=== PATIENT | female | born 1950 | race Caucasian/White ===

== ENCOUNTER 2019-04-08 09:44 | Emergency (ER) | payer MEDICARE ==
[~2019-04-08] VITALS: Ht 154.9 cm; Wt 98.9 kg
[2019-04-08] MEDS ORDERED: ONDANSETRON 4 MG/2 ML (SDV) Z0FRAN IVP STA (10:09)
[2019-04-08] MEDS ORDERED: KETOROLAC 30 MG/ML VIAL IVP STA (10:09)
[2019-04-08] MEDS ORDERED: NS IV 1000 ML 1,000 ML IV STA (10:09)
--- NOTE | 2019-04-08 10:20 | ED Headache ---
General Chief Complaint: Head/Cervical Problems Stated Complaint: HEADACHE,NAUSEA Source: patient, family History of Present Illness Date Seen by Provider: Apr 08, 2019 Time Seen by Provider: 09:46 Initial Comments 68-year-old female presenting with complaints of not feeling well this week. She has had a headache since Wednesday. The headache is frontal and behind both eyes. She also has some pressure in her right maxillary sinus. She has had a lot of nasal drainage. She has had chills but denies fever. She has generalized body aches and joint aches. She also has been noting some burning and discomfort with urination. She feels like she has been having some cough and difficulty breathing at times. She was feeling like things were getting worse so she had her family bring her to the emergency department today. She has not tried to get ahold of her regular doctor or go to see them throughout suite not feeling well. She had a cataract surgery about 6 weeks ago and continues to have some vision changes from that. She does have a history of 3 brain tumors with the first being operated on in 2004 and then having radiation in 2018 and the most recent brain tumor being nonoperable and present currently. She denies having a history of having headaches like this. She reports that it is severe for her. She denies any head trauma or falls. She has had no injuries. Allergies and Home Medications Allergies Coded Allergies: Sulfa (Sulfonamide Antibiotics) (Verified Allergy, Unknown, 04/08/19) iodine (Verified Allergy, Unknown, 04/08/19) metronidazole (Verified Allergy, Unknown, 04/08/19) Home Medications Ciprofloxacin HCl 500 Mg Tablet, 500 MG PO BID Prescribed by: ISAURA ZAMORA on 04/08/19 1219 Ondansetron 4 Mg Tab.rapdis, 4 MG PO Q6H PRN for NAUSEA/VOMITING Prescribed by: ISAURA ZAMORA on 04/08/19 1219 Patient Home Medication List Home Medication List Reviewed: Yes Review of Systems Review of Systems Constitutional: chills; No fever; malaise Eyes: Denies Blindness, Denies Blurred Vision; Decreased Acuity (since having cataract surgery several weeks ago.), Photophobia Ears, Nose, Mouth, Throat: see HPI (pressure behind both of her eyes); denies ear pain, denies ear discharge, denies nose pain; nose discharge (reports having some congestion and drainage.); denies epistaxis Respiratory: cough, short of breath Cardiovascular: No chest pain Gastrointestinal: No abdominal pain; nausea; No vomiting Genitourinary: dysuria Musculoskeletal: joint pain (generalized), muscle pain (generalized) Skin: No rash Psychiatric/Neurological: Anxiety, Headache (headache localized behind both of her eyes) Past Baccucg-Dzwjuo-Sctpid Hx Past Med/Social Hx: Reviewed Nursing Past Med/Soc Hx Patient Social History Alcohol Use: Denies Use Recreational Drug Use: No Smoking Status: Never a Smoker 2nd Hand Smoke Exposure: No Recent Hopitalizations: No Physical Abuse: No Sexual Abuse: No Mistreated: No Fear: No Immunizations Up To Date Tetanus Booster (TDap): Unknown Date of Pneumonia Vaccine: Mar 29, 2019 Seasonal Allergies Seasonal Allergies: Yes Past Medical History Surgeries: Yes (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, ) Eye Surgery Respiratory: No Cardiac: Yes High Cholesterol, Hypertension Neurological: Yes Brain Tumor Genitourinary: Yes (Adrenal Insufficency, Over active Bladder) Gastrointestinal: Yes Colitis, Gastroesophageal Reflux Musculoskeletal: Yes Fibromyalgia, Chronic Back Pain Endocrine: Yes Diabetes, Insulin dep HEENT: Yes (Bilateral Cataract removal) Cataract Cancer: No Psychosocial: Yes Depression Blood Disorders: No Physical Exam Vital Signs Vital Signs - First Documented 04/08/19 09:50 Temp 36.1 Pulse 79 Resp 20 B/P (MAP) 186/98 (127) Pulse Ox 96 O2 Delivery Room Air Capillary Refill : Height, Weight, BMI Height: '" Weight: lbs. oz. kg; BMI Method: General Appearance: WD/WN, mild distress, obese HEENT: PERRL/EOMI, pharynx normal, photophobia, other (tender to palpation over right maxillary sinus) Neck: non-tender, full range of motion, supple Cardiovascular: normal peripheral pulses, regular rate, rhythm Respiratory: chest non-tender, lungs clear, normal breath sounds Gastrointestinal: normal bowel sounds, non tender, soft Extremities: normal range of motion, non-tender, normal capillary refill Psychiatric: alert, oriented x 3 Crainal Nerves: normal hearing, normal speech, PERRL Coordination/Gait: normal gait Motor/Sensory: no motor deficit, no sensory deficit Skin: normal color, warm/dry Progress/Results/Core Measures Results/Orders Lab Results Laboratory Tests Test 04/08/19 10:25 04/08/19 10:30 Range/Units White Blood Count 6.6 4.3-11.0 10^3/uL Red Blood Count 4.57 4.35-5.85 10^6/uL Hemoglobin 13.3 11.5-16.0 G/DL Hematocrit 40 35-52 % Mean Corpuscular Volume 87 80-99 FL Mean Corpuscular Hemoglobin 29 25-34 PG Mean Corpuscular Hemoglobin Concent 33 32-36 G/DL Red Cell Distribution Width 12.9 10.0-14.5 % Platelet Count 368 130-400 10^3/uL Mean Platelet Volume 10.9 H 7.4-10.4 FL Neutrophils (%) (Auto) 54 42-75 % Lymphocytes (%) (Auto) 34 12-44 % Monocytes (%) (Auto) 9 0-12 % Eosinophils (%) (Auto) 2 0-10 % Basophils (%) (Auto) 1 0-10 % Neutrophils # (Auto) 3.6 1.8-7.8 X 10^3 Lymphocytes # (Auto) 2.3 1.0-4.0 X 10^3 Monocytes # (Auto) 0.6 0.0-1.0 X 10^3 Eosinophils # (Auto) 0.1 0.0-0.3 10^3/uL Basophils # (Auto) 0.1 0.0-0.1 10^3/uL Prothrombin Time 17.9 H 12.2-14.7 SEC INR Comment 1.4 0.8-1.4 Activated Partial Thromboplast Time 22 L 24-35 SEC Sodium Level 140 135-145 MMOL/L Potassium Level 4.0 3.6-5.0 MMOL/L Chloride Level 104 98-107 MMOL/L Carbon Dioxide Level 23 21-32 MMOL/L Anion Gap 13 5-14 MMOL/L Blood Urea Nitrogen 15 7-18 MG/DL Creatinine 1.11 0.60-1.30 MG/DL Estimat Glomerular Filtration Rate 49 BUN/Creatinine Ratio 14 Glucose Level 159 H 70-105 MG/DL Calcium Level 10.3 H 8.5-10.1 MG/DL Corrected Calcium 10.2 H 8.5-10.1 MG/DL Total Bilirubin 0.7 0.1-1.0 MG/DL Aspartate Amino Transf (AST/SGOT) 21 5-34 U/L Alanine Aminotransferase (ALT/SGPT) 16 0-55 U/L Alkaline Phosphatase 82 40-136 U/L Total Protein 7.1 6.4-8.2 GM/DL Albumin 4.1 3.2-4.5 GM/DL Lipase 37 8-78 U/L Urine Color YELLOW Urine Clarity SLT CLOUDY Urine pH 7.0 5-9 Urine Specific [place] 1.015 L 1.016-1.022 Urine Protein NEGATIVE NEGATIVE Urine Glucose (UA) NEGATIVE NEGATIVE Urine Ketones NEGATIVE NEGATIVE Urine Nitrite NEGATIVE NEGATIVE Urine Bilirubin NEGATIVE NEGATIVE Urine Urobilinogen 0.2 < = 1.0 MG/DL Urine Leukocyte Esterase TRACE H NEGATIVE Urine RBC (Auto) NEGATIVE NEGATIVE Urine RBC 0 /HPF Urine WBC 0-2 /HPF Urine Squamous Epithelial Cells 0-2 /HPF Urine Crystals NONE /LPF Urine Bacteria NEGATIVE /HPF Urine Casts PRESENT /LPF Urine Hyaline Casts 0-2 H /LPF Urine Mucus SMALL H /LPF Urine Culture Indicated NO My Orders Orders - ISAURA ZAMORA MD Comprehensive Metabolic Panel (04/08/19 10:09) Lipase (04/08/19 10:09) Ua Culture If Indicated (04/08/19 10:09) Ed Iv/Invasive Line Start (04/08/19 10:09) Cbc With Automated Diff (04/08/19 10:09) Ct Head/Sinuses Wo (04/08/19 10:09) Ns Iv 1000 Ml (Sodium Chloride 0.9%) (04/08/19 10:09) Ketorolac Injection (Toradol Injection) (04/08/19 10:09) Ondansetron Injection (Zofran Injectio (04/08/19 10:09) Protime With Inr (04/08/19 10:09) Partial Thromboplastin Time (04/08/19 10:09) Vital Signs/I&O 04/08/19 09:50 Temp 36.1 Pulse 79 Resp 20 B/P (MAP) 186/98 (127) Pulse Ox 96 O2 Delivery Room Air Progress Progress Note #1: Progress Note Obtain basic labs and urinalysis and she also reports having burning discomfort with urination and recent urinary tract infection. Recheck her pro time since she is taking warfarin. Obtain CT of her head and sinuses as she is having tenderness over the maxillary sinus and complaining of headache as well. For her pain try a dose of 15 mg IV Toradol in addition to IV fluids for hydration and Zofran for nausea. Progress Note #2: Progress Note Labs did not show any elevated white blood cell count or significant abnormality on the CBC. The chemistry shows mild elevation of her glucose. Her coags to demonstrate a INR that is subtherapeutic at 1.4. Her urine shows trace amount of leukocyte esterase with no bacteria or white blood cells. On her CT scan of the head and sinuses she has no acute intracranial process and there is no evidence of any sinusitis. Will review with the patient and family about the results and check with her about how she was responding to treatment. At this point she may just be suffering from the viral type infection. Progress Note #3: Progress Note Patient reports that her headache was improved with treatment. Advised to take her regular medicines when she gets home. We'll prescribe a few nausea tablets if needed to help keep her stomach settled. Make sure that she increases her Coumadin dose to help with the low INR. [facility]. For her dysuria and trace amount of leukocyte esterase Will have her take a 3 day course of Cipro as she had done recently from urgent care. She has had some elevation of her blood pressure during the emergency department visit but also was not taking all of her meds at home because of nausea and not eating normally. Advised that if her headache was getting worse again or not improving then I would recommend that she needed to follow-up or she could have an MRI done to evaluate her brain tumor. On the CT scan today that did not see any evidence of swelling or pressure in her brain that would indicate significant change in the tumor but an MRI would have finer detail. Diagnostic Imaging Diagonstic Imaging: CT Plain Films/CT/US/NM/MRI: head (and sinuses) Comments NAME: MAE MUNSON [facility] REC#: [id number] PT STATUS: REG ER : 1950 PHYSICIAN: ISAURA ZAMORA MD ADMIT DATE: 04/08/19/ER FS Draft POSDate of Exam:04/08/19 CT HEAD/SINUSES WO PROCEDURE: CT head without contrast and CT sinuses with contrast. TECHNIQUE: Routine noncontrast CT images were obtained through the head and sinuses. Coronal reformats of the sinuses were also performed and reviewed. Auto Exposure Controls were utilized during the CT exam to meet ALARA standards for radiation dose reduction. Indication: Headache with photophobia. Comparison: None. Discussion: No acute intracranial hemorrhage, mass, midline shift, or hydrocephalus. The ventricles and sulci are normal in size and configuration for age. Mottled appearance of the sphenoid bone just deep to the sella could be post-therapeutic in nature, due to an infiltrative process, or due to fibrous dysplasia. Recommend comparison with previous films if available. Patient history does report a previous brain tumor though exact type was not provided. The paranasal sinuses are well-aerated. No air-fluid level identified. The mastoid air cells are well-aerated. Nasal septum is near midline. No acute osseous abnormality. The osteomeatal units and sphenoid ostia are patent. Impression: 1. No acute intracranial abnormality identified. Sinuses are well-aerated. 2. Abnormal appearance of the skull base as described which is nonspecific and could be post-therapeutic in nature though an underlying infiltrative process is not excluded. Dictated on workstation # [id number] Dict: 04/08/19 1059 Trans: 04/08/19 1105 [facility] [id number] Interpreted by: MANN HOWELL MD Electronically signed by: Departure Impression Primary Impression: Frontal headache Additional Impressions: Cystitis without hematuria Subtherapeutic international normalized ratio (INR) Disposition: 01 HOME, SELF-CARE Condition: Stable Departure-Patient Inst. Decision time for Depature: 12:12 Referrals: NO,LOCAL PHYSICIAN (PCP/Family) Primary Care Physician Patient Instructions: Headache, Adult (DC), Prothrombin Time (PT) Test and International Normalized Ratio (INR), Acute Cystitis (DC) Add. Discharge Instructions: Instead of the 3 mg of Warfarin (Coumadin) daily for your blood thinner take 4 mg or 2 pills instead of the 1 and 1/2 pills. [facility] and let them know that your INR was 1.4 on WednesdayApril 08 so they can give you further instructions about managing your level and dose. Use the dissolving Zofran tablets every 6 hours as needed for nausea. Take the antibiotic for the next 3 days for your urine infection. If your headache keeps coming back or getting worse then I would recommend the next test might be an MRI to evaluate your brain tumor to look for swelling or change in the tumor as a potential source of the headache. When you get home make sure to start taking your regular medicines again and follow a bland easy diet All discharge instructions reviewed with patient and/or family. Voiced understanding. Scripts Ciprofloxacin HCl (Ciprofloxacin HCl) 500 Mg Tablet 500 MG PO BID for 3 Days, #6 TAB 0 Refills Prov: ISAURA ZAMORA MD 04/08/19 Ondansetron (Ondansetron Odt) 4 Mg Tab.rapdis 4 MG PO Q6H PRN for NAUSEA/VOMITING for 3 Days, #12 TAB 0 Refills Prov: ISAURA ZAMORA MD 04/08/19 ISAURA ZAMORA MD Apr 08, 2019 10:19 POS
[2019-04-08 10:45] LABS: HEMATOCRIT 40 % (35-52); HEMOGLOBIN 13.3 G/DL (11.5-16.0); LYMPHOCYTES % (AUTO) 34 % (12-44); MEAN CORPUSCULAR HEMOGLOBIN 29 PG (25-34); MEAN CORPUSCULAR HGB CONC 33 G/DL (32-36); MEAN CORPUSCULAR VOLUME 87 FL (80-99); MEAN PLATELET VOLUME 10.9 FL (7.4-10.4); MONOCYTES % (AUTO) 9 % (0-12); NEUTROPHILS % (AUTO) 54 % (42-75); PLATELET COUNT 368 10^3/uL (130-400); RED CELL DISTRIBUTION WIDTH 12.9 % (10.0-14.5); WHITE BLOOD COUNT 6.6 10^3/uL (4.3-11.0)
[2019-04-08 10:46] LABS: BASOPHILS # (AUTO) 0.1 10^3/uL (0.0-0.1); BASOPHILS % (AUTO) 1 % (0-10); EOSINOPHILS # (AUTO) 0.1 10^3/uL (0.0-0.3); EOSINOPHILS % (AUTO) 2 % (0-10); LYMPHOCYTES # (AUTO) 2.3 X 10^3 (1.0-4.0); MONOCYTES # (AUTO) 0.6 X 10^3 (0.0-1.0); NEUTROPHILS # (AUTO) 3.6 X 10^3 (1.8-7.8)
[2019-04-08 10:52] LABS: INR 1.4 (0.8-1.4); PROTHROMBIN TIME PATIENT 17.9 SEC (12.2-14.7)
[2019-04-08 11:04] LABS: CLARITY,URINE SLT CLOUDY; COLOR,URINE YELLOW; PROTEIN,URINE NEGATIVE (NEGATIVE)
[2019-04-08 11:05] LABS: BACTERIA,URINE NEGATIVE /HPF; BILIRUBIN,URINE NEGATIVE (NEGATIVE); GLUCOSE, URINE (UA) NEGATIVE (NEGATIVE); HYALINE CASTS, URINE 0-2 /LPF; KETONES,URINE NEGATIVE (NEGATIVE); LEUKOCYTE ESTERASE ,URINE TRACE (NEGATIVE); NITRITE,URINE NEGATIVE (NEGATIVE); RBC,URINE 0 /HPF; SQUAMOUS EPITHELIAL CELL,UR 0-2 /HPF; WBC,URINE 0-2 /HPF
--- NOTE | 2019-04-08 11:05 | Diagnostic Imaging Report ---
PROCEDURE: CT head without contrast and CT sinuses with contrast. TECHNIQUE: Routine noncontrast CT images were obtained through the head and sinuses. Coronal reformats of the sinuses were also performed and reviewed. Auto Exposure Controls were utilized during the CT exam to meet ALARA standards for radiation dose reduction. Indication: Headache with photophobia. Comparison: None. Discussion: No acute intracranial hemorrhage, mass, midline shift, or hydrocephalus. The ventricles and sulci are normal in size and configuration for age. Mottled appearance of the sphenoid bone just deep to the sella could be post-therapeutic in nature, due to an infiltrative process, or due to fibrous dysplasia. Recommend comparison with previous films if available. Patient history does report a previous brain tumor though exact type was not provided. The paranasal sinuses are well-aerated. No air-fluid level identified. The mastoid air cells are well-aerated. Nasal septum is near midline. No acute osseous abnormality. The osteomeatal units and sphenoid ostia are patent. Impression: 1. No acute intracranial abnormality identified. Sinuses are well-aerated. 2. Abnormal appearance of the skull base as described which is nonspecific and could be post-therapeutic in nature though an underlying infiltrative process is not excluded. Dictated by: Dictated on workstation # [id number]
[2019-04-08 11:07] LABS: BILIRUBIN,TOTAL 0.7 MG/DL (0.1-1.0); CALCIUM 10.3 MG/DL (8.5-10.1); CREATININE SERUM 1.11 MG/DL (0.60-1.30)
[2019-04-08 11:08] LABS: ALBUMIN 4.1 GM/DL (3.2-4.5); TOTAL PROTEIN 7.1 GM/DL (6.4-8.2)
[2019-04-08] MEDS ORDERED: ONDA4TAB11 PO (12:19)
[2019-04-08] MEDS ORDERED: CIPR500T4 PO (12:19)
[2019-04-08 12:24] VITALS: BP 186/98
== END 2019-04-08 12:24 | disposition home or self-care (01) ==
LOC: ER FS 09:46
DX: R51 Headache (principal); N30.90 Cystitis, unspecified without hematuria; R79.1 Abnormal coagulation profile; I10 Essential (primary) hypertension; E11.9 Type 2 diabetes mellitus without complications; E78.00 Pure hypercholesterolemia, unspecified; F32.9 Major depressive disorder, single episode, unspecified; K21.9 Gastro-esophageal reflux disease without esophagitis; M79.7 Fibromyalgia; Z88.2 Allergy status to sulfonamides; Z88.8 Allergy status to other drugs, medicaments and biological substances
CPT/HCPCS: 36415; 70450; 70486; 80053; 81000; 83690; 85025; 85610; 85730

== ENCOUNTER 2019-10-07 16:42 | Emergency (ER) | payer MEDICARE ==
[~2019-10-07] VITALS: Ht 154.9 cm; Wt 109.0 kg
[~2019-10-07 16:42] MED LIST: CIPR500T4 PO; ONDA4TAB11 PO
--- OUTSIDE RECORDS SUMMARY | 2019-10-07 16:51 | XMS REPORT | Continuity of Care Document ---
Author Organization Unknown Address Unknown Phone Unavailable Allergies Active Description Code Type Severity Reaction Onset Reported/Identified Relationship to Patient Clinical Status Yes IODINATED CONTRAST- ORAL AND IV DYE 4 4171 Drug Class High Anaphylaxis 07/16 Yes ARIPIPRAZOLE 67287 DRUG INGREDI Low Anxiety 07/16/2014 Yes CLARITHROMYCIN 64609 DRUG INGREDI Low Rash 07/16/2014 Yes DIVALPROEX 52012 DRUG N/A Other 07/16/2014 Yes METRONIDAZOLE 94286 DRUG INGREDI N/A Other 07/16/2014 Yes SULFA (SULFONAMIDE ANTIBIOTICS) 33 Drug Class Low Rash 07/16/2014 Yes IODINE 4540 DRUG INGREDI N/A N/A 03/11/2015 Yes MIRTAZAPINE 00414 DRUG INGREDI N/A N/A 03/11/2015 Yes POTASSIUM IODIDE 52554 DRUG INGRE DI N/A N/A 03/11/2015 Yes SODIUM IODIDE 40706 DRUG INGREDI N/A N/A 03/11/2015 Yes iodine [id number] Drug Allergy Unknown N/A 04/08/2019 Yes metronidazole [id number] Ovidio g Allergy Unknown N/A 04/08/2019 Yes Sulfa (Sulfonamide Antibiotics) [id number] 0491 Drug Allergy Unknown N/A 019 Medications There is no data. Problems Date Dx Coded Attending Type Code Diagnosis Diagnosed By 03/12/2015 YAIR VELEZ E03.9 Hypothyroidism, unspecified 03/12/2015 E03.9 Hypo thyroidism, unspecified 03/12/2015 ELINA ABDI E03.9 Hypothyroidism, unspecified 03/12/2015 YAIR VELEZ E03.9 Hypothyroidism, unspecified 03/12/2015 JONATHAN SIMEON E03.9 Hypothyroidism, unspecified 03/12/2015 ELINA ABDI E03.9 Hypothyroidism, unspecified 03/12/2015 YAIR VELEZ E03.9 Hypothyroidism, unspecified 03/12/2015 ELINA ABDI K58.9 Irritable bowel syndrome without diarrhea 08/27/2015 ELLIOTT BENDER N63 Unspecified lump in breast 08/27/2015 ELLIOTT BENDER N64 .59 Other signs and symptoms in breast 12/21/2016 DAVID WHITNEY MD WORKING M79.89 Other specified soft tissue disorders 01/11/2017 YAIR VELEZ I10 Essential (primary) hypertension 01/11/2017 I10 Essent ial (primary) hypertension 01/11/2017 FINKS, ELINA I10 Essential (primary) hypertension 01/11/2017 FINKS, ELINA I10 Essential (primary) hypertension 01/11/2017 ROGELIO DIAZ I10 Essential (primary) hypertension 01/11/2017 YAIR VELEZ I10 Essential (primary) hypertension 01/11/2017 FINKS, ELINA I10 Essential (primary) hypertension 01/11/2017 FINKS, ELINA I10 Essential (primary) hypertension 01/11/2017 ROGELIO DIAZ I10 Essential (primary) hypertension 01/11/2017 JONATHAN SIMEON I10 Essential (primary) hypertension 01/11/2017 FINKS, ELINA I10 Essential (primary) hypertension 01/11/2017 YAIR VELEZ I10 Essential (primary) hypertension 01/11/2017 FINKS, ELINA I10 Essential (primary) hypertension 01/11/2017 ROGELIO DIAZ R00.2 Palpitations 01/13/2017 ROGELIO DIAZ R07.9 Chest pain, unspecified 01/14/2017 YAIR VELEZ E11.22 Type 2 diabetes mellitus with diabetic chronic kidney disease 01/14/2017 YAIR VELEZ N18.3 Chronic kidney disease, stage 3 (moderate) 02/08/2017 YAIR VELEZ Z86.39 Personal history of other endocrine, nutritional and metabolic disease 03/09/2017 M17.0 Bila teral primary osteoarthritis of knee 03/09/2017 TRINIDAD, ELINA M17.0 Bilateral primary osteoarthritis of knee 03/09/2017 YAIR VELEZ E27.40 Unspecified adrenocortical insufficiency 03/09/2017 YAIR VELEZ E27.40 Unspecified adrenocortical insufficiency 03/09/2017 YAIR VELEZ E27.40 Unspecified adrenocortical insufficiency 03/09/2017 JONATHAN SIMEON E27.40 Unspecified adrenocortical insufficiency 03/09/2017 YAIR VELEZ E27.40 Unspecified adrenocortical insufficiency 03/09/2017 ELINA ABDI E27.40 Unspecified adrenocortical insufficiency 03/16/2017 YAIR VELEZ E78.2 Mixed hyperlipidemia 03/16/2017 TRINIDADELINA E78.2 Mixed hyperlipidemia 03/16/2017 YAIR VELEZ E78.2 Mixed hyperlipidemia 03/16/2017 MATYRODYELINA E78.2 Mixed hyperlipidemia 03/16/2017 ROGELIO DIAZ E78.2 Mixed hyperlipidemia 03/16/2017 JONATHAN SIMEON E78.2 Mixed hyperlipidemia 03/16/2017 ELINA ABDI E78.2 Mixed hyperlipidemia 03/16/2017 YAIR VELEZ E78.2 Mixed hyperlipidemia 04/07/2017 YAIR VELEZ R22.0 Localized swelling, mass and lump, head 04/07/2017 YAIR VELEZ R22.0 Localized swelling, mass and lump, head 05/14/2017 TRINIDADELINA Z00.00 Encounter for general adult medical examination without abnormal findings 05/14/2017 ELINA ABDI Z78.0 Asymptomatic menopausal state 05/14/2017 ELINA ABDI Z00.00 Encounter for general adult medical examination without abnormal findings 05/31/2017 JONATHAN SIMEON E23.6 Other disorders of pituitary gland 12/07/2017 ELINA ABDI Z68.41 Body mass index (BMI) 40.0-44.9, adult 12/07/2017 YAIR VELEZ Z68.41 Body mass index (BMI) 40.0-44.9, adult 02/24/2018 G47.00 Ins omnia, unspecified 02/24/2018 ELINA ABDI F11.20 Opioid dependence, uncomplicated 04/01/2018 M13.0 Poly arthritis, unspecified 04/01/2018 M13.0 Poly arthritis, unspecified 04/01/2018 F32.1 Radha r depressive disorder, single episode, moderate 04/01/2018 F32.1 Radha r depressive disorder, single episode, moderate 04/01/2018 ELINA ABDI F32.1 Major depressive disorder, single episode, moderate 04/01/2018 ELINA ABDI F32.1 Major depressive disorder, single episode, moderate 04/01/2018 ELINA ABDI F32.1 Major depressive disorder, single episode, moderate 04/01/2018 R53.83 Oth er fatigue 04/01/2018 R63.4 Abno rmal weight loss 04/27/2018 E27.49 Oth er adrenocortical insufficiency 04/27/2018 K59.00 Con stipation, unspecified 04/27/2018 R06.02 Shannan rtness of breath 04/27/2018 R53.83 Oth er fatigue 04/27/2018 Z79.899 Ot her senior living (current) drug therapy 05/24/2018 RENETTA CHANDLER [id number] Hyperglycemia 05/24/2018 CASSIAS, RENETTA [id number] Hyperglycemia 05/24/2018 CASSIAS, RENETTA 570498 Hyperglycemia 05/24/2018 CASSIAS, RENETTA [id number] Hyperglycemia 05/24/2018 CASSIAS, RENETTA [id number] Hyperglycemia 05/24/2018 CASSIAS, RENETTA [id number] Hyperglycemia 05/24/2018 CASSIAS, RENETTA R53.1 Weakness 05/24/2018 CASSIAS, RENETTA R73.9 Hyperglycemia, unspecified 05/24/2018 CASSIAS, RENETTA R53.1 Weakness 05/24/2018 CASSIAS, RENETTA R73.9 Hyperglycemia, unspecified 05/24/2018 CASSIAS, RENETTA R53.1 Weakness 05/24/2018 CASSIAS, RENETTA R73.9 Hyperglycemia, unspecified 05/27/2018 YAIR VELEZ [id number] Follow-up 05/27/2018 YAIR VELEZ 690 Type 2 Non-insulin 05/27/2018 YAIR VELEZ R10.84 Generalized abdominal pain 05/27/2018 ELINA ABDI E11.9 Type 2 diabetes mellitus without complications 05/27/2018 ELINA ABDI 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.4 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 (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 05/27/2018 ELINA ABDI E11.9 Type 2 diabetes mellitus without complications 05/27/2018 ELINA ABDI B37.3 Candidiasis of vulva and vagina 05/27/2018 ELINA ABDI B37.3 Candidiasis of vulva and vagina 05/27/2018 FINKSELINA R53.1 Weakness 05/27/2018 TRINIDADELINA R10.9 Unspecified abdominal pain 05/27/2018 TRINIDADELINA R10.9 Unspecified abdominal pain 05/30/2018 TRINIDADELINA R10.9 Unspecified abdominal pain 06/22/2018 OLIMPIA BARTON 612 Spots 06/22/2018 MICK, OLIMPIA 612 Spots 06/22/2018 MICK, OLIMPIA D48.5 Neoplasm of uncertain behavior of skin 06/22/2018 MICK, OLIMPIA Z87.2 Personal history of diseases of the skin and subcutaneous tissue 06/22/2018 MICKOLIMPIA Z87.2 Personal history of diseases of the skin and subcutaneous tissue 06/22/2018 MICKOLIMPIA L81.4 Other melanin hyperpigmentation 06/22/2018 MICKOLIMPIA L81.4 Other melanin hyperpigmentation 06/22/2018 ROGELIO DIAZ 269203 Hypertension 06/22/2018 ROGELIO DIAZ R00.2 Palpitations 06/22/2018 ROGELIO DIAZ R00.2 Palpitations 06/22/2018 ROGELIO DIAZ R00.2 Palpitations 06/22/2018 ROGELIO DIAZ R07.9 Chest pain, unspecified 06/28/2018 TRINIDADELINA 715 AWV 06/28/2018 TRINIDADELINA Z78.0 Asymptomatic menopausal state 06/28/2018 TRINIDADELINA Z78.0 Asymptomatic menopausal state 06/28/2018 Z78.0 Asym ptomatic menopausal state 07/04/2018 TRINIDADELINA E11.9 Type 2 diabetes mellitus without complications 07/04/2018 TRINIDADELINA Z00.00 Encounter for general adult medical examination without abnormal findings 07/04/2018 TRINIDADELINA 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.4 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 (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 07/07/2018 YAIR VELEZ [id number] Follow-up 07/07/2018 YAIR VELEZ 690 Type 2 Non-insulin 07/28/2018 ROGELIO DIAZ I10 Essential (primary) hypertension 07/28/2018 ROGELIO DIAZ R00.2 Palpitations 07/28/2018 ROGELIO DIAZ R07.9 Chest pain, unspecified 09/28/2018 YAIR VELEZ E11.22 Type 2 diabetes mellitus with diabetic chronic kidney disease 09/28/2018 YAIR VELEZ N18.3 Chronic kidney disease, stage 3 (moderate) 09/28/2018 YAIR VELEZ 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.4 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 (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 09/28/2018 JONATHAN SIMEON E11.22 Type 2 diabetes mellitus with diabetic chronic kidney disease 09/28/2018 JONATHAN SIMEON N18.3 Chronic kidney disease, stage 3 (moderate) 09/28/2018 JONATHAN SIMEON 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.4 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 (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 09/28/2018 ELINA ABDI E11.22 Type 2 diabetes mellitus with diabetic chronic kidney disease 09/28/2018 ELIAN ABDI N18.3 Chronic kidney disease, stage 3 (moderate) 09/28/2018 ELINA ABDI Z79.4 FPC (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 09/28/2018 YAIR VELEZ E11.22 Type 2 diabetes mellitus with diabetic chronic kidney disease 09/28/2018 YAIR VELEZ N18.3 Chronic kidney disease, stage 3 (moderate) 09/28/2018 YAIR VELEZ 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.4 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 (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 09/29/2018 YAIR VELEZ M85.80 Other specified disorders of bone density and structure, unspecified site 09/29/2018 JONATHAN SIMEON M85.80 Other specified disorders of bone density and structure, unspecified site 09/29/2018 ELINA ABDI M85.80 Other specified disorders of bone density and structure, unspecified site 09/29/2018 YAIR VELEZ M85.80 Other specified disorders of bone density and structure, unspecified site 09/29/2018 LAKESHIA FLORES Z12.31 Encounter for screening mammogram for malignant neoplasm of breast 09/29/2018 ELINA ABDI [id number] Follow-up 09/29/2018 ELINA ABDI I10 Essential (primary) hypertension 09/29/2018 ELINA ABDI N32.81 Overactive bladder 09/29/2018 ELINA ABDI R05 Cough 09/29/2018 ELINA ABDI T46.4X5 A Adverse effect of ferodhmtuoo-sfxjpqdmih-shuwbp inhibitors, initial encounter 09/30/2018 YAIR VELEZ E83.52 Hypercalcemia 10/07/2018 TRINIDADELINA [id number] Follow-up 10/07/2018 TRINIDAD ELINA M17.0 Bilateral primary osteoarthritis of knee 10/11/2018 TRINIDADELINA M17.0 Bilateral primary osteoarthritis of knee 10/14/2018 MICKOLIMPIA Z12.83 Encounter for screening for malignant neoplasm of skin 10/14/2018 MICKOLIMPIA L57.8 Other skin changes due to chronic exposure to nonionizing radiation 10/14/2018 MICKOLIMPIA D18.01 Hemangioma of skin and subcutaneous tissue 10/14/2018 MICKOLIMPIA L82.1 Other seborrheic keratosis 10/14/2018 MICKOLIMPIA D22.9 Melanocytic nevi, unspecified 10/14/2018 MICK, OLIMPIA D69.2 Other nonthrombocytopenic purpura 10/14/2018 MICKOLIMPIA D69.2 Other nonthrombocytopenic purpura 10/14/2018 MICKOLIMPIA L57.0 Actinic keratosis 10/14/2018 MICKOLIMPIA L57.0 Actinic keratosis 10/14/2018 MICKOLIMPIA L85.3 Xerosis cutis 10/14/2018 MICKOLIMPIA L85.3 Xerosis cutis 10/17/2018 TRINIDADELINA [id number] Follow-up 10/17/2018 TRINIDADELINA M17.0 Bilateral primary osteoarthritis of knee 10/17/2018 TRINIDADELINA M17.0 Bilateral primary osteoarthritis of knee 11/29/2018 JONATHAN SIMEON E66.01 Morbid (severe) obesity due to excess calories 11/29/2018 JONATHAN SIMEON Z68.41 Body mass index (BMI) 40.0-44.9, adult 11/29/2018 YAIR VELEZ E66.01 Morbid (severe) obesity due to excess calories 11/29/2018 YAIR VELEZ Z68.41 Body mass index (BMI) 40.0-44.9, adult 12/01/2018 ROGELIO DIAZ [id number] Palpitations 12/01/2018 ROGELIO DIAZ [id number] Hypertension 12/06/2018 JONATHAN SIMEON [id number] Follow-up 12/06/2018 JONATHAN SIMEON [id number] Follow-up 12/08/2018 JONATHAN SIMEON D32.0 Benign neoplasm of cerebral meninges 12/26/2018 SALO ABDINATHAN [id number] Follow-up 12/26/2018 ELINA ABDI R05 Cough 12/26/2018 ELINA ABDI R10.11 Right upper quadrant pain 12/26/2018 ELINA ABDI R05 Cough 12/26/2018 ELINA ABDI R10.11 Right upper quadrant pain 12/26/2018 R05 Cough 12/26/2018 OLIMPIA BARTON Skin Check 04/06/2019 YAIR VELEZ E21.0 Primary hyperparathyroidism 04/08/2019 ISAURA ZAMORA MD, Ot E11.9 TYPE 2 DIABETES MELLITUS WITHOUT COMPLIC 04/08/2019 ISAURA ZAMORA MD, Ot E78.0 0 PURE HYPERCHOLESTEROLEMIA, UNSPECIFIED 04/08/2019 ISAURA ZAMORA MD, Ot F32.9 MAJOR DEPRESSIVE DISORDER, SINGLE EPISOD 04/08/2019 ISAURA ZAMORA MD, Ot I10 ESSENTIAL (PRIMARY) HYPERTENSION 04/08/2019 ISAURA ZAMORA MD, Ot K21.9 GASTRO-ESOPHAGEAL REFLUX DISEASE WITHOUT 04/08/2019 ISAURA ZAMORA MD, Ot M79.7 FIBROMYALGIA 04/08/2019 ISAURA ZAMORA MD, Ot N30.9 0 CYSTITIS, UNSPECIFIED WITHOUT HEMATURIA 04/08/2019 ISAURA ZAMORA MD Ot R51 HEADACHE 04/08/2019 ISAURA ZAMORA MD, Ot R79.1 ABNORMAL COAGULATION PROFILE 04/08/2019 ISAURA ZAMORA MD, Ot Z88.2 ALLERGY STATUS TO SULFONAMIDES STATUS 04/08/2019 ISAURA ZAMORA MD, Ot Z88.8 ALLERGY STATUS TO OTH DRUG/MEDS/BIOL SUB 04/11/2019 ISAURA ZAMORA MD, Ot E11.9 TYPE 2 DIABETES MELLITUS WITHOUT COMPLIC 04/11/2019 ISAURA ZAMORA MD, Ot E78.0 0 PURE HYPERCHOLESTEROLEMIA, UNSPECIFIED 04/11/2019 ISAURA ZAMORA MD, Ot F32.9 MAJOR DEPRESSIVE DISORDER, SINGLE EPISOD 04/11/2019 ISAURA ZAMORA MD Ot I10 ESSENTIAL (PRIMARY) HYPERTENSION 04/11/2019 ISAURA ZAMORA MD, Ot K21.9 GASTRO-ESOPHAGEAL REFLUX DISEASE WITHOUT 04/11/2019 ISAURA ZAMORA MD, Ot M79.7 FIBROMYALGIA 04/11/2019 ISAURA ZAMORA MD, Ot N30.9 0 CYSTITIS, UNSPECIFIED WITHOUT HEMATURIA 04/11/2019 ISAURA ZAMORA MD, Ot R51 HEADACHE 04/11/2019 ISAURA ZAMORA MD, Ot R79.1 ABNORMAL COAGULATION PROFILE 04/11/2019 ISAURA ZAMORA MD, Ot Z88.2 ALLERGY STATUS TO SULFONAMIDES STATUS 04/11/2019 ISAURA ZAMORA MD, Ot Z88.8 ALLERGY STATUS TO OTH DRUG/MEDS/BIOL SUB 06/08/2019 EDWINA ARELLANO K86.2 Cyst of pancreas 06/20/2019 ELINA ABDI 715 AWV 06/20/2019 ELINA ABDI D68.69 Other thrombophilia 06/20/2019 ELINA ABDI D68.61 Antiphospholipid syndrome 06/20/2019 ELINA ABDI M79.10 Myalgia, unspecified site 06/20/2019 OLIMPIA BARTON 612 Spots 06/20/2019 OLIMPIA BARTON S90.222A Contusion of left lesser toe(s) with damage to nail, initial encounter 06/20/2019 ELINA ABDI M79.10 Myalgia, unspecified site 09/21/2019 ELINA ABDI R06.02 Shortness of breath 09/21/2019 ELINA ABDI M79.10 Myalgia, unspecified site 09/21/2019 ELINA ABDI M35.9 Systemic involvement of connective tissue, unspecified 09/21/2019 ELINA ABDI M75.22 Bicipital tendinitis, left shoulder Procedures Code Description Performed By Per formed On [id number] GL UCOSE POC 05/24/2018 ECG1 ECG 05/24/2018 ECG1 ECG 05/24/2018 [id number] CB C AND DIFF (MANUAL DIFF IF NECESSARY) 05/24/2018 [id number] CO MPREHENSIVE METABOLIC PANEL 05/24/2018 [id number] TR OPONIN 05/24/2018 IVT11 SALI NE LOCK IV 05/24/2018 [id number] CB C AND DIFF (MANUAL DIFF IF NECESSARY) 05/24/2018 [id number] CO MPREHENSIVE METABOLIC PANEL 05/24/2018 [id number] TR OPONIN 05/24/2018 [id number] UR INALYSIS (INCLUDES MICROSCOPIC REVIEW, IF INDICATED) 05/24/2018 [id number] UR INALYSIS (INCLUDES MICROSCOPIC REVIEW, IF INDICATED) 05/24/2018 [id number] XR CHEST SINGLE VIEW FRONTAL 05/24/2018 [id number] XR CHEST SINGLE VIEW FRONTAL 05/24/2018 POC10 POCT GLUCOSE 05/27/2018 [id number] TI SSUE PATHOLOGY OR BIOPSY 06/22/2018 CAR54 ECG 06/22/2018 CAR54 ECG 06/22/2018 POC4 POCT GLYCOSYLATED HEMOGLOBIN (HGB A1C) 06/28/2018 [id number] DE XA BONE DENSITY HIP PELVIS SPINE 06/28/2018 [id number] DE XA BONE DENSITY HIP PELVIS SPINE 06/28/2018 ECH25 ECHO COMPLETE WITH DOPPLER AND COLOR FLOW 07/28/2018 POC4 POCT GLYCOSYLATED HEMOGLOBIN (HGB A1C) 09/28/2018 POC4 POCT GLYCOSYLATED HEMOGLOBIN (HGB A1C) 09/29/2018 [id number] XR CHEST 2 VIEWS (PA AND LATERAL) 12/26/2018 POC4 POCT GLYCOSYLATED HEMOGLOBIN (HGB A1C) 06/07/2019 [id number] MR I MRCP ABDOMEN W WO CONTRAST 06/08/2019 POC4 POCT GLYCOSYLATED HEMOGLOBIN (HGB A1C) 06/08/2019 Results Test Result Range GLUCOSE POC - 05/24/18 14:15 GLUCOSE POC 322 70-100 CBC AND DIFF (MANUAL DIFF IF NECESSARY) - 05/24/18 14:25 WBC 8.78 4.00-11.00 Hematocrit 40 36-45 Hemoglobin 14.0 12.0-15.0 MCH 30 27-34 MCHC 35 32-36 MCV 84 80-99 MPV 11.7 9.4-12.3 Platelet Count 250 140-400 RBC 4.72 4.00-5.00 RDW 12.1 9.0-14.5 NUCLEATED RBCS 0 0-0 % NEUTROPHILS 58 45-78 %LYMPHOCYTES 30 15-47 %MONOCYTES 9 0-12 %EOSINOPHILS 1 0-7 %BASOPHILS 1 0-2 % IMM GRANS 2 0-1 # GRANULOCYTES 5.22 1.70-6.80 # LYMPHOCYTES 2.67 1.00-3.30 # MONOCYTES 0.75 0.20-0.90 # EOSINOPHILS 0.09 0.00-0.40 # BASOPHILS 0.05 0.00-0.10 BASIC METABOLIC PANEL - 05/27/18 12:57 Blood Urea Nitrogen 21 7-26 Chloride 95 96-112 Carbon Dioxide 24 20-32 Creatinine 1.1 0.4-1.1 Glucose 314 70-100 Potassium 4.2 3.5-5.3 Sodium 129 133-147 Calcium 10.9 8.4-10.5 Anion Gap 9 TX 5-17 GFR FEMALE AA 59 TX 60-200 GFR FEMALE NON-AA 50 TX 60-200 LIPID PANEL - 05/27/18 12:57 HDL Cholesterol 96 40-110 LDL Cholesterol 51 0-99 Triglycerides 140 0-150 CHOLESTEROL 175 100-200 NON-HDL CHOLESTEROL 79 0-130 CHOLESTEROL/HDL RATIO 1.8 TX 0.0-4.5 INSULIN - 05/27/18 12:57 Insulin 8.5 3.0-24.0 MICROALBUMIN RANDOM - 05/27/18 12:57 Creatinine Urine 122.1 NRG MICROALBUMIN MG/DL 4.10 NRG MICROALBUMIN/CREATININE RATIO 33.58 0.00-30.00 C-PEPTIDE - 05/27/18 12:57 C-Peptide 5.2 1.1-4.4 RAUDEL-65 AUTOANTIBODY - 05/27/18 12:57 RAUDEL-65 Autoantibody <5.0 0.0-5.0 PANCREATIC ISLET CELL AB - 05/27/18 12:5 7 PANCREATIC ISLET CELL AB Negative Neg:< 1:1 INSULIN AB - 05/27/18 12:57 Insulin Ab <5.0 NRG PARATHYROID HORMONE INTACT - 06/16/18 13 :55 Parathyroid Hormone Intact 108 10- 65 BASIC METABOLIC PANEL - 06/16/18 13:55 Blood Urea Nitrogen 16 7-26 Chloride 102 96-112 Carbon Dioxide 26 20-32 Creatinine 1.1 0.4-1.1 Glucose 150 70-100 Potassium 4.1 3.5-5.3 Sodium 137 133-147 Calcium 10.9 8.4-10.5 Anion Gap 9 TX 5-17 GFR FEMALE AA 59 TX 60-200 GFR FEMALE NON-AA 50 TX 60-200 VITAMIN D 1,25 DIHYDROXY (CALCITRIOL) - 06/16/18 13:55 VITAMIN D 1,25 DIHYDROXY 50.1 19.9- 79.3 CALCIUM URINE 24HR - 06/28/18 04:30 Total Volume 735 NRG Calcium Urine 11.2 NRG CALCIUM URINE 24 CALC 82.3 100.0-30 0.0 CALCIUM URINE 24HR - 09/29/18 09:35 Total Volume 2400 NRG Calcium Urine 9.4 NRG CALCIUM URINE 24 CALC 225.6 100.0-30 0.0 COMPREHENSIVE METABOLIC PANEL - 12/26/18 11:40 Alanine Aminotransferase 16 0-34 Albumin 3.8 3.5-5.0 Alkaline Phosphatase 85 42-140 Aspartate Aminotransferase 26 15- 46 Blood Urea Nitrogen 13 7-26 Chloride 103 96-112 Carbon Dioxide 27 20-32 Creatinine 1.0 0.4-1.1 Glucose 96 70-100 Potassium 4.3 3.5-5.3 Sodium 138 133-147 Calcium 9.8 8.4-10.5 Anion Gap 7 TX 5-17 Protein Total Serum 6.8 6.0-8.2 BILIRUBIN TOTAL 0.5 0.2-1.3 GFR FEMALE AA 66 60-200 GFR FEMALE NON-AA 55 60-200 CREATINE KINASE - 12/26/18 11:40 Creatine Kinase 117 NRG LIPID PANEL - 12/26/18 11:40 HDL Cholesterol 96 40-110 LDL Cholesterol 53 0-99 Triglycerides 104 0-150 CHOLESTEROL 170 100-200 NON-HDL CHOLESTEROL 74 0-130 CHOLESTEROL/HDL RATIO 1.8 TX 0.0-4.5 Complete blood count (CBC) with automate d white blood cell (WBC) differential - 04/08/19 10:25 Blood leukocytes automated count (number/volume) 6.6 10*3/uL 4.3-11.0 Blood erythrocytes automated count (number/volume) 4.57 10*6/uL 4.35-5.85 Venous blood hemoglobin measurement (mass/volume) 13.3 g/dL 11.5-16.0 Blood hematocrit (volume fraction) 40 % 35-52 Automated erythrocyte mean corpuscular volume 87 [ foz_us] 80-99 Automated erythrocyte mean corpuscular h emoglobin (mass per erythrocyte) 29 pg 25-34 Automated erythrocyte mean corpuscular h emoglobin concentration measurement (mass/volume) 33 g/dL 32-36 Automated erythrocyte distribution width ratio 12. 9 % 10.0- 14.5 Automated blood platelet count (count/volume) 368 10*3/uL 130-400 Automated blood platelet mean volume measurement 10.9 [foz_us] 7.4-10.4 Automated blood neutrophils/100 leukocytes 54 % 42-75 Automated blood lymphocytes/100 leukocytes 34 % 12-44 Blood monocytes/100 leukocytes 9 % 0-12 Automated blood eosinophils/100 leukocytes 2 % 0-10 Automated blood basophils/100 leukocytes 1 % 0-10 Blood neutrophils automated count (number/volume) 3.6 10*3 1.8-7.8 Blood lymphocytes automated count (number/volume) 2.3 10*3 1.0-4.0 Blood monocytes automated count (number/volume) 0. 6 10*3 0.0-1.0 Automated eosinophil count 0.1 10*3/uL 0 .0-0.3 Automated blood basophil count (count/volume) 0.1 10*3/uL 0.0-0.1 PT panel in platelet poor plasma by coag ulation assay - 04/08/19 10:25 Prothrombin time (PT) in platelet poor plasma by coagu lation assay 17.9 s 12.2-14.7 INR in platelet poor plasma or blood by coagulation as say 1.4 0.8-1.4 Activated partial thromboplastin time (a PTT) in platelet poor plasma bycoagulation assay - 04/08/19 10:25 Activated partial thromboplastin time (a PTT) in platelet poor plasma bycoagulation assay 22 s 24-35 Comprehensive metabolic panel - 04/08/19 10:25 Serum or plasma sodium measurement (moles/volume) 140 mmol/L 135-145 Serum or plasma potassium measurement (moles/volume) 4.0 mmol/L 3.6-5.0 Serum or plasma chloride measurement (moles/volume) 104 mmol/L 98-107 Carbon dioxide 23 mmol/L 21-32 Serum or plasma anion gap determination (moles/volume) 13 mmol/L 5-14 Serum or plasma urea nitrogen measurement (mass/volume ) 15 mg/dL 7-18 Serum or plasma creatinine measurement (mass/volume) 1.11 mg/dL 0.60-1.30 Serum or plasma urea nitrogen/creatinine mass ratio 14 NRG Serum or plasma creatinine measurement w ith calculation of estimated glomerular filtration rate 49 NRG Serum or plasma glucose measurement (mass/volume) 159 mg/dL 70-105 Serum or plasma calcium measurement (mass/volume) 10.3 mg/dL 8.5-10.1 Serum or plasma total bilirubin measurement (mass/volu me) 0.7 mg/dL 0.1-1.0 Serum or plasma alkaline phosphatase dominga surement (enzymatic activity/volume) 82 U/L 40-136 Serum or plasma aspartate aminotransfera se measurement (enzymatic activity/volume) 21 U/L 5-34 Serum or plasma alanine aminotransferase measurement (enzymatic activity/volume) 16 U/L 0-55 Serum or plasma protein measurement (mass/volume) 7.1 g/dL 6.4-8.2 Serum or plasma albumin measurement (mass/volume) 4.1 g/dL 3.2-4.5 CALCIUM CORRECTED 10.2 mg/dL 8.5-10.1 Lipase - 04/08/19 10:25 Lipase 37 U/L 8-78 Complete urinalysis with reflex to cultu re - 04/08/19 10:30 Urine color determination YELLOW NRG Urine clarity determination SLT CLOUDY NRG Urine pH measurement by test strip 7.0 5-9 Specific gravity of urine by test strip 1.015 1.016-1.022 Urine protein assay by test strip, semi-quantitative NEGATIVE NEGATIVE Urine glucose detection by automated test strip NE GATIVE NEGATIVE Erythrocytes detection in urine sediment by light micr oscopy NEGATIVE NEGATIVE Urine ketones detection by automated test strip NE GATIVE NEGATIVE Urine nitrite detection by test strip NEGATIVE NEGATIVE Urine total bilirubin detection by test strip NEGA TIVE NEGATIVE Urine urobilinogen measurement by automated test strip (mass/volume) 0.2 mg/dL < = 1.0 Urine leukocyte esterase detection by dipstick TRA CE NEGATIVE Automated urine sediment erythrocyte cou nt by microscopy (number/high power field) 0 [HPF] NRG Automated urine sediment leukocyte count by microscopy (number/high power field) [HPF] NRG Bacteria detection in urine sediment by light microsco py NEGATIVE NRG Squamous epithelial cells detection in u rine sediment by light microscopy 0-2 NRG Crystals detection in urine sediment by light microsco py NONE NRG Casts detection in urine sediment by light microscopy PRESENT NRG Mucus detection in urine sediment by light microscopy SMALL NRG Complete urinalysis with reflex to culture NO NRG Hyaline casts detection in urine sediment by light elliott roscopy 0-2 NRG MICROALBUMIN RANDOM - 06/08/19 16:23 Creatinine Urine 174.5 NRG MICROALBUMIN MG/DL 1.00 NRG MICROALBUMIN/CREATININE RATIO 5.73 0.00-30.00 CBC AND DIFF (MANUAL DIFF IF NECESSARY) - 06/20/19 09:57 WBC 7.82 4.00-11.00 Hematocrit 35 36-45 Hemoglobin 11.8 12.0-15.0 MCH 29 27-34 MCHC 34 32-36 MCV 88 80-99 MPV 12.4 9.4-12.3 Platelet Count 266 140-400 RBC 4.01 4.00-5.00 RDW 12.5 11.5-14.5 NUCLEATED RBCS 0 0-0 % NEUTROPHILS 68 45-78 %LYMPHOCYTES 23 15-47 %MONOCYTES 7 0-12 %EOSINOPHILS 1 0-7 %BASOPHILS 1 0-2 % IMM GRANS 1 0-1 # GRANULOCYTES 5.37 1.70-6.80 # LYMPHOCYTES 1.78 1.00-3.30 # MONOCYTES 0.57 0.20-0.90 # EOSINOPHILS 0.05 0.00-0.40 # BASOPHILS 0.05 0.00-0.10 VITAMIN D, 25-HYDROXY - 06/20/19 09:57 VITAMIN D 25-HYDROXY 35 25-80 COMPREHENSIVE METABOLIC PANEL - 06/20/19 09:57 Alanine Aminotransferase 16 0-34 Albumin 3.9 3.5-5.0 Alkaline Phosphatase 98 42-140 Aspartate Aminotransferase 23 15- 46 Blood Urea Nitrogen 14 7-26 Chloride 103 96-112 Carbon Dioxide 26 20-32 Creatinine 1.0 0.4-1.1 Glucose 147 70-100 Potassium 4.3 3.5-5.3 Sodium 136 133-147 Calcium 9.8 8.4-10.5 Anion Gap 7 TX 5-17 Protein Total Serum 6.7 6.0-8.2 BILIRUBIN TOTAL 0.4 0.2-1.3 GFR FEMALE AA 66 60-200 GFR FEMALE NON-AA 55 60-200 CREATINE KINASE - 06/20/19 09:57 Creatine Kinase 111 NRG LIPID PANEL - 06/20/19 09:57 HDL Cholesterol 79 40-110 LDL Cholesterol 54 0-99 Triglycerides 98 0-150 CHOLESTEROL 153 100-200 NON-HDL CHOLESTEROL 74 0-130 CHOLESTEROL/HDL RATIO 1.9 TX 0.0-4.5 THYROID STIMULATING HORMONE - 06/20/19 0 9:57 Thyroid Stimulating Hormone 0.82 0. 47-4.68 ERYTHROCYTE SEDIMENTATION RATE - 0 09:57 SED RATE 40 0-17 URINALYSIS REFLEX - 06/20/19 09:57 APPEARANCE, URINE Yellow NRG GLUCOSE URINE Negative Negative BILIRUBIN URINE Negative Negative KETONES URINE Negative Negative SPECIFIC GRAVITY UA 1.015 TX 1.001-1.03 0 HEMOGLOBIN URINE Negative Negative PH URINE 6.5 TX 5.0-8.0 PROTEIN URINE QUAL Negative Negative UROBILINOGEN URINE Negative Negative NITRITE URINE Negative Negative LEUKOCYTE ESTERASE Negative Negative Radiology Report from [id number] on 11/2016 10:26:48 LAYLAEXAM: DIGITAL DIAGNOSTIC MAMMOGRAM W 3D BILATERALEXAM DATE: 12/21/2016INDICATION: Right axillary swelling. No palpable abnormality.TECHNIQUE: 3-D tomographic imaging and 2-D C-view imaging of both breasts was obtained. In addition to the radiologist assessment, CADwas used.COMPARISON: 08/25/2012, 06/26/2014, and 08/27/2015FINDINGS: The breasts are almost entirely fatty replaced.No masses or calcifications suspicious for malignancy are identified.There is no skin thickening or nipple retraction. There is nosignificant axillary adenopathy.IMPRESSION:Negative bilateral diagnostic mammogram without change from earlierstudies. Annual follow-up recommended.BIRADS Category 1 Assessment: NegativeFollow up Recommendation: Routine annual screening mammographyFinalized by Amador Greer on 12/21/2016 1 1:24[facility] b-1 kw Encounters ACCT No. Visit Date/Time Discharge Status Pt. Type Provider Facility Loc./Unit Complaint [id number] 09/21/2019 09:34:51 23:59:59 [facility] Outpatient ELINA ABDI SR PC Follow-up [id number] 07/18/2019 10:31:20 23:59:00 DIS Outpatient ELINA ABDI [facility] CT Solitary pulmonary nodule [id number] 06/20/2019 10:55:31 23:59:59 [facility] Outpatient OLIMPIA BARTON DERM Spots [id number] 06/20/2019 09:57:30 23:59:59 [facility] Outpatient [facility] Encounter for general adult medical exam ination without abnormal findings [id number] 06/20/2019 08:55:21 23:59:59 [facility] Outpatient ELINA ABDIMG SR PC AWV [id number] 06/08/2019 16:17:46 23:59:59 CLS Outpatient JMDE L AB Type 2 diabetes mellitus with diabetic c hronic kidney disease [id number] 06/08/2019 14:38:40 23:59:59 CLS Outpatient YAIR VELEZ [facility] JMDE Follow-up [id number] 06/08/2019 11:56:37 23:59:00 DIS Outpatient EDWINA ARELLANO SLS MRI Cyst of pancreas [id number] 12/26/2018 12:30:59 23:59:59 CLS Outpatient OLIMPIA BARTON DERM Skin Check [id number] 12/26/2018 11:44:10 23:59:59 CLS Outpatient [facility] S R XR [id number] 12/26/2018 11:40:41 23:59:59 CLS Outpatient [facility] S R LAB Essential (primary) hypertension [id number] 12/26/2018 09:47:34 23:59:59 CLS Outpatient ELINA ABDI [facility] SR PC Follow-up [id number] 12/06/2018 13:54:11 23:59:59 CLS Outpatient JONATHAN SIMEON [facility] Follow-up [id number] 12/01/2018 10:51:54 23:59:59 CLS Outpatient JOEROGELIO [facility] Hypertension [id number] 10/17/2018 13:29:37 23:59:59 CLS Outpatient ELINA ABDI [facility] PC Follow-up [id number] 10/14/2018 10:29:04 23:59:59 CLS Outpatient OLIMPIA BARTON DERM Skin Check [id number] 10/07/2018 13:03:29 019 23:59:59 CLS Outpatient ELINA ABDI [facility] SR PC Follow-up [id number] 09/29/2018 12:28:31 23:59:59 CLS Outpatient TRINIDADELINA [facility] SR PC Follow-up [id number] 09/29/2018 10:38:26 23:59:59 CLS Outpatient YAIR VELEZ [facility] JMDE Follow-up [id number] 09/29/2018 18:08:15 23:59:00 DIS Outpatient YAIR VELEZ [facility] LAB Hypercalcemia [id number] 09/29/2018 10:26:40 18:07:00 DIS Outpatient LAKESHIA FLORES [facility] MAMMO Encounter for screening mammogram for ma lignant neoplasm of breast [id number] 09/16/2018 08:05:19 23:59:59 CLS Outpatient [facility] O UT IMG Counseling, unspecified [id number] 09/16/2018 08:03:38 23:59:59 CLS Outpatient [facility] O UT IMG Counseling, unspecified [id number] 09/16/2018 08:03:22 23:59:59 CLS Outpatient [facility] O UT IMG Counseling, unspecified [id number] 09/16/2018 08:03:04 23:59:59 CLS Outpatient [facility] O UT IMG Counseling, unspecified [id number] 07/28/2018 12:51:02 23:59:00 DIS Outpatient ROGELIO DIAZ [facility] CV US Palpitations [id number] 07/07/2018 09:48:40 23:59:59 CLS Outpatient YAIR VELEZ [facility] JMDE Follow-up [id number] 07/02/2018 12:46:53 23:59:00 DIS Outpatient ALEK MÁRQUEZ [facility] MRI Benign neoplasm of meninges, unspecified [id number] 06/28/2018 12:28:15 23:59:59 CLS Outpatient SLS SL RL Hypercalcemia [id number] 06/28/2018 11:41:13 23:59:59 CLS Outpatient [facility] S R DXA [id number] 06/28/2018 10:33:53 23:59:59 CLS Outpatient ELINA ABDIMG SR PC AWV [id number] 06/22/2018 12:28:11 23:59:59 CLS Outpatient ROGELIO DIAZ [facility] Hypertension [id number] 06/22/2018 10:36:05 23:59:59 CLS Outpatient OLIMPIA BARTON MF DERM Spots [id number] 06/16/2018 13:55:20 23:59:59 CLS Outpatient JMDE L AB Hypercalcemia [id number] 06/09/2018 11:54:16 23:59:00 DIS Outpatient YAIR VELEZ [facility] MRI Generalized abdominal pain [id number] 05/27/2018 13:47:51 23:59:59 CLS Outpatient ELINA ABDI [facility] SR PC Type 2 diabetes mellitus without complic ations [id number] 05/27/2018 12:43:39 23:59:59 CLS Outpatient JMDE L AB Type 2 diabetes mellitus with diabetic c hronic kidney disease [id number] 05/27/2018 11:28:38 23:59:59 CLS Outpatient YAIR VELEZ [facility] JMDE Follow-up [id number] 05/24/2018 14:15:55 16:48:00 DIS Emergency RENETTA CHANDLER [facility] ED Elevated blood sugar and weakness [id number] 09/14/2019 07:53:40 Document Registration [id number] 09/04/2019 13:20:46 Document Registration [id number] 08/15/2019 13:58:34 Document Registration [id number] 08/11/2019 14:21:45 Document Registration [id number] 08/03/2019 12:53:12 Document Registration [id number] 07/20/2019 16:01:48 Document Registration [id number] 07/11/2019 10:16:32 Document Registration [id number] 07/06/2019 12:43:16 Document Registration [id number] 06/27/2019 16:55:42 Document Registration [id number] 06/27/2019 10:56:41 Document Registration [id number] 06/23/2019 14:59:32 Document Registration [id number] 11/16/2018 14:28:49 Document Registration [id number] 09/09/2018 14:54:08 Document Registration [id number] 08/10/2018 07:38:20 Document Registration [id number] 08/05/2018 09:04:37 Document Registration [id number] 06/29/2018 13:39:16 Document Registration [id number] 06/13/2018 15:00:52 Document Registration [id number] 06/13/2018 11:38:14 Document Registration [id number] 06/07/2018 09:11:14 Document Registration [id number] 05/27/2018 14:09:07 Document Registration [id number] 05/26/2018 01:17:35 Document Registration [id number] 04/27/2018 11:15:36 Document Registration [id number] 12/21/2016 10:59:26 12/21/2016 23: 59:00 DIS Outpatient DAVID WHITNEY MD [facility] [id number] 08/27/2015 10:59:33 08/27/2015 23: 59:00 [id number] 10/13/2014 10:36:00 10/13/2014 11: 55:00 DIS Emergency SACHIN PETERSON [facility] [id number] 06/26/2014 11:00:00 06/26/2014 23: 59:00 DIS Outpatient DVAID WHITNEY MD [facility] [id number] 04/08/2019 09:46:00 019 12:24:00 DIS Emergency SERA JOSEPH, ISAURA Wadsworth [facility] ER FS HEADACHE,NAUSEA
--- NOTE | 2019-10-07 17:30 | NUR ---
Pt refusing lab draws. Pt states she has no need for labs, pt requesting more pain meds. Dr Shaw notified.
--- NOTE | 2019-10-07 17:45 | NUR ---
Pt out of room and screaming she is leaving. "I am leaving because Dr said I am drug seeking and because I am requesting pain medication now before anyone does anything." states, "She just rec'd Fentanyl 50 mcg IV per EMS and I want to see xray before more meds."
[2019-10-07] MEDS ORDERED: fentaNYL INJECTION 100 MCG/2 ML AMP ONE (17:56)
--- NOTE | 2019-10-07 17:56 | ED Lower Extremity ---
General Chief Complaint: Trauma-Non Activation Stated Complaint: FALL; RT SHOULDER INJ Nursing Triage Note: EMS transport of patient that called 911 reporting a fall coming up her staircase from basement inside house and falling down on the last step. Pt was reaching out to try to catch self with R arm. c/o severe R upper arm/shoulder pain. No obvious deformity is noted. Pt reports having already injured L shoulder in past. EMS gave Fentanyl 50 mcg and Zofran 4 mg IV. Nursing Sepsis Screen: No Definite Risk Source: patient Exam Limitations: no limitations (the patient reports severe pain has received 50 g of fentanyl prior to coming to the facility) History of Present Illness Date Seen by Provider: October 07, 2019 Time Seen by Provider: 17:18 Initial Comments 69-year-old female presents after a fall in the house. Patient was climbing up her stairs and tripped over her top stair landing on her right shoulder. Patient sustained immediate pain the right shoulder. She says she has chronic rotator cuff tears on her left shoulder and purposely fell on the right side she also has pain in the clavicle. She has no pain in the neck and no history of head trauma or loss of consciousness with this event. Patient initially denied having any pain medicines and received 50 g of fentanyl in the EMS unit. C hecking the pharmacy monitoring program the patient is on tramadol 50 mg and on alprazolam 0.5 mg up to 4 times a day from 2 different providers. Patient does receive services at the [facility] in addition to a community provider. Plan to the patient her cell phone she was able to take and put a towel between her legs without difficulty but when I was examining her she was wincing with pain. Patient states she cannot move her right shoulder x-rays of the shoulder and the clavicle have been ordered. Patient reports she has mixed connective tissue disease. She states that she was on hydrocortisone for a steroid deficiency. 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 She had severe pain syndrome and had a several year history of using hydrocodone for chronic pain but has recently transferred to tramadol. She also uses CBD Colles' and Cymbalta. Patient initially said that she would leave if she does not get pain medications I told her needed to have an x-ray first identify she has a fracture and she agreed to stay. 09/21/2019 1 09/21/2019 TRAMADOL HCL 50 MG TABLET 28.0 7 SALO WALGR ([id number]) 0/0 [facility] [place] 09/12/2019 1 08/03/2019 ALPRAZOLAM 0.5 MG TABLET 30.0 30 SALO WALGR (7108) 05/17 [facility] [place] 09/05/2019 1 08/19/2019 ALPRAZOLAM 0.5 MG TABLET 30.0 30 RI BON [id number] COLME (6684) 05/17 [facility] [place] 08/22/2019 1 08/19/2019 ALPRAZOLAM 0.5 MG TABLET 30.0 30 RI BON [id number] COLME (6684) [facility] [place] 08/03/2019 1 08/03/2019 ALPRAZOLAM 0.5 MG TABLET 30.0 30 SALO WALGR (7108) 0 [facility] [place] 06/20/2019 1 06/20/2019 HYDROCODONE-ACETAMIN 5-325 MG 28.0 7 SALO WALGR (7108) 0/ [facility] [place] 10/20/2018 1 08/05/2018 ALPRAZOLAM 0.5 MG TABLET 30.0 30 RI BON [id number] COLME (6684) 07/17 [facility] Patient denied any other injuries including to her ankles knees or hips states she has chronic pain in many of her joints. Imaging of the right shoulder shows that she has a dislocation of the right shoulder and will be given additional fentanyl 50 g Patient was placed supine and a sheet under the armpit was used to stabilize the shoulder girdle patient required significant amounts attraction and a click popped into the shoulder and the patient has less pain on and was able to move the area with less pain the x-ray was obtained and were waiting for clearance from radiology. Shoulder immobilizer is applied Onset: just prior to arrival Severity: moderate (in the right shoulder and clavicle area) Pain/Injury Location: bilateral hip, bilateral leg, bilateral knee, bilateral thigh, bilateral foot, bilateral ankle, bilateral heel Method of Injury: fell (with injury to the right shoulder) Modifying Factors: Improves With Movement Allergies and Home Medications Allergies Coded Allergies: Sulfa (Sulfonamide Antibiotics) (Verified Allergy, Unknown, 04/08/19) iodine (Verified Allergy, Unknown, 04/08/19) metronidazole (Verified Allergy, Unknown, 04/08/19) Patient Home Medication List Home Medication List Reviewed: Yes Review of Systems Constitutional: see HPI, weakness (right shoulder chronic problems with left shoulder) EENTM: no symptoms reported (patient denied head or neck injury) Respiratory: no symptoms reported Cardiovascular: no symptoms reported Gastrointestinal: no symptoms reported Genitourinary: no symptoms reported : No Musculoskeletal: see HPI, joint swelling, muscle pain, muscle stiffness, muscle twitching, muscle weakness, other (radiology reveals patient has a dislocated right shoulder) Skin: no symptoms reported Psychiatric/Neurological: Anxiety, Weakness Past Vhsypjv-Dqykys-Irgibk Hx Past Med/Social Hx: Reviewed Nursing Past Med/Soc Hx Patient Social History 2nd Hand Smoke Exposure: No Recent Foreign Travel: No Contact w/Someone Who Travel: No Recent Infectious Disease Expo: No Recent Hopitalizations: No Immunizations Up To Date Tetanus Booster (TDap): Unknown Date of Pneumonia Vaccine: Mar 29, 2019 Seasonal Allergies Seasonal Allergies: Yes Past Medical History Surgeries: Yes (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, ) Eye Surgery Respiratory: No Cardiac: Yes High Cholesterol, Hypertension Neurological: Yes Brain Tumor Genitourinary: Yes (Adrenal Insufficency, Over active Bladder) Gastrointestinal: Yes Colitis, Gastroesophageal Reflux Musculoskeletal: Yes Fibromyalgia, Chronic Back Pain Endocrine: Yes Diabetes, Insulin dep HEENT: Yes (Bilateral Cataract removal) Cataract Cancer: No Psychosocial: Yes Depression Blood Disorders: No Physical Exam Vital Signs Vital Signs - First Documented Capillary Refill : Less Than 3 Seconds Height, Weight, BMI Height: '" Weight: lbs. oz. kg; 45.00 BMI Method: General Appearance: moderate distress (from right shoulder dislocation), obese (morbidly obese) HEENT: PERRL/EOMI, normal ENT inspection, pharynx normal Neck: non-tender, full range of motion, supple, normal inspection Cardiovascular: regular rate, rhythm, no edema, no gallop, no JVD, no murmur Respiratory: chest non-tender, lungs clear, normal breath sounds, no respiratory distress, no accessory muscle use Gastrointestinal: normal bowel sounds, non tender, soft, no organomegaly, no pulsatile mass Back: normal inspection, no vertebral tenderness, CVA tenderness (R) (generalized spasm in the right shoulder girdle) Hips: bilateral hip non-tender, bilateral hip normal inspection, bilateral hip normal range of motion, bilateral hip no evidence of injury Legs: bilateral leg non-tender, bilateral leg normal inspection, bilateral leg normal range of motion, bilateral leg no evidence of injury Knees: bilateral knee non-tender, bilateral knee normal inspection, bilateral knee normal range of motion, bilateral knee no evidence of injury Ankles: bilateral ankle non-tender, bilateral ankle normal inspection, bilateral ankle normal range of motion, bilateral ankle no evidence of injury Feet: bilateral foot non-tender, bilateral foot normal inspection, bilateral foot normal range of motion, bilateral foot no evidence of injury Reflexes: 1+ knee (R), 1+ knee (L) Neurologic/Tendon: normal sensation, motor deficit (in the right shoulder girdle secondary to dislocation), other (patient received 50 g of fentanyl and EMS and additional 50 in the emergency room.) 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 Patient may take her continued medications with tramadol for discomfort. Re-x-ray of the shoulder shows it was appropriately relocated and reduced Progress/Results/Core Measures Results/Orders My Orders Orders - JONATHAN GRAYSON DO Shoulder 3 View Right (10/07/19 17:35) Cbc And Manual Diff (10/07/19 17:35) Comprehensive Metabolic Panel (10/07/19 17:35) Urinalysis (10/07/19 17:35) Drug Screen Stat (Urine) (10/07/19 17:35) Fentanyl Injection (Sublimaze Injection (10/07/19 18:15) Fentanyl Injection (Sublimaze Injection (10/07/19 17:56) Shoulder 1 View Right (10/07/19 19:08) Medications Given in ED Current Medications Medications Dose Ordered Sig/Constantino Route Start Time Stop Time Status Last Admin Dose Admin Fentanyl Citrate 50 mcg ONCE ONCE IVP 10/07/19 18:15 10/07/19 18:16 DC 10/07/19 18:07 50 MCG Vital Signs/I&O 10/07/19 10/07/19 10/07/19 16:42 16:42 18:07 Temp 37.2 37.2 37.2 Pulse 77 77 Resp 20 20 B/P (MAP) 182/69 (106) 182/69 (106) Pulse Ox 96 96 O2 Delivery Room Air Room Air Blood Pressure Mean: 106 Departure Impression Primary Impression: Anterior shoulder dislocation Additional Impression: MCTD (mixed connective tissue disease) Disposition: HOME, SELF-CARE Condition: Improved Departure-Patient Inst. Decision time for Depature: 19:28 Referrals: NO,LOCAL PHYSICIAN (PCP) Primary Care Physician Patient Instructions: Shoulder Dislocation (DC) Add. Discharge Instructions: 69-year-old female had a fall dislocated anterior dislocation right shoulder patient was treated with fentanyl 100 g placed into traction and shoulder was reduced verification with 3 ray was obtained. Patient will continue with her tramadol for shoulder discomfort she was told clearly wear the immobilizer [facility] All discharge instructions reviewed with patient and/or family. Voiced understanding. JONATHAN GRAYSON DO October 07, 2019 17:56
--- NOTE | 2019-10-07 18:05 | Diagnostic Imaging Report ---
INDICATION: Fall, pain. EXAMINATION: Three views of the right shoulder. FINDINGS: There is complete anterior subcoracoid glenohumeral dislocation. No appreciable fracture deformity; however, postreduction radiographs recommended. IMPRESSION: Anterior subcoracoid glenohumeral dislocation. Dictated by: Dictated on workstation # [id number]
--- NOTE | 2019-10-07 18:07 | NUR ---
Patient requesting pain medication with tearing noted and Dr notified. Lissa [employer] Greeter came to tell Dr to review the picture of shoulder xray. Dislocation R shoulder is suspected. Fentanyl 50 mcg given IV as verbal order Dr Shaw.
[2019-10-07] MEDS ORDERED: fentaNYL INJECTION 100 MCG/2 ML AMP IVP ONE (18:15)
--- NOTE | 2019-10-07 18:30 | NUR ---
Explained to patient of the R shoulder dislocation and need to get put in place. Several patients in ER and Dr arranging a discharge, a transfer, and preparing to do another discharge to stabilize ER before procedure. Pt desires to remain up in WC for comfort. Consent signed for plan of reduction of right shoulder dislocation. Consent is also for Moderate Sedation for right shoulder reduction of dislocation. Dr has intent for narcotic med only for reduction.
[2019-10-07] MEDS ORDERED: Tramadol (18:44)
[2019-10-07] MEDS ORDERED: Alprazolam (18:46)
--- NOTE | 2019-10-07 19:00 | NUR ---
Report to Dariana NAIK Dr preparing to perform reduction of dislocation reporting medication pre-procedure has already been administered. Fentanyl dose was 1807, Dr was reminded.
--- NOTE | 2019-10-07 19:10 | NUR ---
This RN was requested to return to pt room with machinist 2nd shift RN. Pt was instructed she'd be assisted to get out of the WC and placed supine on cart. Dr requests RN's to place a sheet beneath pt's R axilla and to begin pulling counterclockwise to the Dr administering physical traction downward to pt's R arm. Re-verified no deep conscious sedation orders, no add'l medication orders, and patient consents to Dr beginning procedure. Dr explained to patient the pain will immediately improve upon reduction. 3 attempts at gentle to moderate traction applied and upon 3rd attempt the the joint was felt to have popped in place. Pt remained fully awake and tolerated well.
--- NOTE | 2019-10-07 19:19 | Diagnostic Imaging Report ---
INDICATION: Post reduction. FINDINGS: AP view shows successful reduction of previous anterior subcoracoid glenohumeral dislocation. IMPRESSION: Successful interval reduction Dictated by: Dictated on workstation # [id number]
--- NOTE | 2019-10-07 19:20 | NUR ---
Patient underwent a post reduction R shoulder xray and then placed in a right shoulder immobilizer.
[2019-10-07 19:33] VITALS: BP 160/90
--- NOTE | 2019-10-07 19:33 | NUR ---
Patient has been discharged per Dariana NAIK. See [facility] Discharge Summary. Pt dismissed ambulatory with stable gait. Pt's brother is arriving as her transportation. Pt has good CMS check with palpable radial pulse.
== END 2019-10-07 19:33 | disposition home or self-care (01) ==
LOC: EDUNIT# 16:46 → ER FS 16:47
DX: S43.014A Anterior dislocation of right humerus, initial encounter (principal); M35.1 Other overlap syndromes; F32.9 Major depressive disorder, single episode, unspecified; M79.7 Fibromyalgia; Z88.2 Allergy status to sulfonamides; Z88.8 Allergy status to other drugs, medicaments and biological substances; W10.9XXA Fall (on) (from) unspecified stairs and steps, initial encounter; Y92.019 Unspecified place in single-family (private) house as the place of occurrence of the external cause
CPT/HCPCS: 73020; 73030

== ENCOUNTER → 2020-05-06 | Outpatient (CLI) | payer MEDICARE ==
[~2020-05-06] MED LIST changes: +Alprazolam; +Tramadol
--- NOTE | 2020-05-06 09:26 | Diagnostic Imaging Report ---
INDICATION: Constipation COMPARISON: None FINDINGS: Supine and upright views the abdomen demonstrate nonobstructive small bowel gas pattern. Mild amount of air and stool are seen scattered throughout the colon. No abnormal air-fluid levels or large collection of free intraperitoneal air is seen. 5 mm extraosseous calcification is identified projecting just lateral to the left psoas muscle at the L3 level. Multiple extraosseous calcifications are also seen ejecting over the lower pelvis, bilaterally. There is no prior available for comparison purposes. No unexpected radiopaque foreign bodies are seen. Bony structures are age-appropriate. IMPRESSION: 1. Nonobstructive small bowel gas pattern. 2. Extraosseous calcifications as described above. Findings could be on the basis of phleboliths. Proximal left ureteral calculus or bilateral distal ureteral calculi cannot be excluded. Dictated by: Dictated on workstation # [id number]
== END ==
LOC: RAD FS 08:56
PROVIDERS: ATTEND Nurse Practitioner Family
DX: K59.00 Constipation, unspecified (principal); M61.9 Calcification and ossification of muscle, unspecified
CPT/HCPCS: 74019

== ENCOUNTER 2021-03-31 15:51 | Emergency (ER) | payer MEDICARE ==
[~2021-03-31] VITALS: Ht 152.4 cm; Wt 102.5 kg
[~2021-03-31 15:51] MED LIST changes: -CIPR500T4 PO; +CIPR500T5 PO
--- NOTE | 2021-03-31 16:10 | ED Abdominal Pain ---
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 Pain is been worsening since earlier today. She is been taking hydrocodone but has not wanted to take her oxycodone because it makes her feel funny. Has had some as sociated nausea but no vomiting. Took her temperature a couple hours ago and she said it was 101 F tympanic. Denies any cough, rash, or any other concerns. Has had decreasing output from her LYSSA drain which is serosanguineous. Had a bowel movement earlier today. Allergies and Home Medications Allergies Coded Allergies: Sulfa (Sulfonamide Antibiotics) (Verified Allergy, Unknown, 04/08/19) iodine (Verified Allergy, Unknown, 04/08/19) metronidazole (Verified Allergy, Unknown, 04/08/19) Patient Home Medication List Home Medication List Reviewed: Yes [Alprazolam] , (Reported) Entered as Reported by: DOUG MART on 10/07/191845 [Tramadol] , (Reported) Entered as Reported by: DOUG MART on 10/07/191843 Review of Systems Review of Systems Constitutional: chills, fever EENTM: No Blurred Vision Respiratory: Denies Cough, Denies Shortness of Air Cardiovascular: Denies Chest Pain Gastrointestinal: Abdominal Pain; Denies Diarrhea; Nausea; Denies Vomiting Genitourinary: Denies Burning Musculoskeletal: no symptoms reported Skin: no symptoms reported Psychiatric/Neurological: No Symptoms Reported Endocrine: No Symptoms Reported Hematologic/Lymphatic: No Symptoms Reported All Other Systems Reviewed Negative Unless Noted: Yes Past Jelsecc-Dgvswh-Wcfsgz Hx Patient Social History Tobacco Use?: No Immunizations Up To Date Tetanus Booster (TDap): Unknown Seasonal Allergies Seasonal Allergies: Yes Past Medical History Surgeries: Yes (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, ) Eye Surgery Respiratory: No Cardiac: Yes High Cholesterol, Hypertension Neurological: Yes Brain Tumor Genitourinary: Yes (Adrenal Insufficency, Over active Bladder) Gastrointestinal: Yes Colitis, Gastroesophageal Reflux Musculoskeletal: Yes Fibromyalgia, Chronic Back Pain Endocrine: Yes Diabetes, Insulin dep HEENT: Yes (Bilateral Cataract removal) Cataract Cancer: No Psychosocial: Yes Depression Integumentary: No Blood Disorders: No Physical Exam Vital Signs Vital Signs - First Documented 03/31/21 15:51 Temp 37.3 Pulse 78 Resp 17 B/P (MAP) 154/59 (90) O2 Delivery Room Air Capillary Refill : Height/Weight/BMI Height: '" Weight: lbs. oz. kg; 45.00 BMI Method: General Appearance: WD/WN, no apparent distress HEENT: PERRL/EOMI, normal ENT inspection, pharynx normal Neck: non-tender, full range of motion, supple, normal inspection Respiratory: chest non-tender, lungs clear, normal breath sounds, no respiratory distress, no accessory muscle use Cardiovascular: regular rate, rhythm, no edema, no murmur Gastrointestinal: normal bowel sounds, soft; No distended, No guarding, No rebound; tenderness, other (Surgical wound appears clean/dry/intact, no signs of infection, LYSSA drain with minimal serosanguineous fluid) Extremities: normal range of motion, non-tender, normal inspection, no pedal edema, no calf tenderness, normal capillary refill Back: normal inspection, no CVA tenderness, no vertebral tenderness Neurologic/Psychiatric: no motor/sensory deficits, alert, normal mood/affect Skin: normal color, warm/dry Lymphatic: no adenopathy Focused Exam Lactate Level 03/31/21 16:15: Lactic Acid Level 1.22 Lactic Acid Level Laboratory Tests Test 03/31/21 16:15 Lactic Acid Level 1.22 MMOL/L (0.50-2.00) Progress/Results/Core Measures Results/Orders Lab Results Laboratory Tests Test 03/31/21 16:15 03/31/21 18:15 Range/Units White Blood Count 19.1 H 4.3-11.0 10^3/uL Red Blood Count 3.57 L 3.80-5.11 10^6/uL Hemoglobin 10.0 L 11.5-16.0 g/dL Hematocrit 31 L 35-52 % Mean Corpuscular Volume 87 80-99 fL Mean Corpuscular Hemoglobin 28 25-34 pg Mean Corpuscular Hemoglobin Concent 32 32-36 g/dL Red Cell Distribution Width 14.6 H 10.0-14.5 % Platelet Count 567 H 130-400 10^3/uL Mean Platelet Volume 12.3 H 9.0-12.2 fL Immature Granulocyte % (Auto) 1 % Neutrophils (%) (Auto) 79 H 42-75 % Lymphocytes (%) (Auto) 10 L 12-44 % Monocytes (%) (Auto) 9 0-12 % Eosinophils (%) (Auto) 1 0-10 % Basophils (%) (Auto) 0 0-10 % Neutrophils # (Auto) 15.0 H 1.8-7.8 X 10^3 Lymphocytes # (Auto) 1.9 1.0-4.0 X 10^3 Monocytes # (Auto) 1.7 H 0.0-1.0 X 10^3 Eosinophils # (Auto) 0.2 0.0-0.3 10^3/uL Basophils # (Auto) 0.1 0.0-0.1 10^3/uL Immature Granulocyte # (Auto) 0.2 H 0.0-0.1 10^3/uL Neutrophils % (Manual) 73 % Lymphocytes % (Manual) 10 % Monocytes % (Manual) 10 % Eosinophils % (Manual) 2 % Basophils % (Manual) 1 % Metamyelocytes % 2 % Band Neutrophils 2 % Poikilocytosis SLIGHT Prothrombin Time 21.8 H 12.2-14.7 SEC INR Comment 1.9 H 0.8-1.4 Activated Partial Thromboplast Time 43 H 24-35 SEC Sodium Level 138 135-145 MMOL/L Potassium Level 3.5 L 3.6-5.0 MMOL/L Chloride Level 103 98-107 MMOL/L Carbon Dioxide Level 23 21-32 MMOL/L Anion Gap 12 5-14 MMOL/L Blood Urea Nitrogen 15 7-18 MG/DL Creatinine 1.09 0.60-1.30 MG/DL Estimat Glomerular Filtration Rate 50 BUN/Creatinine Ratio 14 Glucose Level 151 H 70-105 MG/DL Lactic Acid Level 1.22 0.50-2.00 MMOL/L Calcium Level 8.9 8.5-10.1 MG/DL Corrected Calcium 9.5 8.5-10.1 MG/DL Total Bilirubin 0.4 0.1-1.0 MG/DL Aspartate Amino Transf (AST/SGOT) 20 5-34 U/L Alanine Aminotransferase (ALT/SGPT) 16 0-55 U/L Alkaline Phosphatase 98 40-136 U/L Total Protein 6.2 L 6.4-8.2 GM/DL Albumin 3.2 3.2-4.5 GM/DL My Orders Orders - GURINDER BENEDICT MD Ct Abdomen/Pelvis Wo (03/31/21 16:03) Cbc With Automated Diff (03/31/21 16:03) Comprehensive Metabolic Panel (03/31/21 16:03) Blood Culture (03/31/21 16:03) Urinalysis (03/31/21 16:03) Urine Culture (03/31/21 16:03) Protime With Inr (03/31/21 16:03) Partial Thromboplastin Time (03/31/21 16:03) Chest 1 View Ap/Pa Only (03/31/21 16:03) Ed Iv/Invasive Line Start (03/31/21 16:03) Ed Iv/Invasive Line Start (03/31/21 16:03) Vital Signs Adult Sepsis Patie Q15M (03/31/21 16:03) O2 (03/31/21 16:03) Remove Rings In Anticipation O (03/31/21 16:03) Lactic Acid Analyzer (03/31/21 16:03) Morphine Injection (Morphine Injection (03/31/21 16:15) Ondansetron Injection (Zofran Injectio (03/31/21 16:15) Hydromorphone Injection (Dilaudid Inject (03/31/21 16:45) Piperacillin Sodium/Tazobactam (Zosyn Vi (03/31/21 16:45) Manual Differential (03/31/21 16:15) Hydromorphone Injection (Dilaudid Inject (03/31/21 18:00) Medications Given in ED Current Medications Medications Dose Ordered Sig/Constantino Route Start Time Stop Time Status Last Admin Dose Admin Hydromorphone HCl 0.5 mg ONCE ONCE IV 03/31/21 16:45 03/31/21 16:46 DC 03/31/21 16:50 0.5 MG Hydromorphone HCl 1 mg ONCE ONCE IV 03/31/21 18:00 03/31/21 18:01 DC 03/31/21 18:29 1 MG Morphine Sulfate 4 mg ONCE ONCE IVP 03/31/21 16:15 03/31/21 16:16 DC 03/31/21 16:40 4 MG Ondansetron HCl 4 mg ONCE ONCE IVP 03/31/21 16:15 03/31/21 16:16 DC 03/31/21 16:40 4 MG Piperacillin Sod/ Tazobactam Sod 4.5 gm/Sodium Chloride 100 ml @ 200 mls/hr ONCE ONCE IV 03/31/21 16:45 03/31/21 17:14 DC 03/31/21 16:50 200 MLS/HR Vital Signs/I&O 03/31/21 15:51 Temp 37.3 Pulse 78 Resp 17 B/P (MAP) 154/59 (90) O2 Delivery Room Air Progress Progress Note : Progress Note 70-year-old female with above history coming in due to abdominal pain and fever in the setting of recent pancreatic mass removal which she fortunately said is not cancer. ABCs were intact and vitals were stable on presentation. Physical exam with her abdominal wound appearing clean, dry, intact. LYSSA drain with minimal serosanguineous output. She was tender globally on abdominal exam but no signs of peritonitis. Biggest concern would be infection with possibly fluid collection. Unfortunately she has a contrast allergy with which causes anaphylaxis. We will get a CT scan without contrast to assess for any new fluid collection or obvious signs of infection. An IV was placed and she was given morphine for pain control and Zofran for nausea. Basic labs also obtained including lactic acid and blood cultures. Labs significant for a newly elevated white count of 19.1, normal creatinine, normal LFTs. CT abdomen pelvis with some nonspecific postoperative changes and some mesenteric stranding with no prior to compare to. The patient did become febrile with a temperature of 38.1 C. At that time she was given Zosyn. I called and discussed the case with [facility] Dr. Castro. She recommended a transfer to their hospital for further evaluation and management. She did require a couple doses of IV Dilaudid for pain control that was worsening prior to leaving her hospital. At the time of transfer her vitals were stable. Diagnostic Imaging Diagonstic Imaging: Xray (chest), CT Plain Films/CT/US/NM/MRI: abdomen, pelvis Comments [facility] [place], [place] NAME: MAE MUNSON [facility] REC#: [id number] PT STATUS: REG ER : 1950 PHYSICIAN: GURINDER BENEDICT MD ADMIT DATE: 03/31/21/ER FS Draft Date of Exam:03/31/21 CHEST 1 VIEW AP/PA ONLY INDICATION: Sepsis and fever. TECHNIQUE: Frontal chest obtained at 04:22 p.m. FINDINGS: The heart is mildly enlarged. There is mild central vascular prominence. There is no focal infiltrate or pneumothorax or pleural fluid. IMPRESSION: Cardiomegaly and mild central vascular prominence. No acute infiltrate or pleural fluid. Dictated on workstation # [id number] Dict: 03/31/21 1629 Trans: 03/31/21 1634 AS6 [id number] Interpreted by: CHRISSIE MARCH MD Electronically signed by: [facility], [place], [place] NAME: MAE MUNSON [facility] REC#: [id number] PT STATUS: REG ER : 1950 PHYSICIAN: GURINDER BENEDICT MD ADMIT DATE: 03/31/21/ER FS Draft Date of Exam:03/31/21 CT ABDOMEN/PELVIS WO PROCEDURE: CT abdomen and pelvis without contrast. TECHNIQUE: Multiple contiguous axial images were obtained through the abdomen and pelvis without the use of intravenous contrast. Auto Exposure Controls were utilized during the CT exam to meet ALARA standards for radiation dose reduction. INDICATION: Fever. Abdominal pain. Recent splenectomy and partial pancreatectomy. COMPARISON: None. FINDINGS: Included portions of the lung bases show small left effusion and associated atelectasis. CT ABDOMEN: Surgical drain is identified extending through the left upper abdominal quadrant and terminating within the central abdomen just to the right lateral of midline. There is nonspecific scattered mesenteric density about the surgical drain. No loculated air-fluid collection however is identified to suggest postsurgical fluid collection. There may be trace scattered free fluid. No free air is identified. No unexpected radiopaque foreign bodies are seen. Patient is status post previous partial pancreatectomy. Margins of the pancreas are partially obscured secondary to stranding of the peripancreatic fat. Pancreatic head mass may be obscured. Patient is also status post previous splenectomy. Gallbladder is moderately distended and measures 5 cm in diameter. Several gallstones are identified within the gravity dependent portion of the gallbladder near the neck. The liver, adrenal glands, and kidneys have an unremarkable noncontrast CT appearance. Small bowel loops are nondistended. Normal appendix is identified. No abnormal retroperitoneal adenopathy is seen. There is romy-ko-[id number] scattered calcified aortic and arterial atherosclerosis. Osseous structures show no acute abnormalities. CT PELVIS: Urinary bladder is unopacified. No calculi are seen within the urinary bladder. There are a few scattered distal colonic diverticula, but no CT evidence of acute diverticulitis. No loculated fluid collection, free fluid, or free air is seen within the pelvis. No abnormal adenopathy is identified. Osseous structures show no acute abnormalities. IMPRESSION: 1. Postsurgical changes to the upper abdomen as described above. Again, there is indwelling surgical drain with stranding of the mesenteric fat, but no loculated postsurgical fluid collection is identified. 2. Moderate fullness and stranding about the pancreatic head, which may be postsurgical as well. Pancreatic head mass may be obscured. 3. Gallbladder hydrops with multiple gallstones. Correlation with right upper quadrant abdominal sonogram may be of benefit to assess for potential cholecystitis. 4. Colonic diverticulosis, but no CT evidence of acute diverticulitis. 5. Small left pleural effusion. Dictated on workstation # [id number] Dict: 03/31/21 1633 Trans: 03/31/21 1645 AS6 [id number] Interpreted by: SACHIN MACIAS MD Electronically signed by: Departure Impression Primary Impression: Postoperative fever Additional Impression: Abdominal pain Qualified Codes: R10.84 - Generalized abdominal pain Disposition: XFER SHT-TRM HOSP Condition: Stable Transfer Transfer Reason: Exceeds level of care Time Spoke to Accepting Phy: 17:40 Transfer Progress Notes Patient had pancreas surgery at [facility]. Paged them at 5 PM, and the call back at 5:40 PM. Discussed the case with Dr. Castro who will accept the patient as an ER to ER transfer for further evaluation. Transfer Facility: [facility] Method of Transfer: EMS Departure-Patient Inst. Referrals: JAMEY CARLISLE MD (PCP/Family) Primary Care Physician GURINDER BENEDICT MD Mar 31, 2021 16:10
[2021-03-31] MEDS ORDERED: morphine INJ 10 MG/ML 1ML (SYR OR VIAL) IVP ONE (16:15)
[2021-03-31] MEDS ORDERED: ONDANSETRON 4 MG/2 ML (SDV) Z0FRAN IVP ONE (16:15)
--- NOTE | 2021-03-31 16:34 | Diagnostic Imaging Report ---
INDICATION: Sepsis and fever. TECHNIQUE: Frontal chest obtained at 04:22 p.m. FINDINGS: The heart is mildly enlarged. There is mild central vascular prominence. There is no focal infiltrate or pneumothorax or pleural fluid. IMPRESSION: Cardiomegaly and mild central vascular prominence. No acute infiltrate or pleural fluid. Dictated by: Dictated on workstation # [id number]
[2021-03-31] MEDS ORDERED: HYDROmorphone 2 MG/ML VIAL (DILAUDID) IV ONE ×2 (16:45→18:00)
[2021-03-31] MEDS ORDERED: PIPERACILLIN SODIUM/TAZOBACTAM 4.5 GM in NS (IVPB) 100 ML IV ONE (16:45)
--- NOTE | 2021-03-31 16:46 | Diagnostic Imaging Report ---
PROCEDURE: CT abdomen and pelvis without contrast. TECHNIQUE: Multiple contiguous axial images were obtained through the abdomen and pelvis without the use of intravenous contrast. Auto Exposure Controls were utilized during the CT exam to meet ALARA standards for radiation dose reduction. INDICATION: Fever. Abdominal pain. Recent splenectomy and partial pancreatectomy. COMPARISON: None. FINDINGS: Included portions of the lung bases show small left effusion and associated atelectasis. CT ABDOMEN: Surgical drain is identified extending through the left upper abdominal quadrant and terminating within the central abdomen just to the right lateral of midline. There is nonspecific scattered mesenteric density about the surgical drain. No loculated air-fluid collection however is identified to suggest postsurgical fluid collection. There may be trace scattered free fluid. No free air is identified. No unexpected radiopaque foreign bodies are seen. Patient is status post previous partial pancreatectomy. Margins of the pancreas are partially obscured secondary to stranding of the peripancreatic fat. Pancreatic head mass may be obscured. Patient is also status post previous splenectomy. Gallbladder is moderately distended and measures 5 cm in diameter. Several gallstones are identified within the gravity dependent portion of the gallbladder near the neck. The liver, adrenal glands, and kidneys have an unremarkable noncontrast CT appearance. Small bowel loops are nondistended. Normal appendix is identified. No abnormal retroperitoneal adenopathy is seen. There is [id number] scattered calcified aortic and arterial atherosclerosis. Osseous structures show no acute abnormalities. CT PELVIS: Urinary bladder is unopacified. No calculi are seen within the urinary bladder. There are a few scattered distal colonic diverticula, but no CT evidence of acute diverticulitis. No loculated fluid collection, free fluid, or free air is seen within the pelvis. No abnormal adenopathy is identified. Osseous structures show no acute abnormalities. IMPRESSION: 1. Postsurgical changes to the upper abdomen as described above. Again, there is indwelling surgical drain with stranding of the mesenteric fat, but no loculated postsurgical fluid collection is identified. 2. Moderate fullness and stranding about the pancreatic head, which may be postsurgical as well. Pancreatic head mass may be obscured. 3. Gallbladder hydrops with multiple gallstones. Correlation with right upper quadrant abdominal sonogram may be of benefit to assess for potential cholecystitis. 4. Colonic diverticulosis, but no CT evidence of acute diverticulitis. 5. Small left pleural effusion. Dictated by: Dictated on workstation # [id number]
[2021-03-31 17:06] LABS: BASOPHILS % (AUTO) 0 % (0-10); EOSINOPHILS % (AUTO) 1 % (0-10); HEMATOCRIT 31 % (35-52); LYMPHOCYTES % (AUTO) 10 % (12-44); MEAN CORPUSCULAR HEMOGLOBIN 28 pg (25-34); MEAN CORPUSCULAR HGB CONC 32 g/dL (32-36); MEAN CORPUSCULAR VOLUME 87 fL (80-99); MEAN PLATELET VOLUME 12.3 fL (9.0-12.2); MONOCYTES % (AUTO) 9 % (0-12); NEUTROPHILS % (AUTO) 79 % (42-75); PLATELET COUNT 567 10^3/uL (130-400); WHITE BLOOD COUNT 19.1 10^3/uL (4.3-11.0)
[2021-03-31 17:08] LABS: BASOPHILS # (AUTO) 0.1 10^3/uL (0.0-0.1); EOSINOPHILS # (AUTO) 0.2 10^3/uL (0.0-0.3); LYMPHOCYTES # (AUTO) 1.9 X 10^3 (1.0-4.0); MONOCYTES # (AUTO) 1.7 X 10^3 (0.0-1.0)
[2021-03-31 17:26] LABS: INR 1.9 (0.8-1.4); PROTHROMBIN TIME PATIENT 21.8 SEC (12.2-14.7)
[2021-03-31 17:35] LABS: BAND NEUTROPHILS 2 %; BASOPHILS % (MANUAL) 1 %; EOSINOPHILS % (MANUAL) 2 %; LYMPHOCYTES % (MANUAL) 10 %; METAMYELOCYTES % 2 %; MONOCYTES % (MANUAL) 10 %; NEUTROPHILS % (MANUAL) 73 %
[2021-03-31 17:36] LABS: POIKILOCYTOSIS SLIGHT
[2021-03-31 18:03] LABS: BILIRUBIN,TOTAL 0.4 MG/DL (0.1-1.0); CALCIUM 8.9 MG/DL (8.5-10.1); CREATININE SERUM 1.09 MG/DL (0.60-1.30); TOTAL PROTEIN 6.2 GM/DL (6.4-8.2)
[2021-03-31 18:04] LABS: ALBUMIN 3.2 GM/DL (3.2-4.5)
[2021-03-31 18:10] LABS: POTASSIUM 3.5 MMOL/L (3.6-5.0)
[2021-03-31 18:26] LABS: BILIRUBIN,URINE NEGATIVE (NEGATIVE); CLARITY,URINE CLEAR; COLOR,URINE YELLOW; GLUCOSE, URINE (UA) NEGATIVE (NEGATIVE); KETONES,URINE NEGATIVE (NEGATIVE); LEUKOCYTE ESTERASE ,URINE NEGATIVE (NEGATIVE); NITRITE,URINE NEGATIVE (NEGATIVE); PH,URINE 7.5 (5-9); PROTEIN,URINE NEGATIVE (NEGATIVE)
[2021-03-31 18:34] LABS: BACTERIA,URINE NEGATIVE /HPF; WBC,URINE RARE /HPF
[2021-03-31 18:45] VITALS: BP 133/78
== END 2021-03-31 18:43 | disposition short-term general hospital (02) ==
LOC: EDUNIT# 15:51 → ER FS 16:00
DX: R50.82 Postprocedural fever (principal); R10.9 Unspecified abdominal pain; I10 Essential (primary) hypertension
CPT/HCPCS: 36415; 71045; 74176; 80053; 81000; 83605; 85007; 85027; 85610; 85730; 87040; 87088

== ENCOUNTER 2021-04-08 07:57 | Emergency (ER) | payer MEDICARE ==
[~2021-04-08] VITALS: Ht 162 cm; Wt 120.0 kg
--- NOTE | 2021-04-08 08:04 | ED General ---
General Stated Complaint: POST-OP PAIN History of Present Illness Date Seen by Provider: Apr 08, 2021 Time Seen by Provider: 08:04 Initial Comments Patient presenting to emergency department for evaluation of abdominal pain and wound to her LYSSA drain site. Patient appears to be somewhat sedated and overmedicated as she lays with her eyes closed and is confused on dates and her medical history. She says she is uncertain what day her surgery was but she thinks she had a pancreas mass removed at [facility] sometime in early March which does correlate with the prior chart from March 31. She then says she was released from the hospital on March 26 and came to this emergency department the next day however those dates seem to be inaccurate as the record shows that she was here on March 31 and transferred from here to [facility] on that day. She says she was in the hospital until 2 days ago which she says would be Wednesday however that would be 3 days ago. I asked her what her diagnosis and problem was while she was there for 5 days and she was uncertain. She thinks that her drain site is infected and that she is having to severe pain. Reportedly she contacted her surgeon yesterday and she was told to get a CT scan and lab work. EMS reports that she was supposed to go to an appointment yesterday but the patient cannot confirm this. She says she is in too much pain to sit in a car however and she was able to transfer from a bedside commode to the bed with no difficulty. She is in no acute distress with normal vital signs other than systolic hypertension noted. SURGEON: ESVIN ACE Allergies and Home Medications Allergies Coded Allergies: Sulfa (Sulfonamide Antibiotics) (Verified Allergy, Unknown, 04/08/19) iodine (Verified Allergy, Unknown, 04/08/19) metronidazole (Verified Allergy, Unknown, 04/08/19) Patient Home Medication List Home Medication List Reviewed: Yes [Alprazolam] , (Reported) Entered as Reported by: DOUG MART on 10/07/191845 [Tramadol] , (Reported) Entered as Reported by: DOUG MART on 10/07/191843 Review of Systems Review of Systems Constitutional: chills, fever EENTM: no symptoms reported Respiratory: no symptoms reported Cardiovascular: no symptoms reported Gastrointestinal: abdominal pain Genitourinary: no symptoms reported Musculoskeletal: no symptoms reported Skin: other (Infection at drain site) Psychiatric/Neurological: No Symptoms Reported All Other Systems Reviewed Negative Unless Noted: Yes Past Ntfunel-Kojzro-Vxxglv Hx Immunizations Up To Date Tetanus Booster (TDap): Unknown First/Initial COVID19 Vaccinat: 12/2020 Second COVID19 Vaccination Placido: 01/15/2021 Seasonal Allergies Seasonal Allergies: Yes Past Medical History Surgeries: Yes (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, ) Eye Surgery Respiratory: No Cardiac: Yes High Cholesterol, Hypertension Neurological: Yes Brain Tumor Genitourinary: Yes (Adrenal Insufficency, Over active Bladder) Gastrointestinal: Yes Colitis, Gastroesophageal Reflux Musculoskeletal: Yes Fibromyalgia, Chronic Back Pain Endocrine: Yes Diabetes, Insulin dep HEENT: Yes (Bilateral Cataract removal) Cataract Cancer: No Psychosocial: Yes Depression Integumentary: No Blood Disorders: No Physical Exam Vital Signs Vital Signs - First Documented 04/08/21 08:00 Temp 36.1 Pulse 86 Resp 20 B/P (MAP) 184/66 (105) Pulse Ox 94 O2 Delivery Room Air Capillary Refill : Height, Weight, BMI Height: '" Weight: lbs. oz. kg; 44.00 BMI Method: General Appearance: No Apparent Distress HEENT: PERRL/EOMI Neck: Supple Respiratory: Normal Breath Sounds, No Respiratory Distress Cardiovascular: Regular Rate, Rhythm Gastrointestinal: Non Tender, Soft Extremity: Normal Capillary Refill Neurologic/Psychiatric: Alert, Oriented x3 Skin: Warm/Dry, Other (Patient has no abdominal tenderness on exam other than the 1 x 1 cm area of erythema around her LYSSA drain site. There appears to be possible purulence at the site but no induration is noted.) Focused Exam Lactate Level 04/08/21 08:15: Lactic Acid Level 2.66*H 04/08/21 10:36: Lactic Acid Level Laboratory Tests Test 04/08/21 08:15 04/08/21 10:36 Lactic Acid Level 2.66 MMOL/L (0.50-2.00) *H Progress/Results/Core Measures Suspected Sepsis SIRS Temperature: Pulse: Respiratory Rate: Laboratory Tests 04/08/21 08:15: White Blood Count 16.9H Blood Pressure / Mean: 04/08/21 08:15: Lactic Acid Level 2.66*H 04/08/21 10:36: Laboratory Tests 04/08/21 08:15: Creatinine 0.99, Platelet Count 661H, Total Bilirubin 0.4 Results/Orders Lab Results Laboratory Tests Test 04/08/21 08:10 04/08/21 08:15 04/08/21 10:36 Range/Units Urine Color YELLOW Urine Clarity TURBID Urine pH 6.5 5-9 Urine Specific [place] 1.020 1.016-1.022 Urine Protein TRACE H NEGATIVE Urine Glucose (UA) NEGATIVE NEGATIVE Urine Ketones NEGATIVE NEGATIVE Urine Nitrite POSITIVE H NEGATIVE Urine Bilirubin NEGATIVE NEGATIVE Urine Urobilinogen 2.0 < = 1.0 MG/DL Urine Leukocyte Esterase 2+ H NEGATIVE Urine RBC (Auto) 1+ H NEGATIVE Urine RBC 2-5 H /HPF Urine WBC TNTC H /HPF Urine Squamous Epithelial Cells 2-5 /HPF Urine Crystals NONE /LPF Urine Bacteria LARGE H /HPF Urine Casts NONE /LPF Urine Mucus LARGE H /LPF Urine Culture Indicated YES White Blood Count 16.9 H 4.3-11.0 10^3/uL Red Blood Count 3.65 L 3.80-5.11 10^6/uL Hemoglobin 10.3 L 11.5-16.0 g/dL Hematocrit 33 L 35-52 % Mean Corpuscular Volume 91 80-99 fL Mean Corpuscular Hemoglobin 28 25-34 pg Mean Corpuscular Hemoglobin Concent 31 L 32-36 g/dL Red Cell Distribution Width 15.2 H 10.0-14.5 % Platelet Count 661 H 130-400 10^3/uL Mean Platelet Volume 12.5 H 9.0-12.2 fL Immature Granulocyte % (Auto) 1 % Neutrophils (%) (Auto) 75 42-75 % Lymphocytes (%) (Auto) 11 L 12-44 % Monocytes (%) (Auto) 11 0-12 % Eosinophils (%) (Auto) 1 0-10 % Basophils (%) (Auto) 0 0-10 % Neutrophils # (Auto) 12.8 H 1.8-7.8 X 10^3 Lymphocytes # (Auto) 1.8 1.0-4.0 X 10^3 Monocytes # (Auto) 1.9 H 0.0-1.0 X 10^3 Eosinophils # (Auto) 0.2 0.0-0.3 10^3/uL Basophils # (Auto) 0.1 0.0-0.1 10^3/uL Immature Granulocyte # (Auto) 0.2 H 0.0-0.1 10^3/uL Neutrophils % (Manual) 78 % Lymphocytes % (Manual) 8 % Monocytes % (Manual) 9 % Eosinophils % (Manual) 4 % Myelocytes % 1 % Nucleated Red Blood Cells 1 Platelet Estimate INCREASED Polychromasia SLIGHT Blood Morphology Comment NORMAL Sodium Level 133 L 135-145 MMOL/L Potassium Level 4.0 3.6-5.0 MMOL/L Chloride Level 95 L 98-107 MMOL/L Carbon Dioxide Level 23 21-32 MMOL/L Anion Gap 15 H 5-14 MMOL/L Blood Urea Nitrogen 14 7-18 MG/DL Creatinine 0.99 0.60-1.30 MG/DL Estimat Glomerular Filtration Rate 55 BUN/Creatinine Ratio 14 Glucose Level 136 H 70-105 MG/DL Lactic Acid Level 2.66 *H 0.50-2.00 MMOL/L Calcium Level 10.2 H 8.5-10.1 MG/DL Corrected Calcium 10.8 H 8.5-10.1 MG/DL Total Bilirubin 0.4 0.1-1.0 MG/DL Aspartate Amino Transf (AST/SGOT) 19 5-34 U/L Alanine Aminotransferase (ALT/SGPT) 13 0-55 U/L Alkaline Phosphatase 129 40-136 U/L Total Protein 7.6 6.4-8.2 GM/DL Albumin 3.3 3.2-4.5 GM/DL Amylase Level 41 25-125 U/L Lipase 28 8-78 U/L My Orders Orders - MANN BRASHER DO Iv/Invasive Line Insertion .IV start (04/08/21 08:09) Cbc With Automated Diff (04/08/21 08:09) Comprehensive Metabolic Panel (04/08/21 08:09) Blood Culture (04/08/21 08:09) Ua Culture If Indicated (04/08/21 08:09) Chest 1 View Ap/Pa Only (04/08/21 08:09) Lactic Acid Analyzer (04/08/21 08:09) Ct Abdomen/Pelvis Wo (04/08/21 08:09) Ns Iv 1000 Ml (Sodium Chloride 0.9%) (04/08/21 08:15) Lipase (04/08/21 08:09) Amylase (04/08/21 08:09) Manual Differential (04/08/21 08:15) Urine Culture (04/08/21 08:10) Piperacillin Sodium/Tazobactam (Zosyn Vi (04/08/21 09:30) Blood Culture (04/08/21 09:30) Morphine Injection (Morphine Injection (04/08/21 09:38) Ondansetron Injection (Zofran Injectio (04/08/21 09:45) Medications Given in ED Current Medications Medications Dose Ordered Sig/Constantino Route Start Time Stop Time Status Last Admin Dose Admin Ondansetron HCl 4 mg ONCE ONCE IVP 04/08/21 09:45 04/08/21 09:46 DC 04/08/21 09:45 4 MG Piperacillin Sod/ Tazobactam Sod 4.5 gm/Sodium Chloride 100 ml @ 200 mls/hr ONCE ONCE IV 04/08/21 09:30 04/08/21 09:59 DC 04/08/21 09:32 200 MLS/HR Vital Signs/I&O 04/08/21 08:00 Temp 36.1 Pulse 86 Resp 20 B/P (MAP) 184/66 (105) Pulse Ox 94 O2 Delivery Room Air Capillary Refill : Progress Note : Progress Note Patient appears nontoxic with normal vital signs but she does have possible cellulitis surrounding her LYSSA drain site. I will check labs a noncontrast CT as she has an anaphylactic reaction to contrast and likely speak to [facility] regarding her condition. Patient has abnormal work-up with signs of urinary tract infection with leukocytosis and lactic acidosis as well as increased size in the intra- abdominal fluid collections on her CT scan. She only meets 1 out of 4 SIRS criteria and so she is technically not septic but was started on IV fluids and IV Zosyn. I was able to speak to Dr. Eubanks at [facility] and they agreed to accept her as transfer. She has had normal vital signs in the emergency department and is nontoxic so she will be transferred in a stable condition. They did not have a bed immediately available so she is waiting in the emergency department here until they do have a bed available. Departure Impression Primary Impression: Intra-abdominal fluid collection Additional Impressions: UTI (urinary tract infection) Leukocytosis Lactic acid acidosis Disposition: XF SHT-TRM HOSP Condition: Stable Transfer Transfer Reason: Exceeds level of care Time Spoke to Accepting Phy: 10:15 Transfer Facility: [facility] Method of Transfer: EMS Departure-Patient Inst. Referrals: SELF,JAMEY JOSEPH (PCP/Family) Primary Care Physician MANN BRASHER DO Apr 08, 2021 08:04
[2021-04-08] MEDS ORDERED: NS IV 1000 ML 1,000 ML IV SCH (08:15)
[2021-04-08 08:32] LABS: BILIRUBIN,URINE NEGATIVE (NEGATIVE); CLARITY,URINE TURBID; COLOR,URINE YELLOW; GLUCOSE, URINE (UA) NEGATIVE (NEGATIVE); KETONES,URINE NEGATIVE (NEGATIVE); LEUKOCYTE ESTERASE ,URINE 2+ (NEGATIVE); NITRITE,URINE POSITIVE (NEGATIVE); PH,URINE 6.5 (5-9); PROTEIN,URINE TRACE (NEGATIVE)
[2021-04-08 08:43] LABS: WHITE BLOOD COUNT 16.9 10^3/uL (4.3-11.0)
[2021-04-08 08:44] LABS: BASOPHILS % (AUTO) 0 % (0-10); EOSINOPHILS % (AUTO) 1 % (0-10); HEMATOCRIT 33 % (35-52); HEMOGLOBIN 10.3 g/dL (11.5-16.0); LYMPHOCYTES % (AUTO) 11 % (12-44); MEAN CORPUSCULAR HEMOGLOBIN 28 pg (25-34); MEAN CORPUSCULAR HGB CONC 31 g/dL (32-36); MEAN CORPUSCULAR VOLUME 91 fL (80-99); MEAN PLATELET VOLUME 12.5 fL (9.0-12.2); MONOCYTES % (AUTO) 11 % (0-12); NEUTROPHILS % (AUTO) 75 % (42-75); PLATELET COUNT 661 10^3/uL (130-400)
[2021-04-08 08:45] LABS: BASOPHILS # (AUTO) 0.1 10^3/uL (0.0-0.1); EOSINOPHILS # (AUTO) 0.2 10^3/uL (0.0-0.3); LYMPHOCYTES # (AUTO) 1.8 X 10^3 (1.0-4.0); MONOCYTES # (AUTO) 1.9 X 10^3 (0.0-1.0); NEUTROPHILS # (AUTO) 12.8 X 10^3 (1.8-7.8)
[2021-04-08 08:51] LABS: BACTERIA,URINE LARGE /HPF; WBC,URINE TNTC /HPF
[2021-04-08 09:01] LABS: BILIRUBIN,TOTAL 0.4 MG/DL (0.1-1.0); CALCIUM 10.2 MG/DL (8.5-10.1); CREATININE SERUM 0.99 MG/DL (0.60-1.30)
[2021-04-08 09:02] LABS: ALBUMIN 3.3 GM/DL (3.2-4.5); TOTAL PROTEIN 7.6 GM/DL (6.4-8.2)
--- NOTE | 2021-04-08 09:08 | Diagnostic Imaging Report ---
INDICATION: Chest pain. COMPARISON: 03/31/2021. FINDINGS: Single view of the chest demonstrates cardiac enlargement with slight central vascular congestion. There is no focal infiltrate, effusion or pneumothorax but osseous structures are normal. IMPRESSION: Cardiac enlargement with central vascular congestion similar to the prior exam. Dictated by: Dictated on workstation # [id number]
[2021-04-08 09:20] LABS: EOSINOPHILS % (MANUAL) 4 %; LYMPHOCYTES % (MANUAL) 8 %; MONOCYTES % (MANUAL) 9 %; MYELOCYTES % 1 %; NEUTROPHILS % (MANUAL) 78 %
[2021-04-08 09:21] LABS: NUCLEATED RED BLOOD CELLS 1; PLATELET ESTIMATE INCREASED; POLYCHROMASIA SLIGHT; RBC MORPH NORMAL
--- NOTE | 2021-04-08 09:29 | Diagnostic Imaging Report ---
Clinical indications: Patient with abdominal pain. Patient had pancreatic surgery 3 weeks ago. Now J-P drain. EXAM: Axial CT scan abdomen and pelvis performed without IV or enteric contrast. Sagittal and coronal reformatted images are created. Auto Exposure Controls were utilized during the CT exam to meet ALARA standards for radiation dose reduction. COMPARISON: CT scan of the abdomen and pelvis performed without contrast dated 04/08/2021. FINDINGS: There is interval development of a small left pleural effusion and atelectasis in both lung bases with the left side more than right. There is left curvature lumbar spine. There are degenerative spurs involving the visualized lower thoracic spine and lumbar spine. There is lower lumbar spine facet arthropathy. The liver, adrenal glands, and both kidneys show no significant abnormality. There is no hydronephrosis. Again noted gallstones with no CT evidence of cholecystitis. There are postop change of the abdomen with anterior midline incision seen. Previously seen fluid in the extra-abdominal area along the incision has significantly decreased in size with small amount remaining. There is a LYSSA drain entering the left anterior mid abdominal region which is looped along the left side of the abdomen and tip overlying the anterior right of midline abdominal region. There is a small fluid collection adjacent to the tip of the drain which measures 4.3 cm compared to prior study measured at 3.8 cm. This fluid has increased in size in the interim and previously this measured 3.5 cm x 2.8 cm. There is interval development of another fluid collection in the left retroperitoneal region seen just superior and anterior to the Gerota's fascia in the region where the pancreatic tail would have been suspected to be. This fluid collection measures 3.9 cm x 3.6 cm (AP x CC) . Transverse dimension is difficult to accurately measure due to its lobulated configuration and the lateral aspect extending more superiorly in the left upper quadrant. This fluid collection measures at least 11.5 cm in transverse dimensions. The drain does not extend through this fluid collection. Hounsfield units of this fluid collection is 16. There is another mixed density fluid collection in the right of midline retroperitoneal region which is in the expected region of where the pancreatic head should be. This fluid collection measures 5.8 cm x 5.7 cm x 6.3 cm and has mixed high and isodense fluid. This fluid collection is seen on the prior study measuring roughly 5.4 cm x 5.2 cm x 5.7 cm (AP x Trans x CC). The drain extends anteriorly within the periphery of the ventral aspect of this fluid collection. It is suspected that there may be blood. 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 There is fat stranding and small amount of free fluid in the left upper abdominal region which has progressed due to the previously measured fluid collection in the region where the pancreatic tail would be. There is no intra-abdominal free air. There is no intestinal obstruction. Bladder is fluid-filled and unremarkable. Interval decompression of the stomach with wall thickening which is nonspecific. The remainder of this exam shows no significant interval change compared to the prior study of comparison. IMPRESSION: 1: Postop change to the abdomen is seen with a drain extending along the left and mid abdominal region. 2: There is interval increased size of the mixed density fluid collection in the right of midline retroperitoneal region which is in the expected region where the pancreatic head would be. There is suspected to be a component of blood in this region. A drain extends anteriorly along the periphery of the ventral aspect of this fluid collection. 3: There is interval increased size of a moderate fluid collection in the left retroperitoneal region extending toward the left upper quadrant and just anterior superior to left Gerota's fascia. The drain does not extend into this fluid collection. 4: There is interval increased size of a fluid collection in the anterior right mid abdominal region which is in the region of the drain tip. 5: Interval development of a small left pleural effusion and progression of bibasilar atelectasis. 6: Cholelithiasis with no CT evidence of cholecystitis. 7: The remainder of this exam shows no significant interval change compared to the prior study of comparison. Dictated by: Dictated on workstation # [id number]
[2021-04-08] MEDS ORDERED: PIPERACILLIN SODIUM/TAZOBACTAM 4.5 GM in NS (IVPB) 100 ML IV ONE (09:30)
[2021-04-08] MEDS ORDERED: morphine INJ 10 MG/ML 1ML (SYR OR VIAL) IVP STA ×2 (09:38→12:46)
[2021-04-08] MEDS ORDERED: ONDANSETRON 4 MG/2 ML (SDV) Z0FRAN IVP ONE (09:45)
[2021-04-08 13:20] VITALS: BP 172/68
== END 2021-04-08 13:45 | disposition short-term general hospital (02) ==
LOC: EDUNIT# 07:57 → ER FS 07:58
DX: R18.8 Other ascites (principal); N39.0 Urinary tract infection, site not specified; D72.829 Elevated white blood cell count, unspecified; E87.2 Acidosis; I10 Essential (primary) hypertension; F32.9 Major depressive disorder, single episode, unspecified; G89.29 Other chronic pain; M54.9 Dorsalgia, unspecified; Z79.891 Long term (current) use of opiate analgesic; Z79.899 Other long term (current) drug therapy
CPT/HCPCS: 36415; 71045; 74176; 80053; 81000; 82150; 83605; 83690; 85007; 85027; 87040; 87077; 87088

== ENCOUNTER 2021-05-08 12:03 | Emergency (ER) | payer MEDICARE ==
[~2021-05-08] VITALS: Ht 152.4 cm; Wt 98.4 kg
--- OUTSIDE RECORDS SUMMARY | 2021-05-08 12:08 | XMS REPORT | Clinical Summary ---
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 If you d o not see the information that you expected, contact Release of Information in [facility] [employer] Information Management department at [phone] for further assistan ce in locating additional records.[facility] Allergies Comments Active Allergy Reactions Severity Noted Date Allergy recorded in SMS: Biaxin~Reactions: DIARRHEA Clarithromycin DIARRHEA Low 03/12/2005 Allergy recorded in SMS: IV IODINE~Reactions: ANAPHYLAXIS Iodinated Contrast Media ANAPHYLAXIS High 03/12 Allergy recorded in SMS: FLAGYL~Reactions: RASH Metronidazole RASH Medium 03/12/2005 Allergy recorded in SMS: Sulfa~Reactions: RASH Sulfa (Sulfonamide RASH Medium 03/12/2005 Antibiotics) Medications End Date Status Medication Sig Dispensed Refills Start Date Active DULoxetine DR (CYMBALTA) Take 60 mg by 0 60 mg capsule mouth daily. Active HYDROcodone-acetaminophen Take 1 Tab by 0 (+) (LORTAB) 10-500 mg mouth every 6 tablet hours as needed. Active nystatin (MYCOSTATIN) Apply to 0 100,000 unit/g topical affected area ointment twice daily. Active spironolactone Take 25 mg by 0 (ALDACTONE) 25 mg tablet mouth. Take half tablet in the morning and half tablet in the evening Active aspirin EC 81 mg tablet Take 81 mg by 0 mouth daily. Active polyethylene glycol 3350 Take 17 g by 0 (GLYCOLAX; MIRALAX) 17 mouth. Take gram/dose powder 30 minutes after supper Active ERGOCALCIFEROL (VITAMIN Take 1 Tab by 0 D2) (VITAMIN D PO) mouth daily. Active diazePAM (VALIUM) 5 mg Take 2 tabs 1 3 Tab 0 0 tabletIndications: hr before 7 sedation MRI. Take 1 tab during MRI if needed. Indications: SEDATION Active ALPRAZolam (XANAX) 0.5 mg 1 tablet 0 tablet Active amLODIPine (NORVASC) 5 mg Take 5 mg by 0 tablet mouth daily. Active cannabidioL (EPIDIOLEX) as directed 0 100 mg/mL solution Active carvediloL (COREG) 6.25 Take 6.25 mg 0 mg tablet by mouth daily. Active coenzyme Q10 (CO Q-10) every 24 0 100 mg cap hours. Active hydrocortisone (CORTEF) 5 Take 5 mg by 0 mg tablet mouth twice daily. 3 tabs AM, 2 tabs PM Active insulin glargine (LANTUS Inject 15 0 SOLOSTAR U-100 INSULIN) Units to 100 unit/mL (3 mL) area(s) as injection PEN directed daily with breakfast. Active levothyroxine (SYNTHROID) Take 1 tablet 0 100 mcg tablet by mouth every 24 hours. Active losartan (COZAAR) 100 mg Take 1 tablet 0 tablet by mouth every 24 hours. Active Multivitamins with every 24 0 Fluoride (MULTI-VITAMIN hours. PO) Active Avpwo-7-AIR-EPA-Fish Oil every 24 0 1,000 mg (120 mg-180 mg) hours. cap Active oxybutynin XL (DITROPAN Take 1 tablet 0 XL) 5 mg tablet by mouth every [address]. [address] Take 1 tablet 0 (PROTONIX) 40 mg tablet by mouth every 24 hours. Active repaglinide (PRANDIN) 1 Take 1 tablet 0 mg tablet by mouth three times daily before meals. Active rosuvastatin (CRESTOR) 10 Take 1 tablet 0 mg tablet by mouth every 24 hours. Active traMADoL (ULTRAM) 50 mg Take 1 tablet 0 tablet by mouth daily as needed. Active Problems Problem Noted Date Bilateral pseudophakia 11/21/2020 Meibomian gland dysfunction (MGD) of both eyes 11/21 Meningioma, multiple (HCC) - suprasellar s/p radiatio n therapy 2017, left 10/03/2020 anterior fossa (enlarging 2013 - 2020) Constipation 03/01/2013 Neoplasm of unspecified nature of brain (HCC) - Cliva l mass, s/p 06/28/2008 nondiagnostic biopsy 2004 Surgical History Surgery Date Site/Laterality Comments HX TUBAL LIGATION 05/17/1975 - 05/16/1976 HX HYSTERECTOMY 05/17/1997 - 05/16/1998 ABDOMINAL EXPLORATION 05/17/1999 - SURGERY 05/16/2000 ABDOMINAL HERNIA REPAIR 05/17/2014 - 05/16/2015 HX CATARACT REMOVAL Medical History Medical History Date Comments Arthritis Anxiety disorder Cancer (HCC) skin Cataract Depression DM (diabetes mellitus) (HCC) Hypertension High cholesterol Chronic kidney disease Bipolar 2 disorder (HCC) Fibromyalgia Hx pulmonary embolism Thyroid disease GERD (gastroesophageal reflux disease) Sleep apnea with use of continuous positive airway pressure (CPAP) Adrenal insufficiency (HCC) Chordoma of clivus (HCC) 2004 Family History Medical History Relation Name Comments Migraines Brother Alcohol abuse Father Cancer Father Cataract Father Diabetes Father Glaucoma Neg Hx Macular Degen Neg Hx Relation Name Status Comments Brother Father Social History Date Tobacco Use Types Packs/Day Years Used Never Smoker Smokeless Tobacco: Never Used Comments Alcohol Use Standard Drinks/Week No 0 (1 standard drink = 0.6 o z pure alcohol) Sex Assigned at Date Recorded Female 10/07/2020 9:31 AM CDT Last Filed Vital Signs Reading Time Taken Comments Vital Sign 155/75 09/30/2020 11:40 AM CDT Blood Pressure 75 09/30/2020 11:40 AM CDT Pulse 37 C (98.6 F) 02/22/2013 12:59 PM CDT Temperature 18 02/22/2013 12:59 PM CDT Respiratory Rate - - Oxygen Saturation - - Inhaled Oxygen Concentration 105.4 kg (232 lb 6.4 oz) 11/21/2020 12:41 PM CDT Weight 154.9 cm (5' 1") 11/21/2020 12:41 PM CDT Height 43.91 11/21/2020 12:41 PM CDT Body Mass Index Plan of Treatment Health Maintenance Due Date Last Done Comments MEDICARE ANNUAL WELLNESS 1950 VISIT DTAP/TDAP VACCINES (1 - 1968 Tdap) HEPATITIS C SCREENING 1968 PHYSICAL (COMPREHENSIVE) 1968 EXAM BREAST CANCER SCREENING 1990 COLORECTAL CANCER 2000 SCREENING SHINGLES RECOMBINANT 2000 VACCINE (1 of 2) OSTEOPOROSIS 08/10/2015 SCREENING/MONITORING PNEUMONIA (PPSV23) 08/10/2015 VACCINE (1 of 1 - PPSV23) INFLUENZA VACCINE 12/15/2020 02/25/2005, 03/02/2003 Results Not on filefrom Last 3 Months Insurance Type Payer Benefit Subscriber ID Effective Phone Address Plan / Dates Group Medicare MEDICARE MEDICARE [id number] 2008-P [phone] [address] [place] [address] Medicare BCBS [place] BCBS [id number] 2020-P [phone] [address] [place] [address] 6766 1 Advance Directives 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 Explanation Type Date Recorded Advance 02/22/2013 2:27 PM Directive/DPOA Advance Directives 12/29/2012 6:47 PM and Living Will Care Teams Start Date End Date Conche Loader And Unloader Relationship Specialty 05/06/20 Sandeep Brannon MD PCP - General Family [address] [place] [address] [place], [place] [address] 03/17/10 Laura Saenz MD [address] [facility] [facility] [address] [place] [address] 03/17/10 Doctor, Miscellaneous 06/17/12 Hairtha Galindo MD Neurological [address] [facility] Surgery [facility] [address] [place] [address] 09/30/12 Kieran Villegas MD Ophthalmolog [address] [place] [address] 02/22/13 Jad Milan MD Internal [address] [place], [place] [id number]
--- OUTSIDE RECORDS SUMMARY | 2021-05-08 12:08 | XMS REPORT | Clinical Summary ---
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 End Date Status Medication Sig Dispensed Refills Start Date Active diltiazem (TIAZAC) 120 mg Take 120 mg 0 SR capsule by mouth two times a day. Active DULoxetine (CYMBALTA) 60 Take 60 mg by 0 mg delayed release mouth once a capsule day. Active levothyroxine (SYNTHROID) Take 100 mcg 0 100 mcg tablet by mouth once a day at 6 am. Active lisinopril (PRINIVIL) 20 Take 40 mg by 0 mg tablet mouth once a day. Active LORazepam (ATIVAN) 0.5 mg Take 1 mg by 0 tablet mouth two times a day, as needed. Active morPHINE (MS IR) 30 mg Take 30 mg by 0 tablet mouth two times a day. Active nystatin-triamcinolone Apply 100,000 0 100,000 unit/g-0.1 % Units (MYCOLOG) ointment externally to affected area two times a day. Active spironolactone Take 25 mg by 0 (ALDACTONE) 25 mg tablet mouth once a day. Active traZODone (DESYREL) 50 mg Take 100 mg 0 tablet by mouth every bedtime, as needed. Active oxybutynin chloride Take 5 mg by 0 (DITROPAN) 5 mg tablet mouth three times a day. 1/2 tab QID Active polyethylene glycol 3350 Take 17 g by 0 (MIRALAX) packet mouth once a day, as needed. Active rosuvastatin (CRESTOR) 20 Take 10 mg by 0 mg tablet mouth at bedtime. Active Problems Not on file Social History Date Tobacco Use Types Packs/Day Years Used Never Smoker Comments Alcohol Use Standard Drinks/Week No 0 (1 standard drink = 0.6 o z pure alcohol) Sex Assigned at Date Recorded Not on file Last Filed Vital Signs Reading Time Taken Comments Vital Sign 133/72 10/13/2014 11:48 AM CDT Blood Pressure 62 10/13/2014 11:48 AM CDT Pulse 36.7 C (98.1 F) 10/13/2014 11:48 AM CDT Temperature 18 10/13/2014 11:48 AM CDT Respiratory Rate 93% 10/13/2014 11:48 AM CDT Oxygen Saturation - - Inhaled Oxygen Concentration 102.5 kg (226 lb) 10/13/2014 10:46 AM CDT Weight 154.9 cm (5' 1") 10/13/2014 10:46 AM CDT Height 42.7 10/13/2014 10:46 AM CDT Body Mass Index Plan of Treatment Health Maintenance Due Date Last Done Comments CT Colonography 1950 Colonoscopy 1950 Colorectal Cancer 1950 Screening DNA-based stool test 1950 (Cologuard) DXA Scan 1950 Sigmoidoscopy 1950 gFOBT or FIT 1950 COVID-19 Vaccine (1) 1962 Pneumococcal Vaccine: 65+ 08/10/2015 Years (1 of 1 - PPSV23) Mammogram 12/21/2018 12/21/2016, 08/27/2015, 06/26/2014, Additional history exists Influenza Vaccine (#1) 2021 HPV Vaccine Aged Out No longer eligible based on patient's age to complete this topic Hepatitis A Vaccine Aged Out No longer eligible based on patient's age to complete this topic Hepatitis B Vaccine Aged Out No longer eligible based on patient's age to complete this topic Hib Vaccine Aged Out No longer eligible based on patient's age to complete this topic IPV Vaccine Aged Out No longer eligible based on patient's age to complete this topic Meningococcal Vaccine Aged Out No longer eligib le based on patient's age to (MCV4) complete this topic Rotavirus Vaccine Aged Out No longer eligible based on patient's age to complete this topic Results Not on filefrom Last 3 Months Insurance Type Payer Benefit Subscriber ID Effective Phone Address Plan / Dates Group Medicare MEDICARE ZZMEDICARE [id number] 2008-P [phone] [address] [address] PPO BCBS/ANTHEM ZZBCBS [place] [id number] Effective [phone] [address] PLAN 65 for all [place] [employer] [employer] dates [id number] ONLY Indemnity [facility] [id number] 2018-P [phone] [facility] OFFICE resent OF COMMUNITY [facility] [address] [address] [place] [address] Julieta Rogers [place] P/F Self 1950 [address] (Home) [place] [address] Advance Directives Patient [employer] Explanation Type Date Recorded Living Will 10/13/2014 11:23 AM Care Teams Start Date End Date Overhauler Bus Truck Relationship Specialty 12/16/16 Emy Still MD PCP - General Family [address] [place] [id number]
--- NOTE | 2021-05-08 12:30 | ED Fever ---
History of Present Illness General Chief Complaint: Fever-Adult/Adol Stated Complaint: FEVER Nursing Triage Note: PT ARRIVED BY EMS WITH CHIEF COMPLAINT OF FEVER. PT WAS ALERT ON ARRIVAL. PT STATED DOESN'T FEEL GOOD AND WAS RUNNING A 101.8 DEGREE FEVER. PT HAS BEEN SEEN AT [facility] ON THE [place] FOR LYSSA SURGICAL DRAIN. PT TOOK TYLENOL A COUPLE HOURS AGO AND FEVER HAS GONE DOWN. AT THE ER HER TEMPERATURE WAS 36.3. VITALS WERE DONE AND BLOOD DRAW WAS DONE. REPORT WAS GIVEN TO PROVIDER. 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 The patient i s known to me, and she has been dealing with intermittent postoperative fevers for over a month. She says she was admitted to [facility] and they finally placed a PICC line and now she is on IV Zosyn which she is due for at 2 PM today for the next dose. Fever started yesterday and was 101.3 Fahrenheit as recent as this morning. She did take tylenol this morning after seeing her temperature. She is also having some left-sided abdominal pain which is constant, achy, and nothing seems to make it better or worse. This pain has been increasing over the past week. Denies any chest pain, shortness of breath, weakness, numbness, rash, or any other concerns. She does note that the LYSSA drain was brown/cloudy fluid and recently it changed to milky white fluid within the past week. Allergies and Home Medications Allergies Coded Allergies: Sulfa (Sulfonamide Antibiotics) (Verified Allergy, Unknown, 04/08/19) iodine (Verified Allergy, Unknown, 04/08/19) metronidazole (Verified Allergy, Unknown, 04/08/19) Patient Home Medication List Home Medication List Reviewed: Yes [Alprazolam] , (Reported) Entered as Reported by: DOUG MART on 10/07/191845 [Tramadol] , (Reported) Entered as Reported by: DOUG MART on 10/07/191843 Review of Systems Review of Systems Constitutional: No chills; fever EENTM: No blurred vision Respiratory: No cough Cardiovascular: No chest pain Gastrointestinal: abdominal pain; No diarrhea, No nausea, No vomiting Genitourinary: no symptoms reported Musculoskeletal: no symptoms reported Skin: no symptoms reported Psychiatric/Neurological: No Symptoms Reported Hematologic/Lymphatic: No Symptoms Reported Immunological/Allergic: no symptoms reported All Other Systems Reviewed Negative Unless Noted: Yes Past Mfciect-Lehkvb-Lbmfhw Hx Patient Social History Tobacco Use?: No Smoking Status: Never a Smoker Smokeless Tobacco Frequency: Never a User Substance use?: No Alcohol Use?: No Pt feels they are or have been: No Immunizations Up To Date Tetanus Booster (TDap): Unknown First/Initial COVID19 Vaccinat: 12/2020 Second COVID19 Vaccination Placido: 01/15/2021 Third COVID19 Vaccination Date: 12/2020 Seasonal Allergies Seasonal Allergies: Yes Past Medical History Surgeries: Yes (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, ) Eye Surgery Respiratory: No Cardiac: Yes High Cholesterol, Hypertension Neurological: Yes Brain Tumor Genitourinary: Yes (Adrenal Insufficency, Over active Bladder) Gastrointestinal: Yes Colitis, Gastroesophageal Reflux Musculoskeletal: Yes Fibromyalgia, Chronic Back Pain Endocrine: Yes Diabetes, Insulin dep HEENT: Yes (Bilateral Cataract removal) Cataract Cancer: No Psychosocial: Yes Depression Integumentary: No Blood Disorders: No Physical Exam Vital Signs - First Documented 05/08/21 12:05 Temp 36.3 Pulse 83 Resp 18 B/P (MAP) 167/75 (105) Pulse Ox 97 O2 Delivery Room Air Capillary Refill : Less Than 3 Seconds Height: '" Weight: lbs. oz. kg; 42.00 BMI Method: General Appearance: WD/WN, no apparent distress HEENT: PERRL/EOMI, normal ENT inspection, pharynx normal Neck: non-tender, full range of motion, supple, normal inspection Respiratory: chest non-tender, lungs clear, normal breath sounds, no respiratory distress, no accessory muscle use Cardiovascular: regular rate, rhythm, no edema, no murmur Gastrointestinal: normal bowel sounds, soft; No distended, No guarding, No rebound; tenderness, other (LYSSA drain draining milky white fluid) Extremities: normal range of motion, non-tender, normal inspection, no pedal edema, no calf tenderness, normal capillary refill Neurologic/Psychiatric: no motor/sensory deficits, alert, normal mood/affect Skin: normal color, warm/dry Lymphatic: no adenopathy Focused Exam Lactate Level 05/08/21 12:26: Lactic Acid Level 1.07 Lactic Acid Level Laboratory Tests Test 05/08/21 12:26 Lactic Acid Level 1.07 MMOL/L (0.50-2.00) Progress/Results/Core Measures Suspected Sepsis SIRS Temperature: Pulse: 83 Respiratory Rate: 18 Laboratory Tests 05/08/21 12:26: White Blood Count 8.4 Blood Pressure 167 /75 Mean: 105 05/08/21 12:26: Lactic Acid Level 1.07 Laboratory Tests 05/08/21 12:26: Creatinine 0.97, INR Comment 1.1, Platelet Count 317, Total Bilirubin 0.4 Results/Orders Lab Results Laboratory Tests Test 05/08/21 12:26 Range/Units White Blood Count 8.4 4.3-11.0 10^3/uL Red Blood Count 3.76 L 3.80-5.11 10^6/uL Hemoglobin 10.8 L 11.5-16.0 g/dL Hematocrit 33 L 35-52 % Mean Corpuscular Volume 87 80-99 fL Mean Corpuscular Hemoglobin 29 25-34 pg Mean Corpuscular Hemoglobin Concent 33 32-36 g/dL Red Cell Distribution Width 16.3 H 10.0-14.5 % Platelet Count 317 130-400 10^3/uL Mean Platelet Volume 13.3 H 9.0-12.2 fL Immature Granulocyte % (Auto) 1 % Neutrophils (%) (Auto) 56 42-75 % Lymphocytes (%) (Auto) 34 12-44 % Monocytes (%) (Auto) 8 0-12 % Eosinophils (%) (Auto) 1 0-10 % Basophils (%) (Auto) 1 0-10 % Neutrophils # (Auto) 4.7 1.8-7.8 X 10^3 Lymphocytes # (Auto) 2.8 1.0-4.0 X 10^3 Monocytes # (Auto) 0.7 0.0-1.0 X 10^3 Eosinophils # (Auto) 0.1 0.0-0.3 10^3/uL Basophils # (Auto) 0.1 0.0-0.1 10^3/uL Immature Granulocyte # (Auto) 0.0 0.0-0.1 10^3/uL Erythrocyte Sedimentation Rate 51 H 0-30 MM/HR Prothrombin Time 14.6 12.2-14.7 SEC INR Comment 1.1 0.8-1.4 Activated Partial Thromboplast Time 26 24-35 SEC Sodium Level 138 135-145 MMOL/L Potassium Level 2.8 L 3.6-5.0 MMOL/L Chloride Level 100 98-107 MMOL/L Carbon Dioxide Level 24 21-32 MMOL/L Anion Gap 14 5-14 MMOL/L Blood Urea Nitrogen 7 7-18 MG/DL Creatinine 0.97 0.60-1.30 MG/DL Estimat Glomerular Filtration Rate 57 BUN/Creatinine Ratio 7 Glucose Level 125 H 70-105 MG/DL Lactic Acid Level 1.07 0.50-2.00 MMOL/L Calcium Level 9.2 8.5-10.1 MG/DL Corrected Calcium 9.9 8.5-10.1 MG/DL Total Bilirubin 0.4 0.1-1.0 MG/DL Aspartate Amino Transf (AST/SGOT) 19 5-34 U/L Alanine Aminotransferase (ALT/SGPT) 16 0-55 U/L Alkaline Phosphatase 109 40-136 U/L C-Reactive Protein 2.40 H <0.50 MG/DL Total Protein 6.5 6.4-8.2 GM/DL Albumin 3.1 L 3.2-4.5 GM/DL Lipase 27 8-78 U/L My Orders Orders - GURINDER BENEDICT MD Cbc With Automated Diff (05/08/21 12:23) Comprehensive Metabolic Panel (05/08/21 12:23) Blood Culture (05/08/21 12:23) Urinalysis (05/08/21 12:23) Urine Culture (05/08/21 12:23) Protime With Inr (05/08/21 12:23) Partial Thromboplastin Time (05/08/21 12:23) Chest 1 View Ap/Pa Only (05/08/21 12:23) Vital Signs Adult Sepsis Patie Q15M (05/08/21 12:23) O2 (05/08/21 12:23) Lactic Acid Analyzer (05/08/21 12:23) Influenza A & B Antigens (05/08/21 12:23) Erythrocyte Sedimentation Rate (05/08/21 12:23) Crp Fs (05/08/21 12:23) Ct Abdomen/Pelvis Wo (05/08/21 12:26) Lipase (05/08/21 12:38) Potassium Cl 10meq/50ml Ivpb (Kcl 10 Meq (05/08/21 13:09) Lactated Ringers (Lr 1000 Ml Iv Solution (05/08/21 13:09) Potassium Chloride (Tablet) (K Dur Table (05/08/21 13:15) Medications Given in ED Current Medications Medications Dose Ordered Sig/Constantino Route Start Time Stop Time Status Last Admin Dose Admin Potassium Chloride 20 meq ONCE ONCE PO 05/08/21 13:15 05/08/21 13:16 DC 05/08/21 13:37 20 MEQ Vital Signs/I&O 05/08/21 12:05 Temp 36.3 Pulse 83 Resp 18 B/P (MAP) 167/75 (105) Pulse Ox 97 O2 Delivery Room Air Capillary Refill : Less Than 3 Seconds Blood Pressure Mean: 105 Progress Note : Progress Note 70-year-old female with above history coming in due to increasing abdominal pain and fever since yesterday. ABCs were intact and vitals were stable on presen tation. Physical exam with some abdominal tenderness but no signs of peritonitis. Her LYSSA drain is draining white cloudy fluid and she has been putting out about 100 cc/day which has been unchanged recently. She is afebrile here, but did take Tylenol shortly prior to arrival. Labs significant for white blood cell count around 8 which is trended down, CRP slightly elevated at 2.5 with no prior for baseline, normal creatinine, normal lactate. Potassium was 2.8 which she was given IV potassium as well as oral potassium with IV fluids. CT abdomen pelvis with 2 fluid collections one being 3 cm and the other 2 cm. The LYSSA drain is not near the fluid collection. I called and discussed the case with [facility] and they page the hepatobiliary surgeon on-call. He leans towards wanted to transfer the patient to their emergency department to be evaluated, but he will call the patient's primary surgeon to discuss the case further. This call was initially performed at 1:45 PM, and I am awaiting a callback at this time. Update 14:15 the start and call back and to confirm he wanted to evaluate the patient in the emergency department at [facility]. Dr. Castro will be the accepting ER physician. Of note, the patient was due for her Zosyn at 2 PM so she did receive that here. She also received stress dose steroids given her adrenal insufficiency and currently febrile. Diagnostic Imaging Diagonstic Imaging: Xray (chest), CT (abd/pelvis without) Comments [facility] [place] NAME: MAE MUNSON [facility] REC#: [id number] PT STATUS: REG ER : 1950 PHYSICIAN: GURINDER BENEDICT MD ADMIT DATE: 05/08/21/ER FS Draft Date of Exam:05/08/21 CHEST 1 VIEW AP/PA ONLY INDICATION: Fever COMPARISON: 04/08/2021 FINDINGS: Left PICC line is in the lower SVC. The lungs are clear. There is no failure, effusion or pneumothorax. IMPRESSION: PICC line in good position. No acute appearing abnormality Dictated on workstation # [id number] Dict: 05/08/21 1248 Trans: 05/08/21 1253 [facility] [id number] Interpreted by: ROGELIO ROUSSEAU Electronically signed by: Departure Impression Primary Impression: Postoperative fever Additional Impression: Hypokalemia Disposition: XFER SHT-TRM HOSP Condition: Stable Transfer Transfer Reason: Exceeds level of care Time Spoke to Accepting Phy: 14:[address] Castro accepting ER physician. Sent there for continuity of care since her hepatobiliary surgeon is there Method of Transfer: EMS Departure-Patient Inst. Referrals: JAMEY CARLISLE MD (PCP/Family) Primary Care Physician GURINDER BENEDICT MD May 08, 2021 12:30
[2021-05-08 12:39] LABS: EOSINOPHILS % (AUTO) 1 % (0-10); HEMATOCRIT 33 % (35-52); HEMOGLOBIN 10.8 g/dL (11.5-16.0); LYMPHOCYTES % (AUTO) 34 % (12-44); MEAN CORPUSCULAR HEMOGLOBIN 29 pg (25-34); MEAN CORPUSCULAR HGB CONC 33 g/dL (32-36); MEAN CORPUSCULAR VOLUME 87 fL (80-99); MEAN PLATELET VOLUME 13.3 fL (9.0-12.2); MONOCYTES % (AUTO) 8 % (0-12); NEUTROPHILS % (AUTO) 56 % (42-75); PLATELET COUNT 317 10^3/uL (130-400); WHITE BLOOD COUNT 8.4 10^3/uL (4.3-11.0)
[2021-05-08 12:40] LABS: BASOPHILS # (AUTO) 0.1 10^3/uL (0.0-0.1); BASOPHILS % (AUTO) 1 % (0-10); EOSINOPHILS # (AUTO) 0.1 10^3/uL (0.0-0.3); LYMPHOCYTES # (AUTO) 2.8 X 10^3 (1.0-4.0); MONOCYTES # (AUTO) 0.7 X 10^3 (0.0-1.0); NEUTROPHILS # (AUTO) 4.7 X 10^3 (1.8-7.8)
[2021-05-08 12:50] LABS: INR 1.1 (0.8-1.4); PROTHROMBIN TIME PATIENT 14.6 SEC (12.2-14.7)
--- NOTE | 2021-05-08 12:53 | Diagnostic Imaging Report ---
INDICATION: Fever COMPARISON: 04/08/2021 FINDINGS: Left PICC line is in the lower SVC. The lungs are clear. There is no failure, effusion or pneumothorax. IMPRESSION: PICC line in good position. No acute appearing abnormality Dictated by: Dictated on workstation # [id number]
[2021-05-08 13:02] LABS: BILIRUBIN,TOTAL 0.4 MG/DL (0.1-1.0); CALCIUM 9.2 MG/DL (8.5-10.1); CREATININE SERUM 0.97 MG/DL (0.60-1.30); POTASSIUM 2.8 MMOL/L (3.6-5.0)
[2021-05-08 13:03] LABS: ALBUMIN 3.1 GM/DL (3.2-4.5); TOTAL PROTEIN 6.5 GM/DL (6.4-8.2)
[2021-05-08] MEDS ORDERED: LACTATED RINGERS 1,000 ML IV STA (13:09)
[2021-05-08] MEDS ORDERED: POTASSIUM CL 10MEQ/50ML IVPB 50 ML IV STA (13:09)
[2021-05-08] MEDS ORDERED: KCL 20 MEQ TAB (K-DUR) PO ONE (13:15)
--- NOTE | 2021-05-08 13:16 | Diagnostic Imaging Report ---
PROCEDURE: CT abdomen and pelvis without contrast. TECHNIQUE: Multiple contiguous axial images were obtained through the abdomen and pelvis without the use of intravenous contrast. Auto Exposure Controls were utilized during the CT exam to meet ALARA standards for radiation dose reduction. INDICATION: Splenectomy, pancreatic tumor. Removal drainage catheter. Postop fever COMPARISON: 04/08/2021. FINDINGS: There is a pigtail catheter in the operative bed in the left upper quadrant in stable position. There is no discernible fluid collection, free air or free fluid within the left upper quadrant. There is however persistent but smaller fluid collections in the mid upper abdomen. The larger of the 2 is just inferior to the antrum of the stomach and measures approximately 3 cm. The 2nd is in the anatomical position where the pancreatic head would be measuring approximately 2 cm. Previously these measured 33 and 34 mm. They do not contain gas. No additional fluid collection is seen. The spleen is surgically absent. Minimal atelectasis seen in the left lung base. Right lung base is clear. Cholelithiasis is present within the gallbladder. Additional solid organs, vascular structures and bowel are unremarkable. Uterus is surgically absent. Urinary bladder normal. IMPRESSION: 1. Stable pigtail catheter in the left upper quadrant with no discernible fluid in its periphery. 2. Smaller fluid collections in the mid upper abdomen in the region of the pancreatic head and inferior to the stomach antrum. No gas formation or additional fluid collection is seen. 3. Cholelithiasis without cholecystitis. 4. Atelectasis left base. Dictated by: Dictated on workstation # [id number]
[2021-05-08 13:43] LABS: ERYTHROCYTE SEDIMENTATION RATE 51 MM/HR (0-30)
[2021-05-08] MEDS ORDERED: PIPERACILLIN SODIUM/TAZOBACTAM 4.5 GM in NS (IVPB) 100 ML IV ONE (14:30)
[2021-05-08] MEDS ORDERED: HYDROCORTISONE 100 MG/2 ML (Solu-CORTEF) VIAL IV ONE (14:30)
[2021-05-08 14:47] LABS: BILIRUBIN,URINE NEGATIVE (NEGATIVE); CLARITY,URINE CLEAR; COLOR,URINE YELLOW; GLUCOSE, URINE (UA) NEGATIVE (NEGATIVE); KETONES,URINE TRACE (NEGATIVE); LEUKOCYTE ESTERASE ,URINE TRACE (NEGATIVE); NITRITE,URINE NEGATIVE (NEGATIVE); PROTEIN,URINE NEGATIVE (NEGATIVE)
[2021-05-08 14:48] LABS: BACTERIA,URINE NEGATIVE /HPF; RBC,URINE RARE /HPF; WBC,URINE 0-2 /HPF
[2021-05-08 14:59] VITALS: BP 184/86
== END 2021-05-08 15:05 | disposition short-term general hospital (02) ==
LOC: EDUNIT# 12:03 → ER FS 12:04
DX: G89.18 Other acute postprocedural pain (principal); E87.6 Hypokalemia; I10 Essential (primary) hypertension; F32.9 Major depressive disorder, single episode, unspecified; G89.29 Other chronic pain; M54.9 Dorsalgia, unspecified; Z79.891 Long term (current) use of opiate analgesic; Z79.899 Other long term (current) drug therapy
CPT/HCPCS: 36415; 71045; 74176; 80053; 81000; 83605; 83690; 85025; 85610; 85652; 85730; 86141; 87040; 87088

== ENCOUNTER 2021-05-21 14:46 | Observation (INO) | payer MEDICARE ==
[~2021-05-21] VITALS: Ht 152.4 cm; Wt 76.7 kg
--- OUTSIDE RECORDS SUMMARY | 2021-05-21 14:51 | XMS REPORT | Clinical Summary ---
Author Author [facility] Organization [facility] Address Unknown Phone Unavailable Care Team Providers Care Heavy Forger Name Role Phone Laura Saenz MD Unavailable Doctor, Qicellaneous Unavailable Unavailable Haritha Galindo MD Unavailable Kieran Villegas MD Unavailable Jad Milan MD Unavailable Sandeep Brannon MD PCP Source Comments Some departments are not documenting in the electronic medical record. If you d o not see the information that you expected, contact Release of Information in [facility] Information Management department at [phone] for further assistan ce in locating additional records.[facility] Allergies Comments Active Allergy Reactions Severity [...] 24 0 Fluoride (MULTI-VITAMIN hours. 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 Explanation Type Date Recorded Advance 02/22/2013 2:27 PM Directive/DPOA Advance Directives 12/29/2012 6:47 PM and Living Will Care Teams Start Date End Date Heavy Forger Relationship Specialty 05/06/20 aSndeep Brannon MD PCP - General Family [address] [place] [address] Medicine [place], [place] [id number] 03/17/10 Laura Saenz MD [address] [facility] [address] [place] [address] 03/17/10 Doctor, Miscellaneous 06/17/12 Haritha Galindo MD Neurological [address] [facility] Surgery [facility] [address] [place] [address] 09/30/12 Kieran Villegas MD Ophthalmolog [address] [place] [address] 02/22/13 Jad Milan MD Internal [address] [place], [place] [id number]
[2021-05-21 15:29] LABS: BASOPHILS % (AUTO) 1 % (0-10); EOSINOPHILS % (AUTO) 2 % (0-10); HEMATOCRIT 34 % (35-52); HEMOGLOBIN 11.1 g/dL (11.5-16.0); LYMPHOCYTES % (AUTO) 45 % (12-44); MEAN CORPUSCULAR HEMOGLOBIN 29 pg (25-34); MEAN CORPUSCULAR HGB CONC 33 g/dL (32-36); MEAN CORPUSCULAR VOLUME 88 fL (80-99); MONOCYTES % (AUTO) 11 % (0-12); NEUTROPHILS % (AUTO) 41 % (42-75); PLATELET COUNT 257 10^3/uL (130-400); WHITE BLOOD COUNT 7.9 10^3/uL (4.3-11.0)
[2021-05-21 15:30] LABS: BASOPHILS # (AUTO) 0.1 10^3/uL (0.0-0.1); EOSINOPHILS # (AUTO) 0.1 10^3/uL (0.0-0.3); LYMPHOCYTES # (AUTO) 3.6 X 10^3 (1.0-4.0); MONOCYTES # (AUTO) 0.9 X 10^3 (0.0-1.0); NEUTROPHILS # (AUTO) 3.2 X 10^3 (1.8-7.8)
[2021-05-21] MEDS ORDERED: HYDROCORTISONE 100 MG/2 ML (Solu-CORTEF) VIAL IV ONE (15:30)
--- NOTE | 2021-05-21 15:38 | Diagnostic Imaging Report ---
PROCEDURE: CT head without contrast. TECHNIQUE: Multiple contiguous axial images were obtained through the brain without the use of intravenous contrast. Auto Exposure Controls were utilized during the CT exam to meet ALARA standards for radiation dose reduction. INDICATION: Head injury from a fall, slurred speech The ventricles are normal in size, shape and position. There are no masses or hemorrhages. There are no extra-axial fluid collections. There are no skull fractures seen. IMPRESSION: Negative CT head Dictated by: Dictated on workstation # [id number]
--- NOTE | 2021-05-21 15:40 | Diagnostic Imaging Report ---
Indication: Right hip pain AP view pelvis and 2 views the right hip show no fracture, dislocation or other acute abnormalities. IMPRESSION: Negative pelvis and right hip Dictated by: Dictated on workstation # [id number]
--- NOTE | 2021-05-21 15:41 | Diagnostic Imaging Report ---
Indication: Right shoulder injury from a fall 3 views of the right shoulder show no fracture, dislocation or other acute abnormalities. IMPRESSION: Negative right shoulder Dictated by: Dictated on workstation # [id number]
[2021-05-21] MEDS ORDERED: HYDROcodone/APAP 5 MG/325 MG (LORTAB) TAB PO ONE (15:45)
[2021-05-21] MEDS ORDERED: NS IV 1000 ML 1,000 ML IV SCH ×2 (15:45→17:15)
[2021-05-21 15:51] LABS: ALANINE AMINOTRANSFERASE 56 U/L (0-55); ALKALINE PHOSPHATASE 154 U/L (40-136); BILIRUBIN,TOTAL 0.2 MG/DL (0.1-1.0); BUN/CREATININE RATIO 10; CALCIUM 9.6 MG/DL (8.5-10.1); CARBON DIOXIDE 26 MMOL/L (21-32); CHLORIDE 101 MMOL/L (98-107); CREATININE SERUM 1.06 MG/DL (0.60-1.30); GFR ESTIMATED 51; GLUCOSE 152 MG/DL (70-105); MAGNESIUM 1.5 MG/DL (1.6-2.4); POTASSIUM 3.2 MMOL/L (3.6-5.0); SODIUM 137 MMOL/L (135-145)
[2021-05-21 15:52] LABS: AMYLASE 24 U/L (25-125); TOTAL PROTEIN 5.8 GM/DL (6.4-8.2)
--- NOTE | 2021-05-21 15:59 | Diagnostic Imaging Report ---
INDICATION: Fall with right knee pain. TECHNIQUE: AP, oblique, and lateral views of the right knee were obtained. FINDINGS: There is moderate narrowing of the medial knee joint compartment with moderate medial marginal spurring. No acute fracture or subluxation is identified. There is no evidence of significant joint fluid. IMPRESSION: Medial compartment degenerative findings without acute osseous abnormality detected. Dictated by: Dictated on workstation # [id number]
[2021-05-21 16:31] LABS: ABG PH 7.44 (7.37-7.43)
[2021-05-21 16:32] LABS: ABG BASE EXCESS 3.9 MMOL/L (-2.5-2.5); ABG OXYGEN SATURATION 86 % (94-100); ABG PCO2 42 MMHG (35-45); ABG PO2 49 MMHG (79-93); ABG TCO2 29.8 MMOL/L (21.0-31.0); ALLENS TEST OK; INSPIRED O2 ROOM AIR; PATIENT TEMP 96; VENTILATOR NO
--- NOTE | 2021-05-21 19:52 | ED General ---
General Chief Complaint: General Problems/Pain Stated Complaint: SLURRED SPEECH Nursing Triage Note: Patient reports she was recently discharged from [facility] in [place] for complications from a pancreatic tumor removal; states she felt weaker when she was discharged from this stay than her previous hospital stay and that her weakness has continued to increase at home. She states she has fallen twice within the last several days, reports pain in her right hip, right shoulder, face, and head. 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 Patient is currently receiving IV antibiotics through her PICC line for treatment of intra- abdominal abscess. She denies fever chills, nausea vomiting or sweats and reports only mild abdominal pain. Family member states the patient has been weak upon standing and has occasionally been confused. She is fallen twice in the past several days once scraping her nose and second time bruising her right thigh. She complains of right shoulder and right hip pain. She is not currently on anticoagulation therapy. There are no other symptoms or complaints. Additional history is from the patient's son. Timing/Duration: 6-7 Days Modifying Factors: improves with Other Allergies and Home Medications Allergies Coded Allergies: Sulfa (Sulfonamide Antibiotics) (Verified Allergy, Unknown, 04/08/19) iodine (Verified Allergy, Unknown, 04/08/19) metronidazole (Verified Allergy, Unknown, 04/08/19) Patient Home Medication List Home Medication List Reviewed: Yes [Alprazolam] , (Reported) Entered as Reported by: DOUG MART on 10/07/191845 [Tramadol] , (Reported) Entered as Reported by: DOUG MART on 10/07/191843 Review of Systems Review of Systems Constitutional: see HPI EENTM: see HPI Respiratory: see HPI Cardiovascular: see HPI Gastrointestinal: see HPI Genitourinary: see HPI Musculoskeletal: see HPI Skin: see HPI Psychiatric/Neurological: See HPI Hematologic/Lymphatic: See HPI Immunological/Allergic: see HPI All Other Systems Reviewed Negative Unless Noted: Yes Past Ncvqgij-Klqzci-Djciih Hx Patient Social History Tobacco Use?: Yes Substance use?: No Alcohol Use?: No Pt feels they are or have been: No Immunizations Up To Date Tetanus Booster (TDap): Unknown First/Initial COVID19 Vaccinat: 12/2020 Second COVID19 Vaccination [place]: 01/15/2021 Third COVID19 Vaccination Date: 12/2020 Seasonal Allergies Seasonal Allergies: Yes Past Medical History Surgeries: Yes (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, ) Eye Surgery Respiratory: No Cardiac: Yes High Cholesterol, Hypertension Neurological: Yes Brain Tumor Genitourinary: Yes (Adrenal Insufficency, Over active Bladder) Gastrointestinal: Yes Colitis, Gastroesophageal Reflux Musculoskeletal: Yes Fibromyalgia, Chronic Back Pain Endocrine: Yes Diabetes, Insulin dep HEENT: Yes (Bilateral Cataract removal) Cataract Cancer: No Psychosocial: Yes Depression Integumentary: No Blood Disorders: No Physical Exam Vital Signs Vital Signs - First Documented 05/21/21 14:48 Temp 35.6 Pulse 73 Resp 18 B/P (MAP) 115/73 (87) Pulse Ox 94 O2 Delivery Room Air Capillary Refill : Less Than 3 Seconds Height, Weight, BMI Height: '" Weight: lbs. oz. kg; 33.00 BMI Method: General Appearance: No Apparent Distress, WD/WN, Other (Mildly somnolent) Eyes: Bilateral Eye Normal Inspection, Bilateral Eye PERRL HEENT: PERRL/EOMI, Pharynx Normal, Moist Mucous Membranes Neck: Non Tender, Supple Respiratory: Lungs Clear Cardiovascular: Regular Rate, Rhythm Gastrointestinal: Non Tender, Soft Neurologic/Psychiatric: Alert, Oriented x3 Skin: Warm/Dry, Other (PICC line left arm, no rash, surgical drain abdomen, no rash redness or swelling at insertion site) Focused Exam Sepsis Stage: Ruled Out Lactate Level 05/21/21 15:00: Lactic Acid Level 2.84*H 05/21/21 18:15: Lactic Acid Level 1.11 Time of Focused Exam: 13:00 Lactic Acid Level Laboratory Tests Test 05/21/21 15:00 05/21/21 18:15 Lactic Acid Level 2.84 MMOL/L (0.50-2.00) *H 1.11 MMOL/L (0.50-2.00) Progress/Results/Core Measures Suspected Sepsis SIRS Temperature: Pulse: 73 Respiratory Rate: 18 Laboratory Tests 05/21/21 15:00: White Blood Count 7.9 Blood Pressure 115 /73 Mean: 87 05/21/21 15:00: Lactic Acid Level 2.84*H 05/21/21 18:15: Lactic Acid Level 1.11 Laboratory Tests 05/21/21 15:00: Creatinine 1.06, Platelet Count 257, Total Bilirubin 0.2 Results/Orders Lab Results Laboratory Tests Test 05/21/21 15:00 05/21/21 15:45 05/21/21 16:26 05/21/21 18:15 Range/Units White Blood Count 7.9 4.3-11.0 10^3/uL Red Blood Count 3.85 3.80-5.11 10^6/uL Hemoglobin 11.1 L 11.5-16.0 g/dL Hematocrit 34 L 35-52 % Mean Corpuscular Volume 88 80-99 fL Mean Corpuscular Hemoglobin 29 25-34 pg Mean Corpuscular Hemoglobin Concent 33 32-36 g/dL Red Cell Distribution Width 15.7 H 10.0-14.5 % Platelet Count 257 130-400 10^3/uL Mean Platelet Volume 14.0 H 9.0-12.2 fL Immature Granulocyte % (Auto) 1 % Neutrophils (%) (Auto) 41 L 42-75 % Lymphocytes (%) (Auto) 45 H 12-44 % Monocytes (%) (Auto) 11 0-12 % Eosinophils (%) (Auto) 2 0-10 % Basophils (%) (Auto) 1 0-10 % Neutrophils # (Auto) 3.2 1.8-7.8 X 10^3 Lymphocytes # (Auto) 3.6 1.0-4.0 X 10^3 Monocytes # (Auto) 0.9 0.0-1.0 X 10^3 Eosinophils # (Auto) 0.1 0.0-0.3 10^3/uL Basophils # (Auto) 0.1 0.0-0.1 10^3/uL Immature Granulocyte # (Auto) 0.1 0.0-0.1 10^3/uL Sodium Level 137 135-145 MMOL/L Potassium Level 3.2 L 3.6-5.0 MMOL/L Chloride Level 101 98-107 MMOL/L Carbon Dioxide Level 26 21-32 MMOL/L Anion Gap 10 5-14 MMOL/L Blood Urea Nitrogen 11 7-18 MG/DL Creatinine 1.06 0.60-1.30 MG/DL Estimat Glomerular Filtration Rate 51 BUN/Creatinine Ratio 10 Glucose Level 152 H 70-105 MG/DL Lactic Acid Level 2.84 *H 1.11 0.50-2.00 MMOL/L Calcium Level 9.6 8.5-10.1 MG/DL Corrected Calcium 10.4 H 8.5-10.1 MG/DL Magnesium Level 1.5 L 1.6-2.4 MG/DL Total Bilirubin 0.2 0.1-1.0 MG/DL Aspartate Amino Transf (AST/SGOT) 81 H 5-34 U/L Alanine Aminotransferase (ALT/SGPT) 56 H 0-55 U/L Alkaline Phosphatase 154 H 40-136 U/L Troponin I < 0.30 <0.30 NG/ML Pro-B-Type Natriuretic Peptide 182.3 H <75.0 PG/ML Total Protein 5.8 L 6.4-8.2 GM/DL Albumin 3.0 L 3.2-4.5 GM/DL Amylase Level 24 L 25-125 U/L Ammonia 29 11-32 UMOL/L Blood Gas Puncture Site RT RADIAL Blood Gas Patient Temperature 96 Arterial Blood pH 7.44 H 7.37-7.43 Arterial Blood Partial Pressure CO2 42 35-45 MMHG Arterial Blood Partial Pressure O2 49 L 79-93 MMHG Arterial Blood HCO3 29 H 23-27 MMOL/L Arterial Blood Total CO2 29.8 21.0-31.0 MMOL/L Arterial Blood Oxygen Saturation 86 L 94-100 % Arterial Blood Base Excess 3.9 H -2.5-2.5 MMOL/L James Test OK Blood Gas Ventilator Setting NO Blood Gas Inspired Oxygen ROOM AIR My Orders Orders - JUAN A WOODARD DO Cbc With Automated Diff (05/21/21 15:05) Comprehensive Metabolic Panel (05/21/21 15:05) Lactic Acid Analyzer (05/21/21 15:05) Ua Culture If Indicated (05/21/21 15:05) Ct Head Wo (05/21/21 15:05) Shoulder 3 View Right (05/21/21 15:05) Pelvis With Right Hip 2-3 View (05/21/21 15:05) Amylase (05/21/21 15:05) Arterial Blood Gas (05/21/21 15:05) Magnesium (05/21/21 15:05) Troponin I Fs (05/21/21 15:05) Probnp Fs (05/21/21 15:05) Hydrocortisone Injection (Solu-Cortef In (05/21/21 15:30) Ammonia (05/21/21 15:33) Knee 3 View Right (05/21/21 15:44) Hydrocodone/Apap 5/325 Tablet (Lortab 5 (05/21/21 15:45) Ns Iv 1000 Ml (Sodium Chloride 0.9%) (05/21/21 15:45) Ns Iv 1000 Ml (Sodium Chloride 0.9%) (05/21/21 17:15) Medications Given in ED Current Medications Medications Dose Ordered Sig/Constantino Route Start Time Stop Time Status Last Admin Dose Admin Acetaminophen/ Hydrocodone Bitart 1 ea ONCE ONCE PO 05/21/21 15:45 05/21/21 15:46 DC 05/21/21 15:56 1 EA Hydrocortisone Sodium Succinate 100 mg ONCE ONCE IV 05/21/21 15:30 05/21/21 15:31 DC 05/21/21 15:56 100 MG Vital Signs/I&O 05/21/21 14:48 Temp 35.6 Pulse 73 Resp 18 B/P (MAP) 115/73 (87) Pulse Ox 94 O2 Delivery Room Air Capillary Refill : Less Than 3 Seconds Blood Pressure Mean: 87 Departure Communication (Admissions) CT head: No acute findings per radiology report Right shoulder/right hip/right knee: No fracture per radiology report. Patient with generalized weakness likely secondary to prolonged postop recovery, deconditioning and dehydration. IV fluids given. Dr. Peres to admit to [facility] for dehydration and rehab placement. Impression Primary Impression: Dehydration Disposition: ADMITTED INPATIENT Condition: Stable Admissions Decision to Admit/Date: May 21, 2021 Time/Decision to Admit Time: 19:30 Departure-Patient Inst. Referrals: SELF,JAMEY JOSEPH (PCP/Family) Primary Care Physician JUAN A WOODARD DO May 21, 2021 19:52
[2021-05-21] MEDS ORDERED: ANTACID SUSP 30 ML UDC (MYLANTA) PO PRN (22:00)
[2021-05-21] MEDS ORDERED: MELATONIN 3 MG TABLET PO PRN (22:00)
[2021-05-21] MEDS ORDERED: BISACODYL 10 MG SUPP (DULCOLAX) PR PRN (22:00)
[2021-05-21] MEDS ORDERED: ONDANSETRON 4 MG/2 ML (SDV) Z0FRAN IV PRN (22:00)
[2021-05-21] MEDS ORDERED: ACETAMINOPHEN 325 MG TABLET PO PRN (22:00)
[2021-05-21] MEDS ORDERED: polyethylene glycoL POWDER 17 GM (MIRALAX) PACK PO PRN (22:00)
[2021-05-21] MEDS ORDERED: diphenhydrAMINE 50 MG/ML INJ (BENADRYL) IVP PRN (22:00)
[2021-05-21] MEDS ORDERED: diphenhydrAMINE 25 MG TAB (BENADRYL) PO PRN (22:00)
[2021-05-21] MEDS ORDERED: morphine INJ 4 MG/ML 1 ML (VIAL/SYRINGE) IV PRN (22:00)
[2021-05-21] MEDS ORDERED: ONDANSETRON 4 MG (ZOFRAN) ORAL DISSOLVE TAB PO PRN (22:00)
[2021-05-21] MEDS ORDERED: MAGNESIUM 1 GM/100 ML IVPB 100 ML IV ONE ×2 (22:00→22:10)
[2021-05-21] MEDS: NS IV 1000 ML 1,000 ML IV SCH (22:14)
[2021-05-21] MEDS: HYDROCORTISONE 100 MG/2 ML (Solu-CORTEF) VIAL IV SCH (22:48)
[2021-05-21] MEDS: ENOXAPARIN 40 MG/0.4 ML (LOVENOX) SYR SC SCH (22:49)
[2021-05-21] MEDS: HYDROcodone/APAP 5 MG/325 MG (LORTAB) TAB PO PRN (22:49)
[2021-05-21] MEDS: POTASSIUM CL 10MEQ/50ML IVPB 50 ML IV SCH (23:51)
[2021-05-21 23:53] VITALS: BP 163/78
[2021-05-21 23:54] VITALS: BP 115/73
[2021-05-22] MEDS ORDERED: RT-ALBUTEROL SULF 2.5 MG/3 ML PRE-MIX VIAL INH PRN (00:15)
[2021-05-22] MEDS: POTASSIUM CL 10MEQ/50ML IVPB 50 ML IV SCH ×3 (00:37→02:46)
[2021-05-22 04:09] VITALS: BP 139/67
[2021-05-22 04:23] LABS: EOSINOPHILS % (AUTO) 0 % (0-10); HEMOGLOBIN 10.7 g/dL (11.5-16.0); MEAN CORPUSCULAR HEMOGLOBIN 29 pg (25-34); MEAN PLATELET VOLUME 13.8 fL (9.0-12.2)
[2021-05-22 04:25] LABS: BASOPHILS % (AUTO) 0 % (0-10); HEMATOCRIT 33 % (35-52); LYMPHOCYTES # (AUTO) 1.9 10^3/uL (1.0-4.0); LYMPHOCYTES % (AUTO) 23 % (12-44); MEAN CORPUSCULAR HGB CONC 33 g/dL (32-36); MEAN CORPUSCULAR VOLUME 88 fL (80-99); MONOCYTES # (AUTO) 0.2 10^3/uL (0.0-1.0); MONOCYTES % (AUTO) 3 % (0-12); NEUTROPHILS # (AUTO) 6.2 10^3/uL (1.8-7.8); NEUTROPHILS % (AUTO) 73 % (42-75); PLATELET COUNT 261 10^3/uL (130-400); WHITE BLOOD COUNT 8.4 10^3/uL (4.3-11.0)
[2021-05-22 04:32] LABS: ALBUMIN 2.6 GM/DL (3.2-4.5); POTASSIUM 4.4 MMOL/L (3.6-5.0)
[2021-05-22 04:34] LABS: TOTAL PROTEIN 5.6 GM/DL (6.4-8.2)
[2021-05-22 04:36] LABS: BILIRUBIN,TOTAL 0.3 MG/DL (0.1-1.0)
[2021-05-22 04:38] LABS: CREATININE SERUM 0.87 MG/DL (0.60-1.30)
[2021-05-22] MEDS: inSUlin ASPART (NovoLOG) 1 UNIT/0.01 ML (CHARGE PER UNIT) SC SCH ×4 (05:12→21:58)
[2021-05-22] MEDS: HYDROCORTISONE 100 MG/2 ML (Solu-CORTEF) VIAL IV SCH (05:12)
[2021-05-22 07:41] VITALS: BP 139/66
[2021-05-22] MEDS: HYDROcodone/APAP 5 MG/325 MG (LORTAB) TAB PO PRN (08:42)
[2021-05-22] MEDS ORDERED: DOCUSATE SODIUM 100 MG (COLACE) CAP PO SCH (09:00)
[2021-05-22] MEDS ORDERED: LINA290C PO (10:16)
[2021-05-22] MEDS ORDERED: RPGL2T PO (10:16)
[2021-05-22] MEDS ORDERED: ACHD5005 PO (10:16)
[2021-05-22] MEDS ORDERED: ROSU20TA32 PO (10:16)
[2021-05-22] MEDS ORDERED: SPIR25TA5 PO (10:16)
[2021-05-22] MEDS ORDERED: DULO30CA49 PO (10:16)
[2021-05-22] MEDS ORDERED: TRAM50TA3 PO (10:16)
[2021-05-22] MEDS ORDERED: LEVO100T7 PO (10:16)
[2021-05-22] MEDS ORDERED: DOCU-143 PO (10:16)
[2021-05-22] MEDS ORDERED: CARV12.52 PO (10:16)
[2021-05-22] MEDS ORDERED: OXYB15TA19 PO (10:16)
[2021-05-22] MEDS ORDERED: POLY17PO6 PO (10:16)
[2021-05-22] MEDS ORDERED: AMLO-251 PO (10:16)
[2021-05-22] MEDS ORDERED: PANT40TA52 PO (10:16)
[2021-05-22] MEDS ORDERED: ONDA4TAB11 PO (10:16)
[2021-05-22] MEDS ORDERED: NYST15CR TP (10:16)
[2021-05-22] MEDS ORDERED: FLUC200T5 PO (10:16)
[2021-05-22] MEDS ORDERED: HYDR5TAB14 PO ×2 (10:16)
[2021-05-22] MEDS ORDERED: LOSA100T57 PO (10:16)
[2021-05-22] MEDS ORDERED: ALPR0.5T7 PO (10:16)
[2021-05-22] MEDS ORDERED: ERTA1VIA IJ (10:16)
[2021-05-22] MEDS ORDERED: MELA10TA2 PO (10:16)
[2021-05-22] MEDS ORDERED: INSU100I48 SC (10:16)
[2021-05-22] MEDS ORDERED: INSU100I10 SQ (10:47)
[2021-05-22] MEDS: NS IV 1000 ML 1,000 ML IV SCH ×3 (11:20→21:54)
--- NOTE | 2021-05-22 11:22 | Occupational Therapy Eval ---
OT Evaluation-General/PLF Medical Diagnosis Admission Date May 21, 2021 at 21:40 Medical Diagnosis: Dehydration Onset Date: May 21, 2021 Therapy Diagnosis Therapy Diagnosis: Reduced adl status Precautions Precautions/Isolations: Fall Prevention, Standard Precautions Referral Referral Reason: Evaluation/Treatment Medical History Pertinent Medical History: HTN Additional Medical History Cataracts, 2 months postop pancreatectomy and splenectomy Current History Pt presents to ER with generalized weakness and multiple falls. Currently receiving IV antibiotics for treatment of intra-abdominal abscess. Reviewed History: Yes Social History Home: Multilevel Current Living Status: Other Family Entry Into Home: Ramp Pt lives with brother in a multilevel home. Pt resides on main level. Family reports 3 falls in the past month, mostly due to R knee buckling and giving out. She reports she has tried using a cane, walker and w/c but all are too difficulty secondary to shoulder pain. Daughter reports that pt recently had R shoulder dislocate. Assist for donning socks/shoes at baseline. Pt does laundry, but family manages all other iadls. ADL-Prior Level of Function SCALE: Activities may be completed with or without assistive devices. 3-Aijpjmempy-bmyheiw completes the activity by him/herself with no assistance from a helper. 5-Set-up or Clean-up Assistance-helper sets up or cleans up; patient completes activity. [place] assists only prior to or following the activity. 4-Supervision or Touching Assistance-helper provides verbal cues and/or touching/steadying and/or contact guard assistance as patient completes activity. Assistance may be provided throughout the activity or intermittently. 3-Partial/Moderate Assistance-helper does LESS THAN HALF the effort. [place] lifts, holds or supports trunk or limbs, but provides less than half the effort. 2-Substantial/Maximal Assistance-helper does MORE THAN HALF the effort. [place] lifts or holds trunk or limbs and provides more than half the effort. 9-Qzthodiwl-izkyfh does ALL the effort. Patient does none of the effort to complete the activity. Or, the assistance of 2 or more helpers is required for the patient to complete the activity. If activity was not attempted, code reason: 7-Patient Refused. 9-Not Applicable-not attempted and the patient did not perform the activity before the current illness, exacerbation or injury. 10-Not Attempted due to Environmental Limitations-(lack of equipment, weather restraints, etc.). 88-Not Attempted due to Medical Conditions or Safety Concerns. Self Care: Needed Some Help Functional Cognition: Needed Some Help DME/Equipment: Bath Chair, Grab Bars, Shower Drive Self: No OT Current Status Subjective Pt reports pain all over body, majority of pain in neck, back, bilateral shoulders and R hip. Requests pain meds, RN notified. Appearance Returned to supine in bed, all needs within reach. Mental Status/Objective Patient Orientation: Person, Situation Attachments: IV, Oxygen Current Upper Extremity ROM ~3/4 AROM bilateral shoulders Elbow-distally: WNL Upper Extremity Strength Not tested secondary to pain and recent dislocated shoulder ADL-Treatment Lower Body Dressing (QC): 2 On/Off Footwear (QC): 1 Supine>sit: min A for initial steadiness. Good sitting balance once upright. Dependent to don bilateral socks and pants over feet. Sit<>stand: SBA-CGA. Pt reports history of R knee buckling as cause of recent falls. Mod-max a to pull pants up to waist due to pain in shoulders when reaching posteriorly. Pt able to take 3-4 steps towards HOB with CGA and use of walker. C/o pain in shoulders with management of walker. When returning to bed, mod cues needed for correct sequencing. Pt reports that she normally goes in knees first. Max a to lift LE's into bed. Education OT Patient Education: Correct positioning, Energy conservation, Modified ADL techniques, Progress toward Goal/Update tx plan, Purpose of tx/functional activities, Reviewed precautions, Rehab process, Safety issues, Transfer techniques Teaching Recipient: Patient, Family Teaching Methods: Demonstration, Discussion Response to Teaching: Verbalize Understanding, Return Demonstration OT Detention Goals Detention Goals Time Frame: Jun 12, 2021 Oral Hygiene (QC): 5 Toileting Hygiene (QC): 5 Shower/Bathe Self (QC): 4 Upper Body Dressing (QC): 5 Lower Body Dressing (QC): 4 1=Demonstrate adherence to instructed precautions during ADL tasks. 2=Patient will verbalize/demonstrate understanding of assistive devices/modifications for ADL. 3=Patient will improve strength/tolerance for activity to enable patient to perform ADL's. OT Education/Plan Problem List/Assessment Assessment: Decreased Activ Tolerance, Decreased UE Strength, Impaired Bed Mobility, Impaired Funct Balance, Impaired I ADL's, Impaired Self-Care Skills, Restricted Funct UE ROM Discharge Recommendations Plan/Recommendations: Continue POC Therapy Discharge Recommendati: Post Acute OT Comment ongoing assessment Treatment Plan/Plan of Care Treatment,Training & Education: Yes Patient would benefit from OT for education, treatment and training to promote independence in ADL's, mobility, safety and/or upper extremity function for ADL's. Plan of Care: ADL Retraining, Functional Mobility, UE Funct Exercise/Act Treatment Duration: Jun 12, 2021 Frequency: 3 times per week Estimated Hrs Per Day: .25 hour per day Agreement: Yes 3-5x/week Time/GCodes Start Time: 10:42 Stop Time: 11:05 Total Time Billed (hr/min): 23 Billed Treatment Time 1 visit EVM (15 min) ADL (8 min) Maxine Blackman OT May 22, 2021 11:22
--- NOTE | 2021-05-22 11:25 | Consultation - Surgery ---
MODESTA COLORADO 05/22/21 1125: History of Present Illness History of Present Illness Patient Consulted On(alex/time) 05/22/21 11:24 Date Seen by Provider: May 22, 2021 Time Seen by Provider: 11:40 Reason for Visit: History of pancreatic tumor removal and splenectomy History of Present Illness Julieta Rogers is a 70 year old female admitted for dehydration who had a surge ry consultation due to history of pancreatic tumor removal and splenectomy that patient reports happened [address] [facility] in [place]. Since her original discharge she reports having several complications leading to readmission including internal bleeding, fluid accumulation, infection, and fever. Since her most recent discharge 1 week ago, she reports that she originally felt fine, but began to have weakness starting wednesday, and has fellen twice at home prior to this hospital admission. She has PIC line in her right arm and has a drain present in her LUQ that is draining pancreatic fluid. Leading up to today she had gone 8 days without a Bowel movement, but reports having a large formed BM today. Has been peeing okay, but does have some urge incontinence. Patient also has noticed decreased proprioception of her hands recently. Allergies and Home Medications Allergies Coded Allergies: Sulfa (Sulfonamide Antibiotics) (Verified Allergy, Unknown, 04/08/19) aripiprazole (Verified Allergy, Unknown, 05/22/21) clarithromycin (Verified Allergy, Unknown, 05/22/21) iodine (Verified Allergy, Unknown, 04/08/19) metronidazole (Verified Allergy, Unknown, 04/08/19) mirtazapine (Verified Allergy, Unknown, 05/22/21) Patient Home Medication List Alprazolam (Alprazolam) 0.5 Mg Tablet, 0.5 MG PO HS PRN for SLEEP, (Reported) Entered as Reported by: NIKO KIM on 05/22/21 1016 Last Action: Continued Amlodipine Besylate (Amlodipine Besylate) 10 Mg Tablet, 5 MG PO 1200, (Reported) Entered as Reported by: NIKO KIM on 05/22/21 1016 Last Action: Continued Carvedilol (Coreg) 12.5 Mg Tablet, 6.25 MG PO BID WITH MEALS, (Reported) Entered as Reported by: NIKO KIM on 05/22/21 1016 Last Action: Continued Docusate Sodium (Colace) 100 Mg Capsule, 100 MG PO DAILY, (Reported) Entered as Reported by: NIKO KIM on 05/22/21 1016 Last Action: Continued Duloxetine HCl (Duloxetine HCl) 30 Mg Capsule.dr, 60 MG PO DAILY, (Reported) Entered as Reported by: NIKO KIM on 05/22/21 1016 Last Action: Continued Ertapenem (Invanz) 1,000 Mg Vial, 1,000 MG IJ DAILY, (Reported) Entered as Reported by: NIKO KIM on 05/22/21 1016 Last Action: Converted Fluconazole (Fluconazole) 200 Mg Tablet, 400 MG PO DAILY, (Reported) Entered as Reported by: NIKO KIM on 05/22/21 1016 Last Action: Converted Hydrocodone/Acetaminophen (Hydrocodone-Acetamin 5-325 mg) 1 Each Tablet, 1 EA PO Q8H PRN for PAIN-MODERATE (5-7), (Reported) Entered as Reported by: NIKO KIM on 05/22/21 1016 Last Action: Continued Hydrocortisone (Hydrocortisone) 5 Mg Tablet, 15 MG PO DAILY, (Reported) Entered as Reported by: NIKO KIM on 05/22/21 1016 Last Action: Converted Hydrocortisone (Hydrocortisone) 5 Mg Tablet, 10 MG PO HS, (Reported) Entered as Reported by: NIKO KIM on 05/22/21 1016 Last Action: Converted Insulin Glargine,Hum.rec.anlog (Lantus Solostar) 100 Unit/1 Ml Insuln.pen, 15 UNIT SQ DAILY, (Reported) Entered as Reported by: NIKO KIM on 05/22/21 1047 Last Action: Converted Insulin Lispro (Insulin Lispro Kwikpen U-100) 100 Unit/1 Ml Insuln.pen, UNITS SC AC, (Reported) Entered as Reported by: NIKO KIM on 05/22/21 1016 Last Action: Held Levothyroxine Sodium (Levothyroxine Sodium) 100 Mcg Tablet, 100 MCG PO DAILY, (Reported) Entered as Reported by: NIKO KIM on 05/22/21 1016 Last Action: Continued Linaclotide (Linzess) 290 Mcg Capsule, 290 MCG PO Q48H, (Reported) Entered as Reported by: NIKO KIM on 05/22/21 1016 Last Action: Converted Losartan Potassium (Losartan Potassium) 100 Mg Tablet, 50 MG PO BID, (Reported) Entered as Reported by: NIKO KIM on 05/22/21 1016 Last Action: Continued Melatonin (Melatonin) 10 Mg Tablet, 10 MG PO HS, (Reported) Entered as Reported by: NIKO KIM on 05/22/21 1016 Last Action: Continued Nystatin (Nystatin) 15 Gm Cream..g., 1 APPLIC TP BID, (Reported) Entered as Reported by: NIKO KIM on 05/22/21 1016 Last Action: Continued Ondansetron (Ondansetron Odt) 4 Mg Tab.rapdis, 4 MG PO Q8H PRN for NAUSEA/VOMITING-1ST LINE, (Reported) Entered as Reported by: NIKO KIM on 05/22/21 1016 Last Action: Continued Oxybutynin Chloride (Oxybutynin Chloride ER) 15 Mg Tab.er.24, 15 MG PO DAILY, (Reported) Entered as Reported by: NIKO KIM on 05/22/21 1016 Last Action: Converted Pantoprazole Sodium (Pantoprazole Sodium) 40 Mg Tablet.dr, 40 MG PO DAILY, (Reported) Entered as Reported by: NIKO KIM on 05/22/21 1016 Last Action: Continued Polyethylene Glycol 3350 (Miralax) 17 Gm Powd.pack, 17 GM PO DAILY, (Reported) Entered as Reported by: NIKO KIM on 05/22/21 1016 Last Action: Continued Repaglinide (Repaglinide) 2 Mg Tablet, 2-4 MG PO TIDWM, (Reported) Entered as Reported by: NIKO KIM on 05/22/21 1016 Last Action: Continued Rosuvastatin Calcium (Rosuvastatin Calcium) 20 Mg Tablet, 10 MG PO HS, (Reported) Entered as Reported by: NIKO KIM on 05/22/21 1016 Last Action: Continued Spironolactone (Spironolactone) 25 Mg Tablet, 25 MG PO DAILY, (Reported) Entered as Reported by: NIKO KIM on 05/22/21 1016 Last Action: Continued Tramadol HCl (Tramadol HCl) 50 Mg Tablet, 50 MG PO Q6H PRN for PAIN-MODERATE (5- 7), (Reported) Entered as Reported by: NIKO KIM on 05/22/21 1016 Last Action: Continued Discontinued Medications [Alprazolam] , (Reported) Discontinued Reason: No Longer Taking Entered as Reported by: DOUG MART on 10/07/191845 Last Action: Discontinued [Tramadol] , (Reported) Discontinued Reason: No Longer Taking Entered as Reported by: DOUG MART on 10/07/191843 Last Action: Discontinued Past Njlugeq-Srqtsy-Rzvngc Hx Patient Social History Smoking Status: Never a Smoker 2nd Hand Smoke Exposure: No Recent Hopitalizations: No Alcohol Use?: No Have you traveled recently?: No Immunizations Up To Date Tetanus Booster (TDap): Unknown Date of Pneumonia Vaccine: Mar 29, 2019 Date of Influenza Vaccine: Feb 26, 2021 Seasonal Allergies Seasonal Allergies: Yes Surgeries History of Surgeries: Yes (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, ) Surgeries: Abdominal (reports having had splenectomy at same time as pancreatic surgery), Eye Surgery, Neurological, Pancreatic (Patient reports having neruoendocrine 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.) Respiratory History of Respiratory Disorde: No Cardiovascular History of Cardiac Disorders: Yes Cardiac Disorders: High Cholesterol, Hypertension Neurological History of Neurological Disord: Yes Neurological Disorders: Brain Tumor Reproductive System : No Genitourinary History of Genitourinary Disor: Yes (Adrenal Insufficency, Over active Bladder) Gastrointestinal History of Gastrointestinal Di: Yes Gastrointestinal Disorders: Colitis, Gastroesophageal Reflux, Gastrointestinal Bleed (reports having had BI bleed following pancreatic surgery) Musculoskeletal History of Musculoskeletal Dis: Yes Musculoskeletal Disorders: Fibromyalgia, Chronic Back Pain Endocrine History of Endocrine Disorders: Yes Endocrine Disorders: Diabetes, Insulin dep HEENT History of HEENT Disorders: Yes (Bilateral Cataract removal) HEENT Disorders: Cataract Loss of Vision: Denies Hearing Impairment: Denies Cancer History of Cancer: No Cancer: Brain, Lung (Reports suspected lung malignancy that was put on hold while they dealt with pancreatic tumors.) Psychosocial History of Psychiatric Problem: Yes Behavioral Health Disorders: Depression Integumentary History of Skin or Integumenta: No Blood Transfusions History of Blood Disorders: No Family Medical History Significant Family History: Cancer (Father had bladder and prostate cancer), Hypertension Review of Systems-General Constitutional: No chills; dizziness (Primarily when up walking), weakness EENTM: hearing loss (reported very minor, slow hearing loss. thinks she needs to clean her ears.); No vision loss Respiratory: No cough; short of breath (reported that there was possibility she has lung cancer based upon prior imaging. Hasn;t had it worked up yet.) Gastrointestinal: abdominal pain (Diffusely, worse in RUQ, only when up moving around.), constipation (went 8 days w/out BM, but had large stool today.), nausea (not currently, but has had nausea off an on over the past week.), vomiting (npt currently, threw up 5 days ago.) Genitourinary: incontinence (urge); No pain; other (reports having a rash) : No Musculoskeletal: back pain, other (reports pain everywhere, worse in shoulders and knees) Skin: other (small bruise on right arm and large bruising on lateral aspect of right leg) Psychiatric/Neurological: No Symptoms Reported; Denies Headache; Weakness Physical Exam-General Problems Physical Exam Vital Signs Vital Signs - First Documented 05/21/21 05/21/21 14:48 23:53 Temp 35.6 Pulse 73 Resp 18 B/P (MAP) 115/73 (87) Pulse Ox 94 O2 Delivery Room Air O2 Flow Rate 2.00 Capillary Refill : Less Than 3 Seconds General Appearance: WD/WN, no apparent distress Eyes: Bilateral Eye PERRL, Bilateral Eye EOMI HEENT: PERRL/EOMI, pharynx normal Neck: supple; No lymphadenopathy (R), No lymphadenopathy (L), No thyromegaly Respiratory: lungs clear, normal breath sounds, no respiratory distress Cardiovascular: normal peripheral pulses, regular rate, rhythm, no murmur Peripheral Pulses: 2+ Radial Pulses (R), 2+ Radial Pulses (L) Gastrointestinal: normal bowel sounds, soft, no organomegaly; No distended; tenderness (diffusely tender, worse in LUQ) Rectal: deferred Extremities: normal capillary refill, swelling (swelling in legs and ankles), other (Diffuse pain, worse in shoulders and knees. Normal to her.) Neurologic/Psychiatric: kaitara taraka II-XII nml as tested, alert, normal mood/affect, oriented x 3 Skin: warm/dry, ecchymosis (lateral Right thigh); No jaundice Data Review Labs Laboratory Tests 05/21/21 15:00: White Blood Count 7.9, Red Blood Count 3.85, Hemoglobin 11.1L, Hematocrit 34L, Mean Corpuscular Volume 88, Mean Corpuscular Hemoglobin 29, Mean Corpuscular Hemoglobin Concent 33, Red Cell Distribution Width 15.7H, Platelet Count 257, Mean Platelet Volume 14.0H, Immature Granulocyte % (Auto) 1, Neutrophils (%) (Auto) 41L, Lymphocytes (%) (Auto) 45H, Monocytes (%) (Auto) 11, Eosinophils (%) (Auto) 2, Basophils (%) (Auto) 1, Neutrophils # (Auto) 3.2, Lymphocytes # (Auto) 3.6, Monocytes # (Auto) 0.9, Eosinophils # (Auto) 0.1, Basophils # (Auto) 0.1, Immature Granulocyte # (Auto) 0.1, Sodium Level 137, Potassium Level 3.2L, Chloride Level 101, Carbon Dioxide Level 26, Anion Gap 10, Blood Urea Nitrogen 11, Creatinine 1.06, Estimat Glomerular Filtration Rate 51, BUN/Creatinine Ratio 10, Glucose Level 152H, Lactic Acid Level 2.84*H, Calcium Level 9.6, Corrected Calcium 10.4H, Magnesium Level 1.5L, Total Bilirubin 0.2, Aspartate Amino Transf (AST/SGOT) 81H, Alanine Aminotransferase (ALT/SGPT) 56H, Alkaline Phosphatase 154H, Troponin I < 0.30, Pro-B-Type Natriuretic Peptide 182.3H, Total Protein 5.8L, Albumin 3.0L, Amylase Level 24L 05/21/21 15:45: Ammonia 29 05/21/21 16:26: Blood Gas Puncture Site RT RADIAL, Blood Gas Patient Temperature 96, Arterial Blood pH 7.44H, Arterial Blood Partial Pressure CO2 42, Arterial Blood Partial Pressure O2 49L, Arterial Blood HCO3 29H, Arterial Blood Total CO2 29.8, Arterial Blood Oxygen Saturation 86L, Arterial Blood Base Excess 3.9H, James Test OK, Blood Gas Ventilator Setting NO, Blood Gas Inspired Oxygen ROOM AIR 05/21/21 18:15: Lactic Acid Level 1.11 05/22/21 04:12: White Blood Count 8.4, Red Blood Count 3.71L, Hemoglobin 10.7L, Hematocrit 33L, Mean Corpuscular Volume 88, Mean Corpuscular Hemoglobin 29, Mean Corpuscular Hemoglobin Concent 33, Red Cell Distribution Width 15.5H, Platelet Count 261, Mean Platelet Volume 13.8H, Immature Granulocyte % (Auto) 1, Neutrophils (%) (Auto) 73, Lymphocytes (%) (Auto) 23, Monocytes (%) (Auto) 3, Eosinophils (%) (Auto) 0, Basophils (%) (Auto) 0, Neutrophils # (Auto) 6.2, Lymphocytes # (Auto) 1.9, Monocytes # (Auto) 0.2, Eosinophils # (Auto) 0.0, Basophils # (Auto) 0.0, Immature Granulocyte # (Auto) 0.1, Percent Immature Platelet Fraction 13.3H, Sodium Level 136, Potassium Level 4.4, Chloride Level 106, Carbon Dioxide Level 21, Anion Gap 9, Blood Urea Nitrogen 10, Creatinine 0.87, Estimat Glomerular Filtration Rate 64, BUN/Creatinine Ratio 11, Glucose Level 213H, Calcium Level 9.0, Corrected Calcium 10.1, Total Bilirubin 0.3, Aspartate Amino Transf (AST /SGOT) 43H, Alanine Aminotransferase (ALT/SGPT) 44, Alkaline Phosphatase 126, Total Protein 5.6L, Albumin 2.6L 05/22/21 11:04: Glucometer 234H Assessment/Plan Assessment/Plan Admission Diagonsis Dehydration Assessment/Plan Assessment 1.) Dehydration 2.) History of pancreatic Surgery w/ drain still in place 3.) constipation 4.) Insulin Dependent Diabetes 5.) Normocytic anemia 6.) Fibromyalgia 7.) Eccymosis of Right thigh Plan 1.) Continue IV Fluids at 90ml/hr. Not tachypnic and BP is 139/66, so dehydrating appears to be improving. 2.) Drain had no erythema or swelling and appears to be draining well. Not worried about infection at this time, no fevers or leukocytosis present. Will monitor for now. 3.) Patient was constipated for 8 days. Had large BM today. Likely that dehydration had a role. Continue to rehydrate and have her increase water intake. Continue docusate, and consider daily miralax as needed until stools are formed and soft. 4.) Continue current insulin regimen. 5.) Anemia is likely residual from surgery and complications. Not alarmingly low at this time. Will monitor for now. 6.) Continue Lortab (5mg) Q4h PRN. 7.) Eccymosis should heal on its own with time. DINA HOOVER DO 05/22/21 1419: History of Present Illness History of Present Illness Time Seen by Provider: 11:24 History of Present Illness Surgery asked to consult regarding weakness, dehydration, intra-abdominal abscess and recent pancreatic surgery. HPI: Spoke with pt and her family regarding recent events. She states she was walking to bathroom and kitchen when she first got sent home, but has been getting progressively weaker. Drain has only been putting out about 20ml/24 hours. She thinks she had a CT a week ago, is due for repeat at [facility] on 05/28; but does not know what it showed. Not eating because of nausea and weakness. State only minimal abd pain. Allergies and Home Medications Allergies Coded Allergies: Sulfa (Sulfonamide Antibiotics) (Verified Allergy, Unknown, 04/08/19) aripiprazole (Verified Allergy, Unknown, 05/22/21) clarithromycin (Verified Allergy, Unknown, 05/22/21) iodine (Verified Allergy, Unknown, 04/08/19) metronidazole (Verified Allergy, Unknown, 04/08/19) mirtazapine (Verified Allergy, Unknown, 05/22/21) Patient Home Medication List Home Medication List Reviewed: Yes Alprazolam (Alprazolam) 0.5 Mg Tablet, 0.5 MG PO HS PRN for SLEEP, (Reported) Entered as Reported by: NIKO KIM on 05/22/21 1016 Last Action: Continued Amlodipine Besylate (Amlodipine Besylate) 10 Mg Tablet, 5 MG PO 1200, (Reported) Entered as Reported by: NIKO KIM on 05/22/21 1016 Last Action: Continued Carvedilol (Coreg) 12.5 Mg Tablet, 6.25 MG PO BID WITH MEALS, (Reported) Entered as Reported by: NIKO KIM on 05/22/21 1016 Last Action: Continued Docusate Sodium (Colace) 100 Mg Capsule, 100 MG PO DAILY, (Reported) Entered as Reported by: NIKO KIM on 05/22/21 1016 Last Action: Continued Duloxetine HCl (Duloxetine HCl) 30 Mg Capsule.dr, 60 MG PO DAILY, (Reported) Entered as Reported by: NIKO KIM on 05/22/21 1016 Last Action: Continued Ertapenem (Invanz) 1,000 Mg Vial, 1,000 MG IJ DAILY, (Reported) Entered as Reported by: NIKO KIM on 05/22/21 1016 Last Action: Converted Fluconazole (Fluconazole) 200 Mg Tablet, 400 MG PO DAILY, (Reported) Entered as Reported by: NIKO KIM on 05/22/21 1016 Last Action: Converted Hydrocodone/Acetaminophen (Hydrocodone-Acetamin 5-325 mg) 1 Each Tablet, 1 EA PO Q8H PRN for PAIN-MODERATE (5-7), (Reported) Entered as Reported by: NIKO KIM on 05/22/21 1016 Last Action: Continued Hydrocortisone (Hydrocortisone) 5 Mg Tablet, 15 MG PO DAILY, (Reported) Entered as Reported by: NIKO KIM on 05/22/21 1016 Last Action: Converted Hydrocortisone (Hydrocortisone) 5 Mg Tablet, 10 MG PO HS, (Reported) Entered as Reported by: NIKO KIM on 05/22/21 1016 Last Action: Converted Insulin Glargine,Hum.rec.anlog (Lantus Solostar) 100 Unit/1 Ml Insuln.pen, 15 UNIT SQ DAILY, (Reported) Entered as Reported by: NIKO KIM on 05/22/21 1047 Last Action: Converted Insulin Lispro (Insulin Lispro Kwikpen U-100) 100 Unit/1 Ml Insuln.pen, UNITS SC AC, (Reported) Entered as Reported by: NIKO KIM on 05/22/21 1016 Last Action: Held Levothyroxine Sodium (Levothyroxine Sodium) 100 Mcg Tablet, 100 MCG PO DAILY, (Reported) Entered as Reported by: NIKO KIM on 05/22/21 1016 Last Action: Continued Linaclotide (Linzess) 290 Mcg Capsule, 290 MCG PO Q48H, (Reported) Entered as Reported by: NIKO KIM on 05/22/21 1016 Last Action: Converted Losartan Potassium (Losartan Potassium) 100 Mg Tablet, 50 MG PO BID, (Reported) Entered as Reported by: NIKO KIM on 05/22/21 1016 Last Action: Continued Melatonin (Melatonin) 10 Mg Tablet, 10 MG PO HS, (Reported) Entered as Reported by: NIKO KIM on 05/22/21 1016 Last Action: Continued Nystatin (Nystatin) 15 Gm Cream..g., 1 APPLIC TP BID, (Reported) Entered as Reported by: NIKO KIM on 05/22/21 1016 Last Action: Continued Ondansetron (Ondansetron Odt) 4 Mg Tab.rapdis, 4 MG PO Q8H PRN for NAUSEA/VOMITING-1ST LINE, (Reported) Entered as Reported by: NIKO KIM on 05/22/21 1016 Last Action: Continued Oxybutynin Chloride (Oxybutynin Chloride ER) 15 Mg Tab.er.24, 15 MG PO DAILY, (Reported) Entered as Reported by: NIKO KIM on 05/22/21 1016 Last Action: Converted Pantoprazole Sodium (Pantoprazole Sodium) 40 Mg Tablet.dr, 40 MG PO DAILY, (Reported) Entered as Reported by: NIKO KIM on 05/22/21 1016 Last Action: Continued Polyethylene Glycol 3350 (Miralax) 17 Gm Powd.pack, 17 GM PO DAILY, (Reported) Entered as Reported by: NIKO KIM on 05/22/21 1016 Last Action: Continued Repaglinide (Repaglinide) 2 Mg Tablet, 2-4 MG PO TIDWM, (Reported) Entered as Reported by: NIKO KIM on 05/22/21 1016 Last Action: Continued Rosuvastatin Calcium (Rosuvastatin Calcium) 20 Mg Tablet, 10 MG PO HS, (Reported) Entered as Reported by: NIKO KIM on 05/22/21 1016 Last Action: Continued Spironolactone (Spironolactone) 25 Mg Tablet, 25 MG PO DAILY, (Reported) Entered as Reported by: NIKO KIM on 05/22/21 1016 Last Action: Continued Tramadol HCl (Tramadol HCl) 50 Mg Tablet, 50 MG PO Q6H PRN for PAIN-MODERATE (5- 7), (Reported) Entered as Reported by: NIKO KIM on 05/22/21 1016 Last Action: Continued Discontinued Medications [Alprazolam] , (Reported) Discontinued Reason: No Longer Taking Entered as Reported by: DOUG MART on 10/07/19 184 Last Action: Discontinued [Tramadol] , (Reported) Discontinued Reason: No Longer Taking Entered as Reported by: DOUG MART on 10/07/195 Last Action: Discontinued Past Sjmrgzv-Oomaqh-Pdblvw Hx Patient Social History Smoking Status: Never a Smoker Alcohol Use?: No Surgeries History of Surgeries: Yes Surgeries: Abdominal (reports having had splenectomy at same time as pancreatic surgery), Eye Surgery, Neurological, Pancreatic (Patient reports having neruoendocrine 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.) Respiratory History of Respiratory Disorde: No Cardiovascular History of Cardiac Disorders: Yes Cardiac Disorders: High Cholesterol, Hypertension Neurological History of Neurological Disord: Yes (hx of brain tumor) Neurological Disorders: Headaches /Migraines, Neuropathy Genitourinary History of Genitourinary Disor: No Gastrointestinal History of Gastrointestinal Di: Yes Gastrointestinal Disorders: Colitis, Gastroesophageal Reflux, Gastrointestinal Bleed (reports having had BI bleed following pancreatic surgery) Musculoskeletal History of Musculoskeletal Dis: Yes Musculoskeletal Disorders: Chronic Back Pain Endocrine History of Endocrine Disorders: Yes Endocrine Disorders: Diabetes, Non-Insulin dep HEENT History of HEENT Disorders: Yes HEENT Disorders: Cataract Loss of Vision: Bilateral Hearing Impairment: Denies Cancer History of Cancer: Yes Cancer: Brain, Lung (Reports suspected lung malignancy that was put on hold while they dealt with pancreatic tumors.) Psychosocial History of Psychiatric Problem: No Family Medical History Significant Family History: Cancer (Father had bladder and prostate cancer), Hypertension Review of Systems-General Constitutional: No chills; dizziness (Primarily when up walking), weakness EENTM: hearing loss (reported very minor, slow hearing loss. thinks she needs to clean her ears.); No vision loss Respiratory: No cough; short of breath (reported that there was possibility she has lung cancer based upon prior imaging. Hasn;t had it worked up yet.) Cardiovascular: No chest pain, No palpitations Gastrointestinal: abdominal pain (Diffusely, worse in RUQ, only when up moving around.), constipation (went 8 days w/out BM, but had large stool today.), nausea (not currently, but has had nausea off an on over the past week.), vomiting (npt currently, threw up 5 days ago.) Genitourinary: incontinence (urge); No pain; other (reports having a rash) : No Musculoskeletal: back pain, joint pain Skin: other (small bruise on right arm and large bruising on lateral aspect of right leg) Psychiatric/Neurological: Denies Headache, Denies Seizure; Weakness Physical Exam-General Problems Physical Exam General Appearance: mild distress (chronically ill), obese Eyes: Bilateral Eye PERRL, Bilateral Eye EOMI HEENT: pharynx normal; No scleral icterus (R), No scleral icterus (L) Neck: non-tender, supple; No thyromegaly Respiratory: lungs clear, normal breath sounds, no respiratory distress Cardiovascular: regular rate, rhythm, no murmur Gastrointestinal: soft, no organomegaly; No distended; tenderness (diffusely tender, worse in LUQ), other (drain from LUQ) Rectal: deferred Extremities: normal capillary refill, swelling (swelling in legs and ankles), other (Diffuse pain, worse in shoulders and knees. Normal to her.) Neurologic/Psychiatric: kaitara taraka II-XII nml as tested, alert, normal mood/affect, oriented x 3 Skin: warm/dry, ecchymosis (lateral Right thigh); No jaundice Lymphatic: no adenopathy (neck, axilla or groin) Assessment/Plan Assessment/Plan Assessment/Plan 1.) Dehydration 2.) History of pancreatic Surgery and intra-abdominal abscesses w/ drain still in place 3.) constipation 4.) Insulin Dependent Diabetes 5.) Normocytic anemia 6.) Fibromyalgia 7.) Eccymosis of Right thigh Plan 1.) Continue IV Fluids probably should increase to 150ml/hr to help improve de hydration 2.) Drain had no erythema or swelling and appears to be draining well. Looks kind of purulent, may need to repeat CT to check intra-abdominal abscesses (before her scheduled one on the ) Will monitor for now. 3.) Patient was constipated for 8 days. Had large BM today. Likely that dehydration had a role. Continue to rehydrate and have her increase water intake. Continue docusate, and consider daily miralax as needed until stools are formed and soft. 4.) Continue current insulin regimen. 5.) Anemia is likely residual from surgery and complications. Not alarmingly low at this time. Will monitor for now. 6.) Continue Lortab (5mg) Q4h PRN. 7.) Echymosis should heal on its own with time. Supervisory-Addendum Brief Verification & Attestation Participated in pt care: history, MDM, physical Personally performed: exam, history, MDM, supervision of care Care discussed with: Medical Student Procedures: n/a Verification and Attestation of Medical Student E/M Service A medical student performed and documented this service. I then reviewed and verified all information documented by the medical student and made modificati ons to such information, when appropriate. I personally performed a physical exam, medical decision making and then discussed any differences between the notes and made revisions as necessary to create one note. Dina Hoover , 05/22/21 , 14:30 MO[place] May 22, 2021 11:25 DINA HOOVER DO May 22, 2021 14:19
[2021-05-22] MEDS ORDERED: ALPRAZolam 0.5 MG (XANAX) TAB PO PRN (11:45)
[2021-05-22] MEDS ORDERED: NON-FORMULARY MEDICATION 1 EA EA (Linaclotide (Linzess) 290 MCG) PO SCH (11:45)
[2021-05-22] MEDS ORDERED: ONDANSETRON 4 MG (ZOFRAN) ORAL DISSOLVE TAB PO PRN (11:45)
[2021-05-22] MEDS ORDERED: HYDROcodone/APAP 5 MG/325 MG (LORTAB) TAB PO PRN (11:45)
[2021-05-22] MEDS ORDERED: amLODIPine 5 MG (NORVASC) TAB PO SCH (12:00)
--- NOTE | 2021-05-22 12:03 | Physical Therapy Evaluation ---
PT Evaluation-General Medical Diagnosis Admission Date May 21, 2021 at 21:40 Medical Diagnosis: Dehydration Onset Date: May 21, 2021 Therapy Diagnosis Therapy Diagnosis: debility/weakness Precautions Precautions/Isolations: Fall Prevention, Standard Precautions Referral Physician: Ja Reason for Referral: Evaluation/Treatment Medical History Pertinent Medical History: DM, HTN Additional Medical History brain tumor Current History ER secondary to weakness/falls (recent pancreatectomy and splenectomy) Reviewed History: Yes Social History Home: [facility] Current Living Status: Other Family Entry Into Home: Ramp Prior Prior Level of Function SCALE: Activities may be completed with or without assistive devices. 7-Pvjjzpfxnp-ffughzt completes the activity by him/herself with no assistance from a helper. 5-Set-up or Clean-up Assistance-helper sets up or cleans up; patient completes activity. [place] assists only prior to or following the activity. 4-Supervision or Touching Assistance-helper provides verbal cues and/or touching/steadying and/or contact guard assistance as patient completes activity. Assistance may be provided throughout the activity or intermittently. 3-Partial/Moderate Assistance-helper does LESS THAN HALF the effort. [place] lifts, holds or supports trunk or limbs, but provides less than half the effort. 2-Substantial/Maximal Assistance-helper does MORE THAN HALF the effort. [place] lifts or holds trunk or limbs and provides more than half the effort. 6-Jwcdyuwja-bzdvcc does ALL the effort. Patient does none of the effort to complete the activity. Or, the assistance of 2 or more helpers is required for the patient to complete the activity. If activity was not attempted, code reason: 7-Patient Refused. 9-Not Applicable-not attempted and the patient did not perform the activity before the current illness, exacerbation or injury. 10-Not Attempted due to Environmental Limitations-(lack of equipment, weather restraints, etc.). 88-Not Attempted due to Medical Conditions or Safety Concerns. Bed Mobility: 4 Transfers (B,C,W/C): 4 Gait: 4 Stairs: 4 Indoor Mobility (Ambulation): Needed Some Help Stairs: Needed Some Help Prior Devices Use: Walker (4WW) PT Evaluation-Current Subjective Patient agrees to PT. Family present. Objective Patient Orientation: Person, Time, Situation Attachments: Drains, IV ROM/Strength ROM Lower Extremities bilateral LE WFL Strength Lower Extremities 4-/5 grossly bilateral LE Integumentary/Posture Bowel Incontinence: No Bladder Incontinence: No Posture WFL Neuromuscular (Tone, Coordination, Reflexes) grossly intact Sensory Vision: Functional Hearing: Functional Transfers Lying to Sitting/Side of Bed(Q: 4 Sit to Stand (QC): 4 Chair/Wqg-ky-Ldhmj Xfer(QC): 4 CGA for safety Gait Does the Patient Walk?: Yes Mode of Locomotion: Walk Anticipated Mode of Locomotion: Walk Walk 10 feet (QC): 4 Walk 50 ft with 2 Turns(QC): 4 Walk 150 ft (QC): 4 Distance: 250' Gait Assistive Device: FWW Comments/Gait Description steady gait sequence with no deviation Balance Sitting Static: Normal Sitting Dynamic: Normal Standing Static: Good Standing Dynamic: Good Assessment/Needs 70 y.o. female, will be seen short term by skilled PT to address functional strength and mobility to improve current LOF to safely return to home with family at maximum LOF. Rehab Potential: Guarded PT Mcc Goals [employer] Team Member Goals PT Mcc Goals Time Frame: Jun 07, 2021 Sit to Lying (QC): 6 Lying-Sitting on Side/Bed(QC): 6 Sit to Stand (QC): 5 Chair/Fhg-rk-Okxgv Xfer(QC): 5 Toilet Transfer (QC): 5 Walk 10 feet (QC): 5 Walk 50ft with 2 Turns (QC): 5 Walk 150 ft (QC): 5 PT Plan Problem List Problem List: Activity Tolerance, Functional Strength, Safety, Balance, Gait, Transfer, Bed Mobility Treatment/Plan Treatment Plan: Continue Plan of Care Treatment Plan: Bed Mobility, Education, Functional Activity Alena, Functional Strength, Gait, Safety, Therapeutic Exercise, Transfers Treatment Duration: Jun 07, 2021 Frequency: 6 times per week Estimated Hrs Per Day: .25 hour per day Patient and/or Family Agrees t: Yes Time/GCodes Time In: 1110 Time Out: 1127 Total Billed Treatment Time: 17 Total Billed Treatment 1 visit EVMod 17 min GIOVANNY RUIZ PT May 22, 2021 12:03
[2021-05-22 12:22] VITALS: BP 151/72
[2021-05-22] MEDS: OXYBUTYNIN (DITROPAN) 5 MG TAB PO SCH ×2 (12:28→21:55)
[2021-05-22] MEDS: REPAGLINIDE 2 MG PO SCH ×2 (13:26→17:36)
--- NOTE | 2021-05-22 14:24 | History & Physical ---
URI MIRELES 05/22/21 1424: History of Present Illness History of Present Illness Reason for visit/HPI This is a 70 y/o female s/p pancreatectomy and splenectomy 2 mos ago who presents due to increased weakness and frequent falls. Pt has been seen several times since her surgery at [facility], and currently has a drain in place due to an intra-abdominal abscess that formed after her surgery. She is also on IV abx through a left PICC for the same concern. Over the last several days, she states she has fallen twice, leading to an abrasion on her nose, and pain in her right hip and shoulder. Pts family is concerned by her condition, and is interested in pursuing inpatient rehab. In the ED, she was found to be dehydrated. Further workup of her falls showed no acute abnormalities on right shoulder, hip, and knee XRAYs, as well as, head CT. Date of Admission May 21, 2021 at 21:40 Date Seen by a Provider: May 22, 2021 Time Seen by a Provider: 09:45 I consulted on this patient on 05/22/21 14:16 Attending Physician Shruti Wiley DO Admitting Physician Sandeep Brannon MD Consult Allergies and Home Medications Allergies Coded Allergies: Sulfa (Sulfonamide Antibiotics) (Verified Allergy, Unknown, 04/08/19) aripiprazole (Verified Allergy, Unknown, 05/22/21) clarithromycin (Verified Allergy, Unknown, 05/22/21) iodine (Verified Allergy, Unknown, 04/08/19) metronidazole (Verified Allergy, Unknown, 04/08/19) mirtazapine (Verified Allergy, Unknown, 05/22/21) Patient Home Medication List Home Medication List Reviewed: Yes Alprazolam (Alprazolam) 0.5 Mg Tablet, 0.5 MG PO HS PRN for SLEEP, (Reported) Entered as Reported by: NIKO KIM on 05/22/21 1016 Last Action: Continued Amlodipine Besylate (Amlodipine Besylate) 10 Mg Tablet, 5 MG PO 1200, (Reported) Entered as Reported by: NIKO KIM on 05/22/21 1016 Last Action: Continued Carvedilol (Coreg) 12.5 Mg Tablet, 6.25 MG PO BID WITH MEALS, (Reported) Entered as Reported by: NIKO KIM on 05/22/21 1016 Last Action: Continued Docusate Sodium (Colace) 100 Mg Capsule, 100 MG PO DAILY, (Reported) Entered as Reported by: NIKO KIM on 05/22/21 1016 Last Action: Continued Duloxetine HCl (Duloxetine HCl) 30 Mg Capsule.dr, 60 MG PO DAILY, (Reported) Entered as Reported by: NIKO KIM on 05/22/21 1016 Last Action: Continued Ertapenem (Invanz) 1,000 Mg Vial, 1,000 MG IJ DAILY, (Reported) Entered as Reported by: NIKO KIM on 05/22/21 1016 Last Action: Converted Fluconazole (Fluconazole) 200 Mg Tablet, 400 MG PO DAILY, (Reported) Entered as Reported by: NIKO KIM on 05/22/21 1016 Last Action: Converted Hydrocodone/Acetaminophen (Hydrocodone-Acetamin 5-325 mg) 1 Each Tablet, 1 EA PO Q8H PRN for PAIN-MODERATE (5-7), (Reported) Entered as Reported by: NIKO KIM on 05/22/21 1016 Last Action: Continued Hydrocortisone (Hydrocortisone) 5 Mg Tablet, 15 MG PO DAILY, (Reported) Entered as Reported by: NIKO KIM on 05/22/21 1016 Last Action: Converted Hydrocortisone (Hydrocortisone) 5 Mg Tablet, 10 MG PO HS, (Reported) Entered as Reported by: NIKO KIM on 05/22/21 1016 Last Action: Converted Insulin Glargine,Hum.rec.anlog (Lantus Solostar) 100 Unit/1 Ml Insuln.pen, 15 UNIT SQ DAILY, (Reported) Entered as Reported by: NIKO KIM on 05/22/21 1047 Last Action: Converted Insulin Lispro (Insulin Lispro Kwikpen U-100) 100 Unit/1 Ml Insuln.pen, UNITS SC AC, (Reported) Entered as Reported by: NIKO KIM on 05/22/21 1016 Last Action: Held Levothyroxine Sodium (Levothyroxine Sodium) 100 Mcg Tablet, 100 MCG PO DAILY, (Reported) Entered as Reported by: NIKO KIM on 05/22/21 1016 Last Action: Continued Linaclotide (Linzess) 290 Mcg Capsule, 290 MCG PO Q48H, (Reported) Entered as Reported by: NIKO KIM on 05/22/21 1016 Last Action: Converted Losartan Potassium (Losartan Potassium) 100 Mg Tablet, 50 MG PO BID, (Reported) Entered as Reported by: NIKO KIM on 05/22/21 1016 Last Action: Continued Melatonin (Melatonin) 10 Mg Tablet, 10 MG PO HS, (Reported) Entered as Reported by: NIKO KIM on 05/22/21 1016 Last Action: Continued Nystatin (Nystatin) 15 Gm Cream..g., 1 APPLIC TP BID, (Reported) Entered as Reported by: NIKO KIM on 05/22/21 1016 Last Action: Continued Ondansetron (Ondansetron Odt) 4 Mg Tab.rapdis, 4 MG PO Q8H PRN for NAUSEA/VOMITING-1ST LINE, (Reported) Entered as Reported by: NIKO KIM on 05/22/21 1016 Last Action: Continued Oxybutynin Chloride (Oxybutynin Chloride ER) 15 Mg Tab.er.24, 15 MG PO DAILY, (Reported) Entered as Reported by: NIKO KIM on 05/22/21 1016 Last Action: Converted Pantoprazole Sodium (Pantoprazole Sodium) 40 Mg Tablet.dr, 40 MG PO DAILY, (Reported) Entered as Reported by: NIKO KIM on 05/22/21 1016 Last Action: Continued Polyethylene Glycol 3350 (Miralax) 17 Gm Powd.pack, 17 GM PO DAILY, (Reported) Entered as Reported by: NIKO KIM on 05/22/21 1016 Last Action: Continued Repaglinide (Repaglinide) 2 Mg Tablet, 2-4 MG PO TIDWM, (Reported) Entered as Reported by: NIKO KIM on 05/22/21 1016 Last Action: Continued Rosuvastatin Calcium (Rosuvastatin Calcium) 20 Mg Tablet, 10 MG PO HS, (Reported) Entered as Reported by: NIKO KIM on 05/22/21 1016 Last Action: Continued Spironolactone (Spironolactone) 25 Mg Tablet, 25 MG PO DAILY, (Reported) Entered as Reported by: NIKO KIM on 05/22/21 1016 Last Action: Continued Tramadol HCl (Tramadol HCl) 50 Mg Tablet, 50 MG PO Q6H PRN for PAIN-MODERATE (5- 7), (Reported) Entered as Reported by: NIKO KIM on 05/22/21 1016 Last Action: Continued Discontinued Medications [Alprazolam] , (Reported) Discontinued Reason: No Longer Taking Entered as Reported by: DOUG MART on 10/07/19 184 Last Action: Discontinued [Tramadol] , (Reported) Discontinued Reason: No Longer Taking Entered as Reported by: DOUG MART on 10/07/191843 Last Action: Discontinued Past Wdhkrel-Rrtjrn-Wvvtiy Hx Patient Social History Tobacco Use?: No Smoking Status: Never a Smoker Smokeless Tobacco Frequency: Never a User Use of E-Cig and/or Vaping dev: No Substance use?: No Alcohol Use?: No Pt feels they are or have been: No Immunizations Up To Date Date of Influenza Vaccine: Feb 26, 2021 First/Initial COVID19 Vaccinat: 01/2021 Second COVID19 Vaccination [place]: 01/2021 Tetanus Booster (TDap): Unknown Date of Pneumonia Vaccine: Mar 29, 2019 Seasonal Allergies Seasonal Allergies: Yes Current Status status: No status: No Advance Directives: Unable to obtain Communicates: Verbally Primary Language: [place] Preferred Spoken Language: [place] Is interpretation needed?: No Implanted or Applied Medical D: None Past Medical History Surgeries: Abdominal (reports having had splenectomy at same time as pancreatic surgery), Eye Surgery (cataract removal), Neurological (Hx of Brain tumor removal; unknown type), Pancreatic (Patient reports having neruoendocrine 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.) High Cholesterol, Hypertension Brain Tumor Colitis, Gastroesophageal Reflux, Gastrointestinal Bleed (reports having had GI bleed following pancreatic surgery) Fibromyalgia, Chronic Back Pain Adrenal Disease (adrenal insufficiency), Diabetes, Insulin dep Cataract (s/p removal) Loss of Vision: Denies Hearing Impairment: Denies Brain, Lung (Reports suspected lung malignancy that was put on hold while they dealt with pancreatic tumors.) Depression Blood Disorders: No Family Medical History Cancer, Hypertension Review of Systems Constitutional: No chills, No fever; weakness EENTM: No hearing loss, No vision loss, No throat pain Respiratory: No cough, No short of breath, No wheezing Cardiovascular: No chest pain, No edema Gastrointestinal: abdominal pain (mild; diffuse); No constipation, No diarrhea, No nausea, No vomiting Genitourinary: No dysuria, No frequency : No Musculoskeletal: back pain (chronic) Skin: No change in color, No pruritus, No rash Psychiatric/Neurological: Denies Headache; Weakness Physical Exam Vital Signs Vital Signs - First Documented 05/21/21 05/21/21 14:48 23:53 Temp 35.6 Pulse 73 Resp 18 B/P (MAP) 115/73 (87) Pulse Ox 94 O2 Delivery Room Air O2 Flow Rate 2.00 Capillary Refill : Less Than 3 Seconds Height, Weight, BMI Height: '" Weight: lbs. oz. kg; 33.02 BMI Method: General Appearance: No Apparent Distress, WD/WN Eyes: Bilateral Eye Normal Inspection, Bilateral Eye PERRL, Bilateral Eye EOMI HEENT: PERRL/EOMI, TMs Normal Neck: Non Tender Respiratory: Lungs Clear, Normal Breath Sounds, No Respiratory Distress Cardiovascular: Regular Rate, Rhythm, No Gallop, No Murmur Gastrointestinal: Non Tender, Soft Rectal: No Deferred Neurologic/Psychiatric: Alert, Oriented x3 Skin: Normal Color, Warm/Dry Lymphatic: No Adenopathy Assessment/Plan Assessment and Plan This is a 70 y/o female s/p pancreatectomy and splenectomy 2 mos ago who presents due to increased weakness and frequent falls. Problems: (1) Physical deconditioning Status: Acute Assessment & Plan: - Likely 2/2 recent surgery and frequent hospitalizations - Will evaluate patient for inpatient rehab when stable (2) Frequent falls Status: Acute Assessment & Plan: - Likely 2/2 deconditioning - Right shoulder, hip, and knee XRAYs and head CT perfomed in ED with no abnormalities - Pt not currently on anti-coagulation - Consult PT/OT for evaluation; appreciate recs (3) Dehydration Status: Acute Assessment & Plan: - Continue IV fluids for now; will encourage good oral intake (4) Intra-abdominal abscess post-procedure Status: Acute Assessment & Plan: - Consult surgery to assist with drain; appreciate recs - Continue to flush drain PRN - Monitor drain output to evaluate for removal - Continue IV abx; left PICC in place - Pt remains afebrile and without leukocytosis; will continue to monitor for signs of infection Admission Diagnosis Admission Status: Observation WILEYSUZETTE SAMPSONMartha PHILIP 05/23/21 0559: History of Present Illness History of Present Illness Reason for visit/HPI Chief Complaint: Dehydration HPI: This is a 70yoWF clinic patient of Dr. Brannon, but mostly at [facility] who has a past medical history of Pancreatic Nodule status post-resection with Splenectomy. She presented to the ER with Dehydration. She was placed on gentle IV fluids. I have restarted all of her home medications. IV antibiotics have been restarted. At this current time, I will consult Dr. Pineda for LYSSA Drain management. We are hopeful she can be evaluated for Inpatient Rehab. Allergies and Home Medications Allergies Coded Allergies: Sulfa (Sulfonamide Antibiotics) (Verified Allergy, Unknown, 04/08/19) aripiprazole (Verified Allergy, Unknown, 05/22/21) clarithromycin (Verified Allergy, Unknown, 05/22/21) iodine (Verified Allergy, Unknown, 04/08/19) metronidazole (Verified Allergy, Unknown, 04/08/19) mirtazapine (Verified Allergy, Unknown, 05/22/21) Patient Home Medication List Home Medication List Reviewed: Yes Alprazolam (Alprazolam) 0.5 Mg Tablet, 0.5 MG PO HS PRN for SLEEP, (Reported) Entered as Reported by: NIKO KIM on 05/22/21 1016 Last Action: Continued Amlodipine Besylate (Amlodipine Besylate) 10 Mg Tablet, 5 MG PO 1200, (Reported) Entered as Reported by: NKIO KIM on 05/22/21 1016 Last Action: Continued Carvedilol (Coreg) 12.5 Mg Tablet, 6.25 MG PO BID WITH MEALS, (Reported) Entered as Reported by: NIKO KIM on 05/22/21 1016 Last Action: Continued Docusate Sodium (Colace) 100 Mg Capsule, 100 MG PO DAILY, (Reported) Entered as Reported by: NIKO KIM on 05/22/21 1016 Last Action: Continued Duloxetine HCl (Duloxetine HCl) 30 Mg Capsule.dr, 60 MG PO DAILY, (Reported) Entered as Reported by: NIKO KIM on 05/22/21 1016 Last Action: Continued Ertapenem (Invanz) 1,000 Mg Vial, 1,000 MG IJ DAILY, (Reported) Entered as Reported by: NIKO KIM on 05/22/21 1016 Last Action: Converted Fluconazole (Fluconazole) 200 Mg Tablet, 400 MG PO DAILY, (Reported) Entered as Reported by: NIKO KIM on 05/22/21 1016 Last Action: Converted Hydrocodone/Acetaminophen (Hydrocodone-Acetamin 5-325 mg) 1 Each Tablet, 1 EA PO Q8H PRN for PAIN-MODERATE (5-7), (Reported) Entered as Reported by: NIKO KIM on 05/22/21 1016 Last Action: Continued Hydrocortisone (Hydrocortisone) 5 Mg Tablet, 15 MG PO DAILY, (Reported) Entered as Reported by: NIKO KIM on 05/22/21 1016 Last Action: Converted Hydrocortisone (Hydrocortisone) 5 Mg Tablet, 10 MG PO HS, (Reported) Entered as Reported by: NIKO KIM on 05/22/21 1016 Last Action: Converted Insulin Glargine,Hum.rec.anlog (Lantus Solostar) 100 Unit/1 Ml Insuln.pen, 15 UNIT SQ DAILY, (Reported) Entered as Reported by: NIKO KIM on 05/22/21 1047 Last Action: Converted Insulin Lispro (Insulin Lispro Kwikpen U-100) 100 Unit/1 Ml Insuln.pen, UNITS SC AC, (Reported) Entered as Reported by: NIKO KIM on 05/22/21 1016 Last Action: Held Levothyroxine Sodium (Levothyroxine Sodium) 100 Mcg Tablet, 100 MCG PO DAILY, (Reported) Entered as Reported by: NIKO KIM on 05/22/21 1016 Last Action: Continued Linaclotide (Linzess) 290 Mcg Capsule, 290 MCG PO Q48H, (Reported) Entered as Reported by: NIKO KIM on 05/22/21 1016 Last Action: Converted Losartan Potassium (Losartan Potassium) 100 Mg Tablet, 50 MG PO BID, (Reported) Entered as Reported by: NIKO KIM on 05/22/21 1016 Last Action: Continued Melatonin (Melatonin) 10 Mg Tablet, 10 MG PO HS, (Reported) Entered as Reported by: NIKO KIM on 05/22/21 1016 Last Action: Continued Nystatin (Nystatin) 15 Gm Cream..g., 1 APPLIC TP BID, (Reported) Entered as Reported by: NIKO KIM on 05/22/21 1016 Last Action: Continued Ondansetron (Ondansetron Odt) 4 Mg Tab.rapdis, 4 MG PO Q8H PRN for NAUSEA/VOMITING-1ST LINE, (Reported) Entered as Reported by: NIKO KIM on 05/22/21 1016 Last Action: Continued Oxybutynin Chloride (Oxybutynin Chloride ER) 15 Mg Tab.er.24, 15 MG PO DAILY, (Reported) Entered as Reported by: NIKO KIM on 05/22/21 1016 Last Action: Converted Pantoprazole Sodium (Pantoprazole Sodium) 40 Mg Tablet.dr, 40 MG PO DAILY, (Reported) Entered as Reported by: NIKO KIM on 05/22/21 1016 Last Action: Continued Polyethylene Glycol 3350 (Miralax) 17 Gm Powd.pack, 17 GM PO DAILY, (Reported) Entered as Reported by: NIKO KIM on 05/22/21 1016 Last Action: Continued Repaglinide (Repaglinide) 2 Mg Tablet, 2-4 MG PO TIDWM, (Reported) Entered as Reported by: NIKO KIM on 05/22/21 1016 Last Action: Continued Rosuvastatin Calcium (Rosuvastatin Calcium) 20 Mg Tablet, 10 MG PO HS, (Reported) Entered as Reported by: NIKO KIM on 05/22/21 1016 Last Action: Continued Spironolactone (Spironolactone) 25 Mg Tablet, 25 MG PO DAILY, (Reported) Entered as Reported by: NIKO KIM on 05/22/21 1016 Last Action: Continued Tramadol HCl (Tramadol HCl) 50 Mg Tablet, 50 MG PO Q6H PRN for PAIN-MODERATE (5- 7), (Reported) Entered as Reported by: NIKO KIM on 05/22/21 1016 Last Action: Continued Discontinued Medications [Alprazolam] , (Reported) Discontinued Reason: No Longer Taking Entered as Reported by: DOUG MART on 10/07/19 184 Last Action: Discontinued [Tramadol] , (Reported) Discontinued Reason: No Longer Taking Entered as Reported by: DOUG MART on 10/07/19 184 Last Action: Discontinued Past Tocrqud-Uylzgj-Ebxuej Hx Patient Social History Marrital Status: single Employed/Student: retired Tobacco Use?: No Past Medical History High Cholesterol, Hypertension Colitis, Gastroesophageal Reflux, Gastrointestinal Bleed (reports having had GI bleed following pancreatic surgery) Adrenal Disease (adrenal insufficiency), Diabetes, Insulin dep Cataract (s/p removal) Review of Systems Constitutional: see HPI, malaise, weakness EENTM: no symptoms reported Respiratory: short of breath Cardiovascular: no symptoms reported Gastrointestinal: abdominal pain (mild; diffuse), loss of appetite Genitourinary: no symptoms reported Musculoskeletal: no symptoms reported Skin: no symptoms reported Psychiatric/Neurological: No Symptoms Reported All Other Systems Reviewed Negative Unless Noted: Yes Physical Exam General Appearance: No Apparent Distress, WD/WN, Chronically ill, Obese Eyes: Bilateral Eye Normal Inspection, Bilateral Eye PERRL, Bilateral Eye EOMI HEENT: PERRL/EOMI, Normal ENT Inspection, Pharynx Normal Neck: Full Range of Motion, Normal Inspection, Non Tender, Supple, Carotid Bruit Respiratory: Chest Non Tender, Lungs Clear, Normal Breath Sounds, No Accessory Muscle Use, No Respiratory Distress Cardiovascular: Regular Rate, Rhythm, No Edema, No Gallop, No JVD, No Murmur, Normal Peripheral Pulses Gastrointestinal: Normal Bowel Sounds, No Organomegaly, No Pulsatile Mass, Non Tender, Soft Back: Normal Inspection, No CVA Tenderness, No Vertebral Tenderness Extremity: Normal Capillary Refill, Normal Inspection, Normal Range of Motion, Non Tender, No Calf Tenderness, No Pedal Edema Neurologic/Psychiatric: Alert, Oriented x3, No Motor/Sensory 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, 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 Norm as Tested, Abnormal Gait, Depressed Affect, Motor Weakness (generalized) Skin: Normal Color, Warm/Dry Lymphatic: No Adenopathy Assessment/Plan Assessment and Plan Assessment: Severe weakness Dehydration s/p partial pancreatectomy and splenectomy Infected pancreatic cyst on IV abx via PICC Adrenal insufficiency Plan: PT OT IRF IV abx Dr Pineda consult Supervisory-Addendum Brief Verification & Attestation Participated in pt care: history, MDM, physical Personally performed: exam, history, MDM, supervision of care Care discussed with: Medical Student Procedures: n/a Results interpretation: Verified all documentation Verification and Attestation of Medical Student E/M Service A medical student performed and documented this service in my presence. I reviewed and verified all information documented by the medical student and made modifications to such information, when appropriate. I personally performed the physical exam and medical decision making. Shruti Wiley, May 23, 2021,05:56 URI MIERLES May 22, 2021 14:24 SHRUTI WILEY DO May 23, 2021 05:59
[2021-05-22 15:40] VITALS: BP 143/76
[2021-05-22 19:21] VITALS: BP 136/73
[2021-05-22] MEDS ORDERED: HYDROCORTISONE 20 MG (CORTEF) TAB PO SCH (21:00)
[2021-05-22] MEDS ORDERED: MELATONIN 10 MG TABLET PO SCH (21:00)
[2021-05-22] MEDS ORDERED: ROSUVASTATIN 20 MG (CRESTOR) TABLET PO SCH (21:00)
[2021-05-22] MEDS ORDERED: NYSTATIN CREAM (MYCOSTATIN) 30 GM TUBE TP SCH (21:00)
[2021-05-22] MEDS: LOSARTAN 50 MG (COZAAR) TAB PO SCH (21:55)
[2021-05-22] MEDS: ENOXAPARIN 40 MG/0.4 ML (LOVENOX) SYR SC SCH (21:56)
[2021-05-23 00:17] VITALS: BP 147/70
[2021-05-23 04:01] VITALS: BP 148/77
[2021-05-23] MEDS ORDERED: LEVOTHYROXINE 100 MCG (LEVOTHROID) TAB PO SCH (06:30)
[2021-05-23] MEDS: inSUlin ASPART (NovoLOG) 1 UNIT/0.01 ML (CHARGE PER UNIT) SC SCH (06:55)
[2021-05-23 07:12] LABS: EOSINOPHILS % (AUTO) 1 % (0-10); MEAN CORPUSCULAR HEMOGLOBIN 29 pg (25-34); MONOCYTES # (AUTO) 0.8 10^3/uL (0.0-1.0)
[2021-05-23 07:13] LABS: BASOPHILS # (AUTO) 0.1 10^3/uL (0.0-0.1); BASOPHILS % (AUTO) 1 % (0-10); HEMATOCRIT 30 % (35-52); HEMOGLOBIN 9.9 g/dL (11.5-16.0); LYMPHOCYTES % (AUTO) 35 % (12-44); MEAN CORPUSCULAR HGB CONC 33 g/dL (32-36); MEAN CORPUSCULAR VOLUME 88 fL (80-99); MONOCYTES % (AUTO) 10 % (0-12); NEUTROPHILS # (AUTO) 4.6 10^3/uL (1.8-7.8); NEUTROPHILS % (AUTO) 53 % (42-75); PLATELET COUNT 254 10^3/uL (130-400); WHITE BLOOD COUNT 8.6 10^3/uL (4.3-11.0)
--- NOTE | 2021-05-23 07:23 | Discharge Summary ---
Diagnosis/Chief Complaint Date of Admission May 21, 2021 at 21:40 Date of Discharge Discharge Date: May 23, 2021 Discharge Diagnosis Assessment: Severe weakness Dehydration s/p partial pancreatectomy and splenectomy Infected pancreatic cyst on IV abx via PICC Adrenal insufficiency Reason Hospital Visit Chief Complaint: Dehydration HPI: This is a 70yoWF clinic patient of Dr. Brannon, but mostly at [facility] who has a past medical history of Pancreatic Nodule status post-resection with Splenectomy. She presented to the ER with Dehydration. She was placed on gentle IV fluids. I have restarted all of her home medications. IV antibiotics have bee n restarted. At this current time, I will consult Dr. Pineda for LYSSA Drain management. We are hopeful she can be evaluated for Inpatient Rehab. Discharge Summary Discharge Physical Examination Allergies: Coded Allergies: Sulfa (Sulfonamide Antibiotics) (Verified Allergy, Unknown, 04/08/19) aripiprazole (Verified Allergy, Unknown, 05/22/21) clarithromycin (Verified Allergy, Unknown, 05/22/21) iodine (Verified Allergy, Unknown, 04/08/19) metronidazole (Verified Allergy, Unknown, 04/08/19) mirtazapine (Verified Allergy, Unknown, 05/22/21) Vitals & I&Os Vital Signs Date Time Temp Pulse Resp B/P (MAP) Pulse Ox O2 Delivery O2 Flow Rate FiO2 05/23/21 08:20 Nasal Cannula 2.00 05/23/21 04:01 36.7 68 18 148/77 (100) 97 Hospital Course Was the Problem List Reviewed?: Yes Julieta Rogers, a 70 year old female patient with a recent history of pancreatectomy and splenectomy complicated by an intra-abdominal abscess requiring drain placement presented to the [facility] ED for complaints of weakness and right shoulder, hip, and knee pain secondary to frequent falls. Notable findings in the ED included dehydration and negative Xrays of the right shoulder, hip and knee. Ultimately, she was admitted to 4th floor med/surg for dehydration and deconditioning. Consulted surgery for assistance in managing the patients drain. Continued appropriate evaluation and management on the general medicine floor service and they progressed well there. She was monitored and treated according to consulting specialists recommendations and the standard of care. Symptoms were managed well with IV fluids. No evidence of AMS or end organ dysfunction were noted during this admission. No episodes of oxygen desaturations at rest or during exertion requiring more aggressive noninvasive ventilation or invasive ventilation devices were observed. No signs or symptoms of pathological bleeding were noted. She was evaluated for her problems and deemed appropriate for transfer to inpatient rehab. Upon the day of dismissal the patient was in agreement with the plan. The patient was noted by providers, nursing, and/or ancillary staff members to be tolerating the appropriate diet, having bowel movement(s), ambulating, oxygenating, and communicating at their prior baseline prior to transfer. All questions were answered prior to the patient's transfer. Labs (last 24 hrs) Laboratory Tests 05/21/21 15:00: White Blood Count 7.9, Red Blood Count 3.85, Hemoglobin 11.1L, Hematocrit 34L, Mean Corpuscular Volume 88, Mean Corpuscular Hemoglobin 29, Mean Corpuscular Hemoglobin Concent 33, Red Cell Distribution Width 15.7H, Platelet Count 257, Mean Platelet Volume 14.0H, Immature Granulocyte % (Auto) 1, Neutrophils (%) (Auto) 41L, Lymphocytes (%) (Auto) 45H, Monocytes (%) (Auto) 11, Eosinophils (%) (Auto) 2, Basophils (%) (Auto) 1, Neutrophils # (Auto) 3.2, Lymphocytes # (Auto) 3.6, Monocytes # (Auto) 0.9, Eosinophils # (Auto) 0.1, Basophils # (Auto) 0.1, Immature Granulocyte # (Auto) 0.1, Sodium Level 137, Potassium Level 3.2L, Chloride Level 101, Carbon Dioxide Level 26, Anion Gap 10, Blood Urea Nitrogen 11, Creatinine 1.06, Estimat Glomerular Filtration Rate 51, BUN/Creatinine Ratio 10, Glucose Level 152H, Lactic Acid Level 2.84*H, Calcium Level 9.6, Corrected Calcium 10.4H, Magnesium Level 1.5L, Total Bilirubin 0.2, Aspartate Amino Transf (AST/SGOT) 81H, Alanine Aminotransferase (ALT/SGPT) 56H, Alkaline Phosphatase 154H, Troponin I < 0.30, Pro-B-Type Natriuretic Peptide 182.3H, Total Protein 5.8L, Albumin 3.0L, Amylase Level 24L 05/21/21 15:45: Ammonia 29 05/21/21 16:26: Blood Gas Puncture Site RT RADIAL, Blood Gas Patient Temperature 96, Arterial Blood pH 7.44H, Arterial Blood Partial Pressure CO2 42, Arterial Blood Partial Pressure O2 49L, Arterial Blood HCO3 29H, Arterial Blood Total CO2 29.8, Arterial Blood Oxygen Saturation 86L, Arterial Blood Base Excess 3.9H, James Test OK, Blood Gas Ventilator Setting NO, Blood Gas Inspired Oxygen ROOM AIR 05/21/21 18:15: Lactic Acid Level 1.11 05/22/21 04:12: White Blood Count 8.4, Red Blood Count 3.71L, Hemoglobin 10.7L, Hematocrit 33L, Mean Corpuscular Volume 88, Mean Corpuscular Hemoglobin 29, Mean Corpuscular Hemoglobin Concent 33, Red Cell Distribution Width 15.5H, Platelet Count 261, Mean Platelet Volume 13.8H, Immature Granulocyte % (Auto) 1, Neutrophils (%) (Auto) 73, Lymphocytes (%) (Auto) 23, Monocytes (%) (Auto) 3, Eosinophils (%) (Auto) 0, Basophils (%) (Auto) 0, Neutrophils # (Auto) 6.2, Lymphocytes # (Auto) 1.9, Monocytes # (Auto) 0.2, Eosinophils # (Auto) 0.0, Basophils # (Auto) 0.0, Immature Granulocyte # (Auto) 0.1, Percent Immature Platelet Fraction 13.3H, Sodium Level 136, Potassium Level 4.4, Chloride Level 106, Carbon Dioxide Level 21, Anion Gap 9, Blood Urea Nitrogen 10, Creatinine 0.87, Estimat Glomerular Filtration Rate 64, BUN/Creatinine Ratio 11, Glucose Level 213H, Calcium Level 9.0, Corrected Calcium 10.1, Total Bilirubin 0.3, Aspartate Amino Transf (AST/SGOT) 43H, Alanine Aminotransferase (ALT/SGPT) 44, Alkaline Phosphatase 126, Total Protein 5.6L, Albumin 2.6L 05/22/21 11:04: Glucometer 234H 05/22/21 15:44: Glucometer 232H 05/22/21 21:21: Glucometer 318H 05/23/21 06:03: Glucometer 210H 05/23/21 06:20: White Blood Count 8.6, Red Blood Count 3.43L, Hemoglobin 9.9L, Hematocrit 30L, M zeus Corpuscular Volume 88, Mean Corpuscular Hemoglobin 29, Mean Corpuscular Hemoglobin Concent 33, Red Cell Distribution Width 16.0H, Platelet Count 254, Mean Platelet Volume 14.0H, Immature Granulocyte % (Auto) 1, Neutrophils (%) (Auto) 53, Lymphocytes (%) (Auto) 35, Monocytes (%) (Auto) 10, Eosinophils (%) (Auto) 1, Basophils (%) (Auto) 1, Neutrophils # (Auto) 4.6, Lymphocytes # (Auto) 3.0, Monocytes # (Auto) 0.8, Eosinophils # (Auto) 0.0, Basophils # (Auto) 0.1, Immature Granulocyte # (Auto) 0.1, Percent Immature Platelet Fraction 11.8H, Sodium Level 139, Potassium Level 3.6, Chloride Level 109H, Carbon Dioxide Level 22, Anion Gap 8, Blood Urea Nitrogen 11, Creatinine 0.83, Estimat Glomerular Filtration Rate 68, BUN/Creatinine Ratio 13, Glucose Level 230H, Calcium Level 8.7, Corrected Calcium 10.0, Total Bilirubin 0.3, Aspartate Amino Transf (AST/SGOT) 33, Alanine Aminotransferase (ALT/SGPT) 36, Alkaline Phosphatase 110, Total Protein 5.0L, Albumin 2.4L 05/23/21 12:26: Glucometer 155H Pending Labs Laboratory Tests 05/21/21 15:00: White Blood Count 7.9, Red Blood Count 3.85, Hemoglobin 11.1, Hematocrit 34, Mean Corpuscular Volume 88, Mean Corpuscular Hemoglobin 29, Mean Corpuscular Hemoglobin Concent 33, Red Cell Distribution Width 15.7, Platelet Count 257, Mean Platelet Volume 14.0, Immature Granulocyte % (Auto) 1, Neutrophils (%) (Auto) 41, Lymphocytes (%) (Auto) 45, Monocytes (%) (Auto) 11, Eosinophils (%) (Auto) 2, Basophils (%) (Auto) 1, Neutrophils # (Auto) 3.2, Lymphocytes # (Auto) 3.6, Monocytes # (Auto) 0.9, Eosinophils # (Auto) 0.1, Basophils # (Auto) 0.1, Immature Granulocyte # (Auto) 0.1, Sodium Level 137, Potassium Level 3.2, Chloride Level 101, Carbon Dioxide Level 26, Anion Gap 10, Blood Urea Nitrogen 11, Creatinine 1.06, Estimat Glomerular Filtration Rate 51, BUN/Creatinine Ratio 10, Glucose Level 152, Lactic Acid Level 2.84, Calcium Level 9.6, Corrected Calcium 10.4, Magnesium Level 1.5, Total Bilirubin 0.2, Aspartate Amino Transf (AST/SGOT) 81, Alanine Aminotransferase (ALT/SGPT) 56, Alkaline Phosphatase 154, Troponin I < 0.30, Pro-B-Type Natriuretic Peptide 182.3, Total Protein 5.8, Albumin 3.0, Amylase Level 24 05/21/21 15:45: Ammonia 29 05/21/21 16:26: Blood Gas Puncture Site RT RADIAL, Blood Gas Patient Temperature 96, Arterial Blood pH 7.44, Arterial Blood Partial Pressure CO2 42, Arterial Blood Partial Pressure O2 49, Arterial Blood HCO3 29, Arterial Blood Total CO2 29.8, Arterial Blood Oxygen Saturation 86, Arterial Blood Base Excess 3.9, James Test OK, Blood Gas Ventilator Setting NO, Blood Gas Inspired Oxygen ROOM AIR 05/21/21 18:15: Lactic Acid Level 1.11 05/22/21 04:12: White Blood Count 8.4, Red Blood Count 3.71, Hemoglobin 10.7, Hematocrit 33, Mean Corpuscular Volume 88, Mean Corpuscular Hemoglobin 29, Mean Corpuscular Hemoglobin Concent 33, Red Cell Distribution Width 15.5, Platelet Count 261, Mean Platelet Volume 13.8, Immature Granulocyte % (Auto) 1, Neutrophils (%) (Auto) 73, Lymphocytes (%) (Auto) 23, Monocytes (%) (Auto) 3, Eosinophils (%) (Auto) 0, Basophils (%) (Auto) 0, Neutrophils # (Auto) 6.2, Lymphocytes # (Auto) 1.9, Monocytes # (Auto) 0.2, Eosinophils # (Auto) 0.0, Basophils # (Auto) 0.0, Immature Granulocyte # (Auto) 0.1, Percent Immature Platelet Fraction 13.3, Sodium Level 136, Potassium Level 4.4, Chloride Level 106, Carbon Dioxide Level 21, Anion Gap 9, Blood Urea Nitrogen 10, Creatinine 0.87, Estimat Glomerular Filtration Rate 64, BUN/Creatinine Ratio 11, Glucose Level 213, Calcium Level 9.0, Corrected Calcium 10.1, Total Bilirubin 0.3, Aspartate Amino Transf (AST/SGOT) 43, Alanine Aminotransferase (ALT/SGPT) 44, Alkaline Phosphatase 126, Total Protein 5.6, Albumin 2.6 05/22/21 11:04: Glucometer 234 05/22/21 15:44: Glucometer 232 05/22/21 21:21: Glucometer 318 05/23/21 06:03: Glucometer 210 05/23/21 06:20: White Blood Count 8.6, Red Blood Count 3.43, Hemoglobin 9.9, Hematocrit 30, Mean Corpuscular Volume 88, Mean Corpuscular Hemoglobin 29, Mean Corpuscular Hemoglobin Concent 33, Red Cell Distribution Width 16.0, Platelet Count 254, Mean Platelet Volume 14.0, Immature Granulocyte % (Auto) 1, Neutrophils (%) (Auto) 53, Lymphocytes (%) (Auto) 35, Monocytes (%) (Auto) 10, Eosinophils (%) (Auto) 1, Basophils (%) (Auto) 1, Neutrophils # (Auto) 4.6, Lymphocytes # (Auto) 3.0, Monocytes # (Auto) 0.8, Eosinophils # (Auto) 0.0, Basophils # (Auto) 0.1, I mmature Granulocyte # (Auto) 0.1, Percent Immature Platelet Fraction 11.8, Sodium Level 139, Potassium Level 3.6, Chloride Level 109, Carbon Dioxide Level 22, Anion Gap 8, Blood Urea Nitrogen 11, Creatinine 0.83, Estimat Glomerular Filtration Rate 68, BUN/Creatinine Ratio 13, Glucose Level 230, Calcium Level 8.7, Corrected Calcium 10.0, Total Bilirubin 0.3, Aspartate Amino Transf ( AST/SGOT) 33, Alanine Aminotransferase (ALT/SGPT) 36, Alkaline Phosphatase 110, Total Protein 5.0, Albumin 2.4 05/23/21 12:26: Glucometer 155 Discharge Home Medications: Active Scripts Active Reported Lantus Solostar (Insulin Glargine,Hum.rec.anlog) 100 Unit/1 Ml Insuln.pen 15 Unit SQ DAILY LAST FILLED 08-16-2020 #15 PENS Colace (Docusate Sodium) 100 Mg Capsule 100 Mg PO DAILY Tramadol HCl 50 Mg Tablet 50 Mg PO Q6H PRN Spironolactone 25 Mg Tablet 25 Mg PO DAILY Miralax (Polyethylene Glycol 3350) 17 Gm Powd.pack 17 Gm PO DAILY Rosuvastatin Calcium 20 Mg Tablet 10 Mg PO HS TAKES OF A 20MG TAB LAST FILLED 08-16-2020 #45/90 DAY SUPPLY Oxybutynin Chloride ER (Oxybutynin Chloride) 15 Mg Tab.er.24 15 Mg PO DAILY LAST FILLED 09-04-2020 #90/90 DAY SUPPLY Pantoprazole Sodium 40 Mg Tablet.dr 40 Mg PO DAILY Nystatin 15 Gm Cream..g. 1 Applic TP BID Melatonin 10 Mg Tablet 10 Mg PO HS Losartan Potassium 100 Mg Tablet 50 Mg PO BID TAKES OF A 100MG TAB Linzess (Linaclotide) 290 Mcg Capsule 290 Mcg PO Q48H Levothyroxine Sodium 100 Mcg Tablet 100 Mcg PO DAILY Hydrocortisone 5 Mg Tablet 10 Mg PO HS TAKES 2 (5MG) TABS Hydrocortisone 5 Mg Tablet 15 Mg PO DAILY TAKES 3 (5MG) TABS Hydrocodone-Acetamin 5-325 mg (Hydrocodone/Acetaminophen) 1 Each Tablet 1 Ea PO Q8H PRN Invanz (Ertapenem) 1,000 Mg Vial 1,000 Mg IJ DAILY FILLED 05-14-2021 #14/14 DAY SUPPLY Duloxetine HCl 30 Mg Capsule.dr 60 Mg PO DAILY TAKES 2 (30MG) CAPS Coreg (Carvedilol) 12.5 Mg Tablet 6.25 Mg PO BID WITH MEALS TAKES OF A 12.5MG TAB Amlodipine Besylate 10 Mg Tablet 5 Mg PO 1200 TAKES OF A 10MG TAB Alprazolam 0.5 Mg Tablet 0.5 Mg PO HS PRN Insulin Lispro Kwikpen U-100 (Insulin Lispro) 100 Unit/1 Ml Insuln.pen Units SC AC MDD 40 UNITS INJECT 3 UNITS FOR EVERY 50 POINTS OVER 150 Ondansetron Odt (Ondansetron) 4 Mg Tab.rapdis 4 Mg PO Q8H PRN Repaglinide 2 Mg Tablet 2-4 Mg PO TIDWM TAKES 1 TO 2 (2MG) TABS Fluconazole 200 Mg Tablet 400 Mg PO DAILY FILLED 05-15-2021 #60/30 DAY SUPPLY Instructions to patient/family Please see electronic discharge instructions given to patient. UMM WILEY DO May 23, 2021 07:22
[2021-05-23 07:25] LABS: ALBUMIN 2.4 GM/DL (3.2-4.5); POTASSIUM 3.6 MMOL/L (3.6-5.0)
[2021-05-23 07:26] LABS: CALCIUM 8.7 MG/DL (8.5-10.1)
[2021-05-23 07:29] LABS: BILIRUBIN,TOTAL 0.3 MG/DL (0.1-1.0)
[2021-05-23 07:31] LABS: CREATININE SERUM 0.83 MG/DL (0.60-1.30)
[2021-05-23] MEDS: NS IV 1000 ML 1,000 ML IV SCH (07:35)
--- NOTE | 2021-05-23 08:07 | Progress Note - Surgery ---
MODESTA [place] 05/23/21 0807: Subjective Date Seen by a Provider: May 23, 2021 Time Seen by a Provider: 07:40 Subjective/Events-last exam Julieta was initally asleep when I saw her this morning but woke up and was alert to questioning. She reports eating and drinking well yetserday with no nausea or vomiting. No abdominal pain. Was able to move around her room yesterday, but reports that she still feels rather weak. Her right thigh, hip, and shoulder are still hurting from her falls prior to admission. Rates the pain as a 3/10 currently, was a 7/10 yesterday evening. Has discharge orders in place from Dr. Nails for today. She denied having any specific concerns or questions this morning. Review of Systems General: Chills, Appetite (reports good appetite) HEENT: No Head Aches, No Visual Changes Pulmonary: No Dyspnea, No Cough Cardiovascular: No: Chest Pain, Palpitations Gastrointestinal: No: Nausea, Vomiting, Abdominal Pain Genitourinary: No Dysuria Musculoskeletal: shoulder pain (right), leg pain (right hip and lateral thigh) Neurological: Weakness; No: Numbness Focused Exam Lactate Level 05/21/21 15:00: Lactic Acid Level 2.84*H 05/21/21 18:15: Lactic Acid Level 1.11 Time of Focused Exam: 13:00 Objective Exam Vital Signs Date Time Temp Pulse Resp B/P (MAP) Pulse Ox O2 Delivery O2 Flow Rate FiO2 05/23/21 04:01 36.7 68 18 148/77 (100) 97 Nasal Cannula 2.00 05/23/21 00:17 36.5 69 20 147/70 (95) 97 Nasal Cannula 2.00 05/22/21 20:00 96 Nasal Cannula 2.00 05/22/21 19:38 96 Nasal Cannula 2.00 05/22/21 19:21 36.7 76 18 136/73 (94) 96 Nasal Cannula 2.00 05/22/21 15:40 36.8 83 20 143/76 (98) 97 Nasal Cannula 2.00 05/22/21 12:24 98 Nasal Cannula 2.00 05/22/21 12:22 36.6 81 18 151/72 (98) 94 Room Air I & O 05/23/21 07:00 Intake Total 2050 ml Output Total 750 ml Balance 1300 ml Capillary Refill : Less Than 3 Seconds General Appearance: No Apparent Distress, WD/WN, Chronically ill, Obese HEENT: PERRL/EOMI, Moist Mucous Membranes Neck: Normal Inspection; No Lymphadenopathy (L), No Lymphadenopathy (R), No Thyromegaly Respiratory: Lungs Clear, Normal Breath Sounds, No Accessory Muscle Use, No Respiratory Distress Cardiovascular: Regular Rate, Rhythm, No Murmur Peripheral Pulses: 2+ Radial Pulses (R), 2+ Radial Pulses (L) Gastrointestinal: soft, no organomegaly; No distended, No tenderness; other (Drain present in LUQ, with small amt. of purulent fluid present in collection bag.) Extremity: Normal Capillary Refill, No Pedal Edema, Other (large, tender bruise on outer right lateral thigh.) Neurologic/Psychiatric: Alert, Oriented x3 Skin: Normal Color, Warm/Dry Lymphatic: No Adenopathy Results Lab Laboratory Tests 05/22/21 11:04: Glucometer 234H 05/22/21 15:44: Glucometer 232H 05/22/21 21:21: Glucometer 318H 05/23/21 06:03: Glucometer 210H 05/23/21 06:20: White Blood Count 8.6, Red Blood Count 3.43L, Hemoglobin 9.9L, Hematocrit 30L, Mean Corpuscular Volume 88, Mean Corpuscular Hemoglobin 29, Mean Corpuscular Hemoglobin Concent 33, Red Cell Distribution Width 16.0H, Platelet Count 254, Mean Platelet Volume 14.0H, Immature Granulocyte % (Auto) 1, Neutrophils (%) (Auto) 53, Lymphocytes (%) (Auto) 35, Monocytes (%) (Auto) 10, Eosinophils (%) (Auto) 1, Basophils (%) (Auto) 1, Neutrophils # (Auto) 4.6, Lymphocytes # (Auto) 3.0, Monocytes # (Auto) 0.8, Eosinophils # (Auto) 0.0, Basophils # (Auto) 0.1, Immature Granulocyte # (Auto) 0.1, Percent Immature Platelet Fraction 11.8H, Sodium Level 139, Potassium Level 3.6, Chloride Level 109H, Carbon Dioxide Level 22, Anion Gap 8, Blood Urea Nitrogen 11, Creatinine 0.83, Estimat Glomerular Filtration Rate 68, BUN/Creatinine Ratio 13, Glucose Level 230H, Calcium Level 8.7, Corrected Calcium 10.0, Total Bilirubin 0.3, Aspartate Amino Transf (AST/SGOT) 33, Alanine Aminotransferase (ALT/SGPT) 36, Alkaline Phosphatase 110, Total Protein 5.0L, Albumin 2.4L Assessment/Plan Assessment/Plan Assessment/Plan 1.) Dehydration 2.) History of pancreatic Surgery and intra-abdominal abscesses w/ drain still in place 3.) constipation 4.) Insulin Dependent Diabetes 5.) Normocytic anemia 6.) Fibromyalgia 7.) Ecchymosis of Right thigh Plan 1.) Continue IV Fluids. Patient not tachycardic or hypotensive. Appears to be doing wel. 2.) Drain had no erythema or swelling and still appears to be draining well.Looks kind of purulent, may need to repeat CT to check intra-abdominal abscesses (before her scheduled one on the ). Recieving IV Cefepime and Fluconazole today, which hopefully will help purulence of fluid draining. has orders to be discharged to rehab. Will monitor for now. 3.) Patient was constipated for 8 days. Had large BM yesterday. Patient is not having any abdominal pain currently and has had a good appetite w/out nausea or vomiting. Likely that dehydration had a role. Continue to rehydrate and have her increase water intake. Continue docusate, and consider daily miralax as needed until stools are formed and soft. 4.) Continue current insulin regimen. 5.) Anemia is likely residual from surgery and complications. Not alarmingly low at this time. Will monitor for now. 6.) Continue Lortab (5mg) Q4h PRN. 7.) Ecchymosis should heal on its own with time. HANSEL PINEDA DO 05/23/21 1534: Subjective Time Seen by a Provider: 14:33 Subjective/Events-last exam Pt seen and examined, she had already been moved down to rehab. Denied abdominal pain. Thought maybe color of drainage had changed "yellow-milky today" and was concerned some fluid coming out around drain. Review of Systems General: Chills, Appetite (reports good appetite) Pulmonary: No Dyspnea, No Cough Cardiovascular: No: Chest Pain, Palpitations Gastrointestinal: No: Nausea, Vomiting, Abdominal Pain Musculoskeletal: leg pain (right hip and lateral thigh) Objective Exam General Appearance: Chronically ill, Obese HEENT: PERRL/EOMI, Moist Mucous Membranes Respiratory: Lungs Clear, Normal Breath Sounds, No Accessory Muscle Use, No Respiratory Distress Cardiovascular: Regular Rate, Rhythm, No Murmur Gastrointestinal: non tender, soft, no organomegaly; No distended; other (Drain present in LUQ, with small amt. of purulent fluid present in collection bag.) Neurologic/Psychiatric: Alert, Oriented x3 Assessment/Plan Assessment/Plan Assessment/Plan 1.) Dehydration 2.) History of pancreatic Surgery and intra-abdominal abscesses w/ drain still in place 3.) constipation 4.) Insulin Dependent Diabetes 5.) Normocytic anemia 6.) Fibromyalgia 7.) Ecchymosis of Right thigh Plan 1.) Continue IV Fluids. Patient not tachycardic or hypotensive. Appears to be doing wel. 2.) Drain had no erythema or swelling and still appears to be draining well.Looks kind of purulent, may need to repeat CT to check intra-abdominal abscesses (before her scheduled one on the ). Recieving IV Cefepime and Fluconazole today, which hopefully will help purulence of fluid draining. If still in hospital on 05/[address] here. I reassured pt's that a little bit of fluid coming out around drain is not abnormal and that drain is still working because there is stuff in the bag. 3.) Patient was constipated for 8 days. Had large BM yesterday. Patient is not having any abdominal pain currently and has had a good appetite w/out nausea or vomiting. Likely that dehydration had a role. Continue to rehydrate and have her increase water intake. Continue docusate, and consider daily miralax as needed until stools are formed and soft. 4.) Continue current insulin regimen. 5.) Anemia is likely residual from surgery and complications. Not alarmingly low at this time. Will monitor for now. 6.) Continue Lortab (5mg) Q4h PRN. 7.) Ecchymosis should heal on its own with time. Will sign off and re-evaluate if needed. Supervisory-Addendum Brief Verification & Attestation Participated in pt care: history, MDM, physical Personally performed: exam, history, MDM, supervision of care Care discussed with: Medical Student Procedures: n/a Verification and Attestation of Medical Student E/M Service A medical student performed and documented this service. I then reviewed and verified all information documented by the medical student and made modifications to such information, when appropriate. I personally performed a physical exam, medical decision making and then discussed any differences between the notes and made revisions as necessary to create one note. Hansel Pineda , 05/23/21 , 15:34 MO[place]STA [place] May 23, 2021 08:07 HANSEL PINEDA DO May 23, 2021 15:34
[2021-05-23] MEDS: OXYBUTYNIN (DITROPAN) 5 MG TAB PO SCH (08:11)
[2021-05-23] MEDS: LOSARTAN 50 MG (COZAAR) TAB PO SCH (08:11)
[2021-05-23] MEDS: REPAGLINIDE 2 MG PO SCH (08:12)
[2021-05-23] MEDS ORDERED: fluCOnazole (DIFLUCAN) 100 MG TAB PO SCH (09:00)
[2021-05-23] MEDS ORDERED: PANTOPRAZOLE 40 MG (PROTONIX) TAB PO SCH (09:00)
[2021-05-23] MEDS ORDERED: ERTAPENEM 1000 MG IV SCH (09:00)
[2021-05-23] MEDS ORDERED: DOCUSATE SODIUM 100 MG (COLACE) CAP PO SCH (09:00)
[2021-05-23] MEDS ORDERED: SPIRONOLACTONE 25 MG (ALDACTONE) TAB PO SCH (09:00)
[2021-05-23] MEDS ORDERED: polyethylene glycoL POWDER 17 GM (MIRALAX) PACK PO SCH (09:00)
[2021-05-23] MEDS ORDERED: HYDROCORTISONE 20 MG (CORTEF) TAB PO SCH (09:00)
[2021-05-23] MEDS ORDERED: ERTAPENEM 1 GM/NS 50 ML IVPB IV SCH ×2 (09:00)
[2021-05-23] MEDS ORDERED: DULoxetine 30 MG (CYMBALTA) CAP PO SCH (09:00)
--- NOTE | 2021-05-23 12:57 | Progress Note ---
URI MIRELES 05/23/21 1257: Progress Note Patient Name: Julieta Rogers Admission Date: 05/21/21 Discharge Date: 05/23/21 Attending Physician: Dr. Wiley Admitting Diagnosis: Dehydration and weakness Discharge Diagnosis: Same Consultations: Dr. Pineda, Surgery Procedures: none Complications: none Brief Hospital Course: Julieta Rogers, a 70 year old female patient with a recent history of pancreatectomy and splenectomy complicated by an intra-abdominal abscess requiring drain placement presented to the [facility] ED for complaints of weakness and right shoulder, hip, and knee pain secondary to frequent falls. Notable findings in the ED included dehydration and negative Xrays of the right shoulder, hip and knee. Ultimately, she was admitted to 4th floor med/surg for dehydration and deconditioning. Consulted surgery for assistance in managing the patients drain. Continued appropriate evaluation and management on the general medicine floor service and they progressed well there. She was monitored and treated according to consulting specialists recommendations and the standard of care. Symptoms were managed well with IV fluids. No evidence of AMS or end organ dysfunction were noted during this admission. No episodes of oxygen desaturations at rest or during exertion requiring more aggressive noninvasive ventilation or invasive ventilation devices were observed. No signs or symptoms of pathological bleeding were noted. She was evaluated for her problems and deemed appropriate for transfer to inpatient rehab. Upon the day of dismissal the patient was in agreement with the plan. The patient was noted by providers, nursing, and/or ancillary staff members to be tolerating the appropriate diet, having bowel movement(s), ambulating, oxygenating, and communicating at their prior baseline prior to transfer. All questions were answered prior to the patient's transfer. Discharge Plan: Transfer to inpatient rehab Condition at Discharge: Stable Activity: As directed by rehab facility Diet: UMM Veloz DO 05/24/21 0802: Supervisory-Addendum Brief Verification & Attestation Participated in pt care: history, MDM, physical Personally performed: exam, history, MDM, supervision of care Care discussed with: Medical Student Procedures: n/a Results interpretation: Verified all documentation Verification and Attestation of Medical Student E/M Service A medical student performed and documented this service in my presence. I reviewed and verified all information documented by the medical student and made modifications to such information, when appropriate. I personally performed the physical exam and medical decision making. Rogerio Rausch 8, 2022,08:02 URI MIRELES May 23, 2021 12:57 UMM WILEY DO May 24, 2021 08:02
== END 2021-05-23 08:47 ==
LOC: EDUNIT# 14:46 → ER FS 14:47 → 4TH 21:40
PROVIDERS: ADMIT Internal Medicine; ATTEND Internal Medicine
DX: R53.1 Weakness (principal); E86.0 Dehydration; E27.40 Unspecified adrenocortical insufficiency; E78.00 Pure hypercholesterolemia, unspecified; I10 Essential (primary) hypertension; K21.9 Gastro-esophageal reflux disease without esophagitis; M79.7 Fibromyalgia; M54.9 Dorsalgia, unspecified; D64.9 Anemia, unspecified; R58 Hemorrhage, not elsewhere classified; G89.29 Other chronic pain; E11.9 Type 2 diabetes mellitus without complications; F32.A Depression, unspecified; Z79.899 Other long term (current) drug therapy; Z79.891 Long term (current) use of opiate analgesic; Z79.4 Long term (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; Z80.52 Family history of malignant neoplasm of bladder; Z80.42 Family history of malignant neoplasm of prostate
CPT/HCPCS: 36415; 70450; 73030; 73502; 73562; 80053 ×3; 82140; 82150; 82805; 82947 ×2; 83605; 83735; 83880; 84484; 85025 ×3; 94760; 97162; 97166; 97535; 99285; G0378

== ENCOUNTER 2021-05-23 08:42 | Inpatient (IN) | payer MEDICARE ==
[~2021-05-23] VITALS: Ht 152.4 cm; Wt 98.4 kg
[~2021-05-23 08:42] MED LIST changes: +ACHD5005 PO; +ALPR0.5T7 PO; +ALPRAZolam 0.25 MG (XANAX) TAB PO PRN; +AMLO-251 PO; +BISACODYL 10 MG SUPP (DULCOLAX) PR PRN; +CALCIUM CARBONATE 500 MG (TUMS) TAB.CHEW PO PRN; +CARV12.52 PO; +DOCU-143 PO; +DOCUSATE SODIUM 100 MG (COLACE) CAP PO PRN; +DULO30CA49 PO; +ERTA1VIA IJ; +FLEET ENEMA ADULT 1 EA BTL PR PRN; +FLUC200T5 PO; +HYDR5TAB14 PO; +INSU100I10 SQ; +INSU100I48 SC; +LACTULOSE SYRUP 10GM/15ML (ENULOSE) 30ML UDC PO PRN; +LEVO100T7 PO; +LINA290C PO; +LOPERAMIDE 2 MG (IMODIUM) TABLET PO PRN; +LOSA100T57 PO; +MELA10TA2 PO; +MELATONIN 3 MG TABLET PO PRN; +NYST15CR TP; +ONDANSETRON 4 MG (ZOFRAN) ORAL DISSOLVE TAB PO PRN; +OXYB15TA19 PO; +PANT40TA52 PO; +POLY17PO6 PO; +ROSU20TA32 PO; +RPGL2T PO; +SPIR25TA5 PO; +TRAM50TA3 PO; +diphenhydrAMINE 25 MG TAB (BENADRYL) PO PRN; +guaiFENesin/CODEINE (ROBITUSSIN AC) 10ML UDC PO PRN
[2021-05-23] MEDS ORDERED: polyethylene glycoL POWDER 17 GM (MIRALAX) PACK PO SCH (09:00)
[2021-05-23] MEDS ORDERED: DOCUSATE SODIUM 100 MG (COLACE) CAP PO SCH (09:00)
--- NOTE | 2021-05-23 10:27 | PM&R Post Admission Assessment ---
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 HPI: This is a 70yoWF clinic patient of Dr. Brannon and [facility] who has had multiple hospital stays most recent with 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 Pt has a long history of Adrenal Insufficiency complicated with infection maintained on Invanz who presents to the rehab facility in need of recovery. We missed a dose of Invanz by one day due to non formulary and Dr. Pineda will be managing the drain management. At this current time patient is doing well. Patient's brother had multiple issues to talk to me about and I talked to him about all of those and stated if he was uncomfortable with being here in inpatient rehab and felt like it was not going to be beneficial we could discharge home on Home Health. They reported with staying and continuing to recover. Past Yhagxnz-Cqjfri-Halmrn Hx Past Med/Social Hx: Reviewed Nursing Past Med/Soc Hx, Reviewed and Corrections made Patient Social History Marrital Status: single Employed/Student: retired Alcohol Use: Denies Use Smoking Status: Never a Smoker 2nd Hand Smoke Exposure: No Recent Hopitalizations: No Immunizations Up To Date Tetanus Booster (TDap): Unknown Date of Pneumonia Vaccine: Mar 29, 2019 Date of Influenza Vaccine: Feb 26, 2021 Seasonal Allergies Seasonal Allergies: Yes Past Medical History Surgeries: Abdominal, Eye Surgery, Neurological, Pancreatic Cardiac: High Cholesterol, Hypertension Neurological: Headaches /Migraines, Neuropathy Gastrointestinal: Colitis, Gastroesophageal Reflux, Gastrointestinal Bleed Musculoskeletal: Chronic Back Pain Endocrine: Adrenal Disease, Diabetes, Insulin dep HEENT: Cataract Loss of Vision: Bilateral Hearing Impairment: Denies Cancer: Brain, Lung Psychosocial: Depression History of Blood Disorders: No Family History Cancer, Hypertension PM&R Allergy/Meds/Data Review Allergies Coded Allergies: Sulfa (Sulfonamide Antibiotics) (Verified Allergy, Unknown, 04/08/19) aripiprazole (Verified Allergy, Unknown, 05/22/21) clarithromycin (Verified Allergy, Unknown, 05/22/21) iodine (Verified Allergy, Unknown, 04/08/19) metronidazole (Verified Allergy, Unknown, 04/08/19) mirtazapine (Verified Allergy, Unknown, 05/22/21) Home Medications Scheduled Amlodipine Besylate (Amlodipine Besylate), 5 MG PO 1200, (Reported) Carvedilol (Coreg), 6.25 MG PO BID WITH MEALS, (Reported) Docusate Sodium (Colace), 100 MG PO DAILY, (Reported) Duloxetine HCl (Duloxetine HCl), 60 MG PO DAILY, (Reported) Ertapenem (Invanz), 1,000 MG IJ DAILY, (Reported) Fluconazole (Fluconazole), 400 MG PO DAILY, (Reported) Hydrocortisone (Hydrocortisone), 15 MG PO DAILY, (Reported) Hydrocortisone (Hydrocortisone), 10 MG PO HS, (Reported) Insulin Glargine,Hum.rec.anlog (Lantus Solostar), 15 UNIT SQ DAILY, (Reported) Insulin Lispro (Insulin Lispro Kwikpen U-100), UNITS SC AC, (Reported) Levothyroxine Sodium (Levothyroxine Sodium), 100 MCG PO DAILY, (Reported) Linaclotide (Linzess), 290 MCG PO Q48H, (Reported) Losartan Potassium (Losartan Potassium), 50 MG PO BID, (Reported) Melatonin (Melatonin), 10 MG PO HS, (Reported) Nystatin (Nystatin), 1 APPLIC TP BID, (Reported) Oxybutynin Chloride (Oxybutynin Chloride ER), 15 MG PO DAILY, (Reported) Pantoprazole Sodium (Pantoprazole Sodium), 40 MG PO DAILY, (Reported) Polyethylene Glycol 3350 (Miralax), 17 GM PO DAILY, (Reported) Repaglinide (Repaglinide), 2-4 MG PO TIDWM, (Reported) Rosuvastatin Calcium (Rosuvastatin Calcium), 10 MG PO HS, (Reported) Spironolactone (Spironolactone), 25 MG PO DAILY, (Reported) Scheduled PRN Alprazolam (Alprazolam), 0.5 MG PO HS PRN for SLEEP, (Reported) Hydrocodone/Acetaminophen (Hydrocodone-Acetamin 5-325 mg), 1 EA PO Q8H PRN for PAIN-MODERATE (5-7), (Reported) Ondansetron (Ondansetron Odt), 4 MG PO Q8H PRN for NAUSEA/VOMITING-1ST LINE, (Reported) Tramadol HCl (Tramadol HCl), 50 MG PO Q6H PRN for PAIN-MODERATE (5-7), (Reported) Discontinued Medications [Alprazolam], (Reported) Discontinued Reason: No Longer Taking [Tramadol], (Reported) Discontinued Reason: No Longer Taking Current Medications Current Medications Reviewed Review of Systems Constitutional: malaise, weakness EENTM: no symptoms reported Respiratory: no symptoms reported Cardiovascular: no symptoms reported Gastrointestinal: abdominal pain, nausea, vomiting Genitourinary: no symptoms reported Musculoskeletal: back pain Skin: no symptoms reported Psychiatric/Neurological: No Symptoms Reported All Other Systems Reviewed Negative Unless Noted: Yes Physical Exam Physical Exam Vital Signs Capillary Refill : Height, Weight, BMI Height: '" Weight: lbs. oz. kg; 33.02 BMI Method: General Appearance: No Apparent Distress, WD/WN, Chronically ill, Obese Eyes: Bilateral Eye Normal Inspection, Bilateral Eye PERRL HEENT: PERRL/EOMI, Normal ENT Inspection, Pharynx Normal Neck: Full Range of Motion, Normal Inspection, Non Tender, Supple, Carotid Bruit Respiratory: Chest Non Tender, Lungs Clear, Normal Breath Sounds, No Accessory Muscle Use, No Respiratory Distress Cardiovascular: Regular Rate, Rhythm, No Edema, No Gallop, No JVD, No Murmur, Normal Peripheral Pulses Gastrointestinal: Normal Bowel Sounds, No Organomegaly, No Pulsatile Mass, Soft, Tenderness Back: Normal Inspection, No CVA Tenderness, No Vertebral Tenderness Extremity: Normal Capillary Refill, Normal Inspection, Normal Range of Motion, Non Tender, No Calf Tenderness, No Pedal Edema Neurologic/Psychiatric: Alert, Oriented x3, No Motor/Sensory Deficits, Normal Mood/Affect, Abnormal Gait, Motor Weakness (generalized) Skin: Normal Color, Warm/Dry Lymphatic: No Adenopathy PM&R Medical Assessment & Plan REHAB/MEDICAL ASSESSMENT AND PLAN: REHAB IMPAIRMENT GROUP: Debility ETIOLOGIC DIAGNOSIS: Debility The comorbidities that impact the patients function and/or functional outcome by: current active infection requiring IV abx, PICC line, overall debility, adrenal insufficiency REHAB PLAN: The patient is being admitted to our comprehensive inpatient rehabilitation facility and can tolerate the intensity of service consisting of at least: 180 minutes of therapy a day, 5 out of 7 days a week Rehab treatment will consist of: PT OT will focus on regaining function in order to return to PLOF of ambulation without AD and regain independence in ADL's in order to return to live at home alone The patient/family has a good understanding of our discharge process and will benefit from an interdisciplinary inpatient rehabilitation program. The patient has potential to make improvement and is in need of at least two of the following multidisciplinary therapies including but not limited to physical, occupational, speech, and prosthetics and orthotics. Additionally the patient will need services from respiratory, nutritional services, wound care, psychology, etc. (Customize this to each patient). Given the patients complex condition and risk of further medical complications, rehabilitation services cannot be safely or effectively provided at a lower level of care such as a residential facility. BARRIERS TO DISCHARGE: Intrabdominal abscess ESTIMATED LOS: 10 days DISPOSITION: Home RELEVANT CHANGES SINCE PREADMISSION SCREENING: I have compared the patients medical and functional status at the time of the preadmission screening and there are: no changes PROGNOSIS: Guarded REHABILITATION GOALS: 1. PT OT will focus on regaining function in order to return to PLOF of ambulation without AD and regain independence in ADL's in order to return to live at home alone All the above goals were reviewed with the patient and he/she is in agreement. By signing this document, I acknowledge that I have personally performed a full physical examination on this patient within 24 hours of admission to this inpatient rehabilitation facility and have determined the patient to be able to tolerate the above course of treatment at an intensive level for a reasonable period of time. I will be completing a detailed individualized Plan of Care for this patient by day #4 of the patients stay based upon the Preadmission Screen, the Post-Admission Evaluation, and the therapy evaluations. Admission Dx/Comorbidities: (1) Debility ICD Codes: R53.81 - Other malaise (2) Intra-abdominal abscess post-procedure Status: Acute ICD Codes: T81.43XA - Infection following a procedure, organ and space surgical site, initial encounter (3) Frequent falls Status: Acute ICD Codes: R29.6 - Repeated falls (4) Physical deconditioning Status: Acute ICD Codes: R53.81 - Other malaise (5) Dehydration Status: Acute ICD Codes: E86.0 - Dehydration (6) Hypokalemia Status: Acute ICD Codes: E87.6 - Hypokalemia (7) Leukocytosis Status: Acute ICD Codes: D72.829 - Elevated white blood cell count, unspecified (8) Abdominal pain Status: Acute ICD Codes: R10.9 - Unspecified abdominal pain Assessment/Plan Assessment and Plan Assess & Plan/Chief Complaint Assessment: Severe weakness Dehydration s/p partial pancreatectomy and splenectomy Infected pancreatic cyst on IV abx via PICC Adrenal insufficiency HTN HLP Depression Chronic debility Plan: PT OT IRF IV abx Dr Pineda consult [facility] WI[facility] DO May 23, 2021 10:27
[2021-05-23] MEDS ORDERED: ALPRAZolam 0.5 MG (XANAX) TAB PO PRN (10:30)
--- NOTE | 2021-05-23 11:30 | ST Cognitive Linguistic Eval ---
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 Reviewed History: Yes Social History Current Living Status: Other Family (Brother and Daughter.) Speech PLF-Current Status Prior Level of Function The patient stated she was independent with activites of daily living prior to admission to the hospital. Subjective The patient was seated upright in a recliner upon entrance to the court. The patient greeted the clinician and was agreeable to participation in the cognitive linguistic treatment plan. The patient has her brother present at bedside. Language Eval: Auditory Comprehends Simple Yes/No Ques: Functional Indent/Objects Multiple Lopez: Functional Ident/Pics in Multiple Lopez: Functional Follows 1-Step Commands: Functional Follows Complex Directions: Mild Follows General Conversations: Functional Language Eval: Verbal Language Completes Spontaneous Greeting: Functional Produces Auto, Serial Info: Functional Imitates Simple Words/Phrases: Functional Word Finding: Functional Requests Basic Needs: Functional States Basic Personal Info: Functional Language Evaluation: Reading Follows Simple Written Direct: Functional Language Evaluation: Writing Writes to Simple Dictation: Functional Objective Cognitive Domain Attention: Mild Memory: Mild Problem Solving: Moderate Executive Functions: Moderate Composite Severity Rating: Mild (Mild to moderate.) Clock Drawing Severity Rating: Mild Objective Formal/Standardized Tests [facility] Mental Status ([facility]) Results The patient displayed a result of +23/30 correlating to a "mild neurocognitive impairment" per [facility] norms (high school education or higher; the patient has an associate's degree). Oral Motor/Speech Production The patient does not display dysarthria or apraxia of speech throughout the evaluation. The patient remains 100% intelligible in known and unknown contexts. Impression The patient is a 70 year old female, who presents with a mild to moderate cognitive linguistic impairment. The patient displayed difficulty in the areas of problem solving, memory, and executive functioning. Speech Patient Assess Expression of Ideas/Wants: Exhibits (3) Understanding Verbal Content: Usually Understands (3) Brief Interview-Mental Status: Yes Repetition of Three Words: Three (3) Temporal Orientation: Year: Correct (3) Temporal Orientation: Month: Accurate within 5 days(2) Temporal Orientation: Day: Correct (1) Recall : Wear to say "Sock": Yes, no cue required (2) Recall : Color: Yes, no cue required (2) Recall : Bed: Yes,after cueing (1) Memory/Recall Ability: Current season, That he or she is in a hsp/hsp unit Speech Short Term Goals Short Term Goals Short Term Goals 1. The patient will complete functional problem solving exercises with 80% accuracy, independently. 2. The patient will complete functional memory exercises with 80% accuracy, independently. Time Frame-STG: Two Weeks. Speech Residential Goals Residential Goals 1. The patient will demonstrate improved cognitive linguistic skills for increased safety and independence with ADL's in the least restrictive environment. Time Frame: Three Weeks. Speech-Plan Patient/Family Goals Patient/Family Goals: The patient wishes to improve overall strength, "walk more" and return to her home environment. Treatment Plan Speech Therapy Treatment Plan: Continue Plan of Care Treatment Duration: Jun 20, 2021 Frequency: 4 times per week (Four to five times per week) Estimated Hrs Per Day: .5 hour per day Rehab Potential: Fair Barriers to Learning: Current level of declined cognition. Pt/Family Agrees to Plan: Yes Safety Risks/Education Teaching Recipient: Patient, Family (Brother) Teaching Methods: Discussion Response to Teaching: Verbalize Understanding Education Topics Provided: Plan of care, Results of SLUMS, Rehabilitation process. Time Speech Therapy Time In: 10:00 Speech Therapy Time Out: 10:30 Total Billed Time: 30 Billed Treatment Time 1, TIM ORTEGAOPAL Mendez May 23, 2021 11:30
--- NOTE | 2021-05-23 11:45 | Physical Therapy Evaluation ---
PT Evaluation-General Medical Diagnosis Admission Date May 23, 2021 at 08:42 Medical Diagnosis: Debility Onset Date: May 21, 2021 Therapy Diagnosis Therapy Diagnosis: impaired mobility, strength, endurance Precautions Precautions/Isolations: Standard Precautions Referral Physician: Shruti Peres DO Reason for Referral: Evaluation/Treatment Medical History Pertinent Medical History: DM, HTN Additional Medical History brain tumor Current History ER secondary to weakness/falls (recent pancreatectomy and splenectomy) Reviewed History: Yes Social History Home: [facility] Current Living Status: Other Family (Brother and Daughter.) Entry Into Home: Ramp Prior Prior Level of Function SCALE: Activities may be completed with or without assistive devices. 9-Lqmsznqxyz-cpqfypb completes the activity by him/herself with no assistance from a helper. 5-Set-up or Clean-up Assistance-helper sets up or cleans up; patient completes activity. [place] assists only prior to or following the activity. 4-Supervision or Touching Assistance-helper provides verbal cues and/or touching/steadying and/or contact guard assistance as patient completes activity. Assistance may be provided throughout the activity or intermittently. 3-Partial/Moderate Assistance-helper does LESS THAN HALF the effort. [place] lifts, holds or supports trunk or limbs, but provides less than half the effort. 2-Substantial/Maximal Assistance-helper does MORE THAN HALF the effort. [place] lifts or holds trunk or limbs and provides more than half the effort. 5-Lebyjvbdr-snrruq does ALL the effort. Patient does none of the effort to compl ete the activity. Or, the assistance of 2 or more helpers is required for the patient to complete the activity. If activity was not attempted, code reason: 7-Patient Refused. 9-Not Applicable-not attempted and the patient did not perform the activity before the current illness, exacerbation or injury. 10-Not Attempted due to Environmental Limitations-(lack of equipment, weather restraints, etc.). 88-Not Attempted due to Medical Conditions or Safety Concerns. Bed Mobility: 4 Transfers (B,C,W/C): 4 Gait: 4 Indoor Mobility (Ambulation): Needed Some Help Prior Devices Use: Walker PT Evaluation-Current Subjective Patient in recliner pre tx, agrees to PT, has unrated pain in right shoulder. Will be co-treating with OT due to poor patient mobility, strength, endurance, coordinate UE and LE during activity, safety and reduce risk of falls. Pt/Family Goals to be independent at home Objective Patient Orientation: Person, Place, Situation ROM/Strength ROM Lower Extremities WNL Strength Lower Extremities LLE (hip flexion 3+/5, knee flexion 4/5, knee extension 4/5, dorsiflexion 4/5), RLE (hip flexion 3+/5, knee flexion 4+/5, knee extension 4+/5, dorsiflexion 4+/5) Sensory Hearing: Functional Sensation Right Lower Extremit: Intact Sensation Left Lower Extremity: Intact Transfers Roll Left & Right (QC): 6 Sit to Lying (QC): 3 Lying to Sitting/Side of Bed(Q: 4 Sit to Stand (QC): 4 Chair/Bmq-qr-Levei Xfer(QC): 4 Toilet Transfer (QC): 4 Car Transfer (QC): 3 Patient performs rolling with independence, supine to sit SBA, sit to supine min assist (although she can go forward into bed with SBA), sit <-> stand CGA, transfers CGA, car transfer min assist. Patient needs frequent cues for hand placement and safety. Gait Does the Patient Walk?: Yes Mode of Locomotion: Walk Anticipated Mode of Locomotion: Walk Walk 10 feet (QC): 4 Walk 50 ft with 2 Turns(QC): 4 Walk 150 ft (QC): 4 Walking 10ft/uneven surface-QC: 4 Distance: 150'x2 Gait Assistive Device: FWW Comments/Gait Description Patient can ambulate 150' with a rolling walker with CGA (including 50' with at least 2 turns of 90 degrees and 10' over an uneven surface), patient ambulates very slowly, has occasional right knee buckling, cues for safety Wheelchair Training Wheel 50 ft with 2 turns (QC): 9 Wheel 150 ft (QC): 9 Stairs #of Steps: 1 1 Step (curb) (QC): 3 4 Steps (QC): 88 12 Steps (QC): 88 Walking Assistive Device: Walker Patient can go up and down 1 step using a rolling walker with min assist, cues for foot placement, needs assist with stepping down, patient has fear of falling Balance Sitting Static: Normal Sitting Dynamic: Normal Standing Static: Fair Standing Dynamic: Fair Picking up an Object (QC): 4 (CGA with medical technician) Treatment PT performed bed mobility and transfers, ambulation, stair training, gait training, standing and positioning during bathing and dressing and ADls, OT performed bathing, dressing, ADL's, UE positioning and safety during activity. Assessment/Needs Patient in recliner post tx with nurse call, phone, tray, chair alarm on. Patient has impaired mobility, strength, endurance. Patient has occasional right knee buckling with ambulation, CGA for most mobility Rehab Potential: Fair PT Short Term Goals Short Term Goals Time Frame: May 30, 2021 Roll Left & Right: 6 Sit to lyin (CGA) Lying to sitting on side of be: 4 (SBA) Sit to stand: 4 (SBA) Chair/tvz-ta-txaxb transfer: 4 (SBA) Walk 10 feet: 4 (SBA) Walk 50 feet with two turns: 4 (SBA) Walk 150 feet: 4 (SBA) PT Travel Sales Consultant Goals Senior Care Goals PT Travel Sales Consultant Goals Time Frame: Jun 13, 2021 Roll Left & Right (QC): 6 Sit to Lying (QC): 6 Lying-Sitting on Side/Bed(QC): 6 Sit to Stand (QC): 5 Chair/Rcz-ew-Aetld Xfer(QC): 5 Toilet Transfer (QC): 5 Car Transfer (QC): 4 Does the Patient Walk: Yes Walk 10 feet (QC): 5 Walk 50ft with 2 Turns (QC): 5 Walk 150 ft (QC): 5 Walking 10ft on Uneven Surface: 5 1 Step (curb) (QC): 4 4 Steps (QC): 4 12 Steps (QC): 88 Picking up an Object (QC): 5 Wheel 50 feet with 2 turns (QC: 9 Wheel 150 feet: 9 PT Plan Problem List Problem List: Activity Tolerance, Functional Strength, Safety, Balance, Gait, Transfer, Bed Mobility, ROM Treatment/Plan Treatment Plan: Continue Plan of Care Treatment Plan: Bed Mobility, Education, Functional Activity Alena, Functional Strength, Group Therapy, Gait, Safety, Therapeutic Exercise, Transfers Treatment Duration: Jun 13, 2021 Frequency: At least 5 of 7 days/Wk (IRF) Estimated Hrs Per Day: 1.5 hours per day Patient and/or Family Agrees t: Yes Safety Risks/Education Patient Education: Gait Training, Transfer Techniques, Steps, Correct Positioning, Safety Issues Teaching Recipient: Patient Teaching Methods: Demonstration, Discussion Response to Teaching: Reinforcement Needed Discharge Recommendations Plan Patient will perform bed mobility and transfer training, balance and endurance training, functional strengthening, stair training, gait training, and education, to improve functional mobility and independence at home. Therapy Discharge Recommendati: Scheduled Assistance, Home & Family, Post Acute PT Time/GCodes Time In: 1030 Time Out: 1155 Total Billed Treatment Time: 75 Total Billed Treatment 1 visit EVM 10' FA 65' PT eval from [id number], OT eval from [id number], co-treat from [id number] BREEZY DEWEY PT May 23, 2021 11:44
--- NOTE | 2021-05-23 11:52 | Occupational Therapy Eval ---
OT Evaluation-General/PLF Medical Diagnosis Admission Date May 23, 2021 at 08:42 Medical Diagnosis: Debility Onset Date: May 22, 2021 Therapy Diagnosis Therapy Diagnosis: decreased ADL status. Precautions Precautions/Isolations: Standard Precautions Medical History Pertinent Medical History: DM, HTN Additional Medical History Surgeries: Abdominal, Eye Surgery, Neurological, Pancreatic Cardiac: High Cholesterol, Hypertension Neurological: Headaches /Migraines, Neuropathy Gastrointestinal: Colitis, Gastroesophageal Reflux, Gastrointestinal Bleed Musculoskeletal: Chronic Back Pain Endocrine: Adrenal Disease, Diabetes, Insulin dep HEENT: Cataract Loss of Vision: Bilateral Hearing Impairment: Denies Cancer: Brain, Lung Psychosocial: Depression History of Blood Disorders: No Current History ED with general weakness and multiple falls, found to be dehydrated, recent pancreatectomy and splenectomy. Social History Home: Multilevel Current Living Status: Other Family (Brother and Daughter.) Entry Into Home: Ramp ramp at the front, a few steps in the garage. ADL-Prior Level of Function SCALE: Activities may be completed with or without assistive devices. 5-Crxoqapiki-ulgnbyj completes the activity by him/herself with no assistance from a helper. 5-Set-up or Clean-up Assistance-helper sets up or cleans up; patient completes a ctivity. [place] assists only prior to or following the activity. 4-Supervision or Touching Assistance-helper provides verbal cues and/or touching/steadying and/or contact guard assistance as patient completes activity. Assistance may be provided throughout the activity or intermittently. 3-Partial/Moderate Assistance-helper does LESS THAN HALF the effort. [place] lifts, holds or supports trunk or limbs, but provides less than half the effort. 2-Substantial/Maximal Assistance-helper does MORE THAN HALF the effort. [place] lifts or holds trunk or limbs and provides more than half the effort. 1-Bewhepefc-tefzia does ALL the effort. Patient does none of the effort to complete the activity. Or, the assistance of 2 or more helpers is required for the patient to complete the activity. If activity was not attempted, code reason: 7-Patient Refused. 9-Not Applicable-not attempted and the patient did not perform the activity before the current illness, exacerbation or injury. 10-Not Attempted due to Environmental Limitations-(lack of equipment, weather restraints, etc.). 88-Not Attempted due to Medical Conditions or Safety Concerns. ADL PLOF Comments Pt reports being independent with bathing, dressing and toileting, except footwear. She is able to complete laundry, assistance with other IADLs. She doesn't typically use any AD Self Care: Needed Some Help Functional Cognition: Needed Some Help DME/Equipment: Bath Chair, Grab Bars, Shower OT Current Status Subjective Pt up in recliner, agreeable to OT evaluation and tx. Mental Status/Objective Patient Orientation: Person, Confused, Place, Situation Attachments: Drains Current Glasses/Contacts: Yes Hearing Aids: No Dentures/Partials: No Hand Dominance: Left Upper Extremity ROM WFL,. BUE shoulder flexion to approx 130 degrees Pt reports recent R shoulder dislocations. Upper Extremity Coordination WFL Upper Extremity Sensation WFL Upper Extremity Strength grossly 4/5, increased pain in bilateral shoulders. ADL-Treatment Eating (QC): 6 (Per clincial judgment. ) Oral Hygiene (QC): 4 (SBA at sink.) Shower/Bathe Self (QC): 3 (Assist with washing buttocks and BLE lower legs/feet.) Upper Body Dressing (QC): 3 (Min A with managing shirt down trunk.) Lower Body Dressing (QC): 4 (CGA) On/Off Footwear (QC): 3 (Mod A. Pt able to doff gripper socks, assist to don.) Toileting Hygiene (QC): 3 (Min A for thoroughness of buttocks. Pt able to manage clothing.) Other Treatments OT evaluation complete. OT/PT cotreat due to skill of 2 clinicians required which a rehab director could not perform in order to coordinate UE/LEs, decrease fall risk, and due to pt's limitations in strength, activity tolerance, mobility/transfer, and reports of R knee buckling at times. OT focused on UE placement, cues for sequencing and safety, and ADLs. PT focused on LE placement, gross overall movement, transfers and mobility. Pt completed sponge bath and dressing at recliner, slightly impulsive during ADLs, standing without warning. Pt then completed functional transfers using FWW, around ARU common area, car transfer, uneven surface, step and bed mobility. Pt then stood at sink to complete oral care, transferring to recliner. Post tx, pt in recliner, call light in reach and all needs met, chair alarm activated. Supine to sit SBA, Min A sit to supine, CGA sit to stand, CGA transfers, min A car transfer. Pt requires cues for hand placement and safety. Education OT Patient Education: Correct positioning, Energy conservation, Exercise program, Modified ADL techniques, Progress toward Goal/Update tx plan, Purpose of tx/functional activities, Rehab process, Safety issues, Transfer techniques Teaching Recipient: Patient Teaching Methods: Discussion Response to Teaching: Verbalize Understanding OT Short Term Goals Short Term Goals Time Frame: May 30, 2021 Toileting hygiene: 4 Shower/bathe self: 4 Lower body dressin Putting on/taking off footwear: 3 (min A) OT Mainframe Software Developer Goals Mainframe Software Developer Goals Time Frame: Jun 13, 2021 Eating (QC): 6 Oral Hygiene (QC): 6 Toileting Hygiene (QC): 6 Shower/Bathe Self (QC): 6 Upper Body Dressing (QC): 6 Lower Body Dressing (QC): 6 On/Off Footwear (QC): 4 Additional Goals: 1-Demonstrate ADL Tasks, 2-Verbalize Understanding, 3-Improve Strength/Alena 1=Demonstrate adherence to instructed precautions during ADL tasks. 2=Patient will verbalize/demonstrate understanding of assistive devices/modifications for ADL. 3=Patient will improve strength/tolerance for activity to enable patient to pe rform ADL's. OT Education/Plan Problem List/Assessment Assessment: Decreased Activ Tolerance, Decreased Safety Aware, Decreased UE Strength, Impaired Funct Balance, Impaired I ADL's, Impaired Self-Care Skills, Restricted Funct UE ROM Discharge Recommendations Plan/Recommendations: Continue POC Treatment Plan/Plan of Care Patient would benefit from OT for education, treatment and training to promote independence in ADL's, mobility, safety and/or upper extremity function for ADL's. Plan of Care: ADL Retraining, Functional Mobility, Group Exercise/Act as Ind, UE Funct Exercise/Act Treatment Duration: Jun 13, 2021 Frequency: At least 5 of 7 days/Wk (IRF) Estimated Hrs Per Day: 1.5 hours per day Rehab Potential: Fair Time/GCodes Start Time: 10:40 Stop Time: 11:55 Total Time Billed (hr/min): 75 Billed Treatment Time 2155-0817 OT eval, 2700-4130 cotreat 1, EVM (10'), ADL 2 (35), FA 2 (30) CRUMPACKER,DELMAR OT May 23, 2021 11:52
[2021-05-23] MEDS: HYDROcodone/APAP 5 MG/325 MG (LORTAB) TAB PO PRN (13:52)
[2021-05-23] MEDS: OXYBUTYNIN (DITROPAN) 5 MG TAB PO SCH ×2 (13:59→20:16)
[2021-05-23] MEDS: amLODIPine 5 MG (NORVASC) TAB PO SCH (13:59)
[2021-05-23] MEDS: REPAGLINIDE 2 MG PO SCH ×2 (14:00→17:56)
[2021-05-23] MEDS ORDERED: [UNRECOGNIZED DRUG - REMARK] PO SCH (14:00)
[2021-05-23] MEDS: ERTAPENEM 1 GM/NS 50 ML IVPB IV SCH ×2 (14:01)
[2021-05-23] MEDS: SENNA W/DOCUSATE (SENOKOT S) TABLET PO SCH ×2 (14:06→20:18)
[2021-05-23] MEDS: inSUlin ASPART (NovoLOG) 1 UNIT/0.01 ML (CHARGE PER UNIT) SC SCH ×3 (14:07→20:22)
[2021-05-23] MEDS: HYDROCORTISONE 20 MG (CORTEF) TAB PO SCH ×2 (14:44→20:15)
[2021-05-23] MEDS ORDERED: PATIENT MAY USE OWN MED,SINGLE MED PO SCH (19:15)
[2021-05-23 19:42] VITALS: BP 147/81
[2021-05-23] MEDS: ROSUVASTATIN 20 MG (CRESTOR) TABLET PO SCH (20:15)
[2021-05-23] MEDS: MELATONIN 10 MG TABLET PO SCH (20:15)
[2021-05-23] MEDS: LOSARTAN 50 MG (COZAAR) TAB PO SCH (20:15)
[2021-05-23] MEDS: NYSTATIN CREAM (MYCOSTATIN) 30 GM TUBE TP SCH (20:22)
[2021-05-24 04:35] LABS: BASOPHILS # (AUTO) 0.1 10^3/uL (0.0-0.1); BASOPHILS % (AUTO) 1 % (0-10); EOSINOPHILS % (AUTO) 0 % (0-10); HEMATOCRIT 35 % (35-52); HEMOGLOBIN 11.4 g/dL (11.5-16.0); LYMPHOCYTES # (AUTO) 3.9 10^3/uL (1.0-4.0); LYMPHOCYTES % (AUTO) 42 % (12-44); MEAN CORPUSCULAR HEMOGLOBIN 29 pg (25-34); MEAN CORPUSCULAR HGB CONC 33 g/dL (32-36); MEAN CORPUSCULAR VOLUME 88 fL (80-99); MEAN PLATELET VOLUME 13.2 fL (9.0-12.2); MONOCYTES # (AUTO) 0.9 10^3/uL (0.0-1.0); MONOCYTES % (AUTO) 10 % (0-12); NEUTROPHILS # (AUTO) 4.3 10^3/uL (1.8-7.8); NEUTROPHILS % (AUTO) 46 % (42-75); PLATELET COUNT 310 10^3/uL (130-400); WHITE BLOOD COUNT 9.2 10^3/uL (4.3-11.0)
[2021-05-24 04:50] LABS: ALBUMIN 2.8 GM/DL (3.2-4.5)
[2021-05-24 04:51] LABS: POTASSIUM 3.7 MMOL/L (3.6-5.0)
[2021-05-24 04:52] LABS: CALCIUM 9.4 MG/DL (8.5-10.1)
[2021-05-24 04:53] LABS: TOTAL PROTEIN 5.9 GM/DL (6.4-8.2)
[2021-05-24 04:55] LABS: BILIRUBIN,TOTAL 0.4 MG/DL (0.1-1.0)
[2021-05-24 04:57] LABS: CREATININE SERUM 0.82 MG/DL (0.60-1.30)
[2021-05-24] MEDS: inSUlin ASPART (NovoLOG) 1 UNIT/0.01 ML (CHARGE PER UNIT) SC SCH ×4 (05:17→21:32)
[2021-05-24] MEDS: LEVOTHYROXINE 100 MCG (LEVOTHROID) TAB PO SCH (06:26)
[2021-05-24] MEDS: HYDROCORTISONE 20 MG (CORTEF) TAB PO SCH ×2 (06:27→21:30)
[2021-05-24 08:25] VITALS: BP 149/82
[2021-05-24] MEDS ORDERED: polyethylene glycoL POWDER 17 GM (MIRALAX) PACK PO SCH (09:00)
[2021-05-24] MEDS ORDERED: ERTAPENEM 1000 MG IJ SCH (09:00)
[2021-05-24] MEDS: SPIRONOLACTONE 25 MG (ALDACTONE) TAB PO SCH (09:19)
[2021-05-24] MEDS: LOSARTAN 50 MG (COZAAR) TAB PO SCH ×2 (09:19→21:29)
[2021-05-24] MEDS: OXYBUTYNIN (DITROPAN) 5 MG TAB PO SCH ×3 (09:21→21:29)
[2021-05-24] MEDS: DULoxetine 30 MG (CYMBALTA) CAP PO SCH (09:21)
[2021-05-24] MEDS: REPAGLINIDE 2 MG PO SCH ×3 (09:21→17:19)
[2021-05-24] MEDS: fluCOnazole (DIFLUCAN) 100 MG TAB PO SCH (09:22)
[2021-05-24] MEDS: PANTOPRAZOLE 40 MG (PROTONIX) TAB PO SCH (09:22)
[2021-05-24] MEDS: SENNA W/DOCUSATE (SENOKOT S) TABLET PO SCH ×2 (09:23→21:31)
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
--- NOTE | 2021-05-24 09:44 | Individualized Plan of Care ---
Individualized Plan of Care Rehab Nursing IPOC Order Admission Date May 23, 2021 at 08:42 Current Orders Orders Admission Order(Inpt,Obs,Sdc) (05/23/21 07:23) Vital Signs: Per Unit Policy ( 08,16,00 (05/23/21 07:23) Tomasz Rivas 09,21 (05/23/21 07:23) Sequential Compression Device (05/23/21 07:23) Actuary Manager-Inpt Rehab Con (05/23/21 07:23) Rehab Nursing Orders-Ipoc (05/23/21 07:23) Physical Therapy Rehab Orders (05/23/21 07:23) Occupational Therapy Rehab Ord (05/23/21 07:23) Speech Therapy Rehab Orders (05/23/21 07:23) Cbc With Automated Diff (05/24/21 06:00) Comprehensive Metabolic Panel (05/24/21 06:00) Precautions (Aru) (05/23/21 07:23) Weekly Weight WEEK (05/23/21 07:23) Rehab-Intensity Of Therapy (05/23/21 07:23) Initiate Admission Nursing Pro .admission (05/23/21 07:23) Alprazolam Tablet (Xanax Tablet) (05/23/21 07:30) Calcium Carbonate Chew Tablet (Antacid C (05/23/21 07:30) Diphenhydramine Tablet (Benadryl Tablet) (05/23/21 07:30) Docusate Sodium Capsule (Colace Capsule) (05/23/21 09:00) Docusate Sodium Capsule (Colace Capsule) (05/23/21 07:30) Bisacodyl Suppository (Dulcolax Supposit (05/23/21 07:30) Lactulose Oral Solution (Enulose Oral So (05/23/21 07:30) Na Phos/Na Biphos Enema (Fleet Enema Ben (05/23/21 07:30) Guaifenesin/Codeine Syrup (Robitussin Ac (05/23/21 07:30) Loperamide Tablet (Imodium Tablet) (05/23/21 07:30) Melatonin Tablet (Melatonin Tablet) (05/23/21 07:30) Polyethylene Glycol Powder Pkt (Miralax (05/23/21 09:00) Ondansetron Oral Dissolve Tab (Zofran (05/23/21 07:30) Senna S Tablet (Senokot S Tablet) (05/23/21 09:00) Acetaminophen Tablet/Caplet (Tylenol T (05/23/21 07:30) Code/Resuscitation (05/23/21 07:23) Sequential Compression Device ONCE (05/23/21 07:23) Initiate Admission Nursing Pro .admission (05/23/21 07:23) Transfer - Bed/Room/Location (05/23/21 08:42) Admission Arrival Bed Request (05/23/21 09:28) Alprazolam Tablet (Xanax Tablet) (05/23/21 10:30) Docusate Sodium Capsule (Colace Capsule) (05/24/21 09:00) Duloxetine Capsule (Cymbalta Capsule) (05/24/21 09:00) Hydrocodone/Apap 5/325 Tablet (Lortab 5 (05/23/21 10:30) Levothyroxine Tablet (Synthroid Tablet) (05/24/21 06:30) Melatonin Tablet (Melatonin Tablet) (05/23/21 21:00) Nystatin Cream (Mycostatin Cream) (05/23/21 21:00) Ondansetron Oral Dissolve Tab (Zofran (05/23/21 10:30) Pantoprazole Tablet (Protonix Tablet) (05/24/21 09:00) Polyethylene Glycol Powder Pkt (Miralax (05/24/21 09:00) Repaglinide Tablet (Prandin Tablet) (05/23/21 13:00) Rosuvastatin Tablet (Crestor Tablet) (05/23/21 21:00) Spironolactone Tablet (Aldactone Tablet) (05/24/21 09:00) Rx-Tramadol Hcl (Rx-Ultram) (05/23/21 10:30) (Nf) Ertapenem (Invanz) (05/24/21 09:00) Fluconazole Tablet (Diflucan Tablet) (05/24/21 09:00) Hydrocortisone Tablet (Cortef Tablet) (05/23/21 21:00) (Nf) Linaclotide (Linzess) (05/23/21 14:00) Cho 75g/M 1snack (21-2400 Foreign) (05/23/21 Lunch) Accucheck Achs ACHS (05/23/21 10:26) Insulin Aspart (Novolog) (Novolog (Charg (05/23/21 11:00) Consult General Surgery (05/23/21 10:26) Patient Visit (05/23/21 ) Speech Sound Lang Comp (05/23/21 ) Treat. Speech/Lang/Voice (05/23/21 ) Ertapenem (Non-Formulary) (Invanz (Non-F (05/23/21 11:53) Amlodipine Tablet (Norvasc Tablet) (05/23/21 12:00) Carvedilol Tablet (Coreg Tablet) (05/23/21 18:00) Losartan Tablet (Cozaar Tablet) (05/23/21 21:00) Hydrocortisone Tablet (Cortef Tablet) (05/23/21 12:04) Insulin Determir (Per Unit) (Levemir (Pe (05/23/21 12:05) Oxybutynin Tablet (Ditropan Tablet) (05/23/21 13:00) Patient Visit (05/23/21 ) Pt Eval Moderate Complexity (05/23/21 ) Functional Activities, Ea 15 (05/23/21 ) Patient May Use Own Med,Single (Patient (05/23/21 19:15) Nursing Communication (Order) (05/23/21 21:30) Patient Visit (05/24/21 ) Exercise Therap, Ea 15 Min (05/24/21 ) Gait Training, Ea 15 Min (05/24/21 ) Nursing Communication (Order) (05/24/21 16:18) (Nf) Linaclotide (Linzess) (05/25/21 06:00) Polyethylene Glycol Powder Pkt (Miralax (05/25/21 06:00) Rehab Nursing Orders: Ongoing Assess. of Cognitive Status, Ongoing Assess. of Function Status, Bladder Management, Bladder Scan, Bladder Training, Bowel Management, Bowel Training, Disease Management & Educaiton, DVT Prophylaxis, Fall Prevention, Fluid/Electrolyte/Nutrition Mgmt, Infection Prevention, Medication Management & Education, Management of Risks & Complications, Nutrition Management, Pain Management, Patient/Family Support, Safety Management, Wound Management Intensity of Therapy to be met Patient to be seen: Min.3h per day/5 of 7d PT IPOC Problem List: Activity Tolerance, Functional Strength, Safety, Balance, Gait, Transfer, Bed Mobility, ROM Treatment Plan: Continue Plan of Care Bed Mobility, Education, Functional Activity Alena, Functional Strength, Group Therapy, Gait, Safety, Therapeutic Exercise, Transfers Treatment Duration: Jun 13, 2021 Frequency: At least 5 of 7 days/Wk (IRF) Estimated Hrs Per Day: 1.5 hours per day OT IPOC Problems: Decreased Activ Tolerance, Decreased Safety Aware, Decreased UE Strength, Impaired Funct Balance, Impaired I ADL's, Impaired Self-Care Skills, Restricted Funct UE ROM OT Treatment, Training and Edu: Yes Plan of Care: ADL Retraining, Functional Mobility, Group Exercise/Act as Ind, UE Funct Exercise/Act Treatment Duration: Jun 13, 2021 Frequency: At least 5 of 7 days/Wk (IRF) Estimated Hrs Per Day: 1.[address] IPOC Speech Therapy Treatment Plan: Continue Plan of Care Treatment Duration: Jun 20, 2021 Frequency: 4 times per week (Four to five times per week) Estimated Hrs Per Day: .5 hour per day Actuary Manager/Case Mgmt Actuary Manager/Case Managemen: Discharge Planning Dietitian/Public Affairs Manager Dietitian/Public Affairs Manager to monitor nutritional status and make changes and/or recommendations as needed and work with speech pathology on dietary upgrades as the occur. Physician IPOC Medical Issues being managed closely and that require the 24 hour availability of a physician: Extensive recent surgery requiring IV abx and drain for abdominal abscess will require close monitoring from surgery and close lab monitoring for increased risk of sepsis Medical Issues: Bowel/Bladder Function, DVT Prophylaxis, Falls Precautions, Fluid/Electrolyte/Nutrition Balance, Infection Protection, Pain Management, Wo und Care Brief Synthesis of Preadmission Screen, Post-Admission Evaluation, and Therapy Evaluations: PT OT will focus on regaining function with ambulation and gain strength after extensive abdominal surgery and increase independence in order to return to independent living Medical Prognosis: Good Anticipated Length of Stay: 7 days UMM WILEY DO May 24, 2021 09:44
[2021-05-24] MEDS: DOCUSATE SODIUM 100 MG (COLACE) CAP PO SCH (09:50)
[2021-05-24] MEDS: NYSTATIN CREAM (MYCOSTATIN) 30 GM TUBE TP SCH ×2 (10:04→21:32)
[2021-05-24] MEDS: ERTAPENEM 1 GM/NS 50 ML IVPB IV SCH ×2 (11:14)
--- NOTE | 2021-05-24 11:15 | Physical Therapy Daily Note ---
PT Daily Note-Current Subjective Pt sitting up in recliner upon arrival. Pt agrees to PT. Pain Numeric Pain Scale: 5-Moderate Pain Location: Left Location Body Site: Knee Pain Description: Ache Mental Status Patient Orientation: Person, Place, Time, Situation Transfers SCALE: Activities may be completed with or without assistive devices. 9-Csjhmwyzso-ntiinhj completes the activity by him/herself with no assistance from a helper. 5-Set-up or Clean-up Assistance-helper sets up or cleans up; patient completes activity. [place] assists only prior to or following the activity. 4-Supervision or Touching Assistance-helper provides verbal cues and/or touching/steadying and/or contact guard assistance as patient completes activity. Assistance may be provided throughout the activity or intermittently. 3-Partial/Moderate Assistance-helper does LESS THAN HALF the effort. [place] lifts, holds or supports trunk or limbs, but provides less than half the effort. 2-Substantial/Maximal Assistance-helper does MORE THAN HALF the effort. [place] lifts or holds trunk or limbs and provides more than half the effort. 9-Wpzrnbbiz-vdoumk does ALL the effort. Patient does none of the effort to complete the activity. Or, the assistance of 2 or more helpers is required for the patient to complete the activity. If activity was not attempted, code reason: 7-Patient Refused. 9-Not Applicable-not attempted and the patient did not perform the activity before the current illness, exacerbation or injury. 10-Not Attempted due to Environmental Limitations-(lack of equipment, weather restraints, etc.). 88-Not Attempted due to Medical Conditions or Safety Concerns. Sit to Stand (QC): 4 Toilet Transfer (QC): 4 Weight Bearing Full Weight Bearing Full Weight Bearing Gait Training Does the Patient Walk?: Yes Distance: 150' x2 Walk 10 feet (QC): 5 Walk 50 ft with 2 Turns(QC): 4 Walk 150 ft (QC): 4 Gait Persons Needed: 1 Gait Assistive Device: FWW Pt reports R knee will occasionally buckle. Exercises NuStep Minutes: 10 NuStep Workload: 3 Treatments Pt stands from recliner and amb. to BR. After finishing, pt amb. in hallway. Pt uses Nustep for 10m at WL 3. Pt takes RB then amb. in hallway to room. Pt asks to rest R sidelying in bed. All needs met, call light in hand. Assessment Current Status: Good Progress Pt is amb. and TF better. PT Short Term Goals Short Term Goals Time Frame: May 30, 2021 Roll Left & Right: 6 Sit to lyin (CGA) Lying to sitting on side of be: 4 (SBA) Sit to stand: 4 (SBA) Chair/opx-ax-hvyrm transfer: 4 (SBA) Walk 10 feet: 4 (SBA) Walk 50 feet with two turns: 4 (SBA) Walk 150 feet: 4 (SBA) PT Sporting Goods Sales Associate Goals Sporting Goods Sales Associate Goals PT Mcfp Goals Time Frame: Jun 13, 2021 Roll Left & Right (QC): 6 Sit to Lying (QC): 6 Lying-Sitting on Side/Bed(QC): 6 Sit to Stand (QC): 5 Chair/Iya-kx-Wislf Xfer(QC): 5 Toilet Transfer (QC): 5 Car Transfer (QC): 4 Does the Patient Walk: Yes Walk 10 feet (QC): 5 Walk 50ft with 2 Turns (QC): 5 Walk 150 ft (QC): 5 Walking 10ft on Uneven Surface: 5 1 Step (curb) (QC): 4 4 Steps (QC): 4 12 Steps (QC): 88 Picking up an Object (QC): 5 Wheel 50 feet with 2 turns (QC: 9 Wheel 150 feet: 9 PT Plan Problem List Problem List: Activity Tolerance Treatment/Plan Treatment Plan: Continue Plan of Care Treatment Plan: Bed Mobility, Education, Functional Activity Alena, Functional Strength, Group Therapy, Gait, Safety, Therapeutic Exercise, Transfers Treatment Duration: Jun 13, 2021 Frequency: At least 5 of 7 days/Wk (IRF) Estimated Hrs Per Day: 1.5 hours per day Patient and/or Family Agrees t: Yes Safety Risks/Education Patient Education: Gait Training, Correct Positioning, Safety Issues Teaching Recipient: Patient Teaching Methods: Discussion Response to Teaching: Verbalize Understanding Time/GCodes Time In: 840 Time Out: 910 Total Billed Treatment Time: 30 Total Billed Treatment 1, GT (15m) & EX (15m) ABDIAZIZ JIMENEZ MOLD YARD CRANE OPERATOR May 24, 2021 11:15
[2021-05-24] MEDS: amLODIPine 5 MG (NORVASC) TAB PO SCH (12:12)
[2021-05-24] MEDS: HYDROcodone/APAP 5 MG/325 MG (LORTAB) TAB PO PRN (12:14)
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
[2021-05-24 19:41] VITALS: BP 172/71
[2021-05-24] MEDS: ROSUVASTATIN 20 MG (CRESTOR) TABLET PO SCH (21:29)
[2021-05-24] MEDS: MELATONIN 10 MG TABLET PO SCH (21:30)
[2021-05-25] MEDS: HYDROcodone/APAP 5 MG/325 MG (LORTAB) TAB PO PRN ×3 (00:48→17:44)
[2021-05-25] MEDS: polyethylene glycoL POWDER 17 GM (MIRALAX) PACK PO SCH (05:25)
[2021-05-25] MEDS: LINACLOTIDE PO SCH (05:25)
[2021-05-25] MEDS: HYDROCORTISONE 20 MG (CORTEF) TAB PO SCH ×2 (06:34→21:09)
[2021-05-25] MEDS: LEVOTHYROXINE 100 MCG (LEVOTHROID) TAB PO SCH (06:34)
[2021-05-25] MEDS: inSUlin ASPART (NovoLOG) 1 UNIT/0.01 ML (CHARGE PER UNIT) SC SCH ×4 (06:36→20:56)
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
[2021-05-25 09:01] VITALS: BP 142/83
[2021-05-25] MEDS: REPAGLINIDE 2 MG PO SCH ×3 (09:12→17:44)
[2021-05-25] MEDS: LOSARTAN 50 MG (COZAAR) TAB PO SCH ×2 (09:13→21:10)
[2021-05-25] MEDS: OXYBUTYNIN (DITROPAN) 5 MG TAB PO SCH ×3 (09:14→21:10)
[2021-05-25] MEDS: PANTOPRAZOLE 40 MG (PROTONIX) TAB PO SCH (09:14)
[2021-05-25] MEDS: fluCOnazole (DIFLUCAN) 100 MG TAB PO SCH (09:14)
[2021-05-25] MEDS: SPIRONOLACTONE 25 MG (ALDACTONE) TAB PO SCH (09:14)
[2021-05-25] MEDS: DULoxetine 30 MG (CYMBALTA) CAP PO SCH (09:14)
[2021-05-25] MEDS: SENNA W/DOCUSATE (SENOKOT S) TABLET PO SCH ×2 (09:44→21:33)
[2021-05-25] MEDS: DOCUSATE SODIUM 100 MG (COLACE) CAP PO SCH (09:44)
[2021-05-25] MEDS: ERTAPENEM 1 GM/NS 50 ML IVPB IV SCH ×2 (10:09)
[2021-05-25] MEDS: NYSTATIN CREAM (MYCOSTATIN) 30 GM TUBE TP SCH ×2 (10:16→21:24)
--- NOTE | 2021-05-25 11:03 | Progress Note ---
Subjective Date Seen by a Provider: May 25, 2021 Time Seen by a Provider: 10:55 Subjective/Events-last exam Patient seen with Dr. Meraz. Patient sitting in bedside chair. Reports generalized body pains/aches. Tolerating diet. Objective Exam Vital Signs Date Time Temp Pulse Resp B/P (MAP) Pulse Ox O2 Delivery O2 Flow Rate FiO2 05/25/21 09:01 36.1 73 20 142/83 (102) 96 Room Air 05/24/21 21:36 Room Air 05/24/21 19:41 36.6 66 20 172/71 (104) 95 Room Air I & O 05/25/21 07:00 Intake Total 1180 ml Output Total 0 ml Balance 1180 ml Capillary Refill : General Appearance: No Apparent Distress, WD/WN Neck: Normal Inspection, Supple Respiratory: No Accessory Muscle Use, No Respiratory Distress Cardiovascular: Regular Rate, Rhythm, No Edema Gastrointestinal: normal bowel sounds, soft, tenderness, other (Left upper abdominal drain with minimal milky/purulent drainge.) Extremity: Normal Inspection, Normal Range of Motion Neurologic/Psychiatric: Alert, Oriented x3 Skin: Normal Color, Warm/Dry Assessment/Plan Assessment/Plan Assess & Plan/Chief Complaint 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 drain in place to monitor for pancreatic fistula/infection however drainage has been low. Pts. VS and labs all normal as well. Continue rehab and diet. Will continue to monitor drain GARRISON MIRELES APRN May 25, 2021 11:02
[2021-05-25] MEDS: amLODIPine 5 MG (NORVASC) TAB PO SCH (11:10)
[2021-05-25] MEDS: ONDANSETRON 4 MG (ZOFRAN) ORAL DISSOLVE TAB PO PRN (12:33)
[2021-05-25 17:34] VITALS: BP 130/84
[2021-05-25 20:06] VITALS: BP 126/68
[2021-05-25] MEDS: MELATONIN 10 MG TABLET PO SCH (21:10)
[2021-05-25] MEDS: ROSUVASTATIN 20 MG (CRESTOR) TABLET PO SCH (21:10)
[2021-05-26] MEDS: HYDROcodone/APAP 5 MG/325 MG (LORTAB) TAB PO PRN ×3 (01:29→22:34)
[2021-05-26 05:52] LABS: BASOPHILS # (AUTO) 0.1 10^3/uL (0.0-0.1); BASOPHILS % (AUTO) 1 % (0-10); EOSINOPHILS # (AUTO) 0.2 10^3/uL (0.0-0.3); EOSINOPHILS % (AUTO) 2 % (0-10); HEMATOCRIT 34 % (35-52); HEMOGLOBIN 11.3 g/dL (11.5-16.0); LYMPHOCYTES # (AUTO) 3.5 10^3/uL (1.0-4.0); LYMPHOCYTES % (AUTO) 43 % (12-44); MEAN CORPUSCULAR HEMOGLOBIN 29 pg (25-34); MEAN CORPUSCULAR HGB CONC 34 g/dL (32-36); MEAN CORPUSCULAR VOLUME 87 fL (80-99); MEAN PLATELET VOLUME 13.4 fL (9.0-12.2); MONOCYTES # (AUTO) 0.9 10^3/uL (0.0-1.0); MONOCYTES % (AUTO) 11 % (0-12); NEUTROPHILS # (AUTO) 3.4 10^3/uL (1.8-7.8); NEUTROPHILS % (AUTO) 42 % (42-75); PLATELET COUNT 288 10^3/uL (130-400); WHITE BLOOD COUNT 8.2 10^3/uL (4.3-11.0)
[2021-05-26] MEDS: inSUlin ASPART (NovoLOG) 1 UNIT/0.01 ML (CHARGE PER UNIT) SC SCH ×4 (06:00→20:18)
[2021-05-26 06:01] LABS: ALBUMIN 2.8 GM/DL (3.2-4.5); POTASSIUM 3.4 MMOL/L (3.6-5.0)
[2021-05-26 06:02] LABS: CALCIUM 8.8 MG/DL (8.5-10.1)
[2021-05-26 06:03] LABS: TOTAL PROTEIN 5.7 GM/DL (6.4-8.2)
[2021-05-26 06:05] LABS: BILIRUBIN,TOTAL 0.4 MG/DL (0.1-1.0)
[2021-05-26 06:07] LABS: CREATININE SERUM 0.93 MG/DL (0.60-1.30)
[2021-05-26] MEDS: LEVOTHYROXINE 100 MCG (LEVOTHROID) TAB PO SCH (06:08)
[2021-05-26] MEDS: polyethylene glycoL POWDER 17 GM (MIRALAX) PACK PO SCH (06:08)
[2021-05-26] MEDS: ACETAMINOPHEN 325 MG TABLET PO PRN (06:16)
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
[2021-05-26] MEDS: HYDROCORTISONE 20 MG (CORTEF) TAB PO SCH ×2 (06:59→21:12)
[2021-05-26 07:57] VITALS: BP 143/70
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
--- NOTE | 2021-05-26 08:57 | Physical Therapy Daily Note ---
PT Daily Note-Current Subjective Patient in recliner pre tx, agrees to PT, has no complaints of pain. Appearance Patient in recliner post tx with nurse call, phone, tray, chair alarm on, all needs met. Mental Status Patient Orientation: Person, Place, Situation Attachments: Drains Transfers SCALE: Activities may be completed with or without assistive devices. 4-Goguoxojbn-befyhki completes the activity by him/herself with no assistance from a helper. 5-Set-up or Clean-up Assistance-helper sets up or cleans up; patient completes activity. [place] assists only prior to or following the activity. 4-Supervision or Touching Assistance-helper provides verbal cues and/or touching/steadying and/or contact guard assistance as patient completes a ctivity. Assistance may be provided throughout the activity or intermittently. 3-Partial/Moderate Assistance-helper does LESS THAN HALF the effort. [place] lifts, holds or supports trunk or limbs, but provides less than half the effort. 2-Substantial/Maximal Assistance-helper does MORE THAN HALF the effort. [place] lifts or holds trunk or limbs and provides more than half the effort. 4-Rajacgwyv-ytqbki does ALL the effort. Patient does none of the effort to complete the activity. Or, the assistance of 2 or more helpers is required for the patient to complete the activity. If activity was not attempted, code reason: 7-Patient Refused. 9-Not Applicable-not attempted and the patient did not perform the activity before the current illness, exacerbation or injury. 10-Not Attempted due to Environmental Limitations-(lack of equipment, weather restraints, etc.). 88-Not Attempted due to Medical Conditions or Safety Concerns. Sit to Stand (QC): 4 Chair/Vbm-rv-Ecces Xfer(QC): 4 Weight Bearing Full Weight Bearing Full Weight Bearing Gait Training Distance: 200', 120'x2 Walk 10 feet (QC): 4 Walk 50 ft with 2 Turns(QC): 4 Walk 150 ft (QC): 4 Gait Persons Needed: 1 Gait Assistive Device: FWW CGA, very slow ambulation, has occasional slight buckling on right knee Exercises Seated Therapy Exercises: Ankle pumps, Hip flexion, Hip abd/add (with ball and RTB) Seated Reps: 20 Standing: Heel/toe raises, Mini squats Standing Reps: 20 LAQ alternating for 5 min with 2# ankle weights NuStep Minutes: 15 NuStep Workload: 5 Treatments transfers, ambulation, functional strengthening Assessment Current Status: Fair Progress slight improvement with endurance, patient needs pushed a little due to poor motivation, she does get slightly SOB with activity PT Short Term Goals Short Term Goals Time Frame: May 30, 2021 Roll Left & Right: 6 Sit to lyin (CGA) Lying to sitting on side of be: 4 (SBA) Sit to stand: 4 (SBA) Chair/fgm-ot-xotrq transfer: 4 (SBA) Walk 10 feet: 4 (SBA) Walk 50 feet with two turns: 4 (SBA) Walk 150 feet: 4 (SBA) PT Floor Covering Contractor Goals Floor Covering Contractor Goals PT Floor Covering Contractor Goals Time Frame: Jun 13, 2021 Roll Left & Right (QC): 6 Sit to Lying (QC): 6 Lying-Sitting on Side/Bed(QC): 6 Sit to Stand (QC): 5 Chair/Zyx-ui-Mxxvk Xfer(QC): 5 Toilet Transfer (QC): 5 Car Transfer (QC): 4 Does the Patient Walk: Yes Walk 10 feet (QC): 5 Walk 50ft with 2 Turns (QC): 5 Walk 150 ft (QC): 5 Walking 10ft on Uneven Surface: 5 1 Step (curb) (QC): 4 4 Steps (QC): 4 12 Steps (QC): 88 Picking up an Object (QC): 5 Wheel 50 feet with 2 turns (QC: 9 Wheel 150 feet: 9 PT Plan Problem List Problem List: Activity Tolerance, Functional Strength, Safety, Balance, Gait, Transfer, Bed Mobility, ROM Treatment/Plan Treatment Plan: Continue Plan of Care Treatment Plan: Bed Mobility, Education, Functional Activity Alena, Functional Strength, Group Therapy, Gait, Safety, Therapeutic Exercise, Transfers Treatment Duration: Jun 13, 2021 Frequency: At least 5 of 7 days/Wk (IRF) Estimated Hrs Per Day: 1.5 hours per day Patient and/or Family Agrees t: Yes Safety Risks/Education Patient Education: Gait Training, Transfer Techniques, Correct Positioning, Safety Issues Teaching Recipient: Patient Teaching Methods: Demonstration, Discussion Response to Teaching: Reinforcement Needed Time/GCodes Time In: 0800 Time Out: 0900 Total Billed Treatment Time: 60 Total Billed Treatment 1 visit GT 30' EX 30' BREEZY DEWEY PT May 26, 2021 08:57
[2021-05-26] MEDS: PANTOPRAZOLE 40 MG (PROTONIX) TAB PO SCH (08:59)
[2021-05-26] MEDS: DULoxetine 30 MG (CYMBALTA) CAP PO SCH (08:59)
[2021-05-26] MEDS: LOSARTAN 50 MG (COZAAR) TAB PO SCH ×2 (08:59→21:11)
[2021-05-26] MEDS: REPAGLINIDE 2 MG PO SCH ×3 (09:00→17:44)
[2021-05-26] MEDS: SPIRONOLACTONE 25 MG (ALDACTONE) TAB PO SCH (09:00)
[2021-05-26] MEDS: fluCOnazole (DIFLUCAN) 100 MG TAB PO SCH (09:00)
[2021-05-26] MEDS: OXYBUTYNIN (DITROPAN) 5 MG TAB PO SCH ×3 (09:00→21:11)
[2021-05-26] MEDS: ERTAPENEM 1 GM/NS 50 ML IVPB IV SCH ×2 (09:57)
--- NOTE | 2021-05-26 09:59 | Occupational Ther Daily Note ---
OT Current Status-Daily Note Subjective Pt in recliner. Pt agreeable to OT tx. Pt rates pain 7.5/10. Throughout session, pt reports cramps in abdomen, correlating the cramps with laxatives. Mental Status/Objective Patient Orientation: Person, Place, Situation Attachments: Drains, IV ADL-Treatment Therapy Code Descriptions/Definitions Functional [place] Measure: 0=Not Assessed/NA 4=Minimal Assistance 1=Total Assistance 5=Supervision or Setup 2=Maximal Assistance 6=Modified [place] 3=Moderate Assistance 7=Complete IndependenceSCALE: Activities may be completed with or without assistive devices. 3-Umjgiombes-gvxjtyz completes the activity by him/herself with no assistance from a helper. 5-Set-up or Clean-up Assistance-helper sets up or cleans up; patient completes activity. [place] assists only prior to or following the activity. 4-Supervision or Touching Assistance-helper provides verbal cues and/or touching/steadying and/or contact guard assistance as patient completes activity. Assistance may be provided throughout the activity or intermittently. 3-Partial/Moderate Assistance-helper does LESS THAN HALF the effort. [place] lifts, holds or supports trunk or limbs, but provides less than half the effort. 2-Substantial/Maximal Assistance-helper does MORE THAN HALF the effort. [place] lifts or holds trunk or limbs and provides more than half the effort. 5-Ehhtuhubb-uqcuvv does ALL the effort. Patient does none of the effort to complete the activity. Or, the assistance of 2 or more helpers is required for the patient to complete the activity. If activity was not attempted, code reason: 7-Patient Refused. 9-Not Applicable-not attempted and the patient did not perform the activity before the current illness, exacerbation or injury. 10-Not Attempted due to Environmental Limitations-(lack of equipment, weather restraints, etc.). 88-Not Attempted due to Medical Conditions or Safety Concerns. Bathing Location: L Arm, R Arm, L Upper Leg, R Upper Leg, L Lower Leg (including foot) (Pt used a long handled sponge to clean.), R Lower Leg (including foot) (Pt used a long handled sponge to clean.), Chest, Abdomen, Buttocks (min A needed to thoroughly clean.), Perineal Area Shower/Bathe Self (QC): 3 (min A needed to thoroughly clean buttocks. ) Upper Body Dressing (QC): 5 (Set up. ) Lower Body Dressing (QC): 4 (SBA) On/Off Footwear: 3 (Pt needed min A to thread sock over sock aid for RLE.) Toileting Hygiene (QC): 3 (min A needed to clean thoroughly. ) Toilet Transfer (QC): 4 (SBA.) Other Treatment Pt in recliner. Pt transitioned to bathroom, FWW, CGA, completed toileting, needed min A to thoroughly clean the buttocks, doffed pants and socks i ndependently. Pt transitioned to SC and doffed shirt, completed showering, AE, min A needed to thoroughly clean buttocks. Pt transitioned to W/C in bathroom, CGA, brushed hair, donned shirt, pants and socks using AE, min A needed to thread sock on sock aid for RLE. Pt transitioned to bed, FWW, CGA. Pt supine in bed, bed alarm on, call light in reach and all needs met. Education OT Patient Education: Correct positioning, Energy conservation, Modified ADL techniques, Progress toward Goal/Update tx plan, Purpose of tx/functional activities, Rehab process, Use of adapted equipment Teaching Recipient: Patient Teaching Methods: Demonstration, Discussion Response to Teaching: Verbalize Understanding, Return Demonstration, Reinforcement Needed OT Short Term Goals Short Term Goals Time Frame: May 30, 2021 Toileting hygiene: 4 Shower/bathe self: 4 Lower body dressin Putting on/taking off footwear: 3 (min A) OT Fpc Goals Fpc Goals Time Frame: Jun 13, 2021 Eating (QC): 6 Oral Hygiene (QC): 6 Toileting Hygiene (QC): 6 Shower/Bathe Self (QC): 6 Upper Body Dressing (QC): 6 Lower Body Dressing (QC): 6 On/Off Footwear (QC): 4 Additional Goals: 1-Demonstrate ADL Tasks, 2-Verbalize Understanding, 3- ImproveStrength/Alena 1=Demonstrate adherence to instructed precautions during ADL tasks. 2=Patient will verbalize/demonstrate understanding of assistive devices/modifications for ADL. 3=Patient will improve strength/tolerance for activity to enable patient to perform ADL's. OT Education/Plan Problem List/Assessment Assessment: Decreased Activ Tolerance, Impaired Funct Balance, Impaired I ADL's, Impaired Self-Care Skills Discharge Recommendations Plan/Recommendations: Continue POC Treatment Plan/Plan of Care Patient would benefit from OT for education, treatment and training to promote independence in ADL's, mobility, safety and/or upper extremity function for ADL's. Plan of Care: ADL Retraining, Functional Mobility, Group Exercise/Act as Ind, UE Funct Exercise/Act Treatment Duration: Jun 13, 2021 Frequency: At least 5 of 7 days/Wk (IRF) Estimated Hrs Per Day: 1.5 hours per day Rehab Potential: Fair Time/GCodes Start Time: 09:00 Stop Time: 10:00 Total Time Billed (hr/min): 60 Billed Treatment Time 1, ADL 4 (60) DELMAR MONTES OT May 26, 2021 09:59
[2021-05-26] MEDS: ONDANSETRON 4 MG (ZOFRAN) ORAL DISSOLVE TAB PO PRN (10:04)
[2021-05-26] MEDS: SENNA W/DOCUSATE (SENOKOT S) TABLET PO SCH ×2 (10:08→19:54)
[2021-05-26] MEDS: NYSTATIN CREAM (MYCOSTATIN) 30 GM TUBE TP SCH ×2 (10:09→21:12)
[2021-05-26] MEDS: DOCUSATE SODIUM 100 MG (COLACE) CAP PO SCH (10:26)
[2021-05-26] MEDS: amLODIPine 5 MG (NORVASC) TAB PO SCH (12:10)
--- NOTE | 2021-05-26 14:29 | Therapy Group Daily Note ---
Therapy Daily Group Note Patient Education Topic Other List Below (memory, ARU description/expectations) Exercises LE Seated Exercise, UE Exercise Session Ratio (pt:therapist): 3:1 Goal of Session: Education on ARU Expectations, Memory Strategies, UE/LE Strengthing Goal Met for this Session: Yes Pt Benefit of Group: Contributions to Others, F/U Use of Strategies @Home, Increased Functional Safety, Increased Functional Strength, Improved Cognition, Recognition of Peers, Socialization Other/Notes Pt transported in w/c to [facility] for OT/PT group. Group consisted introductions (name, place living, coldest remembered winter), socialization, B UE/LE seated exercises, educational topics ARU description/expectations and memory (strategies, exercises and activity). Pt introduced self appropriately and actively listened to peers. Pt able to complete B UE/LE exercises and able to verbalize one for group to complete. Pt acknowledged understanding of educational topics by verbalizing own strategies and nodding head affirmatively. Pt participated in memory activity. After therapy, pt lying in bed with call light/phone in reach. All needs met in room. Start Time: 13:00 Stop Time: 14:00 Total Billed Treatment Time: 60 Total Billed Treatment 1 visit-NATHANIEL ASH May 26, 2021 14:29
[2021-05-26 20:58] VITALS: BP 118/69
[2021-05-26] MEDS: MELATONIN 10 MG TABLET PO SCH (21:11)
[2021-05-26] MEDS: ROSUVASTATIN 20 MG (CRESTOR) TABLET PO SCH (21:11)
[2021-05-27] MEDS: ACETAMINOPHEN 325 MG TABLET PO PRN (04:14)
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
[2021-05-27] MEDS: LEVOTHYROXINE 100 MCG (LEVOTHROID) TAB PO SCH (06:55)
[2021-05-27] MEDS: inSUlin ASPART (NovoLOG) 1 UNIT/0.01 ML (CHARGE PER UNIT) SC SCH ×4 (06:55→20:18)
[2021-05-27] MEDS: HYDROCORTISONE 20 MG (CORTEF) TAB PO SCH ×2 (06:56→20:16)
[2021-05-27] MEDS: polyethylene glycoL POWDER 17 GM (MIRALAX) PACK PO SCH (07:02)
[2021-05-27 07:38] VITALS: BP 134/75
[2021-05-27] MEDS: OXYBUTYNIN (DITROPAN) 5 MG TAB PO SCH ×3 (08:25→20:16)
[2021-05-27] MEDS: LOSARTAN 50 MG (COZAAR) TAB PO SCH ×2 (08:25→20:16)
[2021-05-27] MEDS: DULoxetine 30 MG (CYMBALTA) CAP PO SCH (08:25)
[2021-05-27] MEDS: SENNA W/DOCUSATE (SENOKOT S) TABLET PO SCH ×2 (08:26→20:16)
[2021-05-27] MEDS: SPIRONOLACTONE 25 MG (ALDACTONE) TAB PO SCH (08:26)
[2021-05-27] MEDS: PANTOPRAZOLE 40 MG (PROTONIX) TAB PO SCH (08:26)
[2021-05-27] MEDS: REPAGLINIDE 2 MG PO SCH ×3 (08:26→18:42)
[2021-05-27] MEDS: DOCUSATE SODIUM 100 MG (COLACE) CAP PO SCH (08:26)
[2021-05-27] MEDS: fluCOnazole (DIFLUCAN) 100 MG TAB PO SCH (08:27)
[2021-05-27] MEDS: ERTAPENEM 1 GM/NS 50 ML IVPB IV SCH ×2 (09:02)
[2021-05-27] MEDS: NYSTATIN CREAM (MYCOSTATIN) 30 GM TUBE TP SCH ×2 (09:03→20:17)
--- NOTE | 2021-05-27 10:09 | Physical Therapy Daily Note ---
PT Daily Note-Current Subjective Pt R sidelying upon arrival. Pt agrees to QC scoring for d/c tomorrow. Pain Location: Right Location Body Site: Knee Pain Description: Ache Comment: Pt reports knee buckling but doesn't rate pain. Mental Status Patient Orientation: Person, Place, Situation Attachments: Drains Transfers SCALE: Activities may be completed with or without assistive devices. 2-Hiaiejhxvh-iagkoey completes the activity by him/herself with no assistance from a helper. 5-Set-up or Clean-up Assistance-helper sets up or cleans up; patient completes activity. [place] assists only prior to or following the activity. 4-Supervision or Touching Assistance-helper provides verbal cues and/or touching/steadying and/or contact guard assistance as patient completes activity. Assistance may be provided throughout the activity or intermittently. 3-Partial/Moderate Assistance-helper does LESS THAN HALF the effort. [place] lifts, holds or supports trunk or limbs, but provides less than half the effort. 2-Substantial/Maximal Assistance-helper does MORE THAN HALF the effort. [place] lifts or holds trunk or limbs and provides more than half the effort. 9-Oesmrrnvx-yeahdt does ALL the effort. Patient does none of the effort to complete the activity. Or, the assistance of 2 or more helpers is required for the patient to complete the activity. If activity was not attempted, code reason: 7-Patient Refused. 9-Not Applicable-not attempted and the patient did not perform the activity before the current illness, exacerbation or injury. 10-Not Attempted due to Environmental Limitations-(lack of equipment, weather restraints, etc.). 88-Not Attempted due to Medical Conditions or Safety Concerns. Roll Left & Right (QC): 6 Sit to Lying (QC): 4 Lying to Sitting/Side of Bed(Q: 5 Sit to Stand (QC): 5 Chair/Ihh-wq-Zglim Xfer(QC): 5 Toilet Transfer (QC): 5 Car Transfer (QC): 4 Weight Bearing Full Weight Bearing Full Weight Bearing Gait Training Does the Patient Walk?: Yes Distance: 150' x2 Walk 10 feet (QC): 5 Walk 50 ft with 2 Turns(QC): 5 Walk 150 ft (QC): 4 Walking 10ft/uneven surface-QC: 4 Gait Persons Needed: 1 Gait Assistive Device: FWW Pt reports R knee buckling with walking. Wheelchair Training Does the Pt Use a Wheelchair?: No Stair Training Stair Training: Handrails/: 2 handrails #of Steps: 2 1 Step (curb) (QC): 3 4 Steps (QC): 88 12 Steps (QC): 88 Stairs: Pattern: Step to Pt doesn't feel comfortable and RECEIVER STOCKER asks pt to turn around due to safety concerns. Balance Picking up an Object (QC): 4 Special Test Comments Pt uses wire coiler to complete this item and needs instruction for safety. Exercises Seated Therapy Exercises: Ankle pumps, Long arc quads, Hip flexion, Glut set Seated Reps: 15 Treatments (900-1000) RECEIVER STOCKER gets QC scoring items listed above expect Car Transfer, Picking up Object from Floor & Stairs in morning session. Pt amb. using FWW at SBA. Pt completes Seated Ex. Pt also uses BR during tx for BM. At end of tx, pt returns to room to rest R sidelying. All needs met, call light in hand. ([id number]) Pt completes Car Transfer, Picking Up Object from Floor & Stairs in afternoon session. Pt needs increased verbal cues for safety. Pt returns to room at end of tx to rest in bed. All needs met, call light in hand. Assessment Current Status: Fair Progress Increased confusion today, increased need for verbal cues for safety for car transfer, stairs and ambulation. PT Short Term Goals Short Term Goals Time Frame: May 30, 2021 Roll Left & Right: 6 Sit to lyin (CGA) Lying to sitting on side of be: 4 (SBA) Sit to stand: 4 (SBA) Chair/fci-zu-rlfnn transfer: 4 (SBA) Walk 10 feet: 4 (SBA) Walk 50 feet with two turns: 4 (SBA) Walk 150 feet: 4 (SBA) PT Lead Simulation Modeling Engineer Goals Usp Goals PT Usp Goals Time Frame: Jun 13, 2021 Roll Left & Right (QC): 6 Sit to Lying (QC): 6 Lying-Sitting on Side/Bed(QC): 6 Sit to Stand (QC): 5 Chair/Hmz-lt-Yxbet Xfer(QC): 5 Toilet Transfer (QC): 5 Car Transfer (QC): 4 Does the Patient Walk: Yes Walk 10 feet (QC): 5 Walk 50ft with 2 Turns (QC): 5 Walk 150 ft (QC): 5 Walking 10ft on Uneven Surface: 5 1 Step (curb) (QC): 4 4 Steps (QC): 4 12 Steps (QC): 88 Picking up an Object (QC): 5 Wheel 50 feet with 2 turns (QC: 9 Wheel 150 feet: 9 PT Plan Problem List Problem List: Activity Tolerance, Functional Strength, Safety Treatment/Plan Treatment Plan: Continue Plan of Care Treatment Plan: Bed Mobility, Education, Functional Activity Alena, Functional Strength, Group Therapy, Gait, Safety, Therapeutic Exercise, Transfers Treatment Duration: Jun 13, 2021 Frequency: At least 5 of 7 days/Wk (IRF) Estimated Hrs Per Day: 1.5 hours per day Patient and/or Family Agrees t: Yes Safety Risks/Education Patient Education: Gait Training, Transfer Techniques, Steps, Correct Positioning, Safety Issues Teaching Recipient: Patient Teaching Methods: Demonstration, Discussion Response to Teaching: Reinforcement Needed Time/GCodes Time In: 900 Time Out: 1000 Total Billed Treatment Time: 60 Total Billed Treatment (900-1000) 1, FA x2 (30m), GT (15m) & EX (15m) ([id number]) 1, FA x2 (30m) ABDIAZIZ JIMENEZ RECEIVER STOCKER May 27, 2021 10:09
--- NOTE | 2021-05-27 10:43 | Occupational Ther Daily Note ---
OT Current Status-Daily Note Subjective Pt supine in bed. Pt agreeable to OT tx. Mental Status/Objective Patient Orientation: Person, Confused (Pt couldn't remember if she ate breakfast. Pt stated there was a little man on the table while she was doing therapy. ), Situation Attachments: Drains, IV ADL-Treatment Therapy Code Descriptions/Definitions Functional [place] Measure: 0=Not Assessed/NA 4=Minimal Assistance 1=Total Assistance 5=Supervision or Setup 2=Maximal Assistance 6=Modified [place] 3=Moderate Assistance 7=Complete IndependenceSCALE: Activities may be completed with or without assistive devices. 6-Dbfpjklbsk-pbkvapx completes the activity by him/herself with no assistance from a helper. 5-Set-up or Clean-up Assistance-helper sets up or cleans up; patient completes activity. [place] assists only prior to or following the activity. 4-Supervision or Touching Assistance-helper provides verbal cues and/or touching/steadying and/or contact guard assistance as patient completes activity. Assistance may be provided throughout the activity or intermittently. 3-Partial/Moderate Assistance-helper does LESS THAN HALF the effort. [place] lifts, holds or supports trunk or limbs, but provides less than half the effort. 2-Substantial/Maximal Assistance-helper does MORE THAN HALF the effort. [place] lifts or holds trunk or limbs and provides more than half the effort. 3-Pcllgjhfu-ohpvgv does ALL the effort. Patient does none of the effort to complete the activity. Or, the assistance of 2 or more helpers is required for the patient to complete the activity. If activity was not attempted, code reason: 7-Patient Refused. 9-Not Applicable-not attempted and the patient did not perform the activity before the current illness, exacerbation or injury. 10-Not Attempted due to Environmental Limitations-(lack of equipment, weather restraints, etc.). 88-Not Attempted due to Medical Conditions or Safety Concerns. Eating (QC): 6 (Independent. ) Oral Hygiene (QC): 4 (SBA. ) Other Treatment Pt supine in bed, transitioned EOB, transitioned to bathroom, FWW, CGA. Pt completed oral hygiene and brushed her hair, standing at sink, SBA. Pt transitioned to recliner, called in her lunch order, min A to dial phone number and min VCs for correct room number. Pt transitioned to therapy gym, FWW, CGA, completed arm bike to work on activity tolerance and arm strengthening, 15 watt,10 mins. Pt placed/removed 100 pegs into the pegboard to work on fine motor skills, BUE. Pt completed 2 rubber band peg puzzles to work on problem solving and fine motor coordination, min errors. Pt transitioned back to room, FWW, CGA, no rest breaks. Pt in recliner, call light in reach and all needs met. Chair alarm activated. Education OT Patient Education: Correct positioning, Energy conservation, Exercise program, Modified ADL techniques, Progress toward Goal/Update tx plan, Purpose of tx/functional activities, Rehab process Teaching Recipient: Patient Teaching Methods: Discussion Response to Teaching: Verbalize Understanding OT Short Term Goals Short Term Goals Time Frame: May 30, 2021 Toileting hygiene: 4 Shower/bathe self: 4 Lower body dressin Putting on/taking off footwear: 3 (min A) OT Marketing Development Specialist Goals Marketing Development Specialist Goals Time Frame: Jun 13, 2021 Eating (QC): 6 Oral Hygiene (QC): 6 Toileting Hygiene (QC): 6 Shower/Bathe Self (QC): 6 Upper Body Dressing (QC): 6 Lower Body Dressing (QC): 6 On/Off Footwear (QC): 4 Additional Goals: 1-Demonstrate ADL Tasks, 2-Verbalize Understanding, 3- ImproveStrength/Alena 1=Demonstrate adherence to instructed precautions during ADL tasks. 2=Patient will verbalize/demonstrate understanding of assistive devices/modifications for ADL. 3=Patient will improve strength/tolerance for activity to enable patient to perform ADL's. OT Education/Plan Problem List/Assessment Assessment: Decreased Activ Tolerance, Impaired Funct Balance, Impaired I ADL's, Impaired Self-Care Skills Discharge Recommendations Plan/Recommendations: Continue POC Treatment Plan/Plan of Care Patient would benefit from OT for education, treatment and training to promote independence in ADL's, mobility, safety and/or upper extremity function for ADL's. Plan of Care: ADL Retraining, Functional Mobility, Group Exercise/Act as Ind, UE Funct Exercise/Act Treatment Duration: Jun 13, 2021 Frequency: At least 5 of 7 days/Wk (IRF) Estimated Hrs Per Day: 1.5 hours per day Rehab Potential: Fair Time/GCodes Start Time: 10:15 Stop Time: 11:30 Total Time Billed (hr/min): 75 Billed Treatment Time 1, ADL (15), EX (10), FA 3 (50) DELMAR MONTES OT May 27, 2021 10:43
[2021-05-27 12:55] VITALS: BP 134/65
[2021-05-27] MEDS: amLODIPine 5 MG (NORVASC) TAB PO SCH (12:56)
--- NOTE | 2021-05-27 13:25 | Speech Therapy Daily Note ---
Speech Daily Progress Note Subjective Time Seen by Provider: 11:30 The pt was sitting up in recliner. Pt was pleasant and cooperative for speech therapy activities. Objective Pt oriented x4. Reports she is independent at home with cooking, driving and money management. Pt completed problem solving task with 80% accy given on cues. Assessment Assessment Current Status: Good Progress Treatment Plan Continue Plan of Care Speech Short Term Goals Short Term Goals Short Term Goals 1. The patient will complete functional problem solving exercises with 80% accuracy, independently. 2. The patient will complete functional memory exercises with 80% accuracy, independently. Time Frame-STG: Two Weeks. Speech Retirement Goals Paraffin Machine Operator Goals 1. The patient will demonstrate improved cognitive linguistic skills for increased safety and independence with ADL's in the least restrictive environment. Time Frame: Three Weeks. Speech-Plan Treatment Plan Speech Therapy Treatment Plan: Continue Plan of Care Treatment Duration: Jun 20, 2021 Frequency: 4 times per week (Four to five times per week) Estimated Hrs Per Day: .5 hour per day Rehab Potential: Fair Time Speech Therapy Time In: 11:30 Speech Therapy Time Out: 11:55 Billed Treatment Time [address] May 27, 2021 13:25
[2021-05-27] MEDS: HYDROcodone/APAP 5 MG/325 MG (LORTAB) TAB PO PRN (15:17)
[2021-05-27 19:35] VITALS: BP 137/75
[2021-05-27] MEDS: MELATONIN 10 MG TABLET PO SCH (20:16)
[2021-05-27] MEDS: ROSUVASTATIN 20 MG (CRESTOR) TABLET PO SCH (20:16)
[2021-05-28] MEDS: HYDROcodone/APAP 5 MG/325 MG (LORTAB) TAB PO PRN ×3 (01:16→20:11)
[2021-05-28] MEDS: LEVOTHYROXINE 100 MCG (LEVOTHROID) TAB PO SCH (05:48)
[2021-05-28] MEDS: polyethylene glycoL POWDER 17 GM (MIRALAX) PACK PO SCH (05:49)
[2021-05-28] MEDS: HYDROCORTISONE 20 MG (CORTEF) TAB PO SCH ×2 (05:49→20:10)
[2021-05-28] MEDS: inSUlin ASPART (NovoLOG) 1 UNIT/0.01 ML (CHARGE PER UNIT) SC SCH ×4 (05:53→20:25)
[2021-05-28] MEDS: ONDANSETRON 4 MG (ZOFRAN) ORAL DISSOLVE TAB PO PRN (05:57)
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
[2021-05-28 07:46] VITALS: BP 119/68
--- NOTE | 2021-05-28 08:54 | Occupational Ther Daily Note ---
OT Current Status-Daily Note Subjective Pt in recliner. Pt agreeable to OT tx. Mental Status/Objective Patient Orientation: Person, Confused, Place, Situation Attachments: Drains, IV ADL-Treatment Therapy Code Descriptions/Definitions Functional [place] Measure: 0=Not Assessed/NA 4=Minimal Assistance 1=Total Assistance 5=Supervision or Setup 2=Maximal Assistance 6=Modified [place] 3=Moderate Assistance 7=Complete IndependenceSCALE: Activities may be completed with or without assistive devices. 8-Ngruwaceul-ghenakp completes the activity by him/herself with no assistance from a helper. 5-Set-up or Clean-up Assistance-helper sets up or cleans up; patient completes activity. [place] assists only prior to or following the activity. 4-Supervision or Touching Assistance-helper provides verbal cues and/or touching/steadying and/or contact guard assistance as patient completes activity. Assistance may be provided throughout the activity or intermittently. 3-Partial/Moderate Assistance-helper does LESS THAN HALF the effort. [place] lifts, holds or supports trunk or limbs, but provides less than half the effort. 2-Substantial/Maximal Assistance-helper does MORE THAN HALF the effort. [place] lifts or holds trunk or limbs and provides more than half the effort. 7-Ngtmirxwy-tjrzch does ALL the effort. Patient does none of the effort to complete the activity. Or, the assistance of 2 or more helpers is required for the patient to complete the activity. If activity was not attempted, code reason: 7-Patient Refused. 9-Not Applicable-not attempted and the patient did not perform the activity before the current illness, exacerbation or injury. 10-Not Attempted due to Environmental Limitations-(lack of equipment, weather restraints, etc.). 88-Not Attempted due to Medical Conditions or Safety Concerns. Eating (QC): 6 (Independent. ) Oral Hygiene (QC): 4 (SBA) Bathing Location: L Arm, R Arm, L Upper Leg, R Upper Leg, L Lower Leg (including foot) (Pt used long handled sponge to clean.), R Lower Leg (including foot) (Pt used long handled sponge to clean. ), Chest, Abdomen, Buttocks (Pt needed assistance to thoroughly clean buttocks.), Perineal Area Shower/Bathe Self (QC): 3 (Pt needed min A to thoroughly clean buttocks. Pt reports having a bidet at home that she uses.) Upper Body Dressing (QC): 5 (Set up/clean up.) Lower Body Dressing (QC): 5 (Set up/clean up.) On/Off Footwear: 5 (Setup) Toileting Hygiene (QC): 6 Toilet Transfer (QC): 4 (SBA) Other Treatment Pt in recliner. Pt transitioned to bathroom, CGA, FWW. Pt completed toileting, IND, transitioned to SC, doffed shirt, pants and socks independently. Pt completed showering, min A needed to thoroughly clean buttocks, pt states having a bidet at home that she uses. Pt transitioned to chair in bathroom, donned shirt, pants and socks, AE. Pt stood at sink to brush hair and oral care, SBA, transitioned to recliner. Pt in recliner, chair alarm on, call light in reach and all needs met. Education OT Patient Education: Correct positioning, Energy conservation, Modified ADL techniques, Progress toward Goal/Update tx plan, Purpose of tx/functional activities, Rehab process, Use of adapted equipment Teaching Recipient: Patient Teaching Methods: Discussion Response to Teaching: Verbalize Understanding OT Short Term Goals Short Term Goals Time Frame: May 30, 2021 Toileting hygiene: 4 Shower/bathe self: 4 Lower body dressin Putting on/taking off footwear: 3 (min A) OT Information Security Specialist Goals Snf Goals Time Frame: Jun 13, 2021 Eating (QC): 6 (met) Oral Hygiene (QC): 6 (not met) Toileting Hygiene (QC): 6 (met) Shower/Bathe Self (QC): 6 (not met) Upper Body Dressing (QC): 6 (not met) Lower Body Dressing (QC): 6 (not met) On/Off Footwear (QC): 4 (met) Additional Goals: 1-Demonstrate ADL Tasks, 2-Verbalize Understanding, 3- ImproveStrength/Alena 1=Demonstrate adherence to instructed precautions during ADL tasks. 2=Patient will verbalize/demonstrate understanding of assistive devices/modifications for ADL. 3=Patient will improve strength/tolerance for activity to enable patient to perform ADL's. OT Education/Plan Problem List/Assessment Assessment: Decreased Activ Tolerance, Impaired Cognition, Impaired Funct Balance, Impaired I ADL's, Impaired Self-Care Skills Discharge Recommendations Plan/Recommendations: Continue POC Treatment Plan/Plan of Care Patient would benefit from OT for education, treatment and training to promote independence in ADL's, mobility, safety and/or upper extremity function for ADL 's. Plan of Care: ADL Retraining, Functional Mobility, Group Exercise/Act as Ind, UE Funct Exercise/Act Treatment Duration: Jun 13, 2021 Frequency: At least 5 of 7 days/Wk (IRF) Estimated Hrs Per Day: 1.5 hours per day Rehab Potential: Fair Time/GCodes Start Time: 08:00 Stop Time: 09:00 Total Time Billed (hr/min): 60 Billed Treatment Time 1, ADL 4 (60) DELMAR MONTES OT May 28, 2021 08:54
[2021-05-28] MEDS: OXYBUTYNIN (DITROPAN) 5 MG TAB PO SCH ×3 (09:06→20:11)
[2021-05-28] MEDS: LOSARTAN 50 MG (COZAAR) TAB PO SCH ×2 (09:06→20:37)
[2021-05-28] MEDS: PANTOPRAZOLE 40 MG (PROTONIX) TAB PO SCH (09:06)
[2021-05-28] MEDS: fluCOnazole (DIFLUCAN) 100 MG TAB PO SCH (09:06)
[2021-05-28] MEDS: SENNA W/DOCUSATE (SENOKOT S) TABLET PO SCH ×2 (09:06→20:37)
[2021-05-28] MEDS: DULoxetine 30 MG (CYMBALTA) CAP PO SCH (09:06)
[2021-05-28] MEDS: SPIRONOLACTONE 25 MG (ALDACTONE) TAB PO SCH (09:06)
[2021-05-28] MEDS: REPAGLINIDE 2 MG PO SCH ×3 (09:06→18:55)
[2021-05-28] MEDS: DOCUSATE SODIUM 100 MG (COLACE) CAP PO SCH (09:06)
[2021-05-28] MEDS: NYSTATIN CREAM (MYCOSTATIN) 30 GM TUBE TP SCH ×2 (09:07→20:16)
[2021-05-28] MEDS: ERTAPENEM 1 GM/NS 50 ML IVPB IV SCH ×2 (09:56)
--- NOTE | 2021-05-28 11:24 | Physical Therapy Daily Note ---
PT Daily Note-Current Subjective Pt siting in recliner upon arrival. Pt agrees to PT. Pt had just finished breakfast. Pain Location: Right Location Body Site: Knee Pain Description: Ache Comment: Pt reports R knee buckling w/walking but doesn't rate. Mental Status Patient Orientation: Person, Place, Situation Attachments: Drains Transfers SCALE: Activities may be completed with or without assistive devices. 9-Ldavelnvwt-xaggqer completes the activity by him/herself with no assistance from a helper. 5-Set-up or Clean-up Assistance-helper sets up or cleans up; patient completes activity. [place] assists only prior to or following the activity. 4-Supervision or Touching Assistance-helper provides verbal cues and/or touching/steadying and/or contact guard assistance as patient completes activity. Assistance may be provided throughout the activity or intermittently. 3-Partial/Moderate Assistance-helper does LESS THAN HALF the effort. [place] lifts, holds or supports trunk or limbs, but provides less than half the effort. 2-Substantial/Maximal Assistance-helper does MORE THAN HALF the effort. [place] lifts or holds trunk or limbs and provides more than half the effort. 2-Omcuzsgqh-kwvxeo does ALL the effort. Patient does none of the effort to complete the activity. Or, the assistance of 2 or more helpers is required for the patient to complete the activity. If activity was not attempted, code reason: 7-Patient Refused. 9-Not Applicable-not attempted and the patient did not perform the activity before the current illness, exacerbation or injury. 10-Not Attempted due to Environmental Limitations-(lack of equipment, weather restraints, etc.). 88-Not Attempted due to Medical Conditions or Safety Concerns. Sit to Stand (QC): 5 Toilet Transfer (QC): 5 close SBA for safety but pt can complete Weight Bearing Full Weight Bearing Full Weight Bearing Gait Training Does the Patient Walk?: Yes Distance: 150' x2 Walk 10 feet (QC): 4 Walk 50 ft with 2 Turns(QC): 4 Walk 150 ft (QC): 4 Gait Persons Needed: 1 Gait Assistive Device: FWW Exercises Seated Therapy Exercises: Ankle pumps, Long arc quads, Hip flexion, Glut set Seated Reps: 15 Standing: Hip Abduction, Heel/toe raises, Marching Standing Reps: 15 Treatments TF to standing and amb in hallway. Pt completes Seated EX then short RB before completing Standing EX at //bars. Pt then amb. in hallway and returns to room. Pt uses BR before returning to R sidelying in bed to rest. All needs met, call light in hand. Assessment Current Status: Fair Progress Pt self limits with R knee buckling and takes frequent RB. PT Short Term Goals Short Term Goals Time Frame: May 30, 2021 Roll Left & Right: 6 Sit to lyin (CGA) Lying to sitting on side of be: 4 (SBA) Sit to stand: 4 (SBA) Chair/qsg-au-jpxhk transfer: 4 (SBA) Walk 10 feet: 4 (SBA) Walk 50 feet with two turns: 4 (SBA) Walk 150 feet: 4 (SBA) PT Longterm Goals Longterm Goals PT Production Administrator Goals Time Frame: Jun 13, 2021 Roll Left & Right (QC): 6 Sit to Lying (QC): 6 Lying-Sitting on Side/Bed(QC): 6 Sit to Stand (QC): 5 Chair/Gyi-gk-Sonpg Xfer(QC): 5 Toilet Transfer (QC): 5 Car Transfer (QC): 4 Does the Patient Walk: Yes Walk 10 feet (QC): 5 Walk 50ft with 2 Turns (QC): 5 Walk 150 ft (QC): 5 Walking 10ft on Uneven Surface: 5 1 Step (curb) (QC): 4 4 Steps (QC): 4 12 Steps (QC): 88 Picking up an Object (QC): 5 Wheel 50 feet with 2 turns (QC: 9 Wheel 150 feet: 9 PT Plan Problem List Problem List: Activity Tolerance, Functional Strength Treatment/Plan Treatment Plan: Continue Plan of Care Treatment Plan: Bed Mobility, Education, Functional Activity Alena, Functional Strength, Group Therapy, Gait, Safety, Therapeutic Exercise, Transfers Treatment Duration: Jun 13, 2021 Frequency: At least 5 of 7 days/Wk (IRF) Estimated Hrs Per Day: 1.5 hours per day Patient and/or Family Agrees t: Yes Safety Risks/Education Patient Education: Gait Training, Transfer Techniques, Correct Positioning, Safety Issues Teaching Recipient: Patient Teaching Methods: Discussion Response to Teaching: Verbalize Understanding, Reinforcement Needed Time/GCodes Time In: 900 Time Out: 1000 Total Billed Treatment Time: 60 Total Billed Treatment 1, FA (20m), EX x2 (25m) & GT (15m) ABDIAZIZ JIMENEZ PODIATRIST May 28, 2021 11:24
[2021-05-28] MEDS: amLODIPine 5 MG (NORVASC) TAB PO SCH (12:06)
--- NOTE | 2021-05-28 14:24 | Therapy Group Daily Note ---
Therapy Daily Group Note Patient Education Topic Home Safety Exercises LE Seated Exercise, UE Exercise Session Ratio (pt:therapist): 3:1 Goal of Session: Home Safety Strategies, UE/LE Strengthing Goal Met for this Session: Yes Pt Benefit of Group: Contributions to Others, F/U Use of Strategies @Home, Increased Functional Safety, Increased Functional Strength, Improved Cognition, Recognition of Peers, Socialization Other/Notes Pt ambulated to therapy gym for OT/PT group. Group consisted of introductions (name, place living, random questions), socialization, B UE/LE seated exercises and educational topic of home safety. Pt introduced self appropriately and actively listened to peers. Pt able to complete B UE/LE seated exercises well with modifications when needed. Pt able to answer questions about home safety after education on topic. After group, pt sitting in recliner with call light/phone in reach. All needs met in room. Start Time: 13:00 Stop Time: 14:00 Total Billed Treatment Time: 60 Total Billed Treatment 1-NATHANIEL ASH May 28, 2021 14:24
[2021-05-28 19:20] VITALS: BP 109/56
[2021-05-28] MEDS: ROSUVASTATIN 20 MG (CRESTOR) TABLET PO SCH (20:10)
[2021-05-28] MEDS: MELATONIN 10 MG TABLET PO SCH (20:11)
[2021-05-28 20:12] VITALS: BP 109/56
[2021-05-29] MEDS: HYDROcodone/APAP 5 MG/325 MG (LORTAB) TAB PO PRN ×2 (06:01→17:59)
[2021-05-29] MEDS: LEVOTHYROXINE 100 MCG (LEVOTHROID) TAB PO SCH (06:01)
[2021-05-29] MEDS: HYDROCORTISONE 20 MG (CORTEF) TAB PO SCH ×2 (06:02→20:08)
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
[2021-05-29] MEDS: polyethylene glycoL POWDER 17 GM (MIRALAX) PACK PO SCH (06:12)
[2021-05-29] MEDS: inSUlin ASPART (NovoLOG) 1 UNIT/0.01 ML (CHARGE PER UNIT) SC SCH ×4 (06:16→20:13)
[2021-05-29] MEDS: LINACLOTIDE PO SCH (07:00)
[2021-05-29 07:14] VITALS: BP 149/66
[2021-05-29] MEDS: DULoxetine 30 MG (CYMBALTA) CAP PO SCH (09:11)
[2021-05-29] MEDS: fluCOnazole (DIFLUCAN) 100 MG TAB PO SCH (09:11)
[2021-05-29] MEDS: REPAGLINIDE 2 MG PO SCH ×3 (09:11→17:52)
[2021-05-29] MEDS: PANTOPRAZOLE 40 MG (PROTONIX) TAB PO SCH (09:11)
[2021-05-29] MEDS: SPIRONOLACTONE 25 MG (ALDACTONE) TAB PO SCH (09:11)
[2021-05-29] MEDS: LOSARTAN 50 MG (COZAAR) TAB PO SCH ×2 (09:11→20:13)
--- NOTE | 2021-05-29 09:11 | Occupational Ther Daily Note ---
OT Current Status-Daily Note Subjective Pt in recliner. Pt agreeable to OT tx. Pt seemed frustrated and emotional about going home tomorrow, she stated she thought she was going home yesterday and that she didn't know she was going home tomorrow because nobody told her. Mental Status/Objective Patient Orientation: Person, Situation Attachments: Drains, IV ADL-Treatment Therapy Code Descriptions/Definitions Functional [place] Measure: 0=Not Assessed/NA 4=Minimal Assistance 1=Total Assistance 5=Supervision or Setup 2=Maximal Assistance 6=Modified [place] 3=Moderate Assistance 7=Complete IndependenceSCALE: Activities may be completed with or without assistive devices. 4-Auxfowworc-hjetnpa completes the activity by him/herself with no assistance from a helper. 5-Set-up or Clean-up Assistance-helper sets up or cleans up; patient completes activity. [place] assists only prior to or following the activity. 4-Supervision or Touching Assistance-helper provides verbal cues and/or touching/steadying and/or contact guard assistance as patient completes activit y. Assistance may be provided throughout the activity or intermittently. 3-Partial/Moderate Assistance-helper does LESS THAN HALF the effort. [place] lifts, holds or supports trunk or limbs, but provides less than half the effort. 2-Substantial/Maximal Assistance-helper does MORE THAN HALF the effort. [place] lifts or holds trunk or limbs and provides more than half the effort. 4-Xhccpzpwx-bmvbmw does ALL the effort. Patient does none of the effort to complete the activity. Or, the assistance of 2 or more helpers is required for the patient to complete the activity. If activity was not attempted, code reason: 7-Patient Refused. 9-Not Applicable-not attempted and the patient did not perform the activity before the current illness, exacerbation or injury. 10-Not Attempted due to Environmental Limitations-(lack of equipment, weather restraints, etc.). 88-Not Attempted due to Medical Conditions or Safety Concerns. Other Treatment Pt in recliner. Pt transitioned to therapy gym, FWW, CGA. Pt played connect four x2 to work on problem solving, strengthening and activity tolerance, 1 lb weights BUE. Pt placed/removed 100 pegs onto pegboard to work on activity tolerance and fine motor skills. Pt placed/removed graded clothespins BUE x 2 sets, to work on hand strengthening. Pt removed beads out of graded putty x2 to work on fine motor skills and hand strengthening. [id number] OT/PT cotreat due to skill of 2 clinicians required which a rehab care assistant could not perform in order to decrease fall risk, focus on higher level balance tasks, and due to pt's limitations in strength, activity tolerance, dynamic standing balance, and cues for sequencing. OT focused on UE placement, ADLs, and cues, PT focused on mobility, LE placement, and gross overall movement. Pt transferred from gym to her room, using FWW with SBA. Pt required skilled min skilled verbal cues to locate her room. Pt stood at the sink to wash her hands, SBA with min verbal cues for sequencing. Pt turned towards her R (away from the door), pt was facing the shower requiring another cue to keep turning and face the doorway. Pt transferred to the recliner, nurse present to provide medications. Post tx, pt in recliner, call light in reach and all needs met. Education OT Patient Education: Correct positioning, Energy conservation, Modified ADL techniques, Progress toward Goal/Update tx plan, Purpose of tx/functional activities, Rehab process Teaching Recipient: Patient Teaching Methods: Demonstration, Discussion Response to Teaching: Verbalize Understanding, Return Demonstration, Reinforcement Needed OT Short Term Goals Short Term Goals Time Frame: May 30, 2021 Toileting hygiene: 4 Shower/bathe self: 4 Lower body dressin Putting on/taking off footwear: 3 (min A) OT Mechanical Operator Goals [facility] Goals Time Frame: Jun 13, 2021 Eating (QC): 6 (met) Oral Hygiene (QC): 6 (not met) Toileting Hygiene (QC): 6 (met) Shower/Bathe Self (QC): 6 (not met) Upper Body Dressing (QC): 6 (not met) Lower Body Dressing (QC): 6 (not met) On/Off Footwear (QC): 4 (met) Additional Goals: 1-Demonstrate ADL Tasks, 2-Verbalize Understanding, 3- ImproveStrength/Alena 1=Demonstrate adherence to instructed precautions during ADL tasks. 2=Patient will verbalize/demonstrate understanding of assistive devices/modifications for ADL. 3=Patient will improve strength/tolerance for activity to enable patient to perform ADL's. OT Education/Plan Problem List/Assessment Assessment: Decreased Activ Tolerance, Decreased UE Strength, Impaired Cognition, Impaired Funct Balance, Impaired I ADL's, Impaired Self-Care Skills, Restricted Funct UE ROM Discharge Recommendations Plan/Recommendations: Continue POC Treatment Plan/Plan of Care Patient would benefit from OT for education, treatment and training to promote independence in ADL's, mobility, safety and/or upper extremity function for ADL's. Plan of Care: ADL Retraining, Functional Mobility, Group Exercise/Act as Ind, UE Funct Exercise/Act Treatment Duration: Jun 13, 2021 Frequency: At least 5 of 7 days/Wk (IRF) Estimated Hrs Per Day: 1.5 hours per day Rehab Potential: Fair Time/GCodes Start Time: 07:45 Stop Time: 09:15 Total Time Billed (hr/min): 90 Billed Treatment Time cotreat x15' 1, FA 6 (90) DELMAR MONTES OT May 29, 2021 09:11
[2021-05-29] MEDS: OXYBUTYNIN (DITROPAN) 5 MG TAB PO SCH ×3 (09:12→20:08)
[2021-05-29] MEDS: DOCUSATE SODIUM 100 MG (COLACE) CAP PO SCH (09:14)
[2021-05-29] MEDS: SENNA W/DOCUSATE (SENOKOT S) TABLET PO SCH ×2 (09:14→20:09)
[2021-05-29] MEDS: ERTAPENEM 1 GM/NS 50 ML IVPB IV SCH ×2 (09:19)
[2021-05-29] MEDS: NYSTATIN CREAM (MYCOSTATIN) 30 GM TUBE TP SCH ×2 (09:23→20:09)
--- NOTE | 2021-05-29 10:30 | Physical Therapy Daily Note ---
PT Daily Note-Current Subjective Pt working w/OT upon arrival. Pt to walk back to room for morning meds from Nurse. Pain Location: Right Location Body Site: Knee Pain Description: Ache Comment: Pt reports but doesn't R knee buckling. Mental Status Patient Orientation: Person, Place Transfers SCALE: Activities may be completed with or without assistive devices. 1-Ipoihwlzry-bllfhdp completes the activity by him/herself with no assistance from a helper. 5-Set-up or Clean-up Assistance-helper sets up or cleans up; patient completes activity. [place] assists only prior to or following the activity. 4-Supervision or Touching Assistance-helper provides verbal cues and/or touching/steadying and/or contact guard assistance as patient completes activity. Assistance may be provided throughout the activity or intermittently. 3-Partial/Moderate Assistance-helper does LESS THAN HALF the effort. [place] lifts, holds or supports trunk or limbs, but provides less than half the effort. 2-Substantial/Maximal Assistance-helper does MORE THAN HALF the effort. [place] lifts or holds trunk or limbs and provides more than half the effort. 5-Psnljwdgk-vauvls does ALL the effort. Patient does none of the effort to complete the activity. Or, the assistance of 2 or more helpers is required for the patient to complete the activity. If activity was not attempted, code reason: 7-Patient Refused. 9-Not Applicable-not attempted and the patient did not perform the activity before the current illness, exacerbation or injury. 10-Not Attempted due to Environmental Limitations-(lack of equipment, weather restraints, etc.). 88-Not Attempted due to Medical Conditions or Safety Concerns. Roll Left & Right (QC): 5 Sit to Lying (QC): 4 Lying to Sitting/Side of Bed(Q: 5 Sit to Stand (QC): 4 Chair/Gkb-hn-Osrno Xfer(QC): 4 Toilet Transfer (QC): 4 Car Transfer (QC): 4 Weight Bearing Full Weight Bearing Full Weight Bearing Gait Training Does the Patient Walk?: Yes Distance: 150', 150' x2 Walk 10 feet (QC): 5 Walk 50 ft with 2 Turns(QC): 4 Walk 150 ft (QC): 4 Walking 10ft/uneven surface-QC: 4 Gait Persons Needed: 1 Gait Assistive Device: FWW Wheelchair Training Does the Pt Use a Wheelchair?: No Stair Training #of Steps: 1 1 Step (curb) (QC): 4 4 Steps (QC): 88 12 Steps (QC): 88 Stairs: Pattern: Step to Pt needs VC for sequencing and is unsafe for multiple steps. Balance Picking up an Object (QC): 4 Treatments [id number] OT/PT cotreat due to skill of 2 clinicians required which a rehabilitation services aide could not perform in order to decrease fall risk, focus on higher level balance tasks, and due to pt's limitations in strength, activity tolerance, dynamic standing balance, and cues for sequencing. OT focused on UE placement, ADLs, and cues, PT focused on mobility, LE placement, and gross overall movement. Pt transferred from gym to her room, using FWW with SBA. Pt required skilled min skilled verbal cues to locate her room. Pt stood at the sink to wash her hands, SBA with min verbal cues for sequencing. Pt turned towards her R (away from the door), pt was facing the shower requiring another cue to keep turning and face the doorway. Pt transferred to the recliner, nurse present to provide medications. Post tx, pt in recliner, call light in reach and all needs met. [id number]: Pt completes QC scoring items listed above as well as used NuStep for 15m at [facility] 3. Pt also uses BR during tx before resting R sidelying in bed. All needs met, call light in hand. Assessment Current Status: Fair Progress Pt is more confused during tx today and requires increased VC for sequencing & safety. PT Short Term Goals Short Term Goals Time Frame: May 30, 2021 Roll Left & Right: 6 Sit to lyin (CGA) Lying to sitting on side of be: 4 (SBA) Sit to stand: 4 (SBA) Chair/brh-yk-xdrip transfer: 4 (SBA) Walk 10 feet: 4 (SBA) Walk 50 feet with two turns: 4 (SBA) Walk 150 feet: 4 (SBA) PT Stonecutter Apprentice Hand Goals Care Home Goals PT Stonecutter Apprentice Hand Goals Time Frame: Jun 13, 2021 Roll Left & Right (QC): 6 Sit to Lying (QC): 6 Lying-Sitting on Side/Bed(QC): 6 Sit to Stand (QC): 5 Chair/Jso-ey-Owgus Xfer(QC): 5 Toilet Transfer (QC): 5 Car Transfer (QC): 4 Does the Patient Walk: Yes Walk 10 feet (QC): 5 Walk 50ft with 2 Turns (QC): 5 Walk 150 ft (QC): 5 Walking 10ft on Uneven Surface: 5 1 Step (curb) (QC): 4 4 Steps (QC): 4 12 Steps (QC): 88 Picking up an Object (QC): 5 Wheel 50 feet with 2 turns (QC: 9 Wheel 150 feet: 9 PT Plan Problem List Problem List: Activity Tolerance Treatment/Plan Treatment Plan: Continue Plan of Care Treatment Plan: Bed Mobility, Education, Functional Activity Alena, Functional Strength, Group Therapy, Gait, Safety, Therapeutic Exercise, Transfers Treatment Duration: Jun 13, 2021 Frequency: At least 5 of 7 days/Wk (IRF) Estimated Hrs Per Day: 1.5 hours per day Patient and/or Family Agrees t: Yes Safety Risks/Education Patient Education: Transfer Techniques, Correct Positioning, Safety Issues Teaching Recipient: Patient Teaching Methods: Discussion Response to Teaching: Verbalize Understanding, Reinforcement Needed Time/GCodes Time In: 900 Time Out: 1030 Total Billed Treatment Time: 90 Total Billed Treatment 1, GT x2 (25m), FA x3 (45m) & EX (20m) ABDIAZIZ JIMENEZ PTA May 29, 2021 10:30
[2021-05-29 11:15] VITALS: BP 130/62
[2021-05-29] MEDS: amLODIPine 5 MG (NORVASC) TAB PO SCH (11:15)
[2021-05-29 17:52] VITALS: BP 121/60
[2021-05-29] MEDS: ROSUVASTATIN 20 MG (CRESTOR) TABLET PO SCH (20:07)
[2021-05-29] MEDS: MELATONIN 10 MG TABLET PO SCH (20:08)
[2021-05-29 20:34] VITALS: BP 116/73
[2021-05-30] MEDS: polyethylene glycoL POWDER 17 GM (MIRALAX) PACK PO SCH (05:34)
[2021-05-30] MEDS ORDERED: ERTA1VIA IJ (05:45)
[2021-05-30] MEDS ORDERED: FLUC200T5 PO (05:45)
--- NOTE | 2021-05-30 05:46 | Discharge Summary ---
Diagnosis/Chief Complaint Date of Admission May 23, 2021 at 08:42 Date of Discharge Discharge Date: May 30, 2021 Discharge Diagnosis Assessment: Severe weakness Dehydration s/p partial pancreatectomy and splenectomy Infected pancreatic cyst on IV abx via PICC Adrenal insufficiency HTN HLP Depression Chronic debility Intra-abdominal drain in place consulted general surgery Dr Pineda yesterday and Dr Meraz Cognitive deficit SLUMS Plan: PT OT IRF IV abx Dr Pineda consult 05/24/21: Monitor drain IV abx Home meds 05/25/2021: Supportive care IV antibiotics Appreciate general surgery 05/26/21: Monitor closely Repeat CT scan? Fall when she didn't use her call light 05/27/21: IV abx Diflucan Monitor closely Cognitive deficit noted 05/28/21: DC Wednesday05/29/21: Monitor closely (1) Debility (2) Intra-abdominal abscess post-procedure Status: Acute (3) Frequent falls Status: Acute (4) Physical deconditioning Status: Acute (5) Dehydration Status: Acute (6) Hypokalemia Status: Acute (7) Leukocytosis Status: Acute (8) Abdominal pain Status: Acute Discharge Summary Discharge Physical Examination Allergies: Coded Allergies: Sulfa (Sulfonamide Antibiotics) (Verified Allergy, Unknown, 04/08/19) aripiprazole (Verified Allergy, Unknown, 05/22/21) clarithromycin (Verified Allergy, Unknown, 05/22/21) iodine (Verified Allergy, Unknown, 04/08/19) metronidazole (Verified Allergy, Unknown, 04/08/19) mirtazapine (Verified Allergy, Unknown, 05/22/21) Vitals & I&Os Vital Signs Date Time Temp Pulse Resp B/P (MAP) Pulse Ox O2 Delivery O2 Flow Rate FiO2 05/30/21 15:34 37.2 69 18 125/59 90 Room Air General Appearance: Alert, Oriented X3, Cooperative Respiratory: Clear to Auscultation Cardiovascular: Regular Rate Hospital Course Was the Problem List Reviewed?: Yes Hospital course: Patient had a lengthy hospital course. She was maintained on antibiotics per infectious disease from [facility] for intra-abdominal abscess. Drain was monitored by general surgery. All home meds were maintained. Labs remained stable. Overall she did very well and returned back to her baseline with therapy. She had no decompensation during hospital stay. Labs (last 24 hrs) Laboratory Tests 05/23/21 16:13: Glucometer 189H 05/23/21 20:20: Glucometer 127H 05/24/21 04:20: White Blood Count 9.2, Red Blood Count 3.98, Hemoglobin 11.4L, Hematocrit 35, Mean Corpuscular Volume 88, Mean Corpuscular Hemoglobin 29, Mean Corpuscular Hemoglobin Concent 33, Red Cell Distribution Width 15.9H, Platelet Count 310, Mean Platelet Volume 13.2H, Immature Granulocyte % (Auto) 1, Neutrophils (%) (Auto) 46, Lymphocytes (%) (Auto) 42, Monocytes (%) (Auto) 10, Eosinophils (%) (Auto) 0, Basophils (%) (Auto) 1, Neutrophils # (Auto) 4.3, Lymphocytes # (Auto) 3.9, Monocytes # (Auto) 0.9, Eosinophils # (Auto) 0.0, Basophils # (Auto) 0.1, Immature Granulocyte # (Auto) 0.1, Sodium Level 141, Potassium Level 3.7, Chloride Level 107, Carbon Dioxide Level 23, Anion Gap 11, Blood Urea Nitrogen 8, Creatinine 0.82, Estimat Glomerular Filtration Rate 69, BUN/Creatinine Ratio 10, Glucose Level 143H, Calcium Level 9.4, Corrected Calcium 10.4H, Total Bilirubin 0.4, Aspartate Amino Transf (AST/SGOT) 28, Alanine Aminotransferase (ALT/SGPT) 38, Alkaline Phosphatase 140H, Total Protein 5.9L, Albumin 2.8L 05/26/21 05:44: White Blood Count 8.2, Red Blood Count 3.88, Hemoglobin 11.3L, Hematocrit 34L, Mean Corpuscular Volume 87, Mean Corpuscular Hemoglobin 29, Mean Corpuscular Hemoglobin Concent 34, Red Cell Distribution Width 15.9H, Platelet Count 288, Mean Platelet Volume 13.4H, Immature Granulocyte % (Auto) 2, Neutrophils (%) (Auto) 42, Lymphocytes (%) (Auto) 43, Monocytes (%) (Auto) 11, Eosinophils (%) (Auto) 2, Basophils (%) (Auto) 1, Neutrophils # (Auto) 3.4, Lymphocytes # (Auto) 3.5, Monocytes # (Auto) 0.9, Eosinophils # (Auto) 0.2, Basophils # (Auto) 0.1, Immature Granulocyte # (Auto) 0.1, Sodium Level 136, Potassium Level 3.4L, Chloride Level 101, Carbon Dioxide Level 27, Anion Gap 8, Blood Urea Nitrogen 9, Creatinine 0.93, Estimat Glomerular Filtration Rate 60, BUN/Creatinine Ratio 10, Glucose Level 171H, Calcium Level 8.8, Corrected Calcium 9.8, Total Bilirubin 0.4, Aspartate Amino Transf (AST/SGOT) 20, Alanine Aminotransferase (ALT/SGPT) 26, Alkaline Phosphatase 123, Total Protein 5.7L, Albumin 2.8L 05/27/21 10:50: Glucometer 155H 05/27/21 15:39: Glucometer 150H 05/27/21 20:09: Glucometer 147H 05/28/21 11:57: Glucometer 176H 05/29/21 10:40: Glucometer 216H 05/30/21 10:53: Glucometer 173H Pending Labs Laboratory Tests 05/23/21 16:13: Glucometer 189 05/23/21 20:20: Glucometer 127 05/24/21 04:20: White Blood Count 9.2, Red Blood Count 3.98, Hemoglobin 11.4, Hematocrit 35, Mean Corpuscular Volume 88, Mean Corpuscular Hemoglobin 29, Mean Corpuscular Hemoglobin Concent 33, Red Cell Distribution Width 15.9, Platelet Count 310, Mean Platelet Volume 13.2, Immature Granulocyte % (Auto) 1, Neutrophils (%) (Auto) 46, Lymphocytes (%) (Auto) 42, Monocytes (%) (Auto) 10, Eosinophils (%) (Auto) 0, Basophils (%) (Auto) 1, Neutrophils # (Auto) 4.3, Lymphocytes # (Auto) 3.9, Monocytes # (Auto) 0.9, Eosinophils # (Auto) 0.0, Basophils # (Auto) 0.1, Immature Granulocyte # (Auto) 0.1, Sodium Level 141, Potassium Level 3.7, Chloride Level 107, Carbon Dioxide Level 23, Anion Gap 11, Blood Urea Nitrogen 8, Creatinine 0.82, Estimat Glomerular Filtration Rate 69, BUN/Creatinine Ratio 10, Glucose Level 143, Calcium Level 9.4, Corrected Calcium 10.4, Total Bilirubin 0.4, Aspartate Amino Transf (AST/SGOT) 28, Alanine Aminotransferase (ALT/SGPT) 38, Alkaline Phosphatase 140, Total Protein 5.9, Albumin 2.8 05/26/21 05:44: White Blood Count 8.2, Red Blood Count 3.88, Hemoglobin 11.3, Hematocrit 34, Mean Corpuscular Volume 87, Mean Corpuscular Hemoglobin 29, Mean Corpuscular Hemoglobin Concent 34, Red Cell Distribution Width 15.9, Platelet Count 288, Mean Platelet Volume 13.4, Immature Granulocyte % (Auto) 2, Neutrophils (%) (Auto) 42, Lymphocytes (%) (Auto) 43, Monocytes (%) (Auto) 11, Eosinophils (%) (Auto) 2, Basophils (%) (Auto) 1, Neutrophils # (Auto) 3.4, Lymphocytes # (Auto) 3.5, Monocytes # (Auto) 0.9, Eosinophils # (Auto) 0.2, Basophils # (Auto) 0.1, Immature Granulocyte # (Auto) 0.1, Sodium Level 136, Potassium Level 3.4, Chloride Level 101, Carbon Dioxide Level 27, Anion Gap 8, Blood Urea Nitrogen 9, Creatinine 0.93, Estimat Glomerular Filtration Rate 60, BUN/Creatinine Ratio 10, Glucose Level 171, Calcium Level 8.8, Corrected Calcium 9.8, Total Bilirubin 0.4, Aspartate Amino Transf (AST/SGOT) 20, Alanine Aminotransferase (ALT/SGPT) 26, Alkaline Phosphatase 123, Total Protein 5.7, Albumin 2.8 05/27/21 10:50: Glucometer 155 05/27/21 15:39: Glucometer 150 05/27/21 20:09: Glucometer 147 05/28/21 11:57: Glucometer 176 05/29/21 10:40: Glucometer 216 05/30/21 10:53: Glucometer 173 Discharge Home Medications: Active Scripts Active Invanz (Ertapenem) 1,000 Mg Vial 1,000 Mg IJ DAILY FILLED 05-14-2021 #14/14 DAY SUPPLY Fluconazole 200 Mg Tablet 400 Mg PO DAILY FILLED 05-15-2021 #60/ DAY SUPPLY Reported Lantus Solostar (Insulin Glargine,Hum.rec.anlog) 100 Unit/1 Ml Insuln.pen 15 Unit SQ DAILY LAST FILLED 08-16-2020 #15 PENS Colace (Docusate Sodium) 100 Mg Capsule 100 Mg PO DAILY Tramadol HCl 50 Mg Tablet 50 Mg PO Q6H PRN Spironolactone 25 Mg Tablet 25 Mg PO DAILY Miralax (Polyethylene Glycol 3350) 17 Gm Powd.pack 17 Gm PO DAILY Rosuvastatin Calcium 20 Mg Tablet 10 Mg PO HS TAKES OF A 20MG TAB LAST FILLED 08-16-2020 #45/90 DAY SUPPLY Oxybutynin Chloride ER (Oxybutynin Chloride) 15 Mg Tab.er.24 15 Mg PO DAILY LAST FILLED 09-04-2020 #90/90 DAY SUPPLY Pantoprazole Sodium 40 Mg Tablet.dr 40 Mg PO DAILY Nystatin 15 Gm Cream..g. 1 Applic TP BID Melatonin 10 Mg Tablet 10 Mg PO HS Losartan Potassium 100 Mg Tablet 50 Mg PO BID TAKES OF A 100MG TAB Linzess (Linaclotide) 290 Mcg Capsule 290 Mcg PO Q48H Levothyroxine Sodium 100 Mcg Tablet 100 Mcg PO DAILY Hydrocortisone 5 Mg Tablet 10 Mg PO HS TAKES 2 (5MG) TABS Hydrocortisone 5 Mg Tablet 15 Mg PO DAILY TAKES 3 (5MG) TABS Hydrocodone-Acetamin 5-325 mg (Hydrocodone/Acetaminophen) 1 Each Tablet 1 Ea PO Q8H PRN Duloxetine HCl 30 Mg Capsule.dr 60 Mg PO DAILY TAKES 2 (30MG) CAPS Coreg (Carvedilol) 12.5 Mg Tablet 6.25 Mg PO BID WITH MEALS TAKES OF A 12.5MG TAB Amlodipine Besylate 10 Mg Tablet 5 Mg PO 1200 TAKES OF A 10MG TAB Alprazolam 0.5 Mg Tablet 0.5 Mg PO HS PRN Insulin Lispro Kwikpen U-100 (Insulin Lispro) 100 Unit/1 Ml Insuln.pen Units SC AC MDD 40 UNITS INJECT 3 UNITS FOR EVERY 50 POINTS OVER 150 Ondansetron Odt (Ondansetron) 4 Mg Tab.rapdis 4 Mg PO Q8H PRN Repaglinide 2 Mg Tablet 2-4 Mg PO TIDWM TAKES 1 TO 2 (2MG) TABS Instructions to patient/family Please see electronic discharge instructions given to patient. Diagnosis/Problems Diagnosis/Problems (1) Debility (2) Intra-abdominal abscess post-procedure Status: Acute (3) Frequent falls Status: Acute (4) Physical deconditioning Status: Acute (5) Dehydration Status: Acute (6) Hypokalemia Status: Acute (7) Leukocytosis Status: Acute (8) Abdominal pain Status: Acute WILEY,UMM DO May 30, 2021 05:46
--- NOTE | 2021-05-30 05:46 | D/C HH Face to Face Order ---
D/C HH Face to Face Orders Reconcile Patient Problems Problems Reviewed?: Yes Instructions for Patient HH Patient Instructions/FollowUp: PCP 1 week Physician to follow Patient: Self Discharge Diet for Home: ADA Diet Patient Problems: Intra-abdominal abscess Patient Data-Allergies,Ht & Wt Patient Allergies: Coded Allergies: Sulfa (Sulfonamide Antibiotics) (Verified Allergy, Unknown, 04/08/19) aripiprazole (Verified Allergy, Unknown, 05/22/21) clarithromycin (Verified Allergy, Unknown, 05/22/21) iodine (Verified Allergy, Unknown, 04/08/19) metronidazole (Verified Allergy, Unknown, 04/08/19) mirtazapine (Verified Allergy, Unknown, 05/22/21) Home Health Need/Face to Face Date of Face to Face: May 30, 2021 Clinical Findings: Generalized weakness and fatigue, Muscle weakness, Unsteady gait I have seen Pt [id number]: Yes Discharged To: Home Diagnosis/Conditions: Abscess Patient is Homebound due to: CognItive deficits, Muscle weakness Homebound Status Due to the above stated illness, injury or surgical procedure (medical condition or diagnosis) and associated clinical findings, the patient is homebound because of his/her inability to leave home except with aid of a supportive device and/or person AND leaving the home requires a considerable and taxing effort or is medically contraindicated. Pt req the following assistanc: Walker Home Health Nursing Orders Home Health Services Order: Nursing Services, Natural History Collections Curator-Evaluate & Tr eat, Physical Therapy-Evaluate & Treat Certify Stmt I certify that this patient is under my care and that I, a nurse practitioner or a physician; a election assistant working with me, had a face to face encounter that - meets the physician face to face encounter requirements with this patient as dated. UMM WILEY DO May 30, 2021 05:46
[2021-05-30] MEDS: HYDROCORTISONE 20 MG (CORTEF) TAB PO SCH (06:05)
[2021-05-30] MEDS: inSUlin ASPART (NovoLOG) 1 UNIT/0.01 ML (CHARGE PER UNIT) SC SCH ×2 (06:05→11:52)
[2021-05-30] MEDS: LEVOTHYROXINE 100 MCG (LEVOTHROID) TAB PO SCH (06:05)
[2021-05-30 07:23] VITALS: BP 125/59
[2021-05-30] MEDS: PANTOPRAZOLE 40 MG (PROTONIX) TAB PO SCH (08:28)
[2021-05-30] MEDS: SENNA W/DOCUSATE (SENOKOT S) TABLET PO SCH (08:28)
[2021-05-30] MEDS: DULoxetine 30 MG (CYMBALTA) CAP PO SCH (08:28)
[2021-05-30] MEDS: SPIRONOLACTONE 25 MG (ALDACTONE) TAB PO SCH (08:28)
[2021-05-30] MEDS: LOSARTAN 50 MG (COZAAR) TAB PO SCH (08:29)
[2021-05-30] MEDS: fluCOnazole (DIFLUCAN) 100 MG TAB PO SCH (08:29)
[2021-05-30] MEDS: OXYBUTYNIN (DITROPAN) 5 MG TAB PO SCH ×2 (08:29→11:52)
[2021-05-30] MEDS: REPAGLINIDE 2 MG PO SCH ×2 (08:29→11:52)
[2021-05-30] MEDS: DOCUSATE SODIUM 100 MG (COLACE) CAP PO SCH (08:30)
[2021-05-30] MEDS: NYSTATIN CREAM (MYCOSTATIN) 30 GM TUBE TP SCH (08:30)
[2021-05-30] MEDS: ERTAPENEM 1 GM/NS 50 ML IVPB IV SCH ×2 (08:32)
--- NOTE | 2021-05-30 09:21 | Therapy Team Discharge Summary ---
Therapy Discharge Summary Discharge Recommendations Date of Discharge Occupational Therapy Pt admitted to ARU with debility. At PLOF pt was independent with all ADLs except for footwear and independent with functional mobility. At [facility], pt was independent with eating, required SBA oral care, min A showering and upper body dressing, CGA lower body dressing, mod A footwear and min A toileting. OT tx focused on increasing BUE Strength and activity tolerance, and increasing safety and independence with ADLs and functional mobility. At discharge, pt was independent with eating and toileting, required SBA with oral care, min A showering, and set up with upper/lower body dressing and footwear. Pt made functional progress towards goals, only attaining LTGs for eating, footwear and toileting. No further equipment recommendations at this time. Pt to discharge from facility, d/c from OT. Decreased Activ Tolerance, Decreased UE Strength, Impaired Cognition, Impaired Funct Balance, Impaired I ADL's, Impaired Self-Care Skills, Restricted Funct UE ROM PT Prison Goals Big Data Hadoop Developer Goals PT Big Data Hadoop Developer Goals Time Frame: Jun 13, 2021 Roll Left to Right (QC): 6 Sit to Lying (QC): 6 Lying-Sitting on Side/Bed(QC): 6 Sit to Stand (QC): 5 Chair/Arf-he-Mlspm Xfer(QC): 5 Car Transfer (QC): 4 Does the Patient Walk: Yes Walk 10 feet (QC): 5 Walk 10ft-Uneven Surface(QC): 5 Walk 50ft with 2 Turns (QC): 5 Walk 150 ft (QC): 5 Wheel 50 feet with 2 turns (QC: 9 1 Step (curb) (QC): 4 4 Steps (QC): 4 12 Steps (QC): 88 Picking up an Object (QC): 5 OT Prison Goals Prison Goals Time Frame: Jun 13, 2021 Eating (QC): 6 (met) Oral Hygiene (QC): 6 (not met) Shower/Bathe Self (QC): 6 (not met) Upper Body Dressing (QC): 6 (not met) Lower Body Dressing (QC): 6 (not met) On/Off Footwear (QC): 4 (met) Toileting Hygiene (QC): 6 (met) Toilet/Commode Transfer (QC): 5 Additional Goals: 1-Demonstrate ADL Tasks, 2-Verbalize Understanding, 3- ImproveStrength/Alena 1=Demonstrate adherence to instructed precautions during ADL tasks. 2=Patient will verbalize/demonstrate understanding of assistive devices/modifications for ADL. 3=Patient will improve strength/tolerance for activity to enable patient to perform ADL's. Speech Prison Goals Big Data Hadoop Developer Goals 1. The patient will demonstrate improved cognitive linguistic skills for increased safety and independence with ADL's in the least restrictive environment. Time Frame: Three Weeks. DELMAR MONTES OT May 30, 2021 09:21
[2021-05-30] MEDS: amLODIPine 5 MG (NORVASC) TAB PO SCH (11:51)
--- NOTE | 2021-05-30 15:11 | Therapy Team Discharge Summary ---
Therapy Discharge Summary Discharge Recommendations Date of Discharge Physical Therapy Patient came to rehab with debility. Upon evaluation patient performed rolling with independence, supine to sit SBA, sit to supine min assist (although she can go forward into bed with SBA), sit <-> stand CGA, transfers CGA, car transfer min assist, ambulated 150' with a rolling walker with CGA (including 50' with at least 2 turns of 90 degrees and 10' over an uneven surface), went up and down 1 step using a rolling walker with min assist, and picked up an object from the floor with CGA using a nurse assessor. Patient has been performing bed mobility and transfer training, balance and endurance training, functional strengthening, stair training, gait training, and education. Patient has made some progress but has not met any of her long wall shear operator goals. Now, patient performs rolling with setup, supine to sit with setup, sit to supine SBA, transfers SBA/CGA, car guo sfer SBA/CGA, ambulates 150' with a rolling walker with CGA (including 50' with at least 2 turns of 90 degrees and 10' over an uneven surface), can go up and down 1 step using 2 handrails with CGA, and can picker and sorter load and unload an object from the floor with CGA using a nurse assessor. Patient is being discharged from this facility today and will be discharged from PT at this time. Occupational Therapy Decreased Activ Tolerance, Decreased UE Strength, Impaired Cognition, Impaired Funct Balance, Impaired I ADL's, Impaired Self-Care Skills, Restricted Funct UE ROM PT Halfway Goals Halfway Goals PT Halfway Goals Time Frame: Jun 13, 2021 Roll Left to Right (QC): 6 Sit to Lying (QC): 6 Lying-Sitting on Side/Bed(QC): 6 Sit to Stand (QC): 5 Chair/Npq-hw-Iwdcj Xfer(QC): 5 Car Transfer (QC): 4 Does the Patient Walk: Yes Walk 10 feet (QC): 5 Walk 10ft-Uneven Surface(QC): 5 Walk 50ft with 2 Turns (QC): 5 Walk 150 ft (QC): 5 Wheel 50 feet with 2 turns (QC: 9 1 Step (curb) (QC): 4 4 Steps (QC): 4 12 Steps (QC): 88 Picking up an Object (QC): 5 OT Halfway Goals Agriculture Extension Specialist Goals Time Frame: Jun 13, 2021 Eating (QC): 6 (met) Oral Hygiene (QC): 6 (not met) Shower/Bathe Self (QC): 6 (not met) Upper Body Dressing (QC): 6 (not met) Lower Body Dressing (QC): 6 (not met) On/Off Footwear (QC): 4 (met) Toileting Hygiene (QC): 6 (met) Toilet/Commode Transfer (QC): 5 Additional Goals: 1-Demonstrate ADL Tasks, 2-Verbalize Understanding, 3- ImproveStrength/Alena 1=Demonstrate adherence to instructed precautions during ADL tasks. 2=Patient will verbalize/demonstrate understanding of assistive devices/modifications for ADL. 3=Patient will improve strength/tolerance for activity to enable patient to perform ADL's. Speech Agriculture Extension Specialist Goals Halfway Goals 1. The patient will demonstrate improved cognitive linguistic skills for increased safety and independence with ADL's in the least restrictive environment. Time Frame: Three Weeks. BREEZY DEWEY PT May 30, 2021 15:11
[2021-05-30 15:34] VITALS: BP 125/59
== END 2021-05-30 13:40 | disposition home health service (06) | DRG 949 ==
PROVIDERS: ADMIT Internal Medicine; ATTEND Internal Medicine
DX: T81.43XD Infection following a procedure, organ and space surgical site, subsequent encounter (principal); E27.40 Unspecified adrenocortical insufficiency; R53.1 Weakness; I10 Essential (primary) hypertension; E78.00 Pure hypercholesterolemia, unspecified; E11.40 Type 2 diabetes mellitus with diabetic neuropathy, unspecified; E78.5 Hyperlipidemia, unspecified; F32.A Depression, unspecified; R41.89 Other symptoms and signs involving cognitive functions and awareness; H54.3 Unqualified visual loss, both eyes; Z79.4 Long term (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; Z79.84 Long term (current) use of oral hypoglycemic drugs; Z90.411 Acquired partial absence of pancreas; Z90.81 Acquired absence of spleen; Z85.118 Personal history of other malignant neoplasm of bronchus and lung; Z85.841 Personal history of malignant neoplasm of brain; Z88.1 Allergy status to other antibiotic agents; Z88.2 Allergy status to sulfonamides; Z88.8 Allergy status to other drugs, medicaments and biological substances
CPT/HCPCS: 36415; 80053; 82947; 85025

== ENCOUNTER → 2021-08-06 | Outpatient (CLI) | payer MEDICARE ==
[~2021-08-06] MED LIST changes: -ALPRAZolam 0.25 MG (XANAX) TAB PO PRN; -BISACODYL 10 MG SUPP (DULCOLAX) PR PRN; -CALCIUM CARBONATE 500 MG (TUMS) TAB.CHEW PO PRN; -DOCUSATE SODIUM 100 MG (COLACE) CAP PO PRN; -FLEET ENEMA ADULT 1 EA BTL PR PRN; -FLUC200T5 PO; +FLUC200T9 PO; -LACTULOSE SYRUP 10GM/15ML (ENULOSE) 30ML UDC PO PRN; -LOPERAMIDE 2 MG (IMODIUM) TABLET PO PRN; -MELATONIN 3 MG TABLET PO PRN; -ONDANSETRON 4 MG (ZOFRAN) ORAL DISSOLVE TAB PO PRN; -diphenhydrAMINE 25 MG TAB (BENADRYL) PO PRN; -guaiFENesin/CODEINE (ROBITUSSIN AC) 10ML UDC PO PRN
[2021-08-06 13:50] LABS: BASOPHILS # (AUTO) 0.1 10^3/uL (0.0-0.1); BASOPHILS % (AUTO) 1 % (0-10); EOSINOPHILS # (AUTO) 0.1 10^3/uL (0.0-0.3); EOSINOPHILS % (AUTO) 1 % (0-10); HEMATOCRIT 36 % (35-52); HEMOGLOBIN 11.7 g/dL (11.5-16.0); LYMPHOCYTES # (AUTO) 2.4 10^3/uL (1.0-4.0); LYMPHOCYTES % (AUTO) 24 % (12-44); MEAN CORPUSCULAR HEMOGLOBIN 29 pg (25-34); MEAN CORPUSCULAR HGB CONC 33 g/dL (32-36); MEAN CORPUSCULAR VOLUME 88 fL (80-99); MEAN PLATELET VOLUME 12.9 fL (9.0-12.2); MONOCYTES # (AUTO) 0.9 10^3/uL (0.0-1.0); MONOCYTES % (AUTO) 9 % (0-12); NEUTROPHILS # (AUTO) 6.5 10^3/uL (1.8-7.8); NEUTROPHILS % (AUTO) 64 % (42-75); PLATELET COUNT 313 10^3/uL (130-400); WHITE BLOOD COUNT 10.2 10^3/uL (4.3-11.0)
[2021-08-06 14:06] LABS: ALBUMIN 3.9 GM/DL (3.2-4.5); BILIRUBIN,TOTAL 0.4 MG/DL (0.1-1.0); CALCIUM 10.2 MG/DL (8.5-10.1); CREATININE SERUM 1.42 MG/DL (0.60-1.30); POTASSIUM 4.3 MMOL/L (3.6-5.0); TOTAL PROTEIN 6.7 GM/DL (6.4-8.2)
--- NOTE | 2021-08-06 15:13 | Diagnostic Imaging Report ---
PROCEDURE: CT abdomen and pelvis without contrast. TECHNIQUE: Multiple contiguous axial images were obtained through the abdomen and pelvis without the use of intravenous contrast. Auto Exposure Controls were utilized during the CT exam to meet ALARA standards for radiation dose reduction. INDICATION: Pancreatic fistula. COMPARISON: Correlation is made with prior CT from 05/08/2021. FINDINGS: The lung bases are clear. The liver is unremarkable. Gallbladder contains small stones. There is no biliary ductal dilatation. Postoperative changes to the pancreas are again noted. The spleen has been surgically removed. The previously noted pigtail drain in the left upper quadrant has been removed. The small fluid collections in the region of the pancreatic head and antrum of the stomach have resolved. There is some residual linear density which extends from the location of the former fluid collection inferior to the antrum of the stomach towards the anterior abdominal wall right paramidline location. This could represent a fistula. No residual or recurrent fluid collections are identified. No adrenal mass is detected. Kidneys are unremarkable. Aorta is nonaneurysmal. Bowel loops are nonobstructed. There is some diverticulosis of the sigmoid but no evidence of acute diverticulitis. Bladder is decompressed. The uterus appears to be surgically absent. IMPRESSION: 1. Cholelithiasis. 2. Removal of left upper quadrant pigtail drain. 3. Previously noted fluid collections in the region of the pancreatic bed and just inferior to the antrum of the stomach have resolved. There is, however, some residual density extending from just below the antrum of the stomach towards the anterior abdominal wall right paramidline location, which could represent a fistulous tract. No residual or recurrent fluid collections are identified. Dictated by: Dictated on workstation # [id number]
== END ==
LOC: LAB FS 13:22
PROVIDERS: ATTEND Transplant Surgery
DX: K86.1 Other chronic pancreatitis (principal); K86.89 Other specified diseases of pancreas; D49.0 Neoplasm of unspecified behavior of digestive system
CPT/HCPCS: 36415; 74176; 80053; 85025

== ENCOUNTER 2021-11-19 14:23 | Emergency (ER) | payer MEDICARE ==
[~2021-11-19] VITALS: Ht 152 cm; Wt 90.0 kg
--- NOTE | 2021-11-19 14:41 | ED Abdominal Pain ---
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 It started about a week ago and worsened a couple days ago. Has nausea but no vomiting with it. She is unsure if she has had a fever. Had loose stools yesterday. Of note, the patient had been admitted to the hospital for a couple months and have been on antibiotics for roughly 3 months to shrink a fluid collection in her abdomen near her pancreas where she had surgery. As far she knows, things have been going well and the fluid collection had stabilized worse trunk. She has not had any recent fevers that she knows of. She says this does not feel like that same type of pain. Allergies and Home Medications Allergies Coded Allergies: Sulfa (Sulfonamide Antibiotics) (Verified Allergy, Unknown, 04/08/19) aripiprazole (Verified Allergy, Unknown, 05/22/21) clarithromycin (Verified Allergy, Unknown, 05/22/21) iodine (Verified Allergy, Unknown, 04/08/19) metronidazole (Verified Allergy, Unknown, 04/08/19) mirtazapine (Verified Allergy, Unknown, 05/22/21) Patient Home Medication List Home Medication List Reviewed: Yes Alprazolam (Alprazolam) 0.5 Mg Tablet, 0.5 MG PO HS PRN for SLEEP, (Reported) Entered as Reported by: NIKO KIM on 05/22/21 1016 Amlodipine Besylate (Amlodipine Besylate) 10 Mg Tablet, 5 MG PO 1200, (Reported) Entered as Reported by: NIKO KIM on 05/22/21 1016 Carvedilol (Coreg) 12.5 Mg Tablet, 6.25 MG PO BID WITH MEALS, (Reported) Entered as Reported by: NIKO KIM on 05/22/21 1016 Docusate Sodium (Colace) 100 Mg Capsule, 100 MG PO DAILY, (Reported) Entered as Reported by: NIKO KIM on 05/22/21 1016 Duloxetine HCl (Duloxetine HCl) 30 Mg Capsule.dr, 60 MG PO DAILY, (Reported) Entered as Reported by: NIKO KIM on 05/22/21 1016 Ertapenem (Invanz) 1,000 Mg Vial, 1,000 MG IJ DAILY Prescribed by: UMM WILEY on 05/30/21544 Fluconazole (Fluconazole) 200 Mg Tablet, 400 MG PO DAILY Prescribed by: MUM WILEY on 05/30/21 0545 Hydrocodone/Acetaminophen (Hydrocodone-Acetamin 5-325 mg) 1 Each Tablet, 1 EA PO Q8H PRN for PAIN-MODERATE (5-7), (Reported) Entered as Reported by: NIKO KIM on 05/22/21 1016 Hydrocortisone (Hydrocortisone) 5 Mg Tablet, 15 MG PO DAILY, (Reported) Entered as Reported by: NIKO KIM on 05/22/21 1016 Hydrocortisone (Hydrocortisone) 5 Mg Tablet, 10 MG PO HS, (Reported) Entered as Reported by: NIKO KIM on 05/22/21 1016 Insulin Glargine,Hum.rec.anlog (Lantus Solostar) 100 Unit/1 Ml Insuln.pen, 15 UNIT SQ DAILY, (Reported) Entered as Reported by: NIKO KIM on 05/22/21 1047 Insulin Lispro (Insulin Lispro Kwikpen U-100) 100 Unit/1 Ml Insuln.pen, UNITS SC AC, (Reported) Entered as Reported by: NIKO KIM on 05/22/21 1016 Levothyroxine Sodium (Levothyroxine Sodium) 100 Mcg Tablet, 100 MCG PO DAILY, (Reported) Entered as Reported by: NIKO KIM on 05/22/21 1016 Linaclotide (Linzess) 290 Mcg Capsule, 290 MCG PO Q48H, (Reported) Entered as Reported by: NIKO KIM on 05/22/21 1016 Losartan Potassium (Losartan Potassium) 100 Mg Tablet, 50 MG PO BID, (Reported) Entered as Reported by: NIKO KIM on 05/22/21 1016 Melatonin (Melatonin) 10 Mg Tablet, 10 MG PO HS, (Reported) Entered as Reported by: NIKO KIM on 05/22/21 1016 Nystatin (Nystatin) 15 Gm Cream..g., 1 APPLIC TP BID, (Reported) Entered as Reported by: NIKO KIM on 05/22/21 1016 Ondansetron (Ondansetron Odt) 4 Mg Tab.rapdis, 4 MG PO Q8H PRN for NAUSEA/VOMITING-1ST LINE, (Reported) Entered as Reported by: NIKO KIM on 05/22/21 1016 Oxybutynin Chloride (Oxybutynin Chloride ER) 15 Mg Tab.er.24, 15 MG PO DAILY, (Reported) Entered as Reported by: NIKO KIM on 05/22/21 1016 Pantoprazole Sodium (Pantoprazole Sodium) 40 Mg Tablet.dr, 40 MG PO DAILY, (Reported) Entered as Reported by: NIKO KIM on 05/22/21 1016 Polyethylene Glycol 3350 (Miralax) 17 Gm Powd.pack, 17 GM PO DAILY, (Reported) Entered as Reported by: NIKO KIM on 05/22/21 1016 Repaglinide (Repaglinide) 2 Mg Tablet, 2-4 MG PO TIDWM, (Reported) Entered as Reported by: NIKO KIM on 05/22/21 1016 Rosuvastatin Calcium (Rosuvastatin Calcium) 20 Mg Tablet, 10 MG PO HS, (Reported) Entered as Reported by: NIKO KIM on 05/22/21 1016 Spironolactone (Spironolactone) 25 Mg Tablet, 25 MG PO DAILY, (Reported) Entered as Reported by: NIKO KIM on 05/22/21 1016 Tramadol HCl (Tramadol HCl) 50 Mg Tablet, 50 MG PO Q6H PRN for PAIN-MODERATE (5- 7), (Reported) Entered as Reported by: NIKO KIM on 05/22/21 1016 Review of Systems Review of Systems Constitutional: No fever EENTM: No Blurred Vision Respiratory: Denies Cough Cardiovascular: Denies Chest Pain Gastrointestinal: Abdominal Pain, Nausea; Denies Vomiting Genitourinary: No Symptoms Reported Musculoskeletal: no symptoms reported Skin: no symptoms reported Psychiatric/Neurological: No Symptoms Reported Endocrine: No Symptoms Reported Hematologic/Lymphatic: No Symptoms Reported All Other Systems Reviewed Negative Unless Noted: Yes Past Vtcgdfm-Lmilta-Manlng Hx Patient Social History Tobacco Use?: No Use of E-Cig and/or Vaping dev: No Substance use?: No Alcohol Use?: No Pt feels they are or have been: Unable to obtain Immunizations Up To Date Tetanus Booster (TDap): Unknown First/Initial COVID19 Vaccinat: Second COVID19 Vaccination [place]: july COVID19 Vaccination Date: february Seasonal Allergies Seasonal Allergies: Yes Past Medical History Surgeries: Yes Abdominal, Eye Surgery, Neurological, Pancreatic Respiratory: No Cardiac: Yes High Cholesterol, Hypertension Neurological: Yes (hx of brain tumor) Headaches /Migraines, Neuropathy Genitourinary: No Gastrointestinal: Yes Colitis, Gastroesophageal Reflux, Gastrointestinal Bleed Musculoskeletal: Yes Chronic Back Pain Endocrine: Yes Adrenal Disease, Diabetes, Insulin dep HEENT: Yes Cataract Loss of Vision: Bilateral Hearing Impairment: Denies Cancer: Yes Brain, Lung Psychosocial: No Depression Integumentary: No Blood Disorders: No Family Medical History Cancer, Hypertension Physical Exam Vital Signs Vital Signs - First Documented 11/19/21 14:36 Temp 37.3 Pulse 76 Resp 18 B/P (MAP) 156/66 (96) Pulse Ox 96 O2 Delivery Room Air Capillary Refill : Height/Weight/BMI Height: '" Weight: lbs. oz. kg; 92.65 BMI Method: General Appearance: WD/WN, no apparent distress HEENT: PERRL/EOMI, normal ENT inspection, pharynx normal Neck: non-tender, full range of motion, supple, normal inspection Respiratory: chest non-tender, lungs clear, normal breath sounds, no respiratory distress, no accessory muscle use Cardiovascular: regular rate, rhythm, no edema, no murmur Gastrointestinal: normal bowel sounds, soft; No guarding, No rebound; tenderness Extremities: normal range of motion, non-tender, normal inspection, no pedal edema, no calf tenderness, normal capillary refill Back: normal inspection, no CVA tenderness Neurologic/Psychiatric: no motor/sensory deficits, alert, normal mood/affect Skin: normal color, warm/dry Lymphatic: no adenopathy Focused Exam Lactate Level 11/19/21 15:00: Lactic Acid Level 1.94 Lactic Acid Level Laboratory Tests Test 11/19/21 15:00 Lactic Acid Level 1.94 MMOL/L (0.50-2.00) Progress/Results/Core Measures Results/Orders Lab Results Laboratory Tests Test 11/19/21 14:40 11/19/21 15:00 Range/Units White Blood Count 11.3 H 4.3-11.0 10^3/uL Red Blood Count 4.09 3.80-5.11 10^6/uL Hemoglobin 12.1 11.5-16.0 g/dL Hematocrit 36 35-52 % Mean Corpuscular Volume 88 80-99 fL Mean Corpuscular Hemoglobin 30 25-34 pg Mean Corpuscular Hemoglobin Concent 34 32-36 g/dL Red Cell Distribution Width 13.6 10.0-14.5 % Platelet Count 337 130-400 10^3/uL Mean Platelet Volume 11.8 9.0-12.2 fL Immature Granulocyte % (Auto) 1 % Neutrophils (%) (Auto) 65 42-75 % Lymphocytes (%) (Auto) 25 12-44 % Monocytes (%) (Auto) 8 0-12 % Eosinophils (%) (Auto) 0 0-10 % Basophils (%) (Auto) 1 0-10 % Neutrophils # (Auto) 7.3 1.8-7.8 10^3/uL Lymphocytes # (Auto) 2.8 1.0-4.0 10^3/uL Monocytes # (Auto) 0.9 0.0-1.0 10^3/uL Eosinophils # (Auto) 0.1 0.0-0.3 10^3/uL Basophils # (Auto) 0.1 0.0-0.1 10^3/uL Immature Granulocyte # (Auto) 0.1 0.0-0.1 10^3/uL Prothrombin Time 12.7 12.2-14.7 SEC INR Comment 0.9 0.8-1.4 Sodium Level 140 135-145 MMOL/L Potassium Level 4.1 3.6-5.0 MMOL/L Chloride Level 107 98-107 MMOL/L Carbon Dioxide Level 20 L 21-32 MMOL/L Anion Gap 13 5-14 MMOL/L Blood Urea Nitrogen 22 H 7-18 MG/DL Creatinine 1.48 H 0.60-1.30 MG/DL Estimat Glomerular Filtration Rate 38 BUN/Creatinine Ratio 15 Glucose Level 125 H 70-105 MG/DL Calcium Level 9.9 8.5-10.1 MG/DL Corrected Calcium 9.8 8.5-10.1 MG/DL Total Bilirubin 0.3 0.1-1.0 MG/DL Aspartate Amino Transf (AST/SGOT) 18 5-34 U/L Alanine Aminotransferase (ALT/SGPT) 15 0-55 U/L Alkaline Phosphatase 103 40-136 U/L C-Reactive Protein < 0.30 <0.50 MG/DL Total Protein 6.9 6.4-8.2 GM/DL Albumin 4.1 3.2-4.5 GM/DL Lipase 24 8-78 U/L Lactic Acid Level 1.94 0.50-2.00 MMOL/L My Orders Orders - GURINDER BENEDICT MD Cbc With Automated Diff (11/19/21 14:50) Comprehensive Metabolic Panel (11/19/21 14:50) Lactic Acid Analyzer (11/19/21 14:50) Lipase (11/19/21 14:50) Protime With Inr (11/19/21 14:50) Crp Fs (11/19/21 14:50) Ct Abdomen/Pelvis Wo (11/19/21 14:50) Ondansetron Injection (Zofran Injectio (11/19/21 15:00) Famotidine Tablet (Pepcid Tablet) (11/19/21 14:50) Hyoscyamine Sl Tablet (Levsin Sl Tablet) (11/19/21 15:00) Ed Iv/Invasive Line Start (11/19/21 14:50) Acetaminophen Tablet (Tylenol Tablet) (11/19/21 15:00) Oxycodone Immediate Rel Tablet (Oxyir Ta (11/19/21 15:08) Medications Given in ED Current Medications Medications Dose Ordered Sig/Constantino Route Start Time Stop Time Status Last Admin Dose Admin Hyoscyamine Sulfate 0.125 mg ONCE ONCE SL 11/19/21 15:00 11/19/21 15:01 DC 11/19/21 14:59 0.125 MG Vital Signs/I&O 11/19/21 14:36 Temp 37.3 Pulse 76 Resp 18 B/P (MAP) 156/66 (96) Pulse Ox 96 O2 Delivery Room Air Progress Progress Note : Progress Note 71-year-old female with above history coming in due to abdominal pain with nausea. ABCs were intact and vitals were stable on presentation. Physical exam with some minimal right-sided tenderness with no signs of peritonitis. Basic labs obtained including white blood cell count around 11, normal lactic, undetectable CRP, creatinine around 1.4 which the patient states is her new baseline. CT abdomen and pelvis ordered with no concerning findings including no new fluid collections. She does have gallstones with no signs of cholecystitis. Given her pain that was shortly after her fatty meal, I think is highly likely she has symptomatic cholelithiasis. I will give her information on how to follow-up as an outpatient with Dr. Hoover. Patient is afebrile here. The patient was offered pain medicine and nausea medicine but she refused stating her pain and nausea are not that bad. I believe she is stable for discharge with outpatient follow-up. She was sent home with strict return precautions Departure Impression Primary Impression: Abdominal pain Qualified Codes: R10.13 - Epigastric pain Additional Impressions: Nausea alone Symptomatic cholelithiasis Disposition: HOME, SELF-CARE Condition: Stable Departure-Patient Inst. Decision time for Depature: 16:07 Referrals: JAMEY CARLISLE MD (PCP) Primary Care Physician DINA HOOVER DO Patient Instructions: Gallstones ED Add. Discharge Instructions: Your labs look reassuring and it does not appear like you have a reaccumulation of the fluid or infection. You do have gallstones, but it does not look like you are gallbladder is infected. He likely have what is called symptomatic cholelithiasis which will cause pain anytime you eat a fatty meal, and typically will get better within hours after eating. If things persist, I want you to follow-up with Dr. Hoover, the surgeon in [place] to discuss this case and to see if getting her gallbladder out may help your symptoms. Follow-up with your regular doctor as scheduled. Work/School Note: Work Release Form Date Seen in the Emergency Department: Nov 19, 2021 Return to Work: Nov 21, 2021 Restrictions: No Restrictions GURINDER BENEDICT MD Nov 19, 2021 14:41
[2021-11-19] MEDS ORDERED: FAMOTIDINE 20 MG (PEPCID) TABLET PO STA (14:50)
[2021-11-19 14:58] LABS: BASOPHILS # (AUTO) 0.1 10^3/uL (0.0-0.1); BASOPHILS % (AUTO) 1 % (0-10); EOSINOPHILS # (AUTO) 0.1 10^3/uL (0.0-0.3); EOSINOPHILS % (AUTO) 0 % (0-10); HEMATOCRIT 36 % (35-52); HEMOGLOBIN 12.1 g/dL (11.5-16.0); LYMPHOCYTES # (AUTO) 2.8 10^3/uL (1.0-4.0); LYMPHOCYTES % (AUTO) 25 % (12-44); MEAN CORPUSCULAR HEMOGLOBIN 30 pg (25-34); MEAN CORPUSCULAR HGB CONC 34 g/dL (32-36); MEAN CORPUSCULAR VOLUME 88 fL (80-99); MEAN PLATELET VOLUME 11.8 fL (9.0-12.2); MONOCYTES # (AUTO) 0.9 10^3/uL (0.0-1.0); MONOCYTES % (AUTO) 8 % (0-12); NEUTROPHILS # (AUTO) 7.3 10^3/uL (1.8-7.8); NEUTROPHILS % (AUTO) 65 % (42-75); PLATELET COUNT 337 10^3/uL (130-400); WHITE BLOOD COUNT 11.3 10^3/uL (4.3-11.0)
[2021-11-19] MEDS: ONDANSETRON 4 MG/2 ML (SDV) Z0FRAN IVP ONE ×2 (15:00→15:06)
[2021-11-19] MEDS ORDERED: ACETAMINOPHEN 500 MG TAB (TYLENOL) PO ONE (15:00)
[2021-11-19] MEDS ORDERED: HYOSCYAMINE 0.125 MG (LEVSIN) TAB SL ONE (15:00)
[2021-11-19 15:06] LABS: INR 0.9 (0.8-1.4); PROTHROMBIN TIME PATIENT 12.7 SEC (12.2-14.7)
[2021-11-19 15:14] LABS: BUN/CREATININE RATIO 15; CARBON DIOXIDE 20 MMOL/L (21-32); CHLORIDE 107 MMOL/L (98-107); CREATININE SERUM 1.48 MG/DL (0.60-1.30); GFR ESTIMATED 38; POTASSIUM 4.1 MMOL/L (3.6-5.0); SODIUM 140 MMOL/L (135-145)
[2021-11-19 15:15] LABS: ALANINE AMINOTRANSFERASE 15 U/L (0-55); ALBUMIN 4.1 GM/DL (3.2-4.5); ALKALINE PHOSPHATASE 103 U/L (40-136); BILIRUBIN,TOTAL 0.3 MG/DL (0.1-1.0); CALCIUM 9.9 MG/DL (8.5-10.1); GLUCOSE 125 MG/DL (70-105); LIPASE 24 U/L (8-78); TOTAL PROTEIN 6.9 GM/DL (6.4-8.2)
--- NOTE | 2021-11-19 15:51 | Diagnostic Imaging Report ---
PROCEDURE: CT abdomen and pelvis without contrast. TECHNIQUE: Multiple contiguous axial images were obtained through the abdomen and pelvis without the use of intravenous contrast. Auto Exposure Controls were utilized during the CT exam to meet ALARA standards for radiation dose reduction. INDICATION: Right-sided abdominal pain. COMPARISON: 08/06/2021. FINDINGS: The heart is unremarkable. The lung bases are clear. 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 The liver, adrenal glands, and kidneys have a normal appearance. Cholelithiasis is seen without CT evidence of acute cholecystitis. There is no pathologically enlarged mesenteric or retroperitoneal adenopathy. The bowel loops are nondilated. The appendix is visualized in the right lower quadrant and has a normal appearance. Scattered diverticula are seen in the descending colon. No evidence of acute diverticulitis. There is no free fluid or free air. No acute osseous abnormalities. There is left convexity curvature of the thoracolumbar spine. There is calcified aortic and iliac atherosclerotic plaque without aneurysm. The urinary bladder is decompressed. There is no free air, loculated collection, or adenopathy in the pelvis. IMPRESSION: 1. Normal appendix. No bowel obstruction. No free fluid or free air. 2. Scattered diverticula without evidence of acute diverticulitis. 3. Cholelithiasis without CT evidence of acute cholecystitis. Dictated by: Dictated on workstation # [id number]
[2021-11-19 16:27] VITALS: BP 130/86
== END 2021-11-19 16:20 | disposition home or self-care (01) ==
LOC: EDUNIT# 14:23 → ER FS 14:25
DX: K80.20 Calculus of gallbladder without cholecystitis without obstruction (principal); E11.9 Type 2 diabetes mellitus without complications; Z79.4 Long term (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; Z86.018 Personal history of other benign neoplasm
CPT/HCPCS: 36415; 74176; 80053; 83605; 83690; 85025; 85610; 86141

== ENCOUNTER → 2022-01-14 | Outpatient (CLI) | payer MEDICARE ==
[2022-01-14 12:48] LABS: BASOPHILS # (AUTO) 0.1 10^3/uL (0.0-0.1); BASOPHILS % (AUTO) 1 % (0-10); EOSINOPHILS # (AUTO) 0.1 10^3/uL (0.0-0.3); EOSINOPHILS % (AUTO) 1 % (0-10); HEMATOCRIT 37 % (35-52); HEMOGLOBIN 12.3 g/dL (11.5-16.0); LYMPHOCYTES # (AUTO) 2.3 10^3/uL (1.0-4.0); LYMPHOCYTES % (AUTO) 20 % (12-44); MEAN CORPUSCULAR HEMOGLOBIN 30 pg (25-34); MEAN CORPUSCULAR HGB CONC 34 g/dL (32-36); MEAN CORPUSCULAR VOLUME 89 fL (80-99); MEAN PLATELET VOLUME 11.9 fL (9.0-12.2); MONOCYTES % (AUTO) 9 % (0-12); NEUTROPHILS # (AUTO) 7.9 10^3/uL (1.8-7.8); NEUTROPHILS % (AUTO) 68 % (42-75); PLATELET COUNT 340 10^3/uL (130-400); WHITE BLOOD COUNT 11.5 10^3/uL (4.3-11.0)
[2022-01-14 13:44] LABS: CREATININE SERUM 1.47 MG/DL (0.60-1.30)
[2022-01-14 13:45] LABS: BILIRUBIN,TOTAL 0.4 MG/DL (0.1-1.0); TOTAL PROTEIN 6.8 GM/DL (6.4-8.2)
== END ==
LOC: LAB FS 12:16
PROVIDERS: ATTEND Family Medicine
DX: E11.69 Type 2 diabetes mellitus with other specified complication (principal); R50.9 Fever, unspecified
CPT/HCPCS: 36415; 80053; 83036; 85025; 86663; 86664; 86665; 87040

== ENCOUNTER → 2022-04-24 | Outpatient (CLI) | payer MEDICARE ==
[~2022-04-24] MED LIST changes: -NYST15CR TP; +NYST15CR35 TP
--- NOTE | 2022-04-24 17:24 | Diagnostic Imaging Report ---
INDICATION: Left shoulder impingement COMPARISON: None. FINDINGS: Multiple radiographic views of the left shoulder were obtained. There is no fracture, dislocation, or other acute bony abnormality identified. The soft tissues appear unremarkable. No radiopaque foreign body is identified. The visualized portions of the left lung are clear. IMPRESSION: No acute fractures or dislocations of the left shoulder. Dictated by: Dictated on workstation # [id number]
== END ==
LOC: RAD FS 10:52
PROVIDERS: ATTEND Nurse Practitioner
DX: M75.42 Impingement syndrome of left shoulder (principal)
CPT/HCPCS: 73030

== ENCOUNTER 2022-06-03 11:38 | Emergency (ER) | payer MEDICARE ==
[2022-06-03] MEDS ORDERED: LIDO113G3 TP (12:07)
[2022-06-03] MEDS ORDERED: FAMO-119 PO (12:07)
--- NOTE | 2022-06-03 12:07 | ED Abdominal Pain ---
General Chief Complaint: Abdominal/GI Problems Stated Complaint: ABD PAIN; NAUSEA; FEVER Nursing Triage Note: PT REPORT EPIGASTRIC AND ABDOMINAL PAIN OFF AN ON FOR 3 DAYS. REPORTS WORSE AFTER EATING. NAUSEA AND DIARRHEA. Source of Information: Patient Exam Limitations: No Limitations (SHUBHAM GAMEZ MD) History of Present Illness Date Seen by Provider: Jun 03, 2022 (SHUBHAM GAMEZ MD) Time Seen by Provider: 12:00 Initial Comments This is a 71yo F who presents for diffuse abdominal pain for the past 3 days. Pmhx includes DM, HLD, HTN, Adrenal Insufficiency, Hypothyroidism, CKD Stage 3, Fibromyalgia, Brain tumors x3, GERD, Constipation, Osteoporosis. Patient endorses diffuse, constant, worsening abdominal pain x3 days which alternates between dull and occasional sharp pains. Pt has occasional sharp pain in the epigastric and RUQ areas. Pain is worse after eating supper, and she has a burning pain when she does not eat. Last bowel movement was 1-2 days ago. Reports she has never experienced a pain like this before. Endorses nausea, fever (99-100F), chills, diaphoresis, bloated sensation, and abdominal pain exacerbated by deep breaths. Denies vomiting and diarrhea. Surgical hx includes pancreas removal, splenectomy, tubal ligation, hysterectomy, herniorrhaphy, and has been told in the past she has abdominal adhesions. Patient has been taking 6 of her hydrocodne pills per day for the abdominal pain. There are no other factors that alleviate her symptoms. Timing/Duration: 2-3 Days Severity/Quality: Severe Location: Generalized Abdomen (some sharp pain in RUQ and epigastric area) Radiation: RUQ, Back, Epigastric Activities at Onset: None Modifying Factors: Worsens With Breathing, Worsens With Movement Associated Symptoms: Diaphoresis, Fever/Chills, Other (endorses nausea. denies vomiting) (NIGHAT RUSSELL) Allergies and Home Medications Allergies Coded Allergies: Sulfa (Sulfonamide Antibiotics) (Verified Allergy, Unknown, 04/08/19) aripiprazole (Verified Allergy, Unknown, 05/22/21) clarithromycin (Verified Allergy, Unknown, 05/22/21) iodine (Verified Allergy, Unknown, 04/08/19) metronidazole (Verified Allergy, Unknown, 04/08/19) mirtazapine (Verified Allergy, Unknown, 05/22/21) Patient Home Medication List Home Medication List Reviewed: Yes (SHUBHAM GAMEZ MD) Alprazolam (Alprazolam) 0.5 Mg Tablet, 0.5 MG PO HS PRN for SLEEP, (Reported) Entered as Reported by: NIKO KIM on 05/22/21 1016 Amlodipine Besylate (Amlodipine Besylate) 10 Mg Tablet, 5 MG PO 1200, (Reported) Entered as Reported by: NIKO KIM on 05/22/21 1016 Carvedilol (Coreg) 12.5 Mg Tablet, 6.25 MG PO BID WITH MEALS, (Reported) Entered as Reported by: NIKO KIM on 05/22/21 1016 Ciprofloxacin HCl (Ciprofloxacin HCl) 500 Mg Tablet, 500 MG PO BID Prescribed by: SHUBHAM MONIQUE on 06/03/22 1419 Docusate Sodium (Colace) 100 Mg Capsule, 100 MG PO DAILY, (Reported) Entered as Reported by: NIKO KIM on 05/22/21 1016 Duloxetine HCl (Duloxetine HCl) 30 Mg Capsule.dr, 60 MG PO DAILY, (Reported) Entered as Reported by: NIKO KIM on 05/22/21 1016 Ertapenem (Invanz) 1,000 Mg Vial, 1,000 MG IJ DAILY Prescribed by: UMM WILEY on 05/30/21 0545 Fluconazole (Fluconazole) 200 Mg Tablet, 400 MG PO DAILY Prescribed by: UMM WILEY on 05/30/21 0545 Hydrocodone/Acetaminophen (Hydrocodone-Acetamin 5-325 mg) 1 Each Tablet, 1 EA PO Q8H PRN for PAIN-MODERATE (5-7), (Reported) Entered as Reported by: NIKO KIM on 05/22/21 1016 Hydrocodone/Acetaminophen (Hydrocodone-Acetamin 5-325 mg) 5 Mg-325 Mg Tablet, 1- 2 TAB PO Q4H PRN for PAIN-MODERATE (5-7) Prescribed by: SHUBHAM MONIQUE on 06/03/22 1420 Hydrocortisone (Hydrocortisone) 5 Mg Tablet, 15 MG PO DAILY, (Reported) Entered as Reported by: NIKO KIM on 05/22/21 1016 Hydrocortisone (Hydrocortisone) 5 Mg Tablet, 10 MG PO HS, (Reported) Entered as Reported by: NIKO KIM on 05/22/21 1016 Insulin Glargine,Hum.rec.anlog (Lantus Solostar) 100 Unit/1 Ml Insuln.pen, 15 UNIT SQ DAILY, (Reported) Entered as Reported by: NIKO KIM on 05/22/21 1047 Insulin Lispro (Insulin Lispro Kwikpen U-100) 100 Unit/1 Ml Insuln.pen, UNITS SC AC, (Reported) Entered as Reported by: NIKO KIM on 05/22/21 1016 Levothyroxine Sodium (Levothyroxine Sodium) 100 Mcg Tablet, 100 MCG PO DAILY, (Reported) Entered as Reported by: NIKO KIM on 05/22/21 1016 Linaclotide (Linzess) 290 Mcg Capsule, 290 MCG PO Q48H, (Reported) Entered as Reported by: NIKO KIM on 05/22/21 1016 Losartan Potassium (Losartan Potassium) 100 Mg Tablet, 50 MG PO BID, (Reported) Entered as Reported by: NIKO KIM on 05/22/21 1016 Melatonin (Melatonin) 10 Mg Tablet, 10 MG PO HS, (Reported) Entered as Reported by: NIKO KIM on 05/22/21 1016 Nystatin (Nystatin) 15 Gm Cream..g., 1 APPLIC TP BID, (Reported) Entered as Reported by: NIKO KIM on 05/22/21 1016 Ondansetron (Ondansetron Odt) 4 Mg Tab.rapdis, 4 MG PO Q8H PRN for NAUSEA/VOMITING-1ST LINE, (Reported) Entered as Reported by: NIKO KIM on 05/22/21 1016 Oxybutynin Chloride (Oxybutynin Chloride ER) 15 Mg Tab.er.24, 15 MG PO DAILY, (Reported) Entered as Reported by: NIKO KIM on 05/22/21 1016 Pantoprazole Sodium (Pantoprazole Sodium) 40 Mg Tablet.dr, 40 MG PO DAILY, (Reported) Entered as Reported by: NIKO KIM on 05/22/21 1016 Polyethylene Glycol 3350 (Miralax) 17 Gm Powd.pack, 17 GM PO DAILY, (Reported) Entered as Reported by: NIKO KIM on 05/22/21 1016 Repaglinide (Repaglinide) 2 Mg Tablet, 2-4 MG PO TIDWM, (Reported) Entered as Reported by: NIKO KIM on 05/22/21 1016 Rosuvastatin Calcium (Rosuvastatin Calcium) 20 Mg Tablet, 10 MG PO HS, (Reported) Entered as Reported by: NIKO KIM on 05/22/21 1016 Spironolactone (Spironolactone) 25 Mg Tablet, 25 MG PO DAILY, (Reported) Entered as Reported by: NIKO KIM on 05/22/21 1016 Tramadol HCl (Tramadol HCl) 50 Mg Tablet, 50 MG PO Q6H PRN for PAIN-MODERATE (5- 7), (Reported) Entered as Reported by: NIKO KIM on 05/22/21 1016 Review of Systems Review of Systems Constitutional: chills, diaphoresis; No fever Respiratory: No Symptoms Reported Cardiovascular: No Symptoms Reported Gastrointestinal: Abdomen Distended, Abdominal Pain Genitourinary: No Symptoms Reported Musculoskeletal: no symptoms reported Skin: no symptoms reported (NIGHAT RUSSELL) Past [place]-Jkmias-Fqmrox Hx Patient Social History Tobacco Use?: No Use of E-Cig and/or Vaping dev: No Substance use?: No Alcohol Use?: No Pt feels they are or have been: No (SHBUHAM GAMEZ MD) Tobacco Use?: No Use of E-Cig and/or Vaping dev: No Substance use?: No Alcohol Use?: No (NIGHAT RUSSELL) Immunizations Up To Date Tetanus Booster (TDap): Unknown First/Initial COVID19 Vaccinat: COVID19 Vaccination [place]: july COVID19 Vaccination Date: february (SHUBHAM GAMEZ MD) Seasonal Allergies Seasonal Allergies: Yes (SHUBHAM GAMEZ MD) Past Medical History Surgery/Hospitalization HX: PANCREATIC SURGERY AFTER A TUMOR SPLENECTOMY TONSILS Surgeries: Yes Abdominal, Eye Surgery, Neurological, Pancreatic Respiratory: No Cardiac: Yes High Cholesterol, Hypertension Neurological: Yes (hx of brain tumor) Headaches /Migraines, Neuropathy Genitourinary: No Gastrointestinal: Yes Colitis, Gastroesophageal Reflux, Gastrointestinal Bleed Musculoskeletal: Yes Chronic Back Pain Endocrine: Yes Adrenal Disease, Diabetes, Insulin dep HEENT: Yes Cataract Loss of Vision: Bilateral Hearing Impairment: Denies Cancer: Yes Brain, Lung Psychosocial: No Depression Integumentary: No Blood Disorders: No (SHUBHAM GAMEZ MD) Family Medical History Cancer, Hypertension (SHUBHAM GAMEZ MD) Physical Exam Vital Signs Vital Signs - First Documented 06/03/22 11:58 Temp 36.0 Pulse 87 Resp 16 B/P (MAP) 135/58 (83) Pulse Ox 96 O2 Delivery Room Air (NIGHAT RUSSELL) Vital Signs Capillary Refill : Less Than 3 Seconds (SHUBHAM GAMEZ MD) Height/Weight/BMI Height: '" Weight: lbs. oz. kg; 38.00 BMI Method: (SHUBHAM GAMEZ MD) General Appearance: WD/WN, moderate distress Respiratory: chest non-tender, lungs clear, normal breath sounds, no respiratory distress, no accessory muscle use Cardiovascular: regular rate, rhythm, no edema, no murmur Gastrointestinal: soft, no organomegaly, no pulsatile mass; No distended; guarding, tenderness (severe tenderness to touch), other (diminished bowel sounds) Neurologic/Psychiatric: no motor/sensory deficits, alert, normal mood/affect, oriented x 3 Skin: normal color, warm/dry (NIGHAT RUSSELL) Progress/Results/Core Measures Results/Orders Lab Results Laboratory Tests Test 06/03/22 11:54 Range/Units White Blood Count 17.1 H 4.3-11.0 10^3/uL Red Blood Count 4.30 3.80-5.11 10^6/uL Hemoglobin 12.9 11.5-16.0 g/dL Hematocrit 38 35-52 % Mean Corpuscular Volume 88 80-99 fL Mean Corpuscular Hemoglobin 30 25-34 pg Mean Corpuscular Hemoglobin Concent 34 32-36 g/dL Red Cell Distribution Width 14.0 10.0-14.5 % Platelet Count 311 130-400 10^3/uL Mean Platelet Volume 12.4 H 9.0-12.2 fL Immature Granulocyte % (Auto) 1 % Neutrophils (%) (Auto) 67 42-75 % Lymphocytes (%) (Auto) 18 12-44 % Monocytes (%) (Auto) 12 0-12 % Eosinophils (%) (Auto) 1 0-10 % Basophils (%) (Auto) 0 0-10 % Neutrophils # (Auto) 11.5 H 1.8-7.8 10^3/uL Lymphocytes # (Auto) 3.1 1.0-4.0 10^3/uL Monocytes # (Auto) 2.1 H 0.0-1.0 10^3/uL Eosinophils # (Auto) 0.2 0.0-0.3 10^3/uL Basophils # (Auto) 0.1 0.0-0.1 10^3/uL Immature Granulocyte # (Auto) 0.2 H 0.0-0.1 10^3/uL Urine Color DARK YELLOW Urine Clarity SL CLOUDY Urine pH 6.0 5-9 Urine Specific Gully 1.025 H 1.016-1.022 Urine Protein NEGATIVE NEGATIVE Urine Glucose (UA) NEGATIVE NEGATIVE Urine Ketones TRACE H NEGATIVE Urine Nitrite NEGATIVE NEGATIVE Urine Bilirubin 1+ H NEGATIVE Urine Urobilinogen 0.2 < = 1.0 MG/DL Urine Leukocyte Esterase NEGATIVE NEGATIVE Urine RBC (Auto) NEGATIVE NEGATIVE Urine RBC NONE /HPF Urine WBC 2-5 /HPF Urine Squamous Epithelial Cells 10-25 H /HPF Urine Crystals PRESENT H /LPF Urine Calcium Oxalate Crystals MODERATE H /LPF Urine Bacteria TRACE /HPF Urine Casts PRESENT /LPF Urine Hyaline Casts 2-5 H /LPF Urine Mucus MODERATE H /LPF Urine Culture Indicated NO Sodium Level 138 135-145 MMOL/L Potassium Level 3.8 3.6-5.0 MMOL/L Chloride Level 102 98-107 MMOL/L Carbon Dioxide Level 23 21-32 MMOL/L Anion Gap 13 5-14 MMOL/L Blood Urea Nitrogen 23 H 7-18 MG/DL Creatinine 1.25 0.60-1.30 MG/DL Estimat Glomerular Filtration Rate 46 BUN/Creatinine Ratio 18 Glucose Level 84 70-105 MG/DL Calcium Level 9.9 8.5-10.1 MG/DL Corrected Calcium 10.0 8.5-10.1 MG/DL Total Bilirubin 0.7 0.1-1.0 MG/DL Aspartate Amino Transf (AST/SGOT) 17 5-34 U/L Alanine Aminotransferase (ALT/SGPT) 17 0-55 U/L Alkaline Phosphatase 106 40-136 U/L C-Reactive Protein 5.88 H <0.50 MG/DL Total Protein 6.9 6.4-8.2 GM/DL Albumin 3.9 3.2-4.5 GM/DL Lipase 144 H 8-78 U/L (NIGHAT RUSSELL) Vital Signs/I&O 06/03/22 11:58 Temp 36.0 Pulse 87 Resp 16 B/P (MAP) 135/58 (83) Pulse Ox 96 O2 Delivery Room Air (NIGHAT RUSSELL) Blood Pressure Mean: 83 Progress Progress Note : Progress Note Patient was interviewed and examined by me personally along with MS 4. Symptoms were treated with fentanyl and Zofran for pain and nausea control. Labs were obtained including CBC, CMP, lipase, and UA. She was noted to have a significant leukocytosis of 17,000. Lipase was also mildly elevated. Her symptoms along with these lab values prompted CT imaging of the abdomen and pelvis. Noncontrast study was used as she has an iodine allergy. CT revealed enteritis but no other significant acute abnormalities. Patient experienced a hypoglycemic episode with blood sugar of 69. She was treated with an amp of D50. I offered admission to this patient for treatment of symptoms and antibiotic therapy for possible bacterial enteritis. Patient declined admission. She wanted to try a clear liquid diet and antibiotic therapy at home. Prescriptions were provided. See discharge instructions for further discussion. (SHUBHAM GAMEZ MD) Diagnostic Imaging Diagonstic Imaging: CT Plain Films/CT/US/NM/MRI: abdomen, pelvis Comments CT abdomen pelvis report reviewed. See report below: NAME: MAE MUNSON [facility] REC#: [id number] PT STATUS: [facility] ER : 1950 PHYSICIAN: SHUBHAM GAMEZ MD ADMIT DATE: 06/03/22/ER FS Signed Date of Exam:06/03/22 CT ABDOMEN/PELVIS WO EXAMINATION: CT abdomen and pelvis without contrast. TECHNIQUE: Multiple contiguous axial images were obtained through the abdomen and pelvis without the use of intravenous contrast. All CT scans use one or more of the following dose optimizing techniques: automated exposure control, MA and/or KvP adjustment based on patient size and exam type or iterative reconstruction. HISTORY: Abdominal pain COMPARISON: 11/19/2021 FINDINGS: Limited views of the lower thorax are unremarkable. There is dysmorphic suggestive of cirrhosis. No focal liver lesion is seen. There is no biliary ductal dilation. There are stones in the gallbladder. No wall thickening or pericholecystic fluid. Pancreas is atrophic versus partially surgically absent. Spleen is absent. Adrenal glands are normal. The kidneys are normal. There is no hydronephrosis. Urinary bladder is normal. There is wall thickening and inflammation of the proximal jejunum. No drainable fluid collection. No free fluid or air. No abdominal or pelvic lymphadenopathy. Aorta is normal in caliber without aneurysm. There are no suspicious osseus lesions. IMPRESSION: 1. Wall thickening and active inflammation of the proximal jejunum without abscess or perforation. Findings are that of a localized enteritis. Dictated by: Dictated on workstation # [id number] Dict: 06/03/22 1311 Trans: 06/03/22 1720 [facility] [id number] Interpreted by: MINI RENNER MD Electronically signed by: MINI RENNER MD 06/03/22 1720 (SHUBHAM GAMEZ MD) Departure Impression Primary Impression: Acute pancreatitis Qualified Codes: K85.90 - Acute pancreatitis without necrosis or infection, unspecified Additional Impressions: Enteritis Generalized abdominal pain Hypoglycemia Disposition: HOME, SELF-CARE Condition: Improved Departure-Patient Inst. Decision time for Depature: 12:02 (SHUBHAM GAMEZ MD) Referrals: JAMEY CARLISLE MD (PCP) Primary Care Physician Patient Instructions: Abdominal Pain, Adult ED, Acute Pancreatitis Add. Discharge Instructions: Your work-up revealed an elevation in lipase (pancreatic enzyme) which would suggest pancreatitis (inflammation of the pancreas). The primary treatment for this is bowel rest. Observe a clear liquid diet for the next 24 hours. Avoid clear liquids that have oils or fats in them. If your pain is improved by t omorrow afternoon, gradually advance your diet with small quantities of bland food as tolerated. You reduce your insulin doses to 50% of your normal while you are not eating. Monitor your blood sugars closely, preferably every 4-6 hours, or more often if you are having significant highs or lows. As you are consumption of food increases, you may titrate your insulin doses upward. There was inflammation of the small intestine noted on the CT scan. Take Cipro as prescribed for treatment of possible infection. Follow-up with your primary care provider soon as possible. You may continue taking hydrocodone more frequently while you have this acute illness. The maximum dosage should be no more than 2 tablets every 4 hours. You may discuss blood sugar management and your pancreatitis with your lumber straightened. If you have persistent pancreatitis, adjustments to your medications and or digestive supplements may be appropriate. The following medications have a small chance of inducing pancreatitis. If your pancreatitis does not resolve with bowel rest, discussed these medications with your primary care provider and/or lumber straightened. Norvasc (amlodipine) Cymbalta (duloxetine) Hydrocodone Hydrocortisone Protonix (pantoprazole) Crestor (Rosuvastatin) Prolia (denosumab) Return to the emergency room if you have worsening symptoms despite following these instructions. All discharge instructions reviewed with patient and/or family. Voiced understanding. Scripts Ciprofloxacin HCl (Ciprofloxacin HCl) 500 Mg Tablet 500 MG PO BID, #14 TAB Prov: SHUBHAM GAMEZ MD 06/03/22 Hydrocodone/Acetaminophen (Hydrocodone-Acetamin 5-325 mg) 5 Mg-325 Mg Tablet 1-2 TAB PO Q4H PRN for PAIN-MODERATE (5-7), #10 TAB Prov: SHUBHAM GAMEZ MD 06/03/22 Copy Copies To 1: JAMEY CARLISLE MD, JOSHUA T MD Jun 03, 2022 12:07 NIGHAT RUSSELL Jun 03, 2022 12:54
[2022-06-03 12:26] LABS: BASOPHILS # (AUTO) 0.1 10^3/uL (0.0-0.1); BASOPHILS % (AUTO) 0 % (0-10); CLARITY,URINE SL CLOUDY; EOSINOPHILS # (AUTO) 0.2 10^3/uL (0.0-0.3); EOSINOPHILS % (AUTO) 1 % (0-10); GLUCOSE, URINE (UA) NEGATIVE (NEGATIVE); HEMATOCRIT 38 % (35-52); HEMOGLOBIN 12.9 g/dL (11.5-16.0); KETONES,URINE TRACE (NEGATIVE); LEUKOCYTE ESTERASE ,URINE NEGATIVE (NEGATIVE); LYMPHOCYTES # (AUTO) 3.1 10^3/uL (1.0-4.0); LYMPHOCYTES % (AUTO) 18 % (12-44); MEAN CORPUSCULAR HEMOGLOBIN 30 pg (25-34); MEAN CORPUSCULAR HGB CONC 34 g/dL (32-36); MEAN CORPUSCULAR VOLUME 88 fL (80-99); MEAN PLATELET VOLUME 12.4 fL (9.0-12.2); MONOCYTES # (AUTO) 2.1 10^3/uL (0.0-1.0); MONOCYTES % (AUTO) 12 % (0-12); NEUTROPHILS # (AUTO) 11.5 10^3/uL (1.8-7.8); NEUTROPHILS % (AUTO) 67 % (42-75); NITRITE,URINE NEGATIVE (NEGATIVE); PLATELET COUNT 311 10^3/uL (130-400); PROTEIN,URINE NEGATIVE (NEGATIVE); WHITE BLOOD COUNT 17.1 10^3/uL (4.3-11.0)
[2022-06-03 12:29] LABS: COLOR,URINE DARK YELLOW
[2022-06-03 12:36] LABS: BACTERIA,URINE TRACE /HPF; BILIRUBIN,URINE 1+ (NEGATIVE)
[2022-06-03 12:37] LABS: CALCIUM OXALATE CRYSTALS,UR MODERATE /LPF
[2022-06-03 12:40] LABS: BILIRUBIN,TOTAL 0.7 MG/DL (0.1-1.0); CALCIUM 9.9 MG/DL (8.5-10.1); CREATININE SERUM 1.25 MG/DL (0.60-1.30); POTASSIUM 3.8 MMOL/L (3.6-5.0)
[2022-06-03 12:41] LABS: ALBUMIN 3.9 GM/DL (3.2-4.5); TOTAL PROTEIN 6.9 GM/DL (6.4-8.2)
[2022-06-03] MEDS ORDERED: ONDANSETRON 4 MG/2 ML (SDV) Z0FRAN IVP ONE (12:45)
[2022-06-03] MEDS ORDERED: fentaNYL INJ 100 MCG/2 ML AMP IVP ONE (12:45)
[2022-06-03 12:54] LABS: BAND NEUTROPHILS 8 %; BASOPHILS % (MANUAL) 1 %; EOSINOPHILS % (MANUAL) 1 %; LYMPHOCYTES % (MANUAL) 14 %; MONOCYTES % (MANUAL) 18 %; NEUTROPHILS % (MANUAL) 58 %; PLATELET ESTIMATE NORMAL; POIKILOCYTOSIS 1+
[2022-06-03 12:55] LABS: ACANTHOCYTES SLIGHT
[2022-06-03] MEDS ORDERED: DEXTROSE 50% 50 ML (IMS) SYR IV ONE (13:15)
[2022-06-03 13:18] LABS: PROTHROMBIN TIME PATIENT 13.2 SEC (12.2-14.7)
--- NOTE | 2022-06-03 13:20 | Diagnostic Imaging Report ---
EXAMINATION: CT abdomen and pelvis without contrast. TECHNIQUE: Multiple contiguous axial images were obtained through the abdomen and pelvis without the use of intravenous contrast. All CT scans use one or more of the following dose optimizing techniques: automated exposure control, MA and/or KvP adjustment based on patient size and exam type or iterative reconstruction. HISTORY: Abdominal pain COMPARISON: 11/19/2021 FINDINGS: Limited views of the lower thorax are unremarkable. There is dysmorphic suggestive of cirrhosis. No focal liver lesion is seen. There is no biliary ductal dilation. There are stones in the gallbladder. No wall thickening or pericholecystic fluid. Pancreas is atrophic versus partially surgically absent. Spleen is absent. Adrenal glands are normal. The kidneys are normal. There is no hydronephrosis. Urinary bladder is normal. There is wall thickening and inflammation of the proximal jejunum. No drainable fluid collection. No free fluid or air. No abdominal or pelvic lymphadenopathy. Aorta is normal in caliber without aneurysm. There are no suspicious osseus lesions. IMPRESSION: 1. Wall thickening and active inflammation of the proximal jejunum without abscess or perforation. Findings are that of a localized enteritis. Dictated by: Dictated on workstation # [id number]
[2022-06-03] MEDS ORDERED: HYDROCORTISONE 100 MG/2 ML (Solu-CORTEF) VIAL IV ONE (14:15)
[2022-06-03 14:18] VITALS: BP 158/56
[2022-06-03] MEDS ORDERED: CIPR500T5 PO (14:19)
[2022-06-03] MEDS ORDERED: ACHD5005 PO (14:19)
== END 2022-06-03 14:27 | disposition home or self-care (01) ==
LOC: EDUNIT# 11:38 → ER FS 11:40
DX: K85.90 Acute pancreatitis without necrosis or infection, unspecified (principal); K52.9 Noninfective gastroenteritis and colitis, unspecified; E11.649 Type 2 diabetes mellitus with hypoglycemia without coma; E11.22 Type 2 diabetes mellitus with diabetic chronic kidney disease; N18.30 Chronic kidney disease, stage 3 unspecified; Z79.4 Long term (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
CPT/HCPCS: 36415; 74176; 80053; 81000; 82947; 83605; 83690; 85007; 85027; 85610; 85730; 86141; 87040

== ENCOUNTER → 2022-07-10 | Outpatient (CLI) | payer MEDICARE ==
[~2022-07-10] MED LIST changes: +FAMO-119 PO; +LIDO113G3 TP
--- NOTE | 2022-07-10 18:05 | Diagnostic Imaging Report ---
PROCEDURE: CT chest without contrast. TECHNIQUE: Multiple contiguous axial images were obtained through the chest without the use of intravenous contrast. Auto Exposure Controls were utilized during the CT exam to meet ALARA standards for radiation dose reduction. INDICATION: 71-year-old female, lung nodule. CORRELATION: None. FINDINGS: Examination compromised by motion artifact. FINDINGS: Evaluation of mediastinum limited given lack of contrast. No definitive pathologically enlarged mediastinal and/or axillary lymphadenopathy. Heart size upper limits of normal with prominent coronary artery calcification. Mild calcification of the thoracic aorta, otherwise normal in contour. Small esophageal hernia. There is a somewhat linear area of consolidated density extending from the right hilum to the pleural surface of the right upper lobe. Some areas have a slightly stellate or spiculated appearance. Additionally, there is wall thickening of bronchus feeding into this area. This area measures upwards of 3.0 x 1.9 cm. There is a somewhat irregular, non-masslike opacity of the superior segment of the right lower lobe measuring approximately 1.5 cm. Groundglass opacity in the lateral aspect of the left upper lobe 1.8 cm. No significant pleural effusion. Visualized portion of the upper abdomen demonstrates small gallstones. Previously noted inflammatory process of proximal jejunum appears diminished. Accentuated thoracic kyphosis with advanced degenerative changes of the thoracic spine. IMPRESSION: Three areas of asymmetric parenchymal opacity. These could potentially reflect underlying inflammatory or infectious process. However, any one of these could potentially be, and are somewhat worrisome for, underlying malignancy. Perhaps consideration for short course of antibiotic treatment with follow-up imaging. If abnormalities persist, PET/CT imaging may be of additional diagnostic utility as well. Dictated by: Dictated on workstation # [id number]
== END ==
LOC: RAD FS 12:12
PROVIDERS: ATTEND Family Medicine
DX: R91.1 Solitary pulmonary nodule (principal)
CPT/HCPCS: 71250

== ENCOUNTER → 2022-07-16 | Outpatient (CLI) | payer MEDICARE ==
--- NOTE | 2022-07-16 14:23 | Diagnostic Imaging Report ---
INDICATION: OSTEOARTHRITIS BILAT KNEES COMPARISON: None. FINDINGS: 3 views of the right knee joint demonstrate no acute fracture or dislocation. No focal osseous lesions are seen. Moderate osteoarthritic changes are noted. No significant joint effusion is seen. The surrounding soft tissue structures are unremarkable. There are no radiopaque foreign bodies. IMPRESSION: 1. Moderate osteoarthritic changes to the right knee, but no evidence acute fracture or dislocation. Dictated by: Dictated on workstation # [id number]
--- NOTE | 2022-07-16 14:23 | Diagnostic Imaging Report ---
INDICATION: OSTEOARTHRITIS BILAT KNEES COMPARISON: None. FINDINGS: 3 views of the left knee joint demonstrate no acute fracture or dislocation. No focal osseous lesions are seen. Moderate to advanced osteoarthritic changes are noted. No significant joint effusion is seen. The surrounding soft tissue structures are unremarkable. There are no radiopaque foreign bodies. IMPRESSION: 1. No acute fractures or dislocations of the left knee joint. 2. Moderate to advanced osteoarthritic changes. Dictated by: Dictated on workstation # [id number]
== END ==
LOC: RAD FS 13:25
PROVIDERS: ATTEND Nurse Practitioner
DX: M17.0 Bilateral primary osteoarthritis of knee (principal)
CPT/HCPCS: 73562

== ENCOUNTER → 2022-07-24 | Outpatient (CLI) | payer MEDICARE ==
--- NOTE | 2022-07-24 16:41 | Diagnostic Imaging Report ---
INDICATION: Lung nodule. TECHNIQUE: Multiple contiguous axial images were obtained through the chest without the use of intravenous contrast. Auto Exposure Controls were utilized during the CT exam to meet ALARA standards for radiation dose reduction. CT chest is performed and compared to 07/10/22. There are no enlarged mediastinal or hilar nodes. There are no enlarged axillary nodes or chest wall lesions. There is no pleural or pericardial fluid. Visualized portions of the upper abdomen are unremarkable except for some incidental gallstones. The linear consolidative density in the right hilum extending to the right pleural surface in the upper lobe has not shown appreciable change compared to the previous study. However, the interval since the prior study is only about 2 weeks. The right lower lobe opacity which is fairly ill-defined also appears similar to the prior study. The groundglass opacity in the left upper lobe is again noted and appears stable and unchanged. There is no new pulmonary parenchymal abnormality. IMPRESSION: There are 3 separate parenchymal abnormalities in the lung johnson, as mentioned above, including a linear consolidated irregular density in the right upper lobe extending to the pleural service, an ill-defined opacity in the right lower lobe, and groundglass nodule in the left lung. In the two-week interval, compared to the prior study, there does not appear to have been any significant change. Would recommend follow-up in about 3 months, if there is no change in that time, then further evaluation with PET imaging and/or further evaluation would be recommended. Dictated by: Dictated on workstation # [id number]
== END ==
LOC: RAD FS 13:09
PROVIDERS: ATTEND Family Medicine
DX: J18.1 Lobar pneumonia, unspecified organism (principal); R91.8 Other nonspecific abnormal finding of lung field
CPT/HCPCS: 71250

== ENCOUNTER → 2022-10-02 | Outpatient (CLI) | payer MEDICARE ==
[~2022-10-02] MED LIST changes: -LOSA100T57 PO; +LOSA100T58 PO
== END ==
LOC: RAD 14:35
PROVIDERS: ATTEND Surgery
DX: K80.20 Calculus of gallbladder without cholecystitis without obstruction (principal); K85.90 Acute pancreatitis without necrosis or infection, unspecified